=== PATIENT | male | born 1960 | race African-American/Black ===

== ENCOUNTER 2016-11-12 08:46 | Observation (INO) | payer OTHER ==
[2016-11-12] MEDS ORDERED: DUONEB 0.5 MG/3 MG ONE ×2 (08:54→13:42)
[2016-11-12] MEDS ORDERED: DUONEB 0.5 MG/3 MG NEB ONE (08:55)
[2016-11-12] MEDS ORDERED: SOLU-Medrol 125 MG VIAL IVP ONE (09:02)
--- NOTE | 2016-11-12 09:04 | DR.GENAD ---
HPI - PCP Primary Care Physician: rosalino garnett - HPI Comment HPI Comment: PATIENT IS COUGHING, PRODUCTIVE YELLOW SPUTUM AND HE IS HAVING CHEST TIGHTNESS. HAVE COPD ON NEB TREATMENT. HE TOOK MED AT HOME WHICH DID NOT HELD. HE DENIES FEVER. - Complaint/Symptoms Chief Complaint Doctors Comments: INCREASING SOB, DIZZINESS AND WHEEZING THIS AM WHEN PATIENT WOKE UP. Chief Complaint:: patient stated he woke up this morning and he felt bad, dizzy and wheezing. - Nurses notes reviewed Nurses Notes Review: Yes - Source History Provided: Patient - Mode of Arrival Mode of Arrival: Ambulatory - Timing Onset of Chief Complaint: 11/12/16 Came on: Suddenly - Duration Duration: Constant Duration: Days - Severity Severity: Moderate PMH - PMH Past Medical History: Yes Past Medical History: Anxiety, Asthma, CVA, Dyslipidemia, GERD, Hypertension Past Surgical History: Yes Surgical History: Abdominal Surgery, Appendectomy - Family History History of Family Medical Conditions: No Family Medical History: Diabetes Mellitus, Hypertension - Social History Does patient currently use any type of tobacco product: Yes Have you used tobacco products in the last 12 months: Yes Type of Tobacco Use: Cigarettes How many years tobacco product used: 5 Does any household member use tobacco: No Alcohol Use: None Do you use any recreational Drugs:: No Lives With: Alone Lives Where: Home - infectious screening In the last 2 months have you had wt loss of >10#?: NO Have you had fever, night sweats or hemotysis?: No Have you traveled outside the country in the last 6 months?: No Isolation: Standard ROS - Review of Systems Constitutional: Weakness, Fatigue. negative: Chills, Diaphoresis, Fever, Loss of Appetite Eyes: No Symptoms Reported. negative: Eye Pain, Discharge ENTM: No Symptoms Reported. negative: Ear Pain, Nose Discharge, Nose Congestion , Throat Pain Respiratoy: Productive Cough, Short of Breath, Wheezing. negative: Hemoptysis Cardiovascular: Chest Pain (TIGHTNESS) Gastrointestinal/Abdominal: No Symptoms Reported. negative: Abdominal Pain, Diarrhea, Nausea, Vomiting Genitourinary: negative: Dysuria, Frequency, Hematuria Neurological: Weakness. negative: Headache, Dizziness Musculoskeletal: Muscle Pain Integumentary: No Symptoms Reported Hematologic/Lymphatic: No Symptoms Reported Endocrine: No Symptoms Reported All Other Systems: Reviewed and Negative PE - Vital Signs Vitals: Temperature 98.7 F Pulse Rate 81 Respiratory Rate 18 Blood Pressure [Left Arm] 151/100 Blood Pressure [Right Arm] 147/105 Blood Pressure 171/87 O2 Sat by Pulse Oximetry 99 - General Limitations: No Limitations General Appearance: Alert - Head Head Exam: Normal Inspection - Eyes Eye exam: Normal Appearance - ENT ENT Exam: Normal External Ear Exam External Ear Exam: Normal External Inspection TM/Canal Exam: Bilateral Normal Nose Exam: Normal Nose Exam Mouth Exam: Normal Inspection Throat Exam: Tonsillar Erythema - Neck Neck Exam: Trachea Midline - Chest Chest Inspection: Symmetric Chest Wall Rise - Respiratory Respiratory Exam: Normal Lung Sounds Bilat Respiratory Exam: Bilateral Wheezing, Bilateral Rhonchi, Upper Wheezing, Upper Rhonchi, Lower Wheezing, Lower Rhonchi - Cardiovascular Cardiovascular Exam: Regular Rate, Normal Rhythm, Normal Heart Sounds - Abdominal Exam Abdominal Exam: Normal Bowel Sounds, Soft. negative: Tenderness - Extremities Extremities Exam: Normal Inspection - Back Back Exam: Normal Inspection - Neurologic Neurological Exam: Alert, Oriented X3, CN II-XII Intact, Normal Gait, Reflexes Normal. negative: Motor Sensory Deficit - Psychiatric Psychiatric Exam: Anxious MDM - Differential Diagnosis Differential Diagnosis: COPD EXACERBATION, BRONCHITIS, CHF, PNEUMONIA, PULMONARY EMBOLISM Course - Treatment Treatment: SEE ORDERS. NEB, CONTINOUS, IV ROCEPHIN AND IV SOLUMEDROL, PATIENT STILL IN RESPIRATORY DISTRESS. - Consultation Consultation Comments: DISCUSS PATIENT WITH DR. RAE. HE WILL ADMIT PATIENT. - Education/Counseling Education/Counseling: Patient, Education Educated On: Treatment, Diagnosis ROR - Labs Reviewed Laboratory Results Reviewed?: Yes Result Diagrams: 11/14/16 04:10 11/14/16 04:10 Laboratory: WBC 3.7 X10^3/uL (3.6-10.0) 11/12/16 09:15 RBC 5.55 X10^6/uL (4.7-6.0) 11/12/16 09:15 Hgb 15.4 g/dL (13.5-18.0) 11/12/16 09:15 Hct 46.7 % (42.0-54.0) 11/12/16 09:15 MCV 84.1 fL (80.0-100.0) 11/12/16 09:15 MCH 27.8 pg (27.0-34.0) 11/12/16 09:15 MCHC 33.1 g/dL (33.0-35.0) 11/12/16 09:15 RDW 14.0 % (11.6-16.5) 11/12/16 09:15 Plt Count 256 X10^3/uL (150.0-450.0) 11/12/16 09:15 MPV 9.0 fL (7.4-11.0) 11/12/16 09:15 Neut % 50.1 % (42.0-75.0) 11/12/16 09:15 Lymph % 32.6 % (21.0-51.0) 11/12/16 09:15 [place] % 8.0 % (0.0-13.0) 11/12/16 09:15 Eos % 6.9 % (0.9-2.9) H 11/12/16 09:15 Baso % 2.4 % (0.2-1.0) H 11/12/16 09:15 Neut # 1.8 x10^3/uL (2.2-4.8) L 11/12/16 09:15 Lymph # 1.2 X10^3/uL (1.3-2.9) L 11/12/16 09:15 [place] # 0.3 x10^3/uL (0.3-0.8) 11/12/16 09:15 Eos # 0.3 x10^3/uL (0.0-0.2) H 11/12/16 09:15 Baso # 0.1 X10^3/uL (0.0-0.1) 11/12/16 09:15 Absolute Nucleated RBC 0.1 /100WBC 11/12/16 09:15 D-Dimer 369 ng/mL (0-400) 11/12/16 09:15 Sample Site rrad 11/12/16 11:20 ABG pH 7.390 (7.35-7.45) 11/12/16 11:20 ABG pCO2 48.0 mmHg (35.0-45.0) H 11/12/16 11:20 ABG pO2 72.0 mmHg (80.0-100.0) L 11/12/16 11:20 ABG HCO3 29.1 mmol/L (22-26) H 11/12/16 11:20 ABG O2 Saturation 94.0 % (90-100) 11/12/16 11:20 ABG Base Excess 3.3 mmol/L (-2.0-2.0) H 11/12/16 11:20 Tanner Test pos- tamia well sd 11/12/16 11:20 A-a Gradient 18.0 mmHg 11/12/16 11:20 FiO2 21 11/12/16 11:20 Blood Gas Comments Tamia well 11/12/16 11:20 Sodium 142 mmol/L (136-145) 11/12/16 09:15 Corrected Sodium TNP 11/12/16 09:15 Potassium 4.2 mmol/L (3.5-5.1) 11/12/16 09:15 Chloride 106 mmol/L (98-107) 11/12/16 09:15 Carbon Dioxide 28.6 mmol/L (21-32) 11/12/16 09:15 BUN 11 mg/dL (7-18) 11/12/16 09:15 Creatinine 1.13 mg/dL (0.70-1.30) 11/12/16 09:15 Est GFR (MDRD) Af Amer > 60 (>60) 11/12/16 09:15 Est GFR (MDRD) Non-Af > 60 (>60) 11/12/16 09:15 Glucose 91 mg/dL (65-99) 11/12/16 09:15 Calcium 9.4 mg/dL (8.5-10.1) 11/12/16 09:15 Corrected Calcium TNP 11/12/16 09:15 Total Bilirubin 0.30 mg/dL (0.2-1.0) 11/12/16 09:15 AST 16 Units/L (15-37) 11/12/16 09:15 ALT 19 Units/L (12-78) 11/12/16 09:15 Alkaline Phosphatase 92 Units/L (46-116) 11/12/16 09:15 Creatine Kinase 418 Units/L (39-308) H 11/12/16 12:23 CK-MB (CK-2) 2.5 ng/mL (0-4.0) 11/12/16 12:23 CK/CKMB % Calc 0.6 % (<4) 11/12/16 12:23 Troponin I < 0.02 ng/mL (0-1.5) 11/12/16 12:23 B-Natriuretic Peptide 71.1 pg/mL (0-79) 11/12/16 09:15 Total Protein 7.8 g/dL (6.4-8.2) 11/12/16 09:15 Albumin 3.7 g/dL (3.4-5.0) 11/12/16 09:15 Globulin 4.1 g/dL (2.5-4.5) 11/12/16 09:15 Albumin/Globulin Ratio 0.9 Ratio (1.1-2.1) L 11/12/16 09:15 - XRAY XRAY Interpreted by: Radiologist XRAY Findings: REPORT DISCUSS WITH PATIENT. - EKG Rhythm: NSR (EKG NOTED) - Diagnosis Discharge Problem: COPD exacerbation, Respiratory distress Acute bronchitis Qualifiers: Bronchitis organism: other organism Qualified Code(s): J20.8 - Acute bronchitis due to other specified organisms - Discharge Plan Disposition: ADMITTED INPATIENT Condition: Stable - Follow ups/Referrals - Instructions Additional Notes - Additional Notes Additional Notes: PATIENT RETURN TO ED AND EVALUATING HIM 22:55 PM. HE WAS SEEN IN ED THIS MORNING AT 08:47 AM AND ADMITTED TO HOSPITAL FOR COPB EXACERBATION. HE LEFT AMA AND NEVER WENT TO THE FLOOR. HIS SON SAID HIS SPEECH IS SLURRED AND HAS LEFT FACIAL DROOLING. HE HAS RESIDUAL LEFT SIDED WEAKNESS FROM PREVIOUS CVA. CHANGESE NOTED TONIGHT IS NEW. PATIENT DENIES FEVER. STILL SOB. DENIES HEADACHE. SON SAID HE IS UNSTEADY WHEN TRY TO WALK. PHYSICAL EXAMINATION , LEFT FACIAL WEAKNESS AND INCRESE LEFT SIDED WEAKNESS. SPEECH IS SLURRED. REST PPYSICAL EXAM UNCHANGE FROM THIS AM. CT HEAD DID NOT INDICATE ACUTE FINDINDS. HIS CASE DISCUSS WITH DR. RAE FOR THE SECOND TIME TODAY. HE WILL ADMIT PATIENT. HE THEN ADMITED TO HOSPITAL WITH TIA ADDITIONAL DIAGNOSIS.
[2016-11-12] MEDS ORDERED: ASPIRIN 81 MG CHEWTAB ONE (09:16)
[2016-11-12] MEDS ORDERED: SOLU-Medrol 125 MG VIAL ONE (09:16)
--- NOTE | 2016-11-12 09:34 | RAD ---
HISTORY: Chest pain Study: Chest one view Comparison: March 14, 2016 Findings: The trachea is midline. The cardiac silhouette is unremarkable. The lungs are clear without focal infiltrate or effusion. The bony thorax is unremarkable. IMPRESSION: 1. No acute cardiopulmonary disease. Reported By:
[2016-11-12 09:36] LABS: BASOPHILS # (AUTO) 0.1 X10^3/uL (0.0-0.1); BASOPHILS % (AUTO) 2.4 % (0.2-1.0); EOSINOPHILS # (AUTO) 0.3 x10^3/uL (0.0-0.2); EOSINOPHILS % (AUTO) 6.9 % (0.9-2.9); HEMATOCRIT 46.7 % (42.0-54.0); HEMOGLOBIN 15.4 g/dL (13.5-18.0); LYMPHOCYTES # (AUTO) 1.2 X10^3/uL (1.3-2.9); LYMPHOCYTES % (AUTO) 32.6 % (21.0-51.0); MEAN CORPUSCULAR HEMOGLOBIN 27.8 pg (27.0-34.0); MEAN CORPUSCULAR HGB CONC 33.1 g/dL (33.0-35.0); MEAN CORPUSCULAR VOLUME 84.1 fL (80.0-100.0); MONOCYTES # (AUTO) 0.3 x10^3/uL (0.3-0.8); NEUTROPHILS # (AUTO) 1.8 x10^3/uL (2.2-4.8); NEUTROPHILS % (AUTO) 50.1 % (42.0-75.0); PLATELET COUNT 256 X10^3/uL (150.0-450.0); RED BLOOD COUNT 5.55 X10^6/uL (4.7-6.0); WHITE BLOOD COUNT 3.7 X10^3/uL (3.6-10.0)
[2016-11-12 09:51] LABS: BLOOD UREA NITROGEN 11 mg/dL (7-18); CALCIUM 9.4 mg/dL (8.5-10.1); CARBON DIOXIDE 28.6 mmol/L (21-32); CHLORIDE 106 mmol/L (98-107); CREATININE 1.13 mg/dL (0.70-1.30); GLUCOSE 91 mg/dL (65-99); SODIUM 142 mmol/L (136-145); TROPONIN I < 0.02 ng/mL (0-1.5); eGFR BLACK RACES > 60 (>60); eGFR NON BLACK RACES > 60 (>60)
[2016-11-12 09:55] LABS: ALANINE AMINOTRANSFERASE 19 Units/L (12-78); ALBUMIN 3.7 g/dL (3.4-5.0); ALKALINE PHOSPHATASE 92 Units/L (46-116); ASPARTATE AMINO TRANSFERASE 16 Units/L (15-37); CKMB % 0.7 % (<4); CREATINE KINASE 421 Units/L (39-308); CREATINE KINASE MB 2.8 ng/mL (0-4.0); TOTAL PROTEIN 7.8 g/dL (6.4-8.2)
[2016-11-12 10:00] LABS: D DIMER 369 ng/mL (0-400)
[2016-11-12] MEDS ORDERED: ASPIRIN 81 MG CHEWTAB PO SCH (10:00)
[2016-11-12 10:03] LABS: B-TYPE NATRIURETIC PEPTIDE 71.1 pg/mL (0-79)
[2016-11-12] MEDS ORDERED: ROCEPHIN VIAL 1 GM 1 GM in NS 50 ML IV + SPIKE MINIBAG* 50 ML IV ONE (10:52)
[2016-11-12 11:41] LABS: ABG ALLEN TEST pos- tol well sd; ABG BASE EXCESS 3.3 mmol/L (-2.0-2.0); ABG HCO3 29.1 mmol/L (22-26); FRACTIONATED INSPIRED OXYGEN 21
[2016-11-12] MEDS ORDERED: ROCEPHIN VIAL 1 GM ONE (11:54)
[2016-11-12] MEDS ORDERED: NS 50 ML IV 50 ML IV ONE (11:54)
[2016-11-12 12:52] LABS: CKMB % 0.6 % (<4); CREATINE KINASE 418 Units/L (39-308); CREATINE KINASE MB 2.5 ng/mL (0-4.0); TROPONIN I < 0.02 ng/mL (0-1.5)
[2016-11-12] MEDS ORDERED: NS 1000 ML 1,000 ML IV SCH (14:00)
[2016-11-12] MEDS ORDERED: DUONEB 0.5 MG/3 MG NEB SCH ×2 (17:00)
[2016-11-13] MEDS ORDERED: ECOTRIN TAB 325 MG PO ONE (00:23)
[2016-11-13] MEDS ORDERED: ASPIRIN ONE (00:29)
[2016-11-13] MEDS: PLAVIX PO SCH ×2 (00:32→09:46)
[2016-11-13] MEDS ORDERED: ATIVAN TAB 0.5 MG PO PRN (00:52)
[2016-11-13] MEDS ORDERED: DUONEB 0.5 MG/3 MG ONE (01:00)
[2016-11-13] MEDS: DUONEB 0.5 MG/3 MG NEB SCH ×8 (01:05→21:17)
[2016-11-13 03:22] VITALS: BMI 20.5
[2016-11-13 03:39] LABS: BILIRUBIN,URINE NEGATIVE (NEGATIVE); BLOOD/HEMOGLOBIN,URINE 2+ (NEGATIVE); GLUCOSE, URINE NEGATIVE (NEGATIVE); KETONES,URINE NEGATIVE (NEGATIVE); LEUKOCYTE ESTERASE ,URINE 3+ (NEGATIVE); NITRITES,URINE NEGATIVE (NEGATIVE); PROTEIN,URINE 2+ (NEGATIVE); UROBILINOGEN,URINE NORMAL (NORMAL)
[2016-11-13 03:53] LABS: APPEARANCE,URINE CLOUDY (CLEAR); BACTERIA,URINE 3+ /HPF (NEGATIVE); COLOR,URINE YELLOW (YELLOW); SQUAMOUS EPITHELIAL CELL,UR FEW /HPF (NEGATIVE); TRIPLE PHOSPHATE CRYSTAL,UR FEW /HPF (NEGATIVE)
[2016-11-13] MEDS ORDERED: SOLU-Medrol 40 MG VIAL IVP SCH ×2 (09:00)
[2016-11-13] MEDS ORDERED: ROCEPHIN VIAL 1 GM 1 GM in NS 50 ML IV + SPIKE MINIBAG* 50 ML IV SCH ×4 (09:00)
[2016-11-13] MEDS: ROCEPHIN VIAL 1 GM 1 GM in NS 50 ML IV + SPIKE MINIBAG* 50 ML IV SCH (09:44)
[2016-11-13] MEDS: ECOTRIN TAB 325 MG PO SCH (09:44)
[2016-11-13] MEDS ORDERED: NS 250 ML IV 250 ML IV ONE (09:47)
[2016-11-13] MEDS: SOLU-Medrol 40 MG VIAL IVP SCH ×2 (09:49→17:30)
[2016-11-13] MEDS ORDERED: KLONOPIN TAB 0.5 MG PO PRN ×2 (11:29)
[2016-11-13] MEDS ORDERED: PATIENT'S HOME MEDICATION (Rivaroxaban [Xarelto] 20 MG) PO SCH (11:30)
[2016-11-13] MEDS: ZESTRIL TAB 40 MG PO SCH (14:04)
[2016-11-13] MEDS: KEPPRA TAB 500 MG PO SCH ×2 (14:05→20:18)
[2016-11-13] MEDS: LOPRESSOR TAB 50 MG PO SCH ×2 (14:05→20:20)
[2016-11-13] MEDS: XARELTO PO SCH (14:05)
[2016-11-13] MEDS: NS 250 ML IV 250 ML IV SCH (14:06)
[2016-11-13] MEDS: NICODERM PATCH 21 MG/24 HR TD SCH (19:39)
[2016-11-13] MEDS: ZANTAC PO SCH (20:19)
[2016-11-13] MEDS: LIPITOR TAB 20 MG PO SCH (20:20)
[2016-11-14] MEDS: SOLU-Medrol 40 MG VIAL IVP SCH ×3 (00:27→17:32)
[2016-11-14] MEDS: NS 250 ML IV 250 ML IV SCH ×2 (00:43→21:26)
[2016-11-14] MEDS: DUONEB 0.5 MG/3 MG NEB SCH ×6 (00:49→20:21)
[2016-11-14 04:57] LABS: BASOPHILS % (AUTO) 0.1 % (0.2-1.0); HEMATOCRIT 42.4 % (42.0-54.0); HEMOGLOBIN 14.1 g/dL (13.5-18.0); LYMPHOCYTES # (AUTO) 0.7 X10^3/uL (1.3-2.9); LYMPHOCYTES % (AUTO) 7.7 % (21.0-51.0); MEAN CORPUSCULAR HEMOGLOBIN 27.7 pg (27.0-34.0); MEAN CORPUSCULAR HGB CONC 33.2 g/dL (33.0-35.0); MEAN CORPUSCULAR VOLUME 83.6 fL (80.0-100.0); MEAN PLATELET VOLUME 9.4 fL (7.4-11.0); MONOCYTES # (AUTO) 0.1 x10^3/uL (0.3-0.8); NEUTROPHILS # (AUTO) 7.9 x10^3/uL (2.2-4.8); NEUTROPHILS % (AUTO) 91.2 % (42.0-75.0); PLATELET COUNT 253 X10^3/uL (150.0-450.0); RED BLOOD COUNT 5.07 X10^6/uL (4.7-6.0); RED CELL DISTRIBUTION WIDTH 13.6 % (11.6-16.5); WHITE BLOOD COUNT 8.6 X10^3/uL (3.6-10.0)
[2016-11-14 05:04] LABS: ALANINE AMINOTRANSFERASE 19 Units/L (12-78); ALBUMIN 3.3 g/dL (3.4-5.0); ALKALINE PHOSPHATASE 75 Units/L (46-116); ASPARTATE AMINO TRANSFERASE 16 Units/L (15-37); BLOOD UREA NITROGEN 21 mg/dL (7-18); CALCIUM 9.2 mg/dL (8.5-10.1); CARBON DIOXIDE 28.3 mmol/L (21-32); CHLORIDE 107 mmol/L (98-107); COR CA(FOR HYPOALB) 9.8 mg/dL (8.5-10.1); COR NA(FOR HYPERGLY) 145 mmol/L (136-145); CREATININE 1.16 mg/dL (0.70-1.30); GLUCOSE 143 mg/dL (65-99); SODIUM 144 mmol/L (136-145); TOTAL PROTEIN 6.7 g/dL (6.4-8.2); eGFR BLACK RACES > 60 (>60); eGFR NON BLACK RACES > 60 (>60)
[2016-11-14 05:24] LABS: BAND NEUTROPHILS % 1 % (0-10); PLATELET MORPHOLOGY COMMENT NORMAL (NORMAL)
[2016-11-14] MEDS: ROCEPHIN VIAL 1 GM 1 GM in NS 50 ML IV + SPIKE MINIBAG* 50 ML IV SCH (09:04)
[2016-11-14] MEDS: KEPPRA TAB 500 MG PO SCH ×2 (09:05→21:23)
[2016-11-14] MEDS: LOPRESSOR TAB 50 MG PO SCH ×2 (09:06→21:23)
[2016-11-14] MEDS: XARELTO PO SCH (09:06)
[2016-11-14] MEDS: ZESTRIL TAB 40 MG PO SCH (09:06)
[2016-11-14] MEDS: ECOTRIN TAB 325 MG PO SCH (09:06)
[2016-11-14] MEDS: PLAVIX PO SCH (09:12)
[2016-11-14] MEDS: NICODERM PATCH 21 MG/24 HR TD SCH (13:10)
[2016-11-14] MEDS: ZANTAC PO SCH (21:23)
[2016-11-14] MEDS: LIPITOR TAB 20 MG PO SCH (21:23)
[2016-11-15] MEDS: SOLU-Medrol 40 MG VIAL IVP SCH ×3 (01:39→17:47)
[2016-11-15] MEDS: DUONEB 0.5 MG/3 MG NEB SCH ×6 (01:40→20:14)
[2016-11-15] MEDS: NS 250 ML IV 250 ML IV SCH ×2 (04:36→09:22)
[2016-11-15 06:32] LABS: BASOPHILS % (AUTO) 0.1 % (0.2-1.0); HEMOGLOBIN 13.8 g/dL (13.5-18.0); LYMPHOCYTES # (AUTO) 0.5 X10^3/uL (1.3-2.9); MEAN CORPUSCULAR HEMOGLOBIN 27.3 pg (27.0-34.0); MEAN CORPUSCULAR HGB CONC 32.8 g/dL (33.0-35.0); MEAN CORPUSCULAR VOLUME 83.2 fL (80.0-100.0); MEAN PLATELET VOLUME 9.4 fL (7.4-11.0); MONOCYTES # (AUTO) 0.2 x10^3/uL (0.3-0.8); NEUTROPHILS % (AUTO) 92.9 % (42.0-75.0); PLATELET COUNT 264 X10^3/uL (150.0-450.0); RED BLOOD COUNT 5.04 X10^6/uL (4.7-6.0); RED CELL DISTRIBUTION WIDTH 13.7 % (11.6-16.5); WHITE BLOOD COUNT 10.8 X10^3/uL (3.6-10.0)
[2016-11-15 07:04] LABS: ALANINE AMINOTRANSFERASE 18 Units/L (12-78); ALKALINE PHOSPHATASE 62 Units/L (46-116); ASPARTATE AMINO TRANSFERASE 10 Units/L (15-37); BLOOD UREA NITROGEN 26 mg/dL (7-18); CARBON DIOXIDE 28.8 mmol/L (21-32); CHLORIDE 108 mmol/L (98-107); COR CA(FOR HYPOALB) 9.8 mg/dL (8.5-10.1); COR NA(FOR HYPERGLY) 146 mmol/L (136-145); CREATININE 1.11 mg/dL (0.70-1.30); GLUCOSE 129 mg/dL (65-99); SODIUM 145 mmol/L (136-145); TOTAL PROTEIN 6.3 g/dL (6.4-8.2); eGFR BLACK RACES > 60 (>60); eGFR NON BLACK RACES > 60 (>60)
[2016-11-15 07:33] LABS: PLATELET MORPHOLOGY COMMENT NORMAL (NORMAL)
[2016-11-15] MEDS: PLAVIX PO SCH (09:12)
[2016-11-15] MEDS: ZESTRIL TAB 40 MG PO SCH (09:12)
[2016-11-15] MEDS: LOPRESSOR TAB 50 MG PO SCH ×2 (09:12→21:20)
[2016-11-15] MEDS: ROCEPHIN VIAL 1 GM 1 GM in NS 50 ML IV + SPIKE MINIBAG* 50 ML IV SCH (09:12)
[2016-11-15] MEDS: ECOTRIN TAB 325 MG PO SCH (09:12)
[2016-11-15] MEDS: KEPPRA TAB 500 MG PO SCH ×2 (09:12→21:20)
[2016-11-15] MEDS: XARELTO PO SCH (09:12)
[2016-11-15] MEDS: NICODERM PATCH 21 MG/24 HR TD SCH (10:20)
[2016-11-15] MEDS: ZANTAC PO SCH (21:20)
[2016-11-15] MEDS: LIPITOR TAB 20 MG PO SCH (21:20)
[2016-11-15] MEDS ORDERED: ULTRAM PO PRN (22:33)
[2016-11-16] MEDS: SOLU-Medrol 40 MG VIAL IVP SCH ×2 (00:07→08:58)
[2016-11-16] MEDS: DUONEB 0.5 MG/3 MG NEB SCH ×4 (01:12→12:01)
[2016-11-16] MEDS: NS 250 ML IV 250 ML IV SCH ×2 (05:29→07:06)
[2016-11-16 06:22] LABS: BASOPHILS % (AUTO) 0.1 % (0.2-1.0); HEMATOCRIT 40.2 % (42.0-54.0); HEMOGLOBIN 13.3 g/dL (13.5-18.0); LYMPHOCYTES # (AUTO) 0.6 X10^3/uL (1.3-2.9); LYMPHOCYTES % (AUTO) 4.9 % (21.0-51.0); MEAN CORPUSCULAR HEMOGLOBIN 27.6 pg (27.0-34.0); MEAN CORPUSCULAR HGB CONC 33.1 g/dL (33.0-35.0); MEAN CORPUSCULAR VOLUME 83.5 fL (80.0-100.0); MEAN PLATELET VOLUME 9.4 fL (7.4-11.0); MONOCYTES # (AUTO) 0.3 x10^3/uL (0.3-0.8); MONOCYTES % (AUTO) 2.4 % (0.0-13.0); NEUTROPHILS # (AUTO) 10.7 x10^3/uL (2.2-4.8); NEUTROPHILS % (AUTO) 92.6 % (42.0-75.0); PLATELET COUNT 233 X10^3/uL (150.0-450.0); RED BLOOD COUNT 4.82 X10^6/uL (4.7-6.0); RED CELL DISTRIBUTION WIDTH 13.9 % (11.6-16.5); WHITE BLOOD COUNT 11.5 X10^3/uL (3.6-10.0)
[2016-11-16 06:31] LABS: ALANINE AMINOTRANSFERASE 22 Units/L (12-78); ALBUMIN 2.9 g/dL (3.4-5.0); ALKALINE PHOSPHATASE 61 Units/L (46-116); ASPARTATE AMINO TRANSFERASE 17 Units/L (15-37); BLOOD UREA NITROGEN 26 mg/dL (7-18); CARBON DIOXIDE 28.9 mmol/L (21-32); CHLORIDE 109 mmol/L (98-107); COR CA(FOR HYPOALB) 9.9 mg/dL (8.5-10.1); COR NA(FOR HYPERGLY) 146 mmol/L (136-145); CREATININE 1.03 mg/dL (0.70-1.30); GLUCOSE 147 mg/dL (65-99); SODIUM 145 mmol/L (136-145); TOTAL PROTEIN 6.1 g/dL (6.4-8.2); eGFR BLACK RACES > 60 (>60); eGFR NON BLACK RACES > 60 (>60)
[2016-11-16 06:43] LABS: PLATELET MORPHOLOGY COMMENT NORMAL (NORMAL)
[2016-11-16] MEDS ORDERED: NORCO 5/325 MG TAB PO PRN (07:49)
[2016-11-16] MEDS: LOPRESSOR TAB 50 MG PO SCH (08:57)
[2016-11-16] MEDS: ECOTRIN TAB 325 MG PO SCH (08:57)
[2016-11-16] MEDS: KEPPRA TAB 500 MG PO SCH (08:57)
[2016-11-16] MEDS: PLAVIX PO SCH (08:57)
[2016-11-16] MEDS: ROCEPHIN VIAL 1 GM 1 GM in NS 50 ML IV + SPIKE MINIBAG* 50 ML IV SCH (08:57)
[2016-11-16] MEDS: NICODERM PATCH 21 MG/24 HR TD SCH (08:57)
[2016-11-16] MEDS: XARELTO PO SCH (08:58)
[2016-11-16] MEDS: ZESTRIL TAB 40 MG PO SCH (08:58)
[2016-11-16 11:41] VITALS: BP 122/67
--- NOTE | 2016-11-16 13:40 | PCM.PROG ---
Progress Note - Progress Note for Day of Date: 11/16/16 - Subjective Subjective: patient is a 56-year-old black male status post acute CVA. Patient has residual left-sided facial weakness and impaired speech and left upper and lower extremity weakness. Patient can ambulate to the restroom with the use of a walker. Patient and his family request correction rehabilitation therapy. Patient's placement at [facility], pending we'll continue current medication, blood pressure and lipid control - Past Medical Family Social History Allergies: Allergies No Known Drug Allergy Allergy (Verified 11/13/16 00:47) - Review of Systems ROS: No change since H&P - Vital Signs and I&O's Vital Signs: Temperature 97.8 F Pulse Rate [Right Brachial] 68 Pulse Rate [Left Brachial] 89 Pulse Rate 78 Respiratory Rate 20 Blood Pressure [Left Arm] 122/67 Blood Pressure [Right Arm] 115/56 O2 Sat by Pulse Oximetry 98 Intake and Output: Intake & Output 11/14/16 11/15/16 11/16/16 11/17/16 11:59 11:59 11:59 11:59 Intake Total 1110 1050 1160 Output Total 150 925 Balance [phone] - Physical Exam Oriented: Normal Eyes: Normal Ear: Normal Nose: Normal Throat: Normal Respiratory: Wheezes Cardiovascular: Normal. negative: Edema : Normal Auscultation: Bowel Sounds: Normal Palpation: Normal Tenderness: Normal Skin: Normal Musculoskeletal: Motor Deficit (left upper and lower extremity weakness), Sensory Deficit Psychiatric: Normal Mood Description: Calm Speech Pattern: Clear, Appropriate - Laboratory and Diagnostics Result Diagrams: 11/16/16 04:03 11/16/16 04:03 Labs: 11/13/16 02:35 Urine,Clean Catch Urine Culture - Final Escherichia Coli Escherichia Coli#2 Laboratory WBC 11.5 X10^3/uL (3.6-10.0) H 11/16/16 04:03 RBC 4.82 X10^6/uL (4.7-6.0) 11/16/16 04:03 Hgb 13.3 g/dL (13.5-18.0) L 11/16/16 04:03 Hct 40.2 % (42.0-54.0) L 11/16/16 04:03 MCV 83.5 fL (80.0-100.0) 11/16/16 04:03 MCH 27.6 pg (27.0-34.0) 11/16/16 04:03 MCHC 33.1 g/dL (33.0-35.0) 11/16/16 04:03 RDW 13.9 % (11.6-16.5) 11/16/16 04:03 Plt Count 233 X10^3/uL (150.0-450.0) 11/16/16 04:03 Plt Count Comment Adequate (ADEQUATE) 11/16/16 04:03 MPV 9.4 fL (7.4-11.0) 11/16/16 04:03 Neut % 92.6 % (42.0-75.0) H 11/16/16 04:03 Lymph % 4.9 % (21.0-51.0) L 11/16/16 04:03 [place] % 2.4 % (0.0-13.0) 11/16/16 04:03 Eos % 0.0 % (0.9-2.9) L 11/16/16 04:03 Baso % 0.1 % (0.2-1.0) L 11/16/16 04:03 Neut # 10.7 x10^3/uL (2.2-4.8) H 11/16/16 04:03 Lymph # 0.6 X10^3/uL (1.3-2.9) L 11/16/16 04:03 [place] # 0.3 x10^3/uL (0.3-0.8) 11/16/16 04:03 Eos # 0.0 x10^3/uL (0.0-0.2) 11/16/16 04:03 Baso # 0.0 X10^3/uL (0.0-0.1) 11/16/16 04:03 Absolute Nucleated RBC 0.0 /100WBC 11/16/16 04:03 Total Counted 100 11/16/16 04:03 Neutrophils % (Manual) 91 % (39-76) H 11/16/16 04:03 Band Neutrophils % 1 % (0-10) 11/14/16 04:10 Lymphocytes % (Manual) 8 % (13-43) L 11/16/16 04:03 Monocytes % (Manual) 1 % (4-9) L 11/16/16 04:03 Plt Morphology Comment Normal (NORMAL) 11/16/16 04:03 RBC Morphology Normal (NORMAL) 11/16/16 04:03 D-Dimer 369 ng/mL (0-400) 11/12/16 09:15 Sample Site rrad 11/12/16 11:20 ABG pH 7.390 (7.35-7.45) 11/12/16 11:20 ABG pCO2 48.0 mmHg (35.0-45.0) H 11/12/16 11:20 ABG pO2 72.0 mmHg (80.0-100.0) L 11/12/16 11:20 ABG HCO3 29.1 mmol/L (22-26) H 11/12/16 11:20 ABG O2 Saturation 94.0 % (90-100) 11/12/16 11:20 ABG Base Excess 3.3 mmol/L (-2.0-2.0) H 11/12/16 11:20 Tanner Test pos- tamia well sd 11/12/16 11:20 A-a Gradient 18.0 mmHg 11/12/16 11:20 FiO2 21 11/12/16 11:20 Blood Gas Comments Tamia well 11/12/16 11:20 Sodium 145 mmol/L (136-145) 11/16/16 04:03 Corrected Sodium 146 mmol/L (136-145) H 11/16/16 04:03 Potassium 4.2 mmol/L (3.5-5.1) 11/16/16 04:03 Chloride 109 mmol/L (98-107) H 11/16/16 04:03 Carbon Dioxide 28.9 mmol/L (21-32) 11/16/16 04:03 BUN 26 mg/dL (7-18) H 11/16/16 04:03 Creatinine 1.03 mg/dL (0.70-1.30) 11/16/16 04:03 Est GFR (MDRD) Af Amer > 60 (>60) 11/16/16 04:03 Est GFR (MDRD) Non-Af > 60 (>60) 11/16/16 04:03 Glucose 147 mg/dL (65-99) H 11/16/16 04:03 Calcium 9.0 mg/dL (8.5-10.1) 11/16/16 04:03 Corrected Calcium 9.9 mg/dL (8.5-10.1) 11/16/16 04:03 Total Bilirubin 0.10 mg/dL (0.2-1.0) L 11/16/16 04:03 AST 17 Units/L (15-37) 11/16/16 04:03 ALT 22 Units/L (12-78) 11/16/16 04:03 Alkaline Phosphatase 61 Units/L (46-116) 11/16/16 04:03 Creatine Kinase 418 Units/L (39-308) H 11/12/16 12:23 CK-MB (CK-2) 2.5 ng/mL (0-4.0) 11/12/16 12:23 CK/CKMB % Calc 0.6 % (<4) 11/12/16 12:23 Troponin I < 0.02 ng/mL (0-1.5) 11/12/16 12:23 B-Natriuretic Peptide 71.1 pg/mL (0-79) 11/12/16 09:15 Total Protein 6.1 g/dL (6.4-8.2) L 11/16/16 04:03 Albumin 2.9 g/dL (3.4-5.0) L 11/16/16 04:03 Globulin 3.2 g/dL (2.5-4.5) 11/16/16 04:03 Albumin/Globulin Ratio 0.9 Ratio (1.1-2.1) L 11/16/16 04:03 Specimen Type Clean catch urine 11/13/16 02:35 Urine Color Yellow (YELLOW) 11/13/16 02:35 Urine Appearance Cloudy (CLEAR) 11/13/16 02:35 Urine pH 8.0 (5.0 - 8.0) 11/13/16 02:35 Ur Specific [place] 1.015 (1.000-1.030) 11/13/16 02:35 Urine Protein 2+ (NEGATIVE) 11/13/16 02:35 Urine Glucose (UA) Negative (NEGATIVE) 11/13/16 02:35 Urine Ketones Negative (NEGATIVE) 11/13/16 02:35 Urine Occult Blood 2+ (NEGATIVE) 11/13/16 02:35 Urine Nitrite Negative (NEGATIVE) 11/13/16 02:35 Urine Bilirubin Negative (NEGATIVE) 11/13/16 02:35 Urine Urobilinogen Normal (NORMAL) 11/13/16 02:35 Ur Leukocyte Esterase 3+ (NEGATIVE) 11/13/16 02:35 Urine RBC 10-15 /HPF (NEGATIVE) 11/13/16 02:35 Urine WBC 80-100 /HPF (NEGATIVE) 11/13/16 02:35 Ur Squamous Epith Cells Few /HPF (NEGATIVE) 11/13/16 02:35 Triple Phos Crystals Few /HPF (NEGATIVE) 11/13/16 02:35 Urine Bacteria 3+ /HPF (NEGATIVE) 11/13/16 02:35 Ur Culture Indicated? Yes/culture set up 11/13/16 02:35 - Plan (1) Encephalomalacia with cerebral infarction Status: Acute Plan: CONTINUE PT, BP AND LIPID CONTROL. PLANNING FOR REHAB PLACEMENT AT [facility] (2) COPD (chronic obstructive pulmonary disease) Status: Chronic Qualifiers: COPD type: C Chronic bronchitis type: C Emphysema type: E (3) Diabetes mellitus Status: Chronic Qualifiers: Diabetes mellitus type: D Diabetes mellitus complication status: D Diabetes mellitus complication detail: D Diabetic retinopathy severity: D Proliferative retinopathy type: P Diabetes mellitus macular edema: D Diabetes mellitus assisted insulin use: D Laterality: L Chronic kidney disease stage: C (4) Hypertension Status: Chronic Qualifiers: Hypertension type: essential hypertension Qualified Code(s): I10 - Essential (primary) hypertension (5) CVA (cerebral vascular accident) Status: Suspected Qualifiers: CVA mechanism: C Precerebral and cerebral artery: P Laterality of affected vessel: L
== END 2016-11-16 16:15 ==
LOC: ER 08:46 → MED/SURG 13:14 → UNDOADMOB 13:14 → ER 14:17 → MED/SURG 11-13 00:47
PROVIDERS: ADMIT Internal Medicine; ATTEND Internal Medicine
DX: J44.1 Chronic obstructive pulmonary disease with (acute) exacerbation (principal); G45.8 Other transient cerebral ischemic attacks and related syndromes; J20.8 Acute bronchitis due to other specified organisms; R06.02 Shortness of breath; R42 Dizziness and giddiness; R06.09 Other forms of dyspnea; G93.89 Other specified disorders of brain; E11.65 Type 2 diabetes mellitus with hyperglycemia; I10 Essential (primary) hypertension; B96.29 Other Escherichia coli [E. coli] as the cause of diseases classified elsewhere; R26.89 Other abnormalities of gait and mobility
CPT/HCPCS: 36415; 36600; 70450; 71010; 80053; 81001; 82550; 82553; 82803; 83880; 84484; 85025; 85378; 87086; 87088; 87186; 92523; 93005; 93010; 94640; 94760; 96365; 96374; 96375; 99283; 99284; A4216; A4222; G8996; G8997; G0378; J0696; J2920; J2930; J7620

== ENCOUNTER 2016-11-22 12:11 | Inpatient (IN) | payer OTHER ==
[2016-11-22 12:20] VITALS: BMI 19.8
[2016-11-22] MEDS ORDERED: SOLU-Medrol 125 MG VIAL IVP ONE (12:24)
[2016-11-22] MEDS ORDERED: DUONEB 0.5 MG/3 MG NEB ONE ×2 (12:24→15:48)
[2016-11-22] MEDS ORDERED: SOLU-Medrol 125 MG VIAL ONE (12:24)
[2016-11-22 12:27] LABS: ABG ALLEN TEST POS; ABG BASE EXCESS 4.1 mmol/L (-2.0-2.0); ABG HCO3 33.1 mmol/L (22-26)
--- NOTE | 2016-11-22 12:27 | DR.GENAD ---
HPI - PCP Primary Care Physician: DR. AMARO - Complaint/Symptoms Chief Complaint Doctors Comments: Family member states that he left hospital Tuesday of last week s/p having a stroke. He was hospitalized for one day and returned to the group home. He had had a previous stroke one to two weeks prior. Chief Complaint:: GROUP HOME STAFF STATED THAT HE STARTED GETTING SHORT OF BREATH AROUND 11 AM. THEY CALLED AND SPOKE WITH ALONSO AND SHE ORDERED A OUT PATIENT XRAY AND STATED THAT HE BECAME MORE SHORT OF BREATH AND THAT THEY SENT HIM ON OVER FOR EVALUATION. PATIENT THAT HE JUST FEELS SHORT OF BREATH. - Source History Provided: Patient, Custodial - Mode of Arrival Mode of Arrival: Stretcher - Timing Onset of Chief Complaint: 11/22/16 PMH - PMH Past Medical History: Yes Past Medical History: Anxiety, Asthma, CVA, Dyslipidemia, GERD, Hypertension Past Surgical History: Yes Surgical History: Abdominal Surgery, Appendectomy - Family History History of Family Medical Conditions: Yes Family Medical History: Diabetes Mellitus, Hypertension - Social History Does any household member use tobacco: No Alcohol Use: None Do you use any recreational Drugs:: No Lives With: Family Lives Where: Home - infectious screening In the last 2 months have you had wt loss of >10#?: NO Have you had fever, night sweats or hemotysis?: No Have you traveled outside the country in the last 6 months?: No Isolation: Standard ROS - Review of Systems Eyes: No Symptoms Reported ENTM: No Symptoms Reported Respiratoy: Short of Breath Cardiovascular: No Symptoms Reported Gastrointestinal/Abdominal: No Symptoms Reported Genitourinary: No Symptoms Reported Neurological: No Symptoms Reported Musculoskeletal: No Symptoms Reported Integumentary: No Symptoms Reported Hematologic/Lymphatic: No Symptoms Reported Endocrine: No Symptoms Reported Psychiatric: No Symptoms Reported All Other Systems: Reviewed and Negative PE - Vital Signs Vitals: Temperature 99.5 F Pulse Rate [Right Brachial] 106 Pulse Rate 99 Respiratory Rate 20 Blood Pressure [Left Arm] 122/67 Blood Pressure [Right Arm] 125/88 Blood Pressure 141/99 O2 Sat by Pulse Oximetry 115 - General Limitations: Physical Limitation General Appearance: Alert, In No Apparent Distress, Appears Intoxicated - Head Head Exam: Normal Inspection, Atraumatic - Eyes Eye exam: Normal Appearance, PERRL, EOMI - ENT ENT Exam: Normal Exam External Ear Exam: Normal External Inspection TM/Canal Exam: Bilateral Normal Nose Exam: Normal Nose Exam Mouth Exam: Normal Inspection Throat Exam: Normal Inspection - Neck Neck Exam: Normal Inspection - Chest Chest Inspection: Normal Inspection - Respiratory Respiratory Exam: Prolonged Expiratory Phase Respiratory Exam: Bilateral Wheezing, Bilateral Decreased Breath Sounds - Cardiovascular Cardiovascular Exam: Regular Rate - Extremities Extremities Exam: Normal Inspection - Back Back Exam: Normal Inspection - Neurologic Neurological Exam: Alert, Oriented X3, CN II-XII Intact - Psychiatric Psychiatric Exam: Normal Affect - Skin Skin Exam: Warm, Dry, Intact Course - Treatment Treatment: Neb treatments x 2, Bipap - Reevaluation 1st: Improved - Consultation Called: 16:20 (Patient discussed with Dr Amaro agreed to admit for further treatment of pneumonia, COPD) ROR - Labs Reviewed Result Diagrams: 11/22/16 12:30 11/22/16 12:30 Laboratory: WBC 8.5 X10^3/uL (3.6-10.0) 11/22/16 12:30 RBC 5.26 X10^6/uL (4.7-6.0) 11/22/16 12:30 Hgb 14.6 g/dL (13.5-18.0) 11/22/16 12:30 Hct 43.8 % (42.0-54.0) 11/22/16 12:30 MCV 83.2 fL (80.0-100.0) 11/22/16 12:30 MCH 27.7 pg (27.0-34.0) 11/22/16 12:30 MCHC 33.3 g/dL (33.0-35.0) 11/22/16 12:30 RDW 13.8 % (11.6-16.5) 11/22/16 12:30 Plt Count 253 X10^3/uL (150.0-450.0) 11/22/16 12:30 MPV 8.5 fL (7.4-11.0) 11/22/16 12:30 Neut % 60.4 % (42.0-75.0) 11/22/16 12:30 Lymph % 16.2 % (21.0-51.0) L 11/22/16 12:30 [place] % 14.8 % (0.0-13.0) H 11/22/16 12:30 Eos % 7.8 % (0.9-2.9) H 11/22/16 12:30 Baso % 0.8 % (0.2-1.0) 11/22/16 12:30 Neut # 5.1 x10^3/uL (2.2-4.8) H 11/22/16 12:30 Lymph # 1.4 X10^3/uL (1.3-2.9) 11/22/16 12:30 [place] # 1.3 x10^3/uL (0.3-0.8) H 11/22/16 12:30 Eos # 0.7 x10^3/uL (0.0-0.2) H 11/22/16 12:30 Baso # 0.1 X10^3/uL (0.0-0.1) 11/22/16 12:30 Absolute Nucleated RBC 0.0 /100WBC 11/22/16 12:30 D-Dimer 111 ng/mL (0-400) 11/22/16 12:30 Sample Site Rra 11/22/16 15:25 ABG pH 7.350 (7.35-7.45) 11/22/16 15:25 ABG pCO2 56.0 mmHg (35.0-45.0) H* 11/22/16 15:25 ABG pO2 111.0 mmHg (80.0-100.0) H 11/22/16 15:25 ABG HCO3 30.9 mmol/L (22-26) H* 11/22/16 15:25 ABG O2 Saturation 98.0 % (90-100) 11/22/16 15:25 ABG Base Excess 4.0 mmol/L (-2.0-2.0) H 11/22/16 15:25 Tanner Test Pos 11/22/16 15:25 A-a Gradient 19.0 mmHg 11/22/16 15:25 FiO2 28.000 11/22/16 15:25 Blood Gas Comments [facility] well cs 11/22/16 15:25 Sodium 143 mmol/L (136-145) 11/22/16 12:30 Corrected Sodium TNP 11/22/16 12:30 Potassium 4.6 mmol/L (3.5-5.1) 11/22/16 12:30 Chloride 107 mmol/L (98-107) 11/22/16 12:30 Carbon Dioxide 31.0 mmol/L (21-32) 11/22/16 12:30 BUN 16 mg/dL (7-18) 11/22/16 12:30 Creatinine 1.12 mg/dL (0.70-1.30) 11/22/16 12:30 Est GFR (MDRD) Af Amer > 60 (>60) 11/22/16 12:30 Est GFR (MDRD) Non-Af > 60 (>60) 11/22/16 12:30 Glucose 108 mg/dL (65-99) H 11/22/16 12:30 Calcium 9.1 mg/dL (8.5-10.1) 11/22/16 12:30 Corrected Calcium 9.8 mg/dL (8.5-10.1) 11/22/16 12:30 Phosphorus 3.8 mg/dL (2.6-4.7) 11/22/16 12:30 Magnesium 2.0 mg/dL (1.7-2.9) 11/22/16 12:30 Total Bilirubin 0.30 mg/dL (0.2-1.0) 11/22/16 12:30 AST 12 Units/L (15-37) L 11/22/16 12:30 ALT 28 Units/L (12-78) 11/22/16 12:30 Alkaline Phosphatase 72 Units/L (46-116) 11/22/16 12:30 Creatine Kinase 112 Units/L (39-308) 11/22/16 12:30 CK-MB (CK-2) 1.6 ng/mL (0-4.0) 11/22/16 12:30 CK/CKMB % Calc 1.4 % (<4) 11/22/16 12:30 Troponin I < 0.02 ng/mL (0-1.5) 11/22/16 12:30 Total Protein 6.9 g/dL (6.4-8.2) 11/22/16 12:30 Albumin 3.1 g/dL (3.4-5.0) L 11/22/16 12:30 Globulin 3.8 g/dL (2.5-4.5) 11/22/16 12:30 Albumin/Globulin Ratio 0.8 Ratio (1.1-2.1) L 11/22/16 12:30 - XRAY XRAY Interpreted by: Radiologist (There is confluent opacity present at the medial aspect of the right lung base, probably due tyo pneumonia .) - Diagnosis Discharge Problem: Pneumonia Qualifiers: Pneumonia type: due to unspecified organism Laterality: right Lung location: lower lobe of lung Qualified Code(s): J18.1 - Lobar pneumonia, unspecified organism COPD (chronic obstructive pulmonary disease) Qualifiers: COPD type: COPD with acute exacerbation Qualified Code(s): J44.1 - Chronic obstructive pulmonary disease with (acute) exacerbation - Discharge Plan Condition: Stable - Follow ups/Referrals Follow ups/Referrals: BERNA AMARO [Primary Care Provider] - 3 days - Instructions
[2016-11-22] MEDS ORDERED: DUONEB 0.5 MG/3 MG ONE ×2 (12:30→15:43)
[2016-11-22 12:36] LABS: BASOPHILS # (AUTO) 0.1 X10^3/uL (0.0-0.1); BASOPHILS % (AUTO) 0.8 % (0.2-1.0); EOSINOPHILS # (AUTO) 0.7 x10^3/uL (0.0-0.2); EOSINOPHILS % (AUTO) 7.8 % (0.9-2.9); HEMATOCRIT 43.8 % (42.0-54.0); HEMOGLOBIN 14.6 g/dL (13.5-18.0); LYMPHOCYTES # (AUTO) 1.4 X10^3/uL (1.3-2.9); LYMPHOCYTES % (AUTO) 16.2 % (21.0-51.0); MEAN CORPUSCULAR HEMOGLOBIN 27.7 pg (27.0-34.0); MEAN CORPUSCULAR HGB CONC 33.3 g/dL (33.0-35.0); MEAN CORPUSCULAR VOLUME 83.2 fL (80.0-100.0); MEAN PLATELET VOLUME 8.5 fL (7.4-11.0); MONOCYTES # (AUTO) 1.3 x10^3/uL (0.3-0.8); MONOCYTES % (AUTO) 14.8 % (0.0-13.0); NEUTROPHILS # (AUTO) 5.1 x10^3/uL (2.2-4.8); NEUTROPHILS % (AUTO) 60.4 % (42.0-75.0); PLATELET COUNT 253 X10^3/uL (150.0-450.0); RED BLOOD COUNT 5.26 X10^6/uL (4.7-6.0); RED CELL DISTRIBUTION WIDTH 13.8 % (11.6-16.5); WHITE BLOOD COUNT 8.5 X10^3/uL (3.6-10.0)
[2016-11-22 12:46] LABS: PHOSPHORUS 3.8 mg/dL (2.6-4.7)
[2016-11-22 12:54] LABS: BLOOD UREA NITROGEN 16 mg/dL (7-18); CALCIUM 9.1 mg/dL (8.5-10.1); CHLORIDE 107 mmol/L (98-107); CREATININE 1.12 mg/dL (0.70-1.30); GLUCOSE 108 mg/dL (65-99); SODIUM 143 mmol/L (136-145); TROPONIN I < 0.02 ng/mL (0-1.5); eGFR BLACK RACES > 60 (>60); eGFR NON BLACK RACES > 60 (>60)
[2016-11-22 12:57] LABS: D DIMER 111 ng/mL (0-400)
[2016-11-22 12:58] LABS: ALANINE AMINOTRANSFERASE 28 Units/L (12-78); ALBUMIN 3.1 g/dL (3.4-5.0); ALKALINE PHOSPHATASE 72 Units/L (46-116); ASPARTATE AMINO TRANSFERASE 12 Units/L (15-37); CKMB % 1.4 % (<4); COR CA(FOR HYPOALB) 9.8 mg/dL (8.5-10.1); CREATINE KINASE 112 Units/L (39-308); CREATINE KINASE MB 1.6 ng/mL (0-4.0); TOTAL PROTEIN 6.9 g/dL (6.4-8.2)
--- NOTE | 2016-11-22 13:47 | RAD ---
Examination: Chest x-ray. Clinical history: Shortness of breath. Technique: A single portable AP view of the chest was obtained. Comparison: 11/12/2016. Findings: The right costophrenic angle was omitted from the image. The chest is rotated. The cardiac and mediastinal contours are within normal limits. No pneumothorax or pleural effusion is noted. There is a confluent opacity present at the medial aspect of the right lung base, probably due to pn eumonia. Clinical correlation with continued followup until resolution is recommended. No acute osseous abnormality is noted. Monitor leads are seen overlying the chest. Impression: 1. There is a confluent opacity present at the medial aspect of the right lung base, probably due to pneumonia. Clinical correlation with continued followup until resolution is recommended. Reported By:
[2016-11-22 15:34] LABS: ABG HCO3 30.9 mmol/L (22-26)
[2016-11-22 15:35] LABS: ABG ALLEN TEST POS
[2016-11-22] MEDS ORDERED: SALINE 3% 15 ML NEB TX ONE (16:22)
[2016-11-22] MEDS ORDERED: TUSSIONEX PENNKINETIC SUSP PO PRN (16:39)
[2016-11-22] MEDS ORDERED: NS 1/2 1000 ML IV 1,000 ML IV ONE (16:45)
[2016-11-22] MEDS ORDERED: ROCEPHIN 1 GM IV PREMIX * OUT OF STOCK 50 ML IV ONE (16:45)
[2016-11-22] MEDS: NS 1/2 1000 ML IV 1,000 ML IV SCH (16:51)
[2016-11-22] MEDS ORDERED: ROCEPHIN VIAL 1 GM 1 GM in NS 50 ML IV + SPIKE MINIBAG* 50 ML IV SCH (17:00)
[2016-11-22 17:09] LABS: BASOPHILS % (AUTO) 0.2 % (0.2-1.0); EOSINOPHILS % (AUTO) 0.2 % (0.9-2.9); HEMATOCRIT 47.3 % (42.0-54.0); HEMOGLOBIN 15.5 g/dL (13.5-18.0); LYMPHOCYTES # (AUTO) 0.4 X10^3/uL (1.3-2.9); LYMPHOCYTES % (AUTO) 2.6 % (21.0-51.0); MEAN CORPUSCULAR HEMOGLOBIN 27.4 pg (27.0-34.0); MEAN CORPUSCULAR HGB CONC 32.8 g/dL (33.0-35.0); MEAN CORPUSCULAR VOLUME 83.6 fL (80.0-100.0); MEAN PLATELET VOLUME 8.7 fL (7.4-11.0); MONOCYTES # (AUTO) 0.1 x10^3/uL (0.3-0.8); MONOCYTES % (AUTO) 0.8 % (0.0-13.0); NEUTROPHILS # (AUTO) 13.1 x10^3/uL (2.2-4.8); NEUTROPHILS % (AUTO) 96.2 % (42.0-75.0); PLATELET COUNT 263 X10^3/uL (150.0-450.0); RED BLOOD COUNT 5.66 X10^6/uL (4.7-6.0); RED CELL DISTRIBUTION WIDTH 13.9 % (11.6-16.5); WHITE BLOOD COUNT 13.6 X10^3/uL (3.6-10.0)
[2016-11-22 17:23] LABS: ALANINE AMINOTRANSFERASE 30 Units/L (12-78); ALBUMIN 3.3 g/dL (3.4-5.0); ALKALINE PHOSPHATASE 80 Units/L (46-116); ASPARTATE AMINO TRANSFERASE 14 Units/L (15-37); BLOOD UREA NITROGEN 19 mg/dL (7-18); CALCIUM 9.5 mg/dL (8.5-10.1); CARBON DIOXIDE 31.9 mmol/L (21-32); COR CA(FOR HYPOALB) 10.1 mg/dL (8.5-10.1); CREATININE 1.28 mg/dL (0.70-1.30); GLUCOSE 129 mg/dL (65-99); TOTAL PROTEIN 7.7 g/dL (6.4-8.2); eGFR BLACK RACES > 60 (>60); eGFR NON BLACK RACES > 60 (>60)
[2016-11-22 17:30] LABS: BAND NEUTROPHILS % 5 % (0-10); PLATELET MORPHOLOGY COMMENT NORMAL (NORMAL)
[2016-11-22] MEDS: DUONEB 0.5 MG/3 MG NEB SCH ×3 (17:49→21:58)
[2016-11-22 17:50] LABS: CHLORIDE 104 mmol/L (98-107); COR NA(FOR HYPERGLY) 144 mmol/L (136-145); SODIUM 143 mmol/L (136-145)
[2016-11-22] MEDS: ROBITUSSIN DM PO SCH ×2 (18:28→20:22)
[2016-11-22] MEDS ORDERED: LEVAQUIN PREMIX IV 500 MG 500 MG/100 ML BAG IV SCH (20:00)
[2016-11-23] MEDS: DUONEB 0.5 MG/3 MG NEB SCH ×9 (01:04→21:02)
[2016-11-23 05:16] LABS: ALANINE AMINOTRANSFERASE 22 Units/L (12-78); ALBUMIN 2.6 g/dL (3.4-5.0); ALKALINE PHOSPHATASE 61 Units/L (46-116); ASPARTATE AMINO TRANSFERASE 10 Units/L (15-37); BLOOD UREA NITROGEN 25 mg/dL (7-18); CALCIUM 8.9 mg/dL (8.5-10.1); CARBON DIOXIDE 28.3 mmol/L (21-32); CHLORIDE 106 mmol/L (98-107); COR NA(FOR HYPERGLY) 143 mmol/L (136-145); CREATININE 1.13 mg/dL (0.70-1.30); GLUCOSE 140 mg/dL (65-99); SODIUM 142 mmol/L (136-145); TOTAL PROTEIN 6.1 g/dL (6.4-8.2); eGFR BLACK RACES > 60 (>60); eGFR NON BLACK RACES > 60 (>60)
[2016-11-23] MEDS ORDERED: NS 1/2 1000 ML IV 1,000 ML IV ONE ×2 (05:25→20:51)
[2016-11-23] MEDS: NS 1/2 1000 ML IV 1,000 ML IV SCH ×2 (06:07→20:57)
--- NOTE | 2016-11-23 06:18 | RAD ---
HISTORY: Pneumonia, shortness of breath Study: Single-view chest, done portably Comparison: November 22, 2016 Findings: Trachea is midline. The heart size is normal. There is hyperinflation of the lungs. Lung continues t o be clear. Improvement is seen with decreased infiltrate in the right lung base medially. No pleura l fluid or pneumothorax is seen. Osseous structures are intact. IMPRESSION: Improving right lung base infiltrate medially. Reported By:
[2016-11-23 06:21] LABS: BASOPHILS % (AUTO) 0.4 % (0.2-1.0); EOSINOPHILS % (AUTO) 0.1 % (0.9-2.9); HEMATOCRIT 39.8 % (42.0-54.0); HEMOGLOBIN 13.2 g/dL (13.5-18.0); LYMPHOCYTES # (AUTO) 0.5 X10^3/uL (1.3-2.9); LYMPHOCYTES % (AUTO) 5.7 % (21.0-51.0); MEAN CORPUSCULAR HEMOGLOBIN 27.6 pg (27.0-34.0); MEAN CORPUSCULAR HGB CONC 33.1 g/dL (33.0-35.0); MEAN CORPUSCULAR VOLUME 83.4 fL (80.0-100.0); MEAN PLATELET VOLUME 9.2 fL (7.4-11.0); MONOCYTES % (AUTO) 10.5 % (0.0-13.0); NEUTROPHILS # (AUTO) 7.9 x10^3/uL (2.2-4.8); NEUTROPHILS % (AUTO) 83.3 % (42.0-75.0); PLATELET COUNT 225 X10^3/uL (150.0-450.0); RED BLOOD COUNT 4.77 X10^6/uL (4.7-6.0); RED CELL DISTRIBUTION WIDTH 13.6 % (11.6-16.5); WHITE BLOOD COUNT 9.5 X10^3/uL (3.6-10.0)
[2016-11-23 06:46] LABS: BILIRUBIN,URINE NEGATIVE (NEGATIVE); BLOOD/HEMOGLOBIN,URINE 5+ (NEGATIVE); GLUCOSE, URINE 1+ (NEGATIVE); KETONES,URINE 1+ (NEGATIVE); LEUKOCYTE ESTERASE ,URINE NEGATIVE (NEGATIVE); NITRITES,URINE NEGATIVE (NEGATIVE); PROTEIN,URINE 4+ (NEGATIVE); UROBILINOGEN,URINE NORMAL (NORMAL)
[2016-11-23 06:58] LABS: APPEARANCE,URINE HAZY (CLEAR); COLOR,URINE BLOODY (YELLOW)
[2016-11-23 07:00] LABS: BACTERIA,URINE 2+ /HPF (NEGATIVE); MUCUS,URINE FEW /HPF (NEGATIVE); RBC,URINE TNTC /HPF (NEGATIVE); SQUAMOUS EPITHELIAL CELL,UR RARE /HPF (NEGATIVE)
[2016-11-23] MEDS: ROBITUSSIN DM PO SCH ×4 (09:51→20:56)
[2016-11-23 10:22] LABS: ABG ALLEN TEST POS; ABG BASE EXCESS 2.8 mmol/L (-2.0-2.0); ABG HCO3 28.5 mmol/L (22-26)
[2016-11-23] MEDS ORDERED: PATIENT'S HOME MEDICATION (Rivaroxaban [Xarelto] 20 MG) PO SCH (11:30)
[2016-11-23] MEDS ORDERED: PLAVIX PO SCH (12:00)
[2016-11-23] MEDS ORDERED: LOPRESSOR TAB 50 MG PO SCH (12:00)
[2016-11-23] MEDS ORDERED: NICODERM PATCH 21 MG/24 HR TD SCH (12:00)
[2016-11-23] MEDS ORDERED: ZESTRIL TAB 40 MG PO SCH (12:00)
[2016-11-23] MEDS ORDERED: KEPPRA TAB 500 MG PO SCH (12:00)
[2016-11-23] MEDS: SOLU-Medrol 125 MG VIAL IVP SCH ×3 (13:03→21:50)
[2016-11-23] MEDS ORDERED: KLONOPIN TAB 0.5 MG PO PRN (14:00)
[2016-11-23] MEDS ORDERED: ATIVAN INJ 2 MG VIAL ONE (15:00)
[2016-11-23] MEDS ORDERED: ATIVAN INJ 2 MG VIAL IVP ONE (15:01)
[2016-11-23 15:13] LABS: ABG BASE EXCESS 2.1 mmol/L (-2.0-2.0); ABG HCO3 29.4 mmol/L (22-26)
[2016-11-23 15:15] LABS: ABG ALLEN TEST POS
[2016-11-23] MEDS ORDERED: PROVENTIL NEB TX 0.083% 2.5MG/ 3ML NEB PRN ×2 (15:22→16:02)
[2016-11-23 16:02] LABS: CKMB % 2.7 % (<4); CREATINE KINASE 127 Units/L (39-308); CREATINE KINASE MB 3.4 ng/mL (0-4.0); TROPONIN I < 0.02 ng/mL (0-1.5)
[2016-11-23] MEDS ORDERED: TUSSIONEX PENNKINETIC SUSP PO PRN (16:02)
[2016-11-23] MEDS: PROVENTIL NEB TX 0.083% 2.5MG/ 3ML NEB PRN ×2 (16:41→19:10)
[2016-11-23] MEDS ORDERED: ROCEPHIN VIAL 1 GM 1 GM in NS 50 ML IV + SPIKE MINIBAG* 50 ML IV SCH (17:00)
[2016-11-23] MEDS ORDERED: NS 1000 ML 0 ML ONE (17:31)
[2016-11-23] MEDS: ROCEPHIN VIAL 1 GM 1 GM in NS 50 ML IV + SPIKE MINIBAG* 50 ML IV SCH (17:38)
--- NOTE | 2016-11-23 17:51 | DR.H&P ---
H&P - History & Physical for Day of: H&P Date: 11/22/16 - Chief Complaint Chief Complaint: Cough, wheezing, chest congestion - Allergies Allergies/Adverse Reactions: Allergies Allergy/AdvReac Type Severity Reaction Status Date / Time No Known Drug Allergy Allergy Verified 11/13/16 00:47 - History of Present Illness History of Present Illness: patient is a 56-year-old black male who was admitted via the ER with shortness of breath, wheezing and chest congestion. Patient is a resident of [place] for temporary rehabilitation therapy. Patient does have a past medical history of COPD. Patient was started 1 day ago on doxycycline 100 twice a day with orders for chest x-ray. Patient had increased wheezing and requested breathing treatments more frequently. Patient' s chest x-ray revealed pneumonia. Admit for further evaluation of respiratory distress, IV antibiotics, IV hydration and repeat a.m. labs and chest x-ray - Past Medical History Past Medical History: Anxiety, Asthma, CVA, Dyslipidemia, GERD, Hypertension - Past Surgical History Surgical History: Appendectomy, Other - Family History Family Medical History: Diabetes Mellitus, Hypertension - Social History Does patient currently use any type of tobacco product: No Have you used tobacco products in the last 12 months: Yes Type of Tobacco Use: Cigarettes How many years tobacco product used: 30 Packs per day or dips/chews per day: 1 Does any household member use tobacco: No Alcohol Use: None Drug Use: Prescription Drugs - Medications Home Medications: Clonazepam [Klonopin] 0.25 mg PO BID PRN 11/22/16 [History Confirmed 11/23/16] Nicotine Patch 21 mg/24 Hr [NICODERM PATCH 21 MG *] 1 patch TD DAILY 11/22/16 [ History Confirmed 11/23/16] Clopidogrel Bisulfate [Plavix] 75 mg PO DAILY 11/23/16 [History Confirmed ] - Review of Systems Constitutional: Weakness Eyes: No Symptoms Reported ENT: No Symptoms Reported Respiratory: Cough, Shortness of Breath, SOB with Excertion, Wheezing Gastrointestinal: No Symptoms Reported Genitourinary: No Symptoms Reported Musculoskeletal: Back Pain Skin: No Symptoms Reported Neurological: No Symptoms Reported - Physical Exam Vital Signs: Temperature 98.9 F Pulse Rate [Left Brachial] 106 Pulse Rate [Right Brachial] 122 Pulse Rate 105 Respiratory Rate 23 Blood Pressure [Left Arm] 153/98 Blood Pressure [Right Arm] 185/91 O2 Sat by Pulse Oximetry 99 Oriented: Normal Eyes: Normal Ear: Normal Nose: Normal Throat: Normal Respiratory: Wheezes Throughout, RLL Diminished, LLL Diminished Cardiovascular: Tachycardia. negative: Edema : Normal Auscultation: Bowel Sounds: Normal Palpation: Normal Tenderness: Normal Skin: Normal Musculoskeletal: Back:Lumbar Speech Pattern: Clear, Appropriate - Assessment/Plan (1) Pneumonia Qualifiers: Pneumonia type: P Aspiration pneumonia type: A Laterality: L Lung location: L Status: Acute Plan: admit for respiratory therapy, supplemental O2, sputum and blood cultures. Admission labs, administer IV antibiotics and IV steroids. Repeat a.m. labs and chest x-ray. 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
--- NOTE | 2016-11-23 17:54 | PCM.PROG ---
Progress Note - Progress Note for Day of Date: 11/23/16 - Subjective Subjective: 56-year-old black male admitted one day ago with COPD exacerbation, right lower lobe pneumonia. Patient continues with diffuse expiratory wheezing and bilateral diminished lung bases. Plan to continue IV antibiotics, respiratory therapy. Add IV Solu-Medrol, respiratory consult. Discussed CTA of the lungs, restart home medication. - Past Medical Family Social History Past Med/Fam/Surg Hx: No changes since H&P Allergies: Allergies No Known Drug Allergy Allergy (Verified 11/13/16 00:47) - Review of Systems ROS: No change since H&P - Vital Signs and I&O's Vital Signs: Temperature 98.9 F Pulse Rate [Left Brachial] 108 Pulse Rate [Right Brachial] 122 Pulse Rate 105 Respiratory Rate 23 Blood Pressure [Left Arm] 162/87 Blood Pressure [Right Arm] 185/91 O2 Sat by Pulse Oximetry 96 Intake and Output: Intake & Output 11/21/16 11/22/16 11/23/16 11/24/16 11:59 11:59 11:59 11:59 Intake Total 832 300 Output Total 710 200 Balance 122 100 - Physical Exam Oriented: Normal Eyes: Normal Ear: Normal Nose: Normal Throat: Normal Cardiovascular: Tachycardia. negative: Edema : Normal Auscultation: Bowel Sounds: Normal Tenderness: Normal Skin: Normal Musculoskeletal: Back:Lumbar Speech Pattern: Clear, Appropriate - Laboratory and Diagnostics Result Diagrams: 11/23/16 03:50 11/23/16 03:50 Labs: 11/23/16 09:51 Sputum - Expectorated Sputum - Final Laboratory WBC 9.5 X10^3/uL (3.6-10.0) 11/23/16 03:50 RBC 4.77 X10^6/uL (4.7-6.0) 11/23/16 03:50 Hgb 13.2 g/dL (13.5-18.0) L 11/23/16 03:50 Hct 39.8 % (42.0-54.0) L 11/23/16 03:50 MCV 83.4 fL (80.0-100.0) 11/23/16 03:50 MCH 27.6 pg (27.0-34.0) 11/23/16 03:50 MCHC 33.1 g/dL (33.0-35.0) 11/23/16 03:50 RDW 13.6 % (11.6-16.5) 11/23/16 03:50 Plt Count 225 X10^3/uL (150.0-450.0) 11/23/16 03:50 Plt Count Comment Adequate (ADEQUATE) 11/22/16 16:50 MPV 9.2 fL (7.4-11.0) 11/23/16 03:50 Neut % 83.3 % (42.0-75.0) H 11/23/16 03:50 Lymph % 5.7 % (21.0-51.0) L 11/23/16 03:50 Tyrrell % 10.5 % (0.0-13.0) 11/23/16 03:50 Eos % 0.1 % (0.9-2.9) L 11/23/16 03:50 Baso % 0.4 % (0.2-1.0) 11/23/16 03:50 Neut # 7.9 x10^3/uL (2.2-4.8) H 11/23/16 03:50 Lymph # 0.5 X10^3/uL (1.3-2.9) L 11/23/16 03:50 Tyrrell # 1.0 x10^3/uL (0.3-0.8) H 11/23/16 03:50 Eos # 0.0 x10^3/uL (0.0-0.2) 11/23/16 03:50 Baso # 0.0 X10^3/uL (0.0-0.1) 11/23/16 03:50 Absolute Nucleated RBC 0.0 /100WBC 11/23/16 03:50 Total Counted 100 11/22/16 16:50 Neutrophils % (Manual) 90 % (39-76) H 11/22/16 16:50 Band Neutrophils % 5 % (0-10) 11/22/16 16:50 Lymphocytes % (Manual) 5 % (13-43) L 11/22/16 16:50 Plt Morphology Comment Normal (NORMAL) 11/22/16 16:50 RBC Morphology Normal (NORMAL) 11/22/16 16:50 D-Dimer 111 ng/mL (0-400) 11/22/16 12:30 Sample Site Rr 11/23/16 15:09 ABG pH 7.320 (7.35-7.45) L 11/23/16 15:09 ABG pCO2 57.0 mmHg (35.0-45.0) H* 11/23/16 15:09 ABG pO2 118.0 mmHg (80.0-100.0) H 11/23/16 15:09 ABG HCO3 29.4 mmol/L (22-26) H 11/23/16 15:09 ABG O2 Saturation 98.0 % (90-100) 11/23/16 15:09 ABG Base Excess 2.1 mmol/L (-2.0-2.0) H 11/23/16 15:09 Tanner Test Pos 11/23/16 15:09 A-a Gradient 10.0 mmHg 11/23/16 15:09 FiO2 28.000 11/23/16 15:09 Blood Gas Comments Pt tamia well. cdn 11/23/16 15:09 Sodium 142 mmol/L (136-145) 11/23/16 03:50 Corrected Sodium 143 mmol/L (136-145) 11/23/16 03:50 Potassium 4.3 mmol/L (3.5-5.1) 11/23/16 03:50 Chloride 106 mmol/L (98-107) 11/23/16 03:50 Carbon Dioxide 28.3 mmol/L (21-32) 11/23/16 03:50 BUN 25 mg/dL (7-18) H 11/23/16 03:50 Creatinine 1.13 mg/dL (0.70-1.30) 11/23/16 03:50 Est GFR (MDRD) Af Amer > 60 (>60) 11/23/16 03:50 Est GFR (MDRD) Non-Af > 60 (>60) 11/23/16 03:50 Glucose 140 mg/dL (65-99) H 11/23/16 03:50 Calcium 8.9 mg/dL (8.5-10.1) 11/23/16 03:50 Corrected Calcium 10.0 mg/dL (8.5-10.1) 11/23/16 03:50 Phosphorus 3.8 mg/dL (2.6-4.7) 11/22/16 12:30 Magnesium 2.0 mg/dL (1.7-2.9) 11/22/16 12:30 Total Bilirubin 0.20 mg/dL (0.2-1.0) 11/23/16 03:50 AST 10 Units/L (15-37) L 11/23/16 03:50 ALT 22 Units/L (12-78) 11/23/16 03:50 Alkaline Phosphatase 61 Units/L (46-116) 11/23/16 03:50 Creatine Kinase 127 Units/L (39-308) 11/23/16 15:32 CK-MB (CK-2) 3.4 ng/mL (0-4.0) 11/23/16 15:32 CK/CKMB % Calc 2.7 % (<4) 11/23/16 15:32 Troponin I < 0.02 ng/mL (0-1.5) 11/23/16 15:32 Total Protein 6.1 g/dL (6.4-8.2) L 11/23/16 03:50 Albumin 2.6 g/dL (3.4-5.0) L 11/23/16 03:50 Globulin 3.5 g/dL (2.5-4.5) 11/23/16 03:50 Albumin/Globulin Ratio 0.7 Ratio (1.1-2.1) L 11/23/16 03:50 Specimen Type Clean catch urine 11/23/16 06:20 Urine Color Bloody (YELLOW) 11/23/16 06:20 Urine Appearance Hazy (CLEAR) 11/23/16 06:20 Urine pH 5.0 (5.0 - 8.0) 11/23/16 06:20 Ur Specific [place] 1.025 (1.000-1.030) 11/23/16 06:20 Urine Protein 4+ (NEGATIVE) 11/23/16 06:20 Urine Glucose (UA) 1+ (NEGATIVE) 11/23/16 06:20 Urine Ketones 1+ (NEGATIVE) 11/23/16 06:20 Urine Occult Blood 5+ (NEGATIVE) 11/23/16 06:20 Urine Nitrite Negative (NEGATIVE) 11/23/16 06:20 Urine Bilirubin Negative (NEGATIVE) 11/23/16 06:20 Urine Urobilinogen Normal (NORMAL) 11/23/16 06:20 Ur Leukocyte Esterase Negative (NEGATIVE) 11/23/16 06:20 Urine RBC Tntc /HPF (NEGATIVE) 11/23/16 06:20 Urine WBC 12-15 /HPF (NEGATIVE) 11/23/16 06:20 Ur Squamous Epith Cells Rare /HPF (NEGATIVE) 11/23/16 06:20 Urine Bacteria 2+ /HPF (NEGATIVE) 11/23/16 06:20 Urine Mucus Few /HPF (NEGATIVE) 11/23/16 06:20 Ur Culture Indicated? Yes/culture set up 11/23/16 06:20 - Plan (1) Pneumonia Status: Acute Qualifiers: Pneumonia type: P Aspiration pneumonia type: A Laterality: L Lung location: L Plan: continue IV antibiotics, blood and sputum cultures pending, continue respiratory therapy, supplemental O2. ABG when necessary respiratory distress, blood pressure and cardiac monitoring (2) COPD (chronic obstructive pulmonary disease) Status: Acute Qualifiers: COPD type: COPD with acute exacerbation Chronic bronchitis type: C Emphysema type: E Qualified Code(s): J44.1 - Chronic obstructive pulmonary disease with (acute) exacerbation (3) Diabetes mellitus Status: Chronic Qualifiers: Diabetes mellitus type: D Diabetes mellitus complication status: D Diabetes mellitus complication detail: D Diabetic retinopathy severity: D Proliferative retinopathy type: P Diabetes mellitus macular edema: D Diabetes mellitus moth exterminator insulin 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
[2016-11-23] MEDS ORDERED: NS 100 ML IV 100 ML IV ONE (18:19)
[2016-11-23] MEDS ORDERED: NS 1/2 1000 ML IV 1,000 ML IV SCH ×2 (18:49→21:00)
--- NOTE | 2016-11-23 19:15 | CT ---
HISTORY: Shortness of breath, respiratory distress Study: CTA of the chest with contrast Comparison: None Technique: Multiple axial images of the chest were obtained from the thoracic inlet to the upper abd omen with the administration of IV contrast. Coronal and sagittal reformatted 3 dimensional MIP imag es were also submitted utilizing CTA protocol. Findings: The mediastinum does not demonstrate significant pathological lymphadenopathy. There is no pericard ial effusion observed. The thoracic aorta is normal in its contour without evidence for aneurysmal dilatation. No definite filling defects are appreciated within the 1st or 2nd order branches of the pulmonary arterial system. Emphysematous and interstitial changes are seen within both lungs. Atele ctasis and or infiltrate are demonstrated within the right lower lobe. A calcified granuloma is seen within the right lower lobe as well. There is a suspected small diaphragmatic hernia posteriorly on the left. IMPRESSION: 1. No CT evidence of pulmonary embolus is appreciated as noted above. 2. Emphysematous and interstitial changes. 3. Right basilar atelectasis and or infiltrate. Correlate clinically. Reported By:
[2016-11-23] MEDS: ZANTAC PO SCH (20:56)
[2016-11-23] MEDS: KEPPRA TAB 500 MG PO SCH (20:57)
[2016-11-23] MEDS: LOPRESSOR TAB 50 MG PO SCH (20:57)
[2016-11-23] MEDS: LIPITOR TAB 20 MG PO SCH (20:57)
[2016-11-23] MEDS: LEVAQUIN PREMIX IV 500 MG 500 MG/100 ML BAG IV SCH (20:58)
[2016-11-23] MEDS ORDERED: ZANTAC PO SCH (21:00)
[2016-11-23] MEDS ORDERED: LIPITOR TAB 20 MG PO SCH (21:00)
[2016-11-23] MEDS: PULMICORT NEB TX 0.5 MG NEB SCH (21:02)
[2016-11-23] MEDS: KLONOPIN TAB 0.5 MG PO PRN (22:55)
[2016-11-24] MEDS: DUONEB 0.5 MG/3 MG NEB SCH ×6 (01:13→21:27)
[2016-11-24 05:44] LABS: BASOPHILS % (AUTO) 0.1 % (0.2-1.0); HEMATOCRIT 38.8 % (42.0-54.0); HEMOGLOBIN 13.1 g/dL (13.5-18.0); LYMPHOCYTES # (AUTO) 0.6 X10^3/uL (1.3-2.9); LYMPHOCYTES % (AUTO) 6.2 % (21.0-51.0); MEAN CORPUSCULAR HEMOGLOBIN 28.2 pg (27.0-34.0); MEAN CORPUSCULAR HGB CONC 33.7 g/dL (33.0-35.0); MEAN CORPUSCULAR VOLUME 83.6 fL (80.0-100.0); MONOCYTES # (AUTO) 0.2 x10^3/uL (0.3-0.8); MONOCYTES % (AUTO) 1.8 % (0.0-13.0); NEUTROPHILS # (AUTO) 9.1 x10^3/uL (2.2-4.8); NEUTROPHILS % (AUTO) 91.9 % (42.0-75.0); PLATELET COUNT 229 X10^3/uL (150.0-450.0); RED BLOOD COUNT 4.64 X10^6/uL (4.7-6.0); RED CELL DISTRIBUTION WIDTH 13.7 % (11.6-16.5); WHITE BLOOD COUNT 9.9 X10^3/uL (3.6-10.0)
[2016-11-24 05:49] LABS: ALANINE AMINOTRANSFERASE 39 Units/L (12-78); ALBUMIN 2.8 g/dL (3.4-5.0); ALKALINE PHOSPHATASE 70 Units/L (46-116); ASPARTATE AMINO TRANSFERASE 24 Units/L (15-37); BLOOD UREA NITROGEN 22 mg/dL (7-18); CARBON DIOXIDE 28.2 mmol/L (21-32); CHLORIDE 106 mmol/L (98-107); COR NA(FOR HYPERGLY) 143 mmol/L (136-145); CREATININE 1.07 mg/dL (0.70-1.30); GLUCOSE 142 mg/dL (65-99); SODIUM 142 mmol/L (136-145); TOTAL PROTEIN 6.4 g/dL (6.4-8.2); eGFR BLACK RACES > 60 (>60); eGFR NON BLACK RACES > 60 (>60)
[2016-11-24] MEDS: SOLU-Medrol 125 MG VIAL IVP SCH ×3 (05:56→21:46)
[2016-11-24 06:15] LABS: BAND NEUTROPHILS % 4 % (0-10)
[2016-11-24 06:16] LABS: PLATELET MORPHOLOGY COMMENT NORMAL (NORMAL)
[2016-11-24] MEDS: NICODERM PATCH 21 MG/24 HR TD SCH (08:49)
[2016-11-24] MEDS: ROBITUSSIN DM PO SCH ×4 (08:50→20:45)
[2016-11-24] MEDS: ECOTRIN TAB 325 MG PO SCH (08:51)
[2016-11-24] MEDS: LOPRESSOR TAB 50 MG PO SCH ×2 (08:51→20:45)
[2016-11-24] MEDS: XARELTO PO SCH (08:52)
[2016-11-24] MEDS: KEPPRA TAB 500 MG PO SCH ×2 (08:53→20:46)
[2016-11-24] MEDS: PLAVIX PO SCH (08:54)
[2016-11-24] MEDS: ZESTRIL TAB 40 MG PO SCH (08:55)
[2016-11-24] MEDS ORDERED: XARELTO PO SCH (09:00)
[2016-11-24] MEDS ORDERED: ECOTRIN TAB 325 MG PO SCH (09:00)
[2016-11-24] MEDS: PULMICORT NEB TX 0.5 MG NEB SCH ×2 (09:02→21:27)
[2016-11-24] MEDS: BROVANA IN SCH ×2 (09:15→21:27)
[2016-11-24 09:26] LABS: ABG BASE EXCESS 4.3 mmol/L (-2.0-2.0)
[2016-11-24 09:27] LABS: ABG ALLEN TEST POS; ABG HCO3 30.3 mmol/L (22-26)
--- NOTE | 2016-11-24 14:02 | PCM.PROG ---
Progress Note - Progress Note for Day of Date: 11/24/16 - Subjective Subjective: 56-year-old black male admitted one day ago with COPD exacerbation, right lower lobe pneumonia. the patient was transferred to ICU last p.m. after sudden onset of increased shortness of breath and anxiety. Patient had a stat ABG and repeat stat chest x-ray. Patient had a set of cardiac enzymes which were within normal limits. Patient received Jevity at an Ativan during episode in markedly improved. patient had a CTA to rule out PE which was negative.Patient continues to have diffuse expiratory wheezing. Patient called this a.m. plan to repeat ABG in a.m. labs and chest x-ray. We'll continue IV antibiotics for pneumonia - Past Medical Family Social History Past Med/Fam/Surg Hx: No changes since H&P Allergies: Allergies No Known Drug Allergy Allergy (Verified 11/13/16 00:47) - Review of Systems ROS: No change since H&P - Vital Signs and I&O's Vital Signs: Temperature 97.3 F Pulse Rate [Left Brachial] 108 Pulse Rate [Right Brachial] 91 Pulse Rate 85 Respiratory Rate 23 Blood Pressure [Left Arm] 124/81 Blood Pressure [Right Arm] 185/91 O2 Sat by Pulse Oximetry 99 Intake and Output: Intake & Output 11/22/16 11/23/16 11/24/16 11/25/16 11:59 11:59 11:59 11:59 Intake Total 832 1140 Output Total 710 1100 Balance 122 40 - Physical Exam Oriented: Normal Eyes: Normal Ear: Normal Nose: Normal Throat: Normal Respiratory: Diminished, Wheezes Cardiovascular: Tachycardia. negative: Edema : Normal Auscultation: Bowel Sounds: Normal Tenderness: Normal Skin: Normal Musculoskeletal: Back:Lumbar Speech Pattern: Clear, Appropriate - Laboratory and Diagnostics Result Diagrams: 11/24/16 05:05 11/24/16 05:05 Labs: 11/23/16 09:51 Sputum - Expectorated Sputum Sputum Culture - Preliminary 11/23/16 09:51 Sputum - Expectorated Sputum - Final 11/23/16 06:20 Urine,Clean Catch Urine Culture - Preliminary 11/22/16 16:50 Blood Blood Culture - Preliminary 11/22/16 16:45 Blood Blood Culture - Preliminary Laboratory WBC 9.9 X10^3/uL (3.6-10.0) 11/24/16 05:05 RBC 4.64 X10^6/uL (4.7-6.0) L 11/24/16 05:05 Hgb 13.1 g/dL (13.5-18.0) L 11/24/16 05:05 Hct 38.8 % (42.0-54.0) L 11/24/16 05:05 MCV 83.6 fL (80.0-100.0) 11/24/16 05:05 MCH 28.2 pg (27.0-34.0) 11/24/16 05:05 MCHC 33.7 g/dL (33.0-35.0) 11/24/16 05:05 RDW 13.7 % (11.6-16.5) 11/24/16 05:05 Plt Count 229 X10^3/uL (150.0-450.0) 11/24/16 05:05 Plt Count Comment Adequate (ADEQUATE) 11/24/16 05:05 MPV 9.0 fL (7.4-11.0) 11/24/16 05:05 Neut % 91.9 % (42.0-75.0) H 11/24/16 05:05 Lymph % 6.2 % (21.0-51.0) L 11/24/16 05:05 [facility] % 1.8 % (0.0-13.0) 11/24/16 05:05 Eos % 0.0 % (0.9-2.9) L 11/24/16 05:05 Baso % 0.1 % (0.2-1.0) L 11/24/16 05:05 Neut # 9.1 x10^3/uL (2.2-4.8) H 11/24/16 05:05 Lymph # 0.6 X10^3/uL (1.3-2.9) L 11/24/16 05:05 [facility] # 0.2 x10^3/uL (0.3-0.8) L 11/24/16 05:05 Eos # 0.0 x10^3/uL (0.0-0.2) 11/24/16 05:05 Baso # 0.0 X10^3/uL (0.0-0.1) 11/24/16 05:05 Absolute Nucleated RBC 0.0 /100WBC 11/24/16 05:05 Total Counted 100 11/24/16 05:05 Neutrophils % (Manual) 86 % (39-76) H 11/24/16 05:05 Band Neutrophils % 4 % (0-10) 11/24/16 05:05 Lymphocytes % (Manual) 7 % (13-43) L 11/24/16 05:05 Monocytes % (Manual) 3 % (4-9) L 11/24/16 05:05 Plt Morphology Comment Normal (NORMAL) 11/24/16 05:05 RBC Morphology Normal (NORMAL) 11/24/16 05:05 D-Dimer 111 ng/mL (0-400) 11/22/16 12:30 Sample Site Rra 11/24/16 09:20 ABG pH 7.390 (7.35-7.45) 11/24/16 09:20 ABG pCO2 50.0 mmHg (35.0-45.0) H 11/24/16 09:20 ABG pO2 117.0 mmHg (80.0-100.0) H 11/24/16 09:20 ABG HCO3 30.3 mmol/L (22-26) H* 11/24/16 09:20 ABG O2 Saturation 99.0 % (90-100) 11/24/16 09:20 ABG Base Excess 4.3 mmol/L (-2.0-2.0) H 11/24/16 09:20 Tanner Test Pos 11/24/16 09:20 A-a Gradient 49.0 mmHg 11/24/16 09:20 FiO2 32.000 11/24/16 09:20 Blood Gas Comments Christian well cs 11/24/16 09:20 Sodium 142 mmol/L (136-145) 11/24/16 05:05 Corrected Sodium 143 mmol/L (136-145) 11/24/16 05:05 Potassium 4.7 mmol/L (3.5-5.1) 11/24/16 05:05 Chloride 106 mmol/L (98-107) 11/24/16 05:05 Carbon Dioxide 28.2 mmol/L (21-32) 11/24/16 05:05 BUN 22 mg/dL (7-18) H 11/24/16 05:05 Creatinine 1.07 mg/dL (0.70-1.30) 11/24/16 05:05 Est GFR (MDRD) Af Amer > 60 (>60) 11/24/16 05:05 Est GFR (MDRD) Non-Af > 60 (>60) 11/24/16 05:05 Glucose 142 mg/dL (65-99) H 11/24/16 05:05 Calcium 9.0 mg/dL (8.5-10.1) 11/24/16 05:05 Corrected Calcium 10.0 mg/dL (8.5-10.1) 11/24/16 05:05 Phosphorus 3.8 mg/dL (2.6-4.7) 11/22/16 12:30 Magnesium 2.0 mg/dL (1.7-2.9) 11/22/16 12:30 Total Bilirubin 0.20 mg/dL (0.2-1.0) 11/24/16 05:05 AST 24 Units/L (15-37) 11/24/16 05:05 ALT 39 Units/L (12-78) 11/24/16 05:05 Alkaline Phosphatase 70 Units/L (46-116) 11/24/16 05:05 Creatine Kinase 127 Units/L (39-308) 11/23/16 15:32 CK-MB (CK-2) 3.4 ng/mL (0-4.0) 11/23/16 15:32 CK/CKMB % Calc 2.7 % (<4) 11/23/16 15:32 Troponin I < 0.02 ng/mL (0-1.5) 11/23/16 15:32 Total Protein 6.4 g/dL (6.4-8.2) 11/24/16 05:05 Albumin 2.8 g/dL (3.4-5.0) L 11/24/16 05:05 Globulin 3.6 g/dL (2.5-4.5) 11/24/16 05:05 Albumin/Globulin Ratio 0.8 Ratio (1.1-2.1) L 11/24/16 05:05 Specimen Type Clean catch urine 11/23/16 06:20 Urine Color Bloody (YELLOW) 11/23/16 06:20 Urine Appearance Hazy (CLEAR) 11/23/16 06:20 Urine pH 5.0 (5.0 - 8.0) 11/23/16 06:20 Ur Specific [place] 1.025 (1.000-1.030) 11/23/16 06:20 Urine Protein 4+ (NEGATIVE) 11/23/16 06:20 Urine Glucose (UA) 1+ (NEGATIVE) 11/23/16 06:20 Urine Ketones 1+ (NEGATIVE) 11/23/16 06:20 Urine Occult Blood 5+ (NEGATIVE) 11/23/16 06:20 Urine Nitrite Negative (NEGATIVE) 11/23/16 06:20 Urine Bilirubin Negative (NEGATIVE) 11/23/16 06:20 Urine Urobilinogen Normal (NORMAL) 11/23/16 06:20 Ur Leukocyte Esterase Negative (NEGATIVE) 11/23/16 06:20 Urine RBC Tntc /HPF (NEGATIVE) 11/23/16 06:20 Urine WBC 12-15 /HPF (NEGATIVE) 11/23/16 06:20 Ur Squamous Epith Cells Rare /HPF (NEGATIVE) 11/23/16 06:20 Urine Bacteria 2+ /HPF (NEGATIVE) 11/23/16 06:20 Urine Mucus Few /HPF (NEGATIVE) 11/23/16 06:20 Ur Culture Indicated? Yes/culture set up 11/23/16 06:20 - Plan (1) Pneumonia Status: Acute Qualifiers: Pneumonia type: P Aspiration pneumonia type: A Laterality: L Lung location: L Plan: continue IV antibiotics, blood and sputum cultures pending, continue respiratory therapy, supplemental O2, bipap. ABG when necessary respiratory distress, blood pressure and cardiac monitoring (2) COPD (chronic obstructive pulmonary disease) Status: Acute Qualifiers: COPD type: COPD with acute exacerbation Chronic bronchitis type: C Emphysema type: E Qualified Code(s): J44.1 - Chronic obstructive pulmonary disease with (acute) exacerbation (3) Diabetes mellitus Status: Chronic Qualifiers: Diabetes mellitus type: D Diabetes mellitus complication status: D Diabetes mellitus complication detail: D Diabetic retinopathy severity: D Proliferative retinopathy type: P Diabetes mellitus macular edema: D Diabetes mellitus 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
[2016-11-24] MEDS: ROCEPHIN VIAL 1 GM 1 GM in NS 50 ML IV + SPIKE MINIBAG* 50 ML IV SCH (17:44)
[2016-11-24] MEDS: LIPITOR TAB 20 MG PO SCH (20:45)
[2016-11-24] MEDS: LEVAQUIN PREMIX IV 500 MG 500 MG/100 ML BAG IV SCH (20:46)
[2016-11-24] MEDS: ZANTAC PO SCH (20:46)
[2016-11-24] MEDS: NS 1/2 1000 ML IV 1,000 ML IV SCH (21:00)
[2016-11-25] MEDS: DUONEB 0.5 MG/3 MG NEB SCH ×6 (01:02→20:43)
[2016-11-25 05:10] LABS: BASOPHILS % (AUTO) 0.1 % (0.2-1.0); HEMATOCRIT 37.8 % (42.0-54.0); HEMOGLOBIN 12.6 g/dL (13.5-18.0); LYMPHOCYTES # (AUTO) 0.7 X10^3/uL (1.3-2.9); LYMPHOCYTES % (AUTO) 8.8 % (21.0-51.0); MEAN CORPUSCULAR HEMOGLOBIN 27.8 pg (27.0-34.0); MEAN CORPUSCULAR HGB CONC 33.5 g/dL (33.0-35.0); MEAN CORPUSCULAR VOLUME 82.9 fL (80.0-100.0); MEAN PLATELET VOLUME 8.9 fL (7.4-11.0); MONOCYTES # (AUTO) 0.4 x10^3/uL (0.3-0.8); MONOCYTES % (AUTO) 5.3 % (0.0-13.0); NEUTROPHILS # (AUTO) 7.1 x10^3/uL (2.2-4.8); NEUTROPHILS % (AUTO) 85.8 % (42.0-75.0); PLATELET COUNT 231 X10^3/uL (150.0-450.0); RED BLOOD COUNT 4.56 X10^6/uL (4.7-6.0); RED CELL DISTRIBUTION WIDTH 13.4 % (11.6-16.5); WHITE BLOOD COUNT 8.3 X10^3/uL (3.6-10.0)
[2016-11-25 05:20] LABS: ALANINE AMINOTRANSFERASE 33 Units/L (12-78); ALBUMIN 2.5 g/dL (3.4-5.0); ALKALINE PHOSPHATASE 59 Units/L (46-116); ASPARTATE AMINO TRANSFERASE 13 Units/L (15-37); BLOOD UREA NITROGEN 24 mg/dL (7-18); CALCIUM 8.9 mg/dL (8.5-10.1); CARBON DIOXIDE 30.2 mmol/L (21-32); CHLORIDE 107 mmol/L (98-107); COR CA(FOR HYPOALB) 10.1 mg/dL (8.5-10.1); COR NA(FOR HYPERGLY) 144 mmol/L (136-145); CREATININE 1.12 mg/dL (0.70-1.30); GLUCOSE 165 mg/dL (65-99); SODIUM 142 mmol/L (136-145); TOTAL PROTEIN 5.8 g/dL (6.4-8.2); eGFR BLACK RACES > 60 (>60); eGFR NON BLACK RACES > 60 (>60)
[2016-11-25] MEDS: SOLU-Medrol 125 MG VIAL IVP SCH ×3 (05:50→21:16)
[2016-11-25] MEDS: PULMICORT NEB TX 0.5 MG NEB SCH ×2 (09:16→20:43)
[2016-11-25] MEDS: BROVANA IN SCH ×2 (09:16→20:43)
[2016-11-25] MEDS: NICODERM PATCH 21 MG/24 HR TD SCH (09:38)
[2016-11-25] MEDS: ROBITUSSIN DM PO SCH ×4 (09:38→20:33)
[2016-11-25] MEDS: ZESTRIL TAB 40 MG PO SCH (09:40)
[2016-11-25] MEDS: ECOTRIN TAB 325 MG PO SCH (09:40)
[2016-11-25] MEDS: PLAVIX PO SCH (09:40)
[2016-11-25] MEDS: XARELTO PO SCH (09:40)
[2016-11-25] MEDS: KEPPRA TAB 500 MG PO SCH ×2 (09:41→20:33)
[2016-11-25] MEDS: LOPRESSOR TAB 50 MG PO SCH ×2 (09:41→20:34)
[2016-11-25] MEDS: INVANZ INJ 1 GM VIAL 1 GM in NS 50 ML IV + SPIKE MINIBAG* 50 ML IV SCH (14:09)
--- NOTE | 2016-11-25 18:18 | PCM.PROG ---
Progress Note - Progress Note for Day of Date: 11/25/16 - Subjective Subjective: 56-year-old black male admitted one day ago with COPD exacerbation, right lower lobe pneumonia. The patient was transferred to ICU late Tuesday after sudden onset of increased shortness of breath and anxiety. Pt much improved today, sitting up in chair at bedside. continued diffuse exp wheezes, improved appetite. Pt's cultures on chart, d/c levaquin, started on invanz iv, will repeat am labs,c ontinue iv hydration resp care - Past Medical Family Social History Past Med/Fam/Surg Hx: No changes since H&P Allergies: Allergies No Known Drug Allergy Allergy (Verified 11/13/16 00:47) - Review of Systems ROS: No change since H&P - Vital Signs and I&O's Vital Signs: Temperature 99.3 F Pulse Rate [Left Brachial] 108 Pulse Rate [Right Brachial] 84 Pulse Rate 88 Respiratory Rate 22 Blood Pressure [Left Arm] 127/95 Blood Pressure [Right Arm] 185/91 O2 Sat by Pulse Oximetry 94 Intake and Output: Intake & Output 11/23/16 11/24/16 11/25/16 11/26/16 11:59 11:59 11:59 11:59 Intake Total 832 1140 1586 536 Output Total 710 1100 750 600 Balance 122 40 836 -64 - Physical Exam Oriented: Normal Eyes: Normal Ear: Normal Nose: Normal Throat: Normal Respiratory: Wheezes, Rhonchi Cardiovascular: Tachycardia. negative: Edema : Normal Auscultation: Bowel Sounds: Normal Tenderness: Normal Skin: Normal Musculoskeletal: Back:Lumbar Speech Pattern: Clear, Appropriate - Laboratory and Diagnostics Result Diagrams: 11/25/16 04:35 11/25/16 04:35 Labs: 11/23/16 09:51 Sputum - Expectorated Sputum Sputum Culture - Final Escherichia Coli 11/23/16 09:51 Sputum - Expectorated Sputum - Final 11/23/16 06:20 Urine,Clean Catch Urine Culture - Final Escherichia Coli 11/22/16 16:50 Blood Blood Culture - Preliminary 11/22/16 16:45 Blood Blood Culture - Preliminary Laboratory WBC 8.3 X10^3/uL (3.6-10.0) 11/25/16 04:35 RBC 4.56 X10^6/uL (4.7-6.0) L 11/25/16 04:35 Hgb 12.6 g/dL (13.5-18.0) L 11/25/16 04:35 Hct 37.8 % (42.0-54.0) L 11/25/16 04:35 MCV 82.9 fL (80.0-100.0) 11/25/16 04:35 MCH 27.8 pg (27.0-34.0) 11/25/16 04:35 MCHC 33.5 g/dL (33.0-35.0) 11/25/16 04:35 RDW 13.4 % (11.6-16.5) 11/25/16 04:35 Plt Count 231 X10^3/uL (150.0-450.0) 11/25/16 04:35 Plt Count Comment Adequate (ADEQUATE) 11/24/16 05:05 MPV 8.9 fL (7.4-11.0) 11/25/16 04:35 Neut % 85.8 % (42.0-75.0) H 11/25/16 04:35 Lymph % 8.8 % (21.0-51.0) L 11/25/16 04:35 [place] % 5.3 % (0.0-13.0) 11/25/16 04:35 Eos % 0.0 % (0.9-2.9) L 11/25/16 04:35 Baso % 0.1 % (0.2-1.0) L 11/25/16 04:35 Neut # 7.1 x10^3/uL (2.2-4.8) H 11/25/16 04:35 Lymph # 0.7 X10^3/uL (1.3-2.9) L 11/25/16 04:35 [place] # 0.4 x10^3/uL (0.3-0.8) 11/25/16 04:35 Eos # 0.0 x10^3/uL (0.0-0.2) 11/25/16 04:35 Baso # 0.0 X10^3/uL (0.0-0.1) 11/25/16 04:35 Absolute Nucleated RBC 0.0 /100WBC 11/25/16 04:35 Total Counted 100 11/24/16 05:05 Neutrophils % (Manual) 86 % (39-76) H 11/24/16 05:05 Band Neutrophils % 4 % (0-10) 11/24/16 05:05 Lymphocytes % (Manual) 7 % (13-43) L 11/24/16 05:05 Monocytes % (Manual) 3 % (4-9) L 11/24/16 05:05 Plt Morphology Comment Normal (NORMAL) 11/24/16 05:05 RBC Morphology Normal (NORMAL) 11/24/16 05:05 D-Dimer 111 ng/mL (0-400) 11/22/16 12:30 Sample Site Rra 11/24/16 09:20 ABG pH 7.390 (7.35-7.45) 11/24/16 09:20 ABG pCO2 50.0 mmHg (35.0-45.0) H 11/24/16 09:20 ABG pO2 117.0 mmHg (80.0-100.0) H 11/24/16 09:20 ABG HCO3 30.3 mmol/L (22-26) H* 11/24/16 09:20 ABG O2 Saturation 99.0 % (90-100) 11/24/16 09:20 ABG Base Excess 4.3 mmol/L (-2.0-2.0) H 11/24/16 09:20 Tanner Test Pos 11/24/16 09:20 A-a Gradient 49.0 mmHg 11/24/16 09:20 FiO2 32.000 11/24/16 09:20 Blood Gas Comments Christian well cs 11/24/16 09:20 Sodium 142 mmol/L (136-145) 11/25/16 04:35 Corrected Sodium 144 mmol/L (136-145) 11/25/16 04:35 Potassium 4.5 mmol/L (3.5-5.1) 11/25/16 04:35 Chloride 107 mmol/L (98-107) 11/25/16 04:35 Carbon Dioxide 30.2 mmol/L (21-32) 11/25/16 04:35 BUN 24 mg/dL (7-18) H 11/25/16 04:35 Creatinine 1.12 mg/dL (0.70-1.30) 11/25/16 04:35 Est GFR (MDRD) Af Amer > 60 (>60) 11/25/16 04:35 Est GFR (MDRD) Non-Af > 60 (>60) 11/25/16 04:35 Glucose 165 mg/dL (65-99) H 11/25/16 04:35 Calcium 8.9 mg/dL (8.5-10.1) 11/25/16 04:35 Corrected Calcium 10.1 mg/dL (8.5-10.1) 11/25/16 04:35 Phosphorus 3.8 mg/dL (2.6-4.7) 11/22/16 12:30 Magnesium 2.0 mg/dL (1.7-2.9) 11/22/16 12:30 Total Bilirubin 0.20 mg/dL (0.2-1.0) 11/25/16 04:35 AST 13 Units/L (15-37) L 11/25/16 04:35 ALT 33 Units/L (12-78) 11/25/16 04:35 Alkaline Phosphatase 59 Units/L (46-116) 11/25/16 04:35 Creatine Kinase 127 Units/L (39-308) 11/23/16 15:32 CK-MB (CK-2) 3.4 ng/mL (0-4.0) 11/23/16 15:32 CK/CKMB % Calc 2.7 % (<4) 11/23/16 15:32 Troponin I < 0.02 ng/mL (0-1.5) 11/23/16 15:32 Total Protein 5.8 g/dL (6.4-8.2) L 11/25/16 04:35 Albumin 2.5 g/dL (3.4-5.0) L 11/25/16 04:35 Globulin 3.3 g/dL (2.5-4.5) 11/25/16 04:35 Albumin/Globulin Ratio 0.8 Ratio (1.1-2.1) L 11/25/16 04:35 Specimen Type Clean catch urine 11/23/16 06:20 Urine Color Bloody (YELLOW) 11/23/16 06:20 Urine Appearance Hazy (CLEAR) 11/23/16 06:20 Urine pH 5.0 (5.0 - 8.0) 11/23/16 06:20 Ur Specific [place] 1.025 (1.000-1.030) 11/23/16 06:20 Urine Protein 4+ (NEGATIVE) 11/23/16 06:20 Urine Glucose (UA) 1+ (NEGATIVE) 11/23/16 06:20 Urine Ketones 1+ (NEGATIVE) 11/23/16 06:20 Urine Occult Blood 5+ (NEGATIVE) 11/23/16 06:20 Urine Nitrite Negative (NEGATIVE) 11/23/16 06:20 Urine Bilirubin Negative (NEGATIVE) 11/23/16 06:20 Urine Urobilinogen Normal (NORMAL) 11/23/16 06:20 Ur Leukocyte Esterase Negative (NEGATIVE) 11/23/16 06:20 Urine RBC Tntc /HPF (NEGATIVE) 11/23/16 06:20 Urine WBC 12-15 /HPF (NEGATIVE) 11/23/16 06:20 Ur Squamous Epith Cells Rare /HPF (NEGATIVE) 11/23/16 06:20 Urine Bacteria 2+ /HPF (NEGATIVE) 11/23/16 06:20 Urine Mucus Few /HPF (NEGATIVE) 11/23/16 06:20 Ur Culture Indicated? Yes/culture set up 11/23/16 06:20 - Plan (1) Pneumonia Status: Acute Qualifiers: Pneumonia type: P Aspiration pneumonia type: A Laterality: L Lung location: L Plan: continue IV antibiotics, continue respiratory therapy, supplemental O2, bipap. 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
[2016-11-25] MEDS ORDERED: NS 1/2 1000 ML IV 1,000 ML IV ONE (19:28)
[2016-11-25] MEDS: NS 1/2 1000 ML IV 1,000 ML IV SCH (19:40)
[2016-11-25] MEDS: LIPITOR TAB 20 MG PO SCH (20:33)
[2016-11-25] MEDS: ZANTAC PO SCH (20:33)
[2016-11-26] MEDS: DUONEB 0.5 MG/3 MG NEB SCH ×6 (01:12→20:24)
[2016-11-26] MEDS: SOLU-Medrol 125 MG VIAL IVP SCH ×3 (06:02→21:32)
[2016-11-26 06:17] LABS: BASOPHILS % (AUTO) 0 % (0.2-1.0); HEMATOCRIT 36.1 % (42.0-54.0); HEMOGLOBIN 12.3 g/dL (13.5-18.0); LYMPHOCYTES # (AUTO) 0.7 X10^3/uL (1.3-2.9); LYMPHOCYTES % (AUTO) 6.8 % (21.0-51.0); MEAN CORPUSCULAR HEMOGLOBIN 28.1 pg (27.0-34.0); MEAN CORPUSCULAR VOLUME 82.6 fL (80.0-100.0); MEAN PLATELET VOLUME 8.8 fL (7.4-11.0); MONOCYTES # (AUTO) 0.3 x10^3/uL (0.3-0.8); MONOCYTES % (AUTO) 3.5 % (0.0-13.0); NEUTROPHILS # (AUTO) 8.9 x10^3/uL (2.2-4.8); NEUTROPHILS % (AUTO) 89.7 % (42.0-75.0); PLATELET COUNT 234 X10^3/uL (150.0-450.0); RED BLOOD COUNT 4.37 X10^6/uL (4.7-6.0); RED CELL DISTRIBUTION WIDTH 13.9 % (11.6-16.5); WHITE BLOOD COUNT 9.9 X10^3/uL (3.6-10.0)
--- NOTE | 2016-11-26 06:22 | RAD ---
HISTORY: Follow up pneumonia Study: Chest one view Comparison: November 23, [address] and plain film Findings: The heart is within normal limits in size. The cass are normal. The lungs are well inflated. Infiltr ate remains in the medial right lung base unchanged from the prior examination. The remainder of the lung samuels are clear. The lungs are hyperinflated. The bony thorax is unremarkable. IMPRESSION: No change small right medial basal infiltrate Hyperinflation Reported By:
[2016-11-26 06:39] LABS: ALANINE AMINOTRANSFERASE 30 Units/L (12-78); ALBUMIN 2.4 g/dL (3.4-5.0); ALKALINE PHOSPHATASE 53 Units/L (46-116); ASPARTATE AMINO TRANSFERASE 9 Units/L (15-37); BLOOD UREA NITROGEN 22 mg/dL (7-18); CALCIUM 8.6 mg/dL (8.5-10.1); CARBON DIOXIDE 29.6 mmol/L (21-32); CHLORIDE 108 mmol/L (98-107); COR CA(FOR HYPOALB) 9.9 mg/dL (8.5-10.1); COR NA(FOR HYPERGLY) 144 mmol/L (136-145); CREATININE 0.99 mg/dL (0.70-1.30); GLUCOSE 157 mg/dL (65-99); SODIUM 143 mmol/L (136-145); TOTAL PROTEIN 5.5 g/dL (6.4-8.2); eGFR BLACK RACES > 60 (>60); eGFR NON BLACK RACES > 60 (>60)
[2016-11-26] MEDS: ECOTRIN TAB 325 MG PO SCH (08:37)
[2016-11-26] MEDS: PLAVIX PO SCH (08:37)
[2016-11-26] MEDS: ZESTRIL TAB 40 MG PO SCH (08:37)
[2016-11-26] MEDS: XARELTO PO SCH (08:38)
[2016-11-26] MEDS: KEPPRA TAB 500 MG PO SCH ×2 (08:38→21:30)
[2016-11-26] MEDS: INVANZ INJ 1 GM VIAL 1 GM in NS 50 ML IV + SPIKE MINIBAG* 50 ML IV SCH (08:38)
[2016-11-26] MEDS: NICODERM PATCH 21 MG/24 HR TD SCH (08:38)
[2016-11-26] MEDS: LOPRESSOR TAB 50 MG PO SCH ×2 (08:38→21:30)
[2016-11-26] MEDS: BROVANA IN SCH ×2 (08:50→20:24)
[2016-11-26] MEDS: PULMICORT NEB TX 0.5 MG NEB SCH ×2 (08:50→20:24)
[2016-11-26] MEDS: ROBITUSSIN DM PO SCH ×4 (09:00→21:33)
[2016-11-26] MEDS: KLONOPIN TAB 0.5 MG PO PRN ×2 (11:24→21:31)
--- NOTE | 2016-11-26 13:28 | PCM.PROG ---
Progress Note - Progress Note for Day of Date: 11/26/16 - Subjective Subjective: 56-year-old black male admitted one day ago with COPD exacerbation, right lower lobe pneumonia. The patient was transferred to ICU late Tuesday after sudden onset of increased shortness of breath and anxiety. Pt much improved today, sitting up in chair at bedside. continued diffuse exp wheezes, improved appetite. Pt's on invanz iv, will repeat am labs,c ontinue iv hydration resp care. PT has increased strength in right left upper extremity. plan to d/c to correction when pneumonia resolved - Past Medical Family Social History Past Med/Fam/Surg Hx: No changes since H&P Allergies: Allergies No Known Drug Allergy Allergy (Verified 11/13/16 00:47) - Review of Systems ROS: No change since H&P - Vital Signs and I&O's Vital Signs: Temperature 98.7 F Pulse Rate [Left Brachial] 66 Pulse Rate [Right Brachial] 84 Pulse Rate 80 Respiratory Rate 18 Blood Pressure [Left Arm] 127/95 Blood Pressure [Right Arm] 129/87 O2 Sat by Pulse Oximetry 98 Intake and Output: Intake & Output 11/24/16 11/25/16 11/26/16 11/27/16 11:59 11:59 11:59 11:59 Intake Total 1140 1586 1647 Output Total 4525 119 7800 Balance 40 836 347 - Physical Exam Oriented: Normal Eyes: Normal Ear: Normal Nose: Normal Throat: Normal Respiratory: Wheezes, Rhonchi Cardiovascular: Tachycardia. negative: Edema : Normal Auscultation: Bowel Sounds: Normal Tenderness: Normal Skin: Normal Musculoskeletal: Back:Lumbar Speech Pattern: Clear, Appropriate - Laboratory and Diagnostics Result Diagrams: 11/26/16 04:40 11/26/16 04:40 Labs: 11/23/16 09:51 Sputum - Expectorated Sputum Sputum Culture - Final Escherichia Coli 11/23/16 09:51 Sputum - Expectorated Sputum - Final 11/23/16 06:20 Urine,Clean Catch Urine Culture - Final Escherichia Coli 11/22/16 16:50 Blood Blood Culture - Preliminary 11/22/16 16:45 Blood Blood Culture - Preliminary Laboratory WBC 9.9 X10^3/uL (3.6-10.0) 11/26/16 04:40 RBC 4.37 X10^6/uL (4.7-6.0) L 11/26/16 04:40 Hgb 12.3 g/dL (13.5-18.0) L 11/26/16 04:40 Hct 36.1 % (42.0-54.0) L 11/26/16 04:40 MCV 82.6 fL (80.0-100.0) 11/26/16 04:40 MCH 28.1 pg (27.0-34.0) 11/26/16 04:40 MCHC 34.0 g/dL (33.0-35.0) 11/26/16 04:40 RDW 13.9 % (11.6-16.5) 11/26/16 04:40 Plt Count 234 X10^3/uL (150.0-450.0) 11/26/16 04:40 Plt Count Comment Adequate (ADEQUATE) 11/24/16 05:05 MPV 8.8 fL (7.4-11.0) 11/26/16 04:40 Neut % 89.7 % (42.0-75.0) H 11/26/16 04:40 Lymph % 6.8 % (21.0-51.0) L 11/26/16 04:40 [place] % 3.5 % (0.0-13.0) 11/26/16 04:40 Eos % 0.0 % (0.9-2.9) L 11/26/16 04:40 Baso % 0 % (0.2-1.0) L 11/26/16 04:40 Neut # 8.9 x10^3/uL (2.2-4.8) H 11/26/16 04:40 Lymph # 0.7 X10^3/uL (1.3-2.9) L 11/26/16 04:40 [place] # 0.3 x10^3/uL (0.3-0.8) 11/26/16 04:40 Eos # 0.0 x10^3/uL (0.0-0.2) 11/26/16 04:40 Baso # 0.0 X10^3/uL (0.0-0.1) 11/26/16 04:40 Absolute Nucleated RBC 0.0 /100WBC 11/26/16 04:40 Total Counted 100 11/24/16 05:05 Neutrophils % (Manual) 86 % (39-76) H 11/24/16 05:05 Band Neutrophils % 4 % (0-10) 11/24/16 05:05 Lymphocytes % (Manual) 7 % (13-43) L 11/24/16 05:05 Monocytes % (Manual) 3 % (4-9) L 11/24/16 05:05 Plt Morphology Comment Normal (NORMAL) 11/24/16 05:05 RBC Morphology Normal (NORMAL) 11/24/16 05:05 D-Dimer 111 ng/mL (0-400) 11/22/16 12:30 Sample Site Rra 11/24/16 09:20 ABG pH 7.390 (7.35-7.45) 11/24/16 09:20 ABG pCO2 50.0 mmHg (35.0-45.0) H 11/24/16 09:20 ABG pO2 117.0 mmHg (80.0-100.0) H 11/24/16 09:20 ABG HCO3 30.3 mmol/L (22-26) H* 11/24/16 09:20 ABG O2 Saturation 99.0 % (90-100) 11/24/16 09:20 ABG Base Excess 4.3 mmol/L (-2.0-2.0) H 11/24/16 09:20 Tanner Test Pos 11/24/16 09:20 A-a Gradient 49.0 mmHg 11/24/16 09:20 FiO2 32.000 11/24/16 09:20 Blood Gas Comments Christian well cs 11/24/16 09:20 Sodium 143 mmol/L (136-145) 11/26/16 04:40 Corrected Sodium 144 mmol/L (136-145) 11/26/16 04:40 Potassium 4.2 mmol/L (3.5-5.1) 11/26/16 04:40 Chloride 108 mmol/L (98-107) H 11/26/16 04:40 Carbon Dioxide 29.6 mmol/L (21-32) 11/26/16 04:40 BUN 22 mg/dL (7-18) H 11/26/16 04:40 Creatinine 0.99 mg/dL (0.70-1.30) 11/26/16 04:40 Est GFR (MDRD) Af Amer > 60 (>60) 11/26/16 04:40 Est GFR (MDRD) Non-Af > 60 (>60) 11/26/16 04:40 Glucose 157 mg/dL (65-99) H 11/26/16 04:40 Calcium 8.6 mg/dL (8.5-10.1) 11/26/16 04:40 Corrected Calcium 9.9 mg/dL (8.5-10.1) 11/26/16 04:40 Phosphorus 3.8 mg/dL (2.6-4.7) 11/22/16 12:30 Magnesium 2.0 mg/dL (1.7-2.9) 11/22/16 12:30 Total Bilirubin 0.20 mg/dL (0.2-1.0) 11/26/16 04:40 AST 9 Units/L (15-37) L 11/26/16 04:40 ALT 30 Units/L (12-78) 11/26/16 04:40 Alkaline Phosphatase 53 Units/L (46-116) 11/26/16 04:40 Creatine Kinase 127 Units/L (39-308) 11/23/16 15:32 CK-MB (CK-2) 3.4 ng/mL (0-4.0) 11/23/16 15:32 CK/CKMB % Calc 2.7 % (<4) 11/23/16 15:32 Troponin I < 0.02 ng/mL (0-1.5) 11/23/16 15:32 Total Protein 5.5 g/dL (6.4-8.2) L 11/26/16 04:40 Albumin 2.4 g/dL (3.4-5.0) L 11/26/16 04:40 Globulin 3.1 g/dL (2.5-4.5) 11/26/16 04:40 Albumin/Globulin Ratio 0.8 Ratio (1.1-2.1) L 11/26/16 04:40 Specimen Type Clean catch urine 11/23/16 06:20 Urine Color Bloody (YELLOW) 11/23/16 06:20 Urine Appearance Hazy (CLEAR) 11/23/16 06:20 Urine pH 5.0 (5.0 - 8.0) 11/23/16 06:20 Ur Specific [place] 1.025 (1.000-1.030) 11/23/16 06:20 Urine Protein 4+ (NEGATIVE) 11/23/16 06:20 Urine Glucose (UA) 1+ (NEGATIVE) 11/23/16 06:20 Urine Ketones 1+ (NEGATIVE) 11/23/16 06:20 Urine Occult Blood 5+ (NEGATIVE) 11/23/16 06:20 Urine Nitrite Negative (NEGATIVE) 11/23/16 06:20 Urine Bilirubin Negative (NEGATIVE) 11/23/16 06:20 Urine Urobilinogen Normal (NORMAL) 11/23/16 06:20 Ur Leukocyte Esterase Negative (NEGATIVE) 11/23/16 06:20 Urine RBC Tntc /HPF (NEGATIVE) 11/23/16 06:20 Urine WBC 12-15 /HPF (NEGATIVE) 11/23/16 06:20 Ur Squamous Epith Cells Rare /HPF (NEGATIVE) 11/23/16 06:20 Urine Bacteria 2+ /HPF (NEGATIVE) 11/23/16 06:20 Urine Mucus Few /HPF (NEGATIVE) 11/23/16 06:20 Ur Culture Indicated? Yes/culture set up 11/23/16 06:20 - Plan (1) Pneumonia Status: Acute Qualifiers: Pneumonia type: P Aspiration pneumonia type: A Laterality: L Lung location: L Plan: continue IV antibiotics, continue respiratory therapy, supplemental O2, bipap. ABG when necessary respiratory distress, blood pressure and cardiac monitoring (2) COPD (chronic obstructive pulmonary disease) Status: Acute Qualifiers: COPD type: COPD with acute exacerbation Chronic bronchitis type: C Emphysema type: E Qualified Code(s): J44.1 - Chronic obstructive pulmonary disease with (acute) exacerbation (3) Diabetes mellitus Status: Chronic Qualifiers: Diabetes mellitus type: D Diabetes mellitus complication status: D Diabetes mellitus complication detail: D Diabetic retinopathy severity: D Proliferative retinopathy type: P Diabetes mellitus macular edema: D Diabetes mellitus fdc insulin use: D Laterality: L Chronic kidney disease stage: C Plan: ssi (4) History of CVA (cerebrovascular accident) Status: Chronic Plan: PT, pt currently on xarelto, continue bp and lipid control (5) Hypertension Status: Chronic Qualifiers: Hypertension type: H Plan: resume home meds (6) UTI (urinary tract infection) Status: Acute Qualifiers: Urinary tract infection type: U Hematuria presence: H Indwelling urinary catheter type: I Encounter type: E Plan: ecoli, continue iv atbx, encourage oral hydration
[2016-11-26] MEDS: LIPITOR TAB 20 MG PO SCH (21:31)
[2016-11-26] MEDS: COLACE CAP 100 MG PO SCH (21:31)
[2016-11-26] MEDS: ZANTAC PO SCH (21:31)
[2016-11-26] MEDS: MILK OF MAGNESIA PO SCH (21:32)
[2016-11-26] MEDS: NS 1/2 1000 ML IV 1,000 ML IV SCH (21:32)
[2016-11-27] MEDS: DUONEB 0.5 MG/3 MG NEB SCH ×7 (01:02→20:39)
[2016-11-27 07:14] LABS: ALANINE AMINOTRANSFERASE 35 Units/L (12-78); ALBUMIN 2.5 g/dL (3.4-5.0); ALKALINE PHOSPHATASE 57 Units/L (46-116); ASPARTATE AMINO TRANSFERASE 16 Units/L (15-37); BLOOD UREA NITROGEN 30 mg/dL (7-18); CALCIUM 8.8 mg/dL (8.5-10.1); CARBON DIOXIDE 32.4 mmol/L (21-32); CHLORIDE 108 mmol/L (98-107); COR NA(FOR HYPERGLY) 146 mmol/L (136-145); CREATININE 0.96 mg/dL (0.70-1.30); GLUCOSE 152 mg/dL (65-99); SODIUM 145 mmol/L (136-145); TOTAL PROTEIN 5.8 g/dL (6.4-8.2); eGFR BLACK RACES > 60 (>60); eGFR NON BLACK RACES > 60 (>60)
--- NOTE | 2016-11-27 08:23 | RAD ---
HISTORY: Pneumonia. Shortness of breath. Study: Chest one view Comparison: November 27, 2016. Findings: The trachea is midline. The cardiac silhouette is unremarkable. Subtle infiltrate in the medial as pect of the right lung base is less conspicuous on the current study. The bony thorax is unremarkab le. IMPRESSION: 1. Decreased conspicuity of medial left basilar infiltrate. Reported By:
[2016-11-27 08:33] LABS: BASOPHILS % (AUTO) 0.1 % (0.2-1.0); HEMATOCRIT 37.6 % (42.0-54.0); HEMOGLOBIN 12.4 g/dL (13.5-18.0); LYMPHOCYTES # (AUTO) 0.7 X10^3/uL (1.3-2.9); LYMPHOCYTES % (AUTO) 5.4 % (21.0-51.0); MEAN CORPUSCULAR HEMOGLOBIN 27.5 pg (27.0-34.0); MEAN CORPUSCULAR HGB CONC 33.1 g/dL (33.0-35.0); MEAN CORPUSCULAR VOLUME 83.2 fL (80.0-100.0); MEAN PLATELET VOLUME 8.8 fL (7.4-11.0); MONOCYTES # (AUTO) 0.3 x10^3/uL (0.3-0.8); MONOCYTES % (AUTO) 2.4 % (0.0-13.0); NEUTROPHILS # (AUTO) 12.3 x10^3/uL (2.2-4.8); NEUTROPHILS % (AUTO) 92.1 % (42.0-75.0); PLATELET COUNT 243 X10^3/uL (150.0-450.0); RED BLOOD COUNT 4.52 X10^6/uL (4.7-6.0); RED CELL DISTRIBUTION WIDTH 13.7 % (11.6-16.5); WHITE BLOOD COUNT 13.4 X10^3/uL (3.6-10.0)
[2016-11-27 09:01] LABS: BAND NEUTROPHILS % 2 % (0-10); PLATELET MORPHOLOGY COMMENT NORMAL (NORMAL)
[2016-11-27] MEDS: BROVANA IN SCH ×2 (09:06→20:39)
[2016-11-27] MEDS: PULMICORT NEB TX 0.5 MG NEB SCH ×2 (09:07→20:39)
[2016-11-27] MEDS: INVANZ INJ 1 GM VIAL 1 GM in NS 50 ML IV + SPIKE MINIBAG* 50 ML IV SCH (09:26)
[2016-11-27] MEDS: NICODERM PATCH 21 MG/24 HR TD SCH (09:26)
[2016-11-27] MEDS: ROBITUSSIN DM PO SCH ×4 (09:26→20:33)
[2016-11-27] MEDS: PLAVIX PO SCH (09:27)
[2016-11-27] MEDS: ECOTRIN TAB 325 MG PO SCH (09:27)
[2016-11-27] MEDS: LOPRESSOR TAB 50 MG PO SCH ×2 (09:27→20:33)
[2016-11-27] MEDS: XARELTO PO SCH (09:27)
[2016-11-27] MEDS: KEPPRA TAB 500 MG PO SCH ×2 (09:27→20:33)
[2016-11-27] MEDS: ZESTRIL TAB 40 MG PO SCH (09:27)
[2016-11-27] MEDS: KLONOPIN TAB 0.5 MG PO PRN (17:52)
[2016-11-27] MEDS ORDERED: NS 1/2 1000 ML IV 1,000 ML IV ONE (20:28)
[2016-11-27] MEDS: LIPITOR TAB 20 MG PO SCH (20:33)
[2016-11-27] MEDS: NS 1/2 1000 ML IV 1,000 ML IV SCH (20:33)
[2016-11-27] MEDS: ZANTAC PO SCH (20:33)
[2016-11-27] MEDS: MILK OF MAGNESIA PO SCH (20:34)
[2016-11-27] MEDS: COLACE CAP 100 MG PO SCH (20:34)
[2016-11-28] MEDS: DUONEB 0.5 MG/3 MG NEB SCH ×6 (00:41→21:07)
[2016-11-28 05:52] LABS: ALANINE AMINOTRANSFERASE 49 Units/L (12-78); ALBUMIN 2.5 g/dL (3.4-5.0); ALKALINE PHOSPHATASE 54 Units/L (46-116); ASPARTATE AMINO TRANSFERASE 21 Units/L (15-37); BASOPHILS % (AUTO) 0.2 % (0.2-1.0); BLOOD UREA NITROGEN 29 mg/dL (7-18); CALCIUM 8.9 mg/dL (8.5-10.1); CARBON DIOXIDE 31.5 mmol/L (21-32); CHLORIDE 109 mmol/L (98-107); COR CA(FOR HYPOALB) 10.1 mg/dL (8.5-10.1); CREATININE 0.98 mg/dL (0.70-1.30); EOSINOPHILS % (AUTO) 0.3 % (0.9-2.9); GLUCOSE 82 mg/dL (65-99); HEMATOCRIT 39.1 % (42.0-54.0); HEMOGLOBIN 13.1 g/dL (13.5-18.0); LYMPHOCYTES # (AUTO) 1.8 X10^3/uL (1.3-2.9); LYMPHOCYTES % (AUTO) 21.2 % (21.0-51.0); MEAN CORPUSCULAR HEMOGLOBIN 27.9 pg (27.0-34.0); MEAN CORPUSCULAR HGB CONC 33.5 g/dL (33.0-35.0); MEAN CORPUSCULAR VOLUME 83.1 fL (80.0-100.0); MEAN PLATELET VOLUME 8.7 fL (7.4-11.0); MONOCYTES # (AUTO) 0.7 x10^3/uL (0.3-0.8); MONOCYTES % (AUTO) 8.6 % (0.0-13.0); NEUTROPHILS % (AUTO) 69.7 % (42.0-75.0); PLATELET COUNT 232 X10^3/uL (150.0-450.0); RED CELL DISTRIBUTION WIDTH 13.9 % (11.6-16.5); SODIUM 146 mmol/L (136-145); TOTAL PROTEIN 5.6 g/dL (6.4-8.2); WHITE BLOOD COUNT 8.6 X10^3/uL (3.6-10.0); eGFR BLACK RACES > 60 (>60); eGFR NON BLACK RACES > 60 (>60)
[2016-11-28] MEDS: PULMICORT NEB TX 0.5 MG NEB SCH ×2 (08:30→21:07)
[2016-11-28] MEDS: BROVANA IN SCH ×2 (08:30→21:07)
[2016-11-28] MEDS: XARELTO PO SCH (09:17)
[2016-11-28] MEDS: ZESTRIL TAB 40 MG PO SCH (09:17)
[2016-11-28] MEDS: NICODERM PATCH 21 MG/24 HR TD SCH (09:17)
[2016-11-28] MEDS: LOPRESSOR TAB 50 MG PO SCH ×2 (09:18→20:23)
[2016-11-28] MEDS: KEPPRA TAB 500 MG PO SCH ×2 (09:18→20:23)
[2016-11-28] MEDS: PLAVIX PO SCH (09:18)
[2016-11-28] MEDS: ECOTRIN TAB 325 MG PO SCH (09:18)
[2016-11-28] MEDS: ROBITUSSIN DM PO SCH ×4 (09:18→20:24)
[2016-11-28] MEDS: INVANZ INJ 1 GM VIAL 1 GM in NS 50 ML IV + SPIKE MINIBAG* 50 ML IV SCH (09:18)
[2016-11-28] MEDS: KLONOPIN TAB 0.5 MG PO PRN (18:52)
[2016-11-28] MEDS: NS 1/2 1000 ML IV 1,000 ML IV SCH (19:10)
[2016-11-28] MEDS: ZANTAC PO SCH (20:23)
[2016-11-28] MEDS: LIPITOR TAB 20 MG PO SCH (20:23)
[2016-11-28] MEDS: MILK OF MAGNESIA PO SCH (20:24)
[2016-11-28] MEDS: COLACE CAP 100 MG PO SCH (20:24)
[2016-11-29] MEDS: DUONEB 0.5 MG/3 MG NEB SCH ×6 (01:37→20:31)
[2016-11-29] MEDS: KLONOPIN TAB 0.5 MG PO PRN ×2 (06:11→18:06)
[2016-11-29 06:14] LABS: ALBUMIN 2.3 g/dL (3.4-5.0); ALKALINE PHOSPHATASE 53 Units/L (46-116); ASPARTATE AMINO TRANSFERASE 21 Units/L (15-37); BLOOD UREA NITROGEN 22 mg/dL (7-18); CALCIUM 8.7 mg/dL (8.5-10.1); CARBON DIOXIDE 32.8 mmol/L (21-32); CHLORIDE 111 mmol/L (98-107); COR CA(FOR HYPOALB) 10.1 mg/dL (8.5-10.1); CREATININE 0.98 mg/dL (0.70-1.30); GLUCOSE 90 mg/dL (65-99); SODIUM 147 mmol/L (136-145); TOTAL PROTEIN 5.4 g/dL (6.4-8.2); eGFR BLACK RACES > 60 (>60); eGFR NON BLACK RACES > 60 (>60)
[2016-11-29 06:26] LABS: ALANINE AMINOTRANSFERASE 50 Units/L (12-78)
[2016-11-29 06:59] LABS: BASOPHILS # (AUTO) 0.1 X10^3/uL (0.0-0.1); BASOPHILS % (AUTO) 0.7 % (0.2-1.0); EOSINOPHILS # (AUTO) 0.2 x10^3/uL (0.0-0.2); EOSINOPHILS % (AUTO) 2.8 % (0.9-2.9); HEMATOCRIT 39.2 % (42.0-54.0); HEMOGLOBIN 12.9 g/dL (13.5-18.0); LYMPHOCYTES # (AUTO) 1.8 X10^3/uL (1.3-2.9); LYMPHOCYTES % (AUTO) 21.2 % (21.0-51.0); MEAN CORPUSCULAR HEMOGLOBIN 27.7 pg (27.0-34.0); MEAN CORPUSCULAR HGB CONC 32.9 g/dL (33.0-35.0); MEAN PLATELET VOLUME 8.7 fL (7.4-11.0); MONOCYTES # (AUTO) 0.8 x10^3/uL (0.3-0.8); MONOCYTES % (AUTO) 8.9 % (0.0-13.0); NEUTROPHILS # (AUTO) 5.6 x10^3/uL (2.2-4.8); NEUTROPHILS % (AUTO) 66.4 % (42.0-75.0); PLATELET COUNT 236 X10^3/uL (150.0-450.0); RED BLOOD COUNT 4.67 X10^6/uL (4.7-6.0); RED CELL DISTRIBUTION WIDTH 13.8 % (11.6-16.5); WHITE BLOOD COUNT 8.5 X10^3/uL (3.6-10.0)
--- NOTE | 2016-11-29 07:14 | RAD ---
HISTORY: Follow up lung infiltrate Study: Chest one view Comparison: November 27, 2016, November 26, 2016 Findings: The trachea is midline. The cardiac silhouette is unremarkable. The lungs are now clear. The right lung base is clear. No pleural effusions are identified.. The bony thorax is unremarkable. IMPRESSION: 1. No acute cardiopulmonary disease. Reported By:
[2016-11-29] MEDS: PULMICORT NEB TX 0.5 MG NEB SCH ×2 (08:43→20:31)
[2016-11-29] MEDS: BROVANA IN SCH ×2 (08:43→20:31)
[2016-11-29] MEDS: NICODERM PATCH 21 MG/24 HR TD SCH (08:56)
[2016-11-29] MEDS: PLAVIX PO SCH (08:57)
[2016-11-29] MEDS: XARELTO PO SCH (08:57)
[2016-11-29] MEDS: KEPPRA TAB 500 MG PO SCH ×2 (08:57→20:04)
[2016-11-29] MEDS: LOPRESSOR TAB 50 MG PO SCH ×2 (08:57→20:04)
[2016-11-29] MEDS: ECOTRIN TAB 325 MG PO SCH (08:57)
[2016-11-29] MEDS: ZESTRIL TAB 40 MG PO SCH (08:57)
[2016-11-29] MEDS: INVANZ INJ 1 GM VIAL 1 GM in NS 50 ML IV + SPIKE MINIBAG* 50 ML IV SCH (08:57)
[2016-11-29] MEDS: ROBITUSSIN DM PO SCH ×4 (08:58→20:05)
--- NOTE | 2016-11-29 17:59 | PCM.PROG ---
Progress Note - Progress Note for Day of Date: 11/29/16 - Subjective Subjective: 56-year-old black male admitted on 11/22 with COPD exacerbation, right lower lobe pneumonia. The patient was transferred to ICU late Tuesday after sudden onset of increased shortness of breath and anxiety. Pt much improved today, sitting up in chair at bedside. continued diffuse exp wheezes, improved appetite. Pt's on invanz iv, will repeat am labs,c ontinue iv hydration resp care. PT has increased strength in right left upper extremity. plan to d/c to skilled nursing when pneumonia resolved - Past Medical Family Social History Past Med/Fam/Surg Hx: No changes since H&P Allergies: Allergies No Known Drug Allergy Allergy (Verified 11/13/16 00:47) - Review of Systems ROS: No change since H&P - Vital Signs and I&O's Vital Signs: Temperature 98.3 F Pulse Rate [Left Brachial] 88 Pulse Rate [Right Brachial] 84 Pulse Rate 72 Respiratory Rate 18 Blood Pressure [Left Arm] 127/95 Blood Pressure [Right Arm] 136/102 O2 Sat by Pulse Oximetry 97 Intake and Output: Intake & Output 11/27/16 11/28/16 11/29/16 11/30/16 11:59 11:59 11:59 11:59 Intake Total 1710 1760 1525 535 Output Total 700 1100 800 350 Balance 1010 660 725 185 - Physical Exam Oriented: Normal Eyes: Normal Ear: Normal Nose: Normal Throat: Normal Respiratory: Wheezes, Rhonchi Cardiovascular: Tachycardia. negative: Edema : Normal Auscultation: Bowel Sounds: Normal Tenderness: Normal Skin: Normal Musculoskeletal: Back:Lumbar Speech Pattern: Clear, Appropriate - Laboratory and Diagnostics Result Diagrams: 11/29/16 04:35 11/29/16 04:35 Labs: 11/22/16 16:50 Blood Blood Culture - Final 11/22/16 16:45 Blood Blood Culture - Final 11/23/16 09:51 Sputum - Expectorated Sputum Sputum Culture - Final Escherichia Coli 11/23/16 09:51 Sputum - Expectorated Sputum - Final 11/23/16 06:20 Urine,Clean Catch Urine Culture - Final Escherichia Coli Laboratory WBC 8.5 X10^3/uL (3.6-10.0) 11/29/16 04:35 RBC 4.67 X10^6/uL (4.7-6.0) L 11/29/16 04:35 Hgb 12.9 g/dL (13.5-18.0) L 11/29/16 04:35 Hct 39.2 % (42.0-54.0) L 11/29/16 04:35 MCV 84.0 fL (80.0-100.0) 11/29/16 04:35 MCH 27.7 pg (27.0-34.0) 11/29/16 04:35 MCHC 32.9 g/dL (33.0-35.0) L 11/29/16 04:35 RDW 13.8 % (11.6-16.5) 11/29/16 04:35 Plt Count 236 X10^3/uL (150.0-450.0) 11/29/16 04:35 Plt Count Comment Adequate (ADEQUATE) 11/27/16 05:30 MPV 8.7 fL (7.4-11.0) 11/29/16 04:35 Neut % 66.4 % (42.0-75.0) 11/29/16 04:35 Lymph % 21.2 % (21.0-51.0) 11/29/16 04:35 [place] % 8.9 % (0.0-13.0) 11/29/16 04:35 Eos % 2.8 % (0.9-2.9) 11/29/16 04:35 Baso % 0.7 % (0.2-1.0) 11/29/16 04:35 Neut # 5.6 x10^3/uL (2.2-4.8) H 11/29/16 04:35 Lymph # 1.8 X10^3/uL (1.3-2.9) 11/29/16 04:35 [place] # 0.8 x10^3/uL (0.3-0.8) 11/29/16 04:35 Eos # 0.2 x10^3/uL (0.0-0.2) 11/29/16 04:35 Baso # 0.1 X10^3/uL (0.0-0.1) 11/29/16 04:35 Absolute Nucleated RBC 0.1 /100WBC 11/29/16 04:35 Total Counted 100 11/27/16 05:30 Neutrophils % (Manual) 88 % (39-76) H 11/27/16 05:30 Band Neutrophils % 2 % (0-10) 11/27/16 05:30 Lymphocytes % (Manual) 7 % (13-43) L 11/27/16 05:30 Monocytes % (Manual) 3 % (4-9) L 11/27/16 05:30 Plt Morphology Comment Normal (NORMAL) 11/27/16 05:30 RBC Morphology Normal (NORMAL) 11/27/16 05:30 D-Dimer 111 ng/mL (0-400) 11/22/16 12:30 Sample Site Rra 11/24/16 09:20 ABG pH 7.390 (7.35-7.45) 11/24/16 09:20 ABG pCO2 50.0 mmHg (35.0-45.0) H 11/24/16 09:20 ABG pO2 117.0 mmHg (80.0-100.0) H 11/24/16 09:20 ABG HCO3 30.3 mmol/L (22-26) H* 11/24/16 09:20 ABG O2 Saturation 99.0 % (90-100) 11/24/16 09:20 ABG Base Excess 4.3 mmol/L (-2.0-2.0) H 11/24/16 09:20 Tanner Test Pos 11/24/16 09:20 A-a Gradient 49.0 mmHg 11/24/16 09:20 FiO2 32.000 11/24/16 09:20 Blood Gas Comments Christian well cs 11/24/16 09:20 Sodium 147 mmol/L (136-145) H 11/29/16 04:35 Corrected Sodium TNP 11/29/16 04:35 Potassium 3.9 mmol/L (3.5-5.1) 11/29/16 04:35 Chloride 111 mmol/L (98-107) H 11/29/16 04:35 Carbon Dioxide 32.8 mmol/L (21-32) H 11/29/16 04:35 BUN 22 mg/dL (7-18) H 11/29/16 04:35 Creatinine 0.98 mg/dL (0.70-1.30) 11/29/16 04:35 Est GFR (MDRD) Af Amer > 60 (>60) 11/29/16 04:35 Est GFR (MDRD) Non-Af > 60 (>60) 11/29/16 04:35 Glucose 90 mg/dL (65-99) 11/29/16 04:35 Calcium 8.7 mg/dL (8.5-10.1) 11/29/16 04:35 Corrected Calcium 10.1 mg/dL (8.5-10.1) 11/29/16 04:35 Phosphorus 3.8 mg/dL (2.6-4.7) 11/22/16 12:30 Magnesium 2.0 mg/dL (1.7-2.9) 11/22/16 12:30 Total Bilirubin 0.20 mg/dL (0.2-1.0) 11/29/16 04:35 AST 21 Units/L (15-37) 11/29/16 04:35 ALT 50 Units/L (12-78) 11/29/16 04:35 Alkaline Phosphatase 53 Units/L (46-116) 11/29/16 04:35 Creatine Kinase 127 Units/L (39-308) 11/23/16 15:32 CK-MB (CK-2) 3.4 ng/mL (0-4.0) 11/23/16 15:32 CK/CKMB % Calc 2.7 % (<4) 11/23/16 15:32 Troponin I < 0.02 ng/mL (0-1.5) 11/23/16 15:32 Total Protein 5.4 g/dL (6.4-8.2) L 11/29/16 04:35 Albumin 2.3 g/dL (3.4-5.0) L 11/29/16 04:35 Globulin 3.1 g/dL (2.5-4.5) 11/29/16 04:35 Albumin/Globulin Ratio 0.7 Ratio (1.1-2.1) L 11/29/16 04:35 Specimen Type Clean catch urine 11/23/16 06:20 Urine Color Bloody (YELLOW) 11/23/16 06:20 Urine Appearance Hazy (CLEAR) 11/23/16 06:20 Urine pH 5.0 (5.0 - 8.0) 11/23/16 06:20 Ur Specific [place] 1.025 (1.000-1.030) 11/23/16 06:20 Urine Protein 4+ (NEGATIVE) 11/23/16 06:20 Urine Glucose (UA) 1+ (NEGATIVE) 11/23/16 06:20 Urine Ketones 1+ (NEGATIVE) 11/23/16 06:20 Urine Occult Blood 5+ (NEGATIVE) 11/23/16 06:20 Urine Nitrite Negative (NEGATIVE) 11/23/16 06:20 Urine Bilirubin Negative (NEGATIVE) 11/23/16 06:20 Urine Urobilinogen Normal (NORMAL) 11/23/16 06:20 Ur Leukocyte Esterase Negative (NEGATIVE) 11/23/16 06:20 Urine RBC Tntc /HPF (NEGATIVE) 11/23/16 06:20 Urine WBC 12-15 /HPF (NEGATIVE) 11/23/16 06:20 Ur Squamous Epith Cells Rare /HPF (NEGATIVE) 11/23/16 06:20 Urine Bacteria 2+ /HPF (NEGATIVE) 11/23/16 06:20 Urine Mucus Few /HPF (NEGATIVE) 11/23/16 06:20 Ur Culture Indicated? Yes/culture set up 11/23/16 06:20 - Plan (1) Pneumonia Status: Acute Qualifiers: Pneumonia type: P Aspiration pneumonia type: A Laterality: L Lung location: L Plan: much improved, discussed d/c to skilled nursing q am, will continue IV antibiotics, continue respiratory therapy, supplemental O2, bipap. ABG when necessary respiratory distress, blood pressure and cardiac monitoring (2) COPD (chronic obstructive pulmonary disease) Status: Acute Qualifiers: COPD type: COPD with acute exacerbation Chronic bronchitis type: C Emphysema type: E Qualified Code(s): J44.1 - Chronic obstructive pulmonary disease with (acute) exacerbation (3) Diabetes mellitus Status: Chronic Qualifiers: Diabetes mellitus type: D Diabetes mellitus complication status: D Diabetes mellitus complication detail: D Diabetic retinopathy severity: D Proliferative retinopathy type: P Diabetes mellitus macular edema: D Diabetes mellitus fdc insulin use: D Laterality: L Chronic kidney disease stage: C Plan: ssi (4) History of CVA (cerebrovascular accident) Status: Chronic Plan: PT, pt currently on xarelto, continue bp and lipid control (5) Hypertension Status: Chronic Qualifiers: Hypertension type: H Plan: resume home meds (6) UTI (urinary tract infection) Status: Acute Qualifiers: Urinary tract infection type: U Hematuria presence: H Indwelling urinary catheter type: I Encounter type: E Plan: ecoli, continue iv atbx, encourage oral hydration
[2016-11-29] MEDS ORDERED: NS 1/2 1000 ML IV 1,000 ML IV ONE (19:53)
[2016-11-29] MEDS: ZANTAC PO SCH (20:04)
[2016-11-29] MEDS: NS 1/2 1000 ML IV 1,000 ML IV SCH (20:04)
[2016-11-29] MEDS: LIPITOR TAB 20 MG PO SCH (20:04)
[2016-11-29] MEDS: MILK OF MAGNESIA PO SCH (20:05)
[2016-11-29] MEDS: COLACE CAP 100 MG PO SCH (20:05)
[2016-11-30] MEDS: DUONEB 0.5 MG/3 MG NEB SCH ×4 (01:00→12:03)
[2016-11-30 05:58] LABS: BASOPHILS % (AUTO) 0.2 % (0.2-1.0); EOSINOPHILS # (AUTO) 0.5 x10^3/uL (0.0-0.2); EOSINOPHILS % (AUTO) 6.5 % (0.9-2.9); HEMOGLOBIN 11.8 g/dL (13.5-18.0); LYMPHOCYTES # (AUTO) 1.4 X10^3/uL (1.3-2.9); LYMPHOCYTES % (AUTO) 18.8 % (21.0-51.0); MEAN CORPUSCULAR HEMOGLOBIN 28.1 pg (27.0-34.0); MEAN CORPUSCULAR HGB CONC 33.8 g/dL (33.0-35.0); MEAN PLATELET VOLUME 8.6 fL (7.4-11.0); MONOCYTES # (AUTO) 0.6 x10^3/uL (0.3-0.8); MONOCYTES % (AUTO) 7.9 % (0.0-13.0); NEUTROPHILS % (AUTO) 66.6 % (42.0-75.0); PLATELET COUNT 218 X10^3/uL (150.0-450.0); RED BLOOD COUNT 4.22 X10^6/uL (4.7-6.0); RED CELL DISTRIBUTION WIDTH 13.5 % (11.6-16.5); WHITE BLOOD COUNT 7.5 X10^3/uL (3.6-10.0)
--- NOTE | 2016-11-30 06:02 | RAD ---
HISTORY: Shortness of breath Study: Chest one view Comparison: November 29, 2016 Findings: The trachea is midline. The cardiac silhouette is unremarkable. The lungs are clear without focal infiltrate or effusion. The bony thorax is unremarkable. IMPRESSION: 1. No acute cardiopulmonary disease. Reported By:
[2016-11-30 06:35] LABS: ALANINE AMINOTRANSFERASE 46 Units/L (12-78); ALBUMIN 2.2 g/dL (3.4-5.0); ALKALINE PHOSPHATASE 50 Units/L (46-116); ASPARTATE AMINO TRANSFERASE 18 Units/L (15-37); BLOOD UREA NITROGEN 17 mg/dL (7-18); CALCIUM 8.4 mg/dL (8.5-10.1); CARBON DIOXIDE 31.2 mmol/L (21-32); CHLORIDE 111 mmol/L (98-107); COR CA(FOR HYPOALB) 9.8 mg/dL (8.5-10.1); CREATININE 0.92 mg/dL (0.70-1.30); GLUCOSE 95 mg/dL (65-99); SODIUM 143 mmol/L (136-145); eGFR BLACK RACES > 60 (>60); eGFR NON BLACK RACES > 60 (>60)
[2016-11-30] MEDS: INVANZ INJ 1 GM VIAL 1 GM in NS 50 ML IV + SPIKE MINIBAG* 50 ML IV SCH (08:27)
[2016-11-30] MEDS: ROBITUSSIN DM PO SCH ×2 (08:27→14:52)
[2016-11-30] MEDS: ZESTRIL TAB 40 MG PO SCH (08:28)
[2016-11-30] MEDS: XARELTO PO SCH (08:28)
[2016-11-30] MEDS: NICODERM PATCH 21 MG/24 HR TD SCH (08:28)
[2016-11-30] MEDS: KEPPRA TAB 500 MG PO SCH (08:28)
[2016-11-30] MEDS: ECOTRIN TAB 325 MG PO SCH (08:30)
[2016-11-30] MEDS: PLAVIX PO SCH (08:30)
[2016-11-30] MEDS: LOPRESSOR TAB 50 MG PO SCH (08:30)
[2016-11-30] MEDS: BROVANA IN SCH (08:35)
[2016-11-30] MEDS: PULMICORT NEB TX 0.5 MG NEB SCH (08:35)
[2016-11-30] MEDS: KLONOPIN TAB 0.5 MG PO PRN (11:36)
[2016-11-30 14:50] VITALS: BP 127/83
== END 2016-11-30 14:00 | DRG 194 ==
LOC: ER 12:38 → MED/SURG 16:37 → ICU 11-23 15:10
PROVIDERS: ADMIT Internal Medicine; ATTEND Internal Medicine
DX: J18.1 Lobar pneumonia, unspecified organism (principal); J44.1 Chronic obstructive pulmonary disease with (acute) exacerbation; R06.02 Shortness of breath; E78.2 Mixed hyperlipidemia; K21.9 Gastro-esophageal reflux disease without esophagitis; I10 Essential (primary) hypertension; F41.8 Other specified anxiety disorders; B96.29 Other Escherichia coli [E. coli] as the cause of diseases classified elsewhere; N39.0 Urinary tract infection, site not specified; R26.89 Other abnormalities of gait and mobility; Z86.73 Personal history of transient ischemic attack (TIA), and cerebral infarction without residual deficits
CPT/HCPCS: 36415; 36600; 71010; 71275; 80053; 81001; 82550; 82553; 82803; 83735; 84100; 84484; 85025; 85378; 87040; 87070; 87077; 87086; 87088; 87186; 87205; 93005; 93010; 94640; 94660; 94760; 96365; 96374; 97535; 99284; A4222; A4618; A7030; J0696; J1335; J1956; J2060; J2930; J7613; J7620; J7626

== ENCOUNTER → 2016-12-24 | Outpatient (CLI) | payer OTHER ==
[2016-11-30 14:50] VITALS: BP 127/83
[2016-12-24 08:30] LABS: BASOPHILS % (AUTO) 0.7 % (0.2-1.0); EOSINOPHILS # (AUTO) 0.2 x10^3/uL (0.0-0.2); EOSINOPHILS % (AUTO) 4.1 % (0.9-2.9); HEMATOCRIT 36.5 % (42.0-54.0); HEMOGLOBIN 12.1 g/dL (13.5-18.0); LYMPHOCYTES # (AUTO) 1.8 X10^3/uL (1.3-2.9); MEAN CORPUSCULAR HEMOGLOBIN 27.9 pg (27.0-34.0); MEAN CORPUSCULAR HGB CONC 33.1 g/dL (33.0-35.0); MEAN CORPUSCULAR VOLUME 84.3 fL (80.0-100.0); MEAN PLATELET VOLUME 8.2 fL (7.4-11.0); MONOCYTES # (AUTO) 0.6 x10^3/uL (0.3-0.8); MONOCYTES % (AUTO) 11.5 % (0.0-13.0); NEUTROPHILS # (AUTO) 2.4 x10^3/uL (2.2-4.8); NEUTROPHILS % (AUTO) 47.7 % (42.0-75.0); PLATELET COUNT 298 X10^3/uL (150.0-450.0); RED BLOOD COUNT 4.33 X10^6/uL (4.7-6.0); RED CELL DISTRIBUTION WIDTH 15.5 % (11.6-16.5); WHITE BLOOD COUNT 5.1 X10^3/uL (3.6-10.0)
[2016-12-24 08:41] LABS: CREATININE,URINE 169.52 mg/dL (40-278); MICROALBUMIN,URINE 6.2 mg/L
[2016-12-24 08:47] LABS: ALANINE AMINOTRANSFERASE 28 Units/L (12-78); ALBUMIN 3.4 g/dL (3.4-5.0); ALKALINE PHOSPHATASE 93 Units/L (46-116); ASPARTATE AMINO TRANSFERASE 16 Units/L (15-37); BLOOD UREA NITROGEN 11 mg/dL (7-18); CALCIUM 8.6 mg/dL (8.5-10.1); CARBON DIOXIDE 29.1 mmol/L (21-32); CHLORIDE 108 mmol/L (98-107); CHOLESTEROL 180 mg/dL (0-200); GLUCOSE 89 mg/dL (65-99); HDL CHOLESTEROL 91 mg/dL (40-60); SODIUM 143 mmol/L (136-145); T4 (THYROXINE) 8.3 ug/dL (4.7-13.3); TOTAL PROTEIN 6.8 g/dL (6.4-8.2); TRIGLYCERIDES 46 mg/dL (0-150); eGFR BLACK RACES > 60 (>60); eGFR NON BLACK RACES > 60 (>60)
== END ==
LOC: LAB 07:50
PROVIDERS: ATTEND Nurse Practitioner Family
DX: Z86.69 Personal history of other diseases of the nervous system and sense organs (principal); I10 Essential (primary) hypertension; I69.354 Hemiplegia and hemiparesis following cerebral infarction affecting left non-dominant side
CPT/HCPCS: 36415; 80053; 80061; 80177; 82043; 84436; 84443; 85025

== ENCOUNTER → 2017-01-20 | Outpatient (CLI) | payer OTHER ==
--- NOTE | 2017-01-20 11:25 | MRI ---
MRI BRAIN WITHOUT CONTRAST CLINICAL HISTORY: 56-year-old male with left arm weakness and history of prior stroke. COMPARISON: CT head November 13, 2016, MR brain March 15, 2016. TECHNIQUE: Multiplanar, multisequence MR images of the brain were obtained without contrast. FINDINGS: There is no evidence of diffusion restriction. The craniocervical junction is normal. Pitu itary and optic nerve complex are normal. Chronic right MCA distribution infarction involving the po sterior right frontal lobe with sparing of the paracentral lobule with associated gliosis and enceph alomalacia and subtle ex vacuo dilatation of the right atria. Normal signal characteristics and morp hology are demonstrated within the corpus callosum, deep cagle nuclei, brainstem and cerebellum. The major vascular flow voids, to include the dural venous sinuses, are intact. The ventricular system i s normal in size and morphology. The basilar cisterns are normal. The orbits and globes are within normal limits. Paranasal sinuses and tympanic cavities are clear. S cattered fluid in the mastoid air cells, right greater the left. IMPRESSION: 1. No acute ischemic or hemorrhagic insult. 2. Chronic right posterior frontal lobe ischemic insult with associated gliosis and encephalomalacia . 3. Scattered fluid in the mastoid air cells bilaterally, right greater the left. Reported By:
== END ==
LOC: RAD 10:22
PROVIDERS: ATTEND Nurse Practitioner Family
DX: I63.8 Other cerebral infarction (principal)
CPT/HCPCS: 70551; 95819

== ENCOUNTER 2017-03-01 10:36 | Inpatient (IN) | payer OTHER ==
[2017-03-01] MEDS ORDERED: DUONEB 0.5 MG/3 MG ONE (10:38)
[2017-03-01] MEDS ORDERED: SOLU-Medrol 125 MG VIAL ONE (10:44)
--- NOTE | 2017-03-01 10:45 | DR.SOBA ---
HPI - Time Seen Time seen: 11:00 - HPI Comment HPI Comment: SEVERE SOB, OXYGEN DESATURATION AND SLEEPINESS TIMES SEVERAL HOURS. RAN OUT OF HIS BREATHING MEDICATIONS. - Complaints Chief Complaint Doctors Comments: INCREASING SOB. - Reviewed Nurses Notes Reviewed: Yes - Source History Provided: Patient - Mode of Arrival Mode of Arrival: Ambulatory - Duration Onset: a.m. Duration: Hours - Context Onset:: At Rest PE Risk Factors:: None History of:: COPD, CHF - Modifying Factors Worsens:: Nothing Improves:: Nothing - Associated Signs and Symptoms Associated Signs and Symptoms: Wheeze, Cough, Nasal Congestion, Chest Pain, Leg Swelling, Calf Pain, Anxiety, Numbness - If Chest Pain Quality: Pressure like, Other (TIGHTNESS) Location: Substernal, Chest Wall - If Cough Cough: Productive, Yellow PMH - PMH Past Medical History: Anxiety, Asthma, CVA, Dyslipidemia, GERD, Hypertension Past Surgical History: Yes Surgical History: Appendectomy, Other - Family History Family Medical History: Diabetes Mellitus, Hypertension - Social History Do you use any recreational Drugs:: No ROS - Review of Systems Constitutional: Malaise, Weakness. negative: Chills, Fever Eyes: No Symptoms Reported ENTM: No Symptoms Reported Respiratoy: Productive Cough, Short of Breath, Wheezing. negative: Hemoptysis Cardiovascular: Chest Pain, Edema Gastrointestinal/Abdominal: Abdominal Pain Genitourinary: negative: Dysuria, Frequency, Hematuria Neurological: Headache, Weakness, Dizziness Musculoskeletal: Joint Pain, Joint Swelling, Muscle Pain Integumentary: Dryness. negative: Juandice Hematologic/Lymphatic: Anemia Endocrine: No Symptoms Reported Psychiatric: Anxiety All Other Systems: Reviewed and Negative PE - Vital Signs Vitals: Pulse Rate [Apical] 96 Pulse Rate 102 Respiratory Rate 16 Blood Pressure [Left Arm] 124/77 Blood Pressure [Right Arm] 104/64 Blood Pressure 215/135 O2 Sat by Pulse Oximetry 99 - General Limitations: No Limitations General Appearance: Alert - Head Head Exam: Normal Inspection - Eyes Eye exam: Normal Appearance - ENT ENT Exam: Normal External Ear Exam - Neck Neck Exam: Trachea Midline - Chest Chest Inspection: Symmetric Chest Wall Rise - Respiratory Respiratory Exam: Respiratory Distress Respiratory Exam: Upper Wheezing, Upper Rhonchi, Lower Wheezing, Lower Rales, Lower Rhonchi - Abdominal Exam Abdominal Exam: Normal Bowel Sounds, Soft, Tenderness - Extremities Extremities Exam: Normal Inspection, Edema - Back Back Exam: Normal Inspection - Neurologic Neurological Exam: Alert, Oriented X3 - Psychiatric Psychiatric Exam: Anxious - Skin Skin Exam: Erythema MDM - Additional Information Obtained Additional Information Obtained From: Family - Differential Diagnosis Differential Diagnosis: Bronchitis, CHF, COPD, Mycardial Infarction, Pneumonia, Pneumothorax, Pulmonary embolism, Respiratory Failure, Respiratory Insufficiency Course - Treatment Treatment: SEE ORDERS. BIPAP IN ED. RESP DISTRESS IMPROVING. HYPERCAPNIA PRESENT. - Reevaluation 1st: Improved - Consultation Consultation Comments: DISCUSS PATIENT WITH DR. FALCON. HE WILL ADMIT PATIENT. - Education/Counseling Education/Counseling: Patient, Family, Education Educated On: Treatment, Diagnosis ROR - Labs Reviewed Laboratory Results Reviewed?: Yes Result Diagrams: 03/02/17 05:18 03/02/17 05:18 Laboratory: WBC 7.7 X10^3/uL (3.6-10.0) 03/02/17 05:18 RBC 4.93 X10^6/uL (4.7-6.0) 03/02/17 05:18 Hgb 13.8 g/dL (13.5-18.0) 03/02/17 05:18 Hct 41.5 % (42.0-54.0) L 03/02/17 05:18 MCV 84.0 fL (80.0-100.0) 03/02/17 05:18 MCH 28.1 pg (27.0-34.0) 03/02/17 05:18 MCHC 33.4 g/dL (33.0-35.0) 03/02/17 05:18 RDW 14.3 % (11.6-16.5) 03/02/17 05:18 Plt Count 195 X10^3/uL (150.0-450.0) 03/02/17 05:18 MPV 9.7 fL (7.4-11.0) 03/02/17 05:18 Neut % 80.0 % (42.0-75.0) H 03/02/17 05:18 Lymph % 12.1 % (21.0-51.0) L 03/02/17 05:18 Tyrrell % 7.6 % (0.0-13.0) 03/02/17 05:18 Eos % 0.0 % (0.9-2.9) L 03/02/17 05:18 Baso % 0.3 % (0.2-1.0) 03/02/17 05:18 Neut # 6.2 x10^3/uL (2.2-4.8) H 03/02/17 05:18 Lymph # 0.9 X10^3/uL (1.3-2.9) L 03/02/17 05:18 Tyrrell # 0.6 x10^3/uL (0.3-0.8) 03/02/17 05:18 Eos # 0.0 x10^3/uL (0.0-0.2) 03/02/17 05:18 Baso # 0.0 X10^3/uL (0.0-0.1) 03/02/17 05:18 Absolute Nucleated RBC 0.0 /100WBC 03/02/17 05:18 INR Target Range - 03/02/17 05:18 INR 1.67 (0.8-1.3) H 03/02/17 05:18 PTT 38.3 SECONDS (22.9-36.5) H 03/02/17 05:18 PTT Comment - 03/02/17 05:18 Sample Site Rrad 03/02/17 05:32 ABG pH 7.330 (7.35-7.45) L 03/02/17 05:32 ABG pCO2 59.0 mmHg (35.0-45.0) H* 03/02/17 05:32 ABG pO2 86.0 mmHg (80.0-100.0) 03/02/17 05:32 ABG HCO3 31.1 mmol/L (22-26) H* 03/02/17 05:32 ABG O2 Saturation 96.0 % (90-100) 03/02/17 05:32 ABG Base Excess 3.7 mmol/L (-2.0-2.0) H 03/02/17 05:32 Tanner Test Pos 03/02/17 05:32 A-a Gradient 40.0 mmHg 03/02/17 05:32 FiO2 28.000 03/02/17 05:32 Blood Gas Comments Christian abg well-mtf 03/02/17 05:32 Sodium 141 mmol/L (136-145) 03/02/17 05:18 Corrected Sodium 142 mmol/L (136-145) 03/02/17 05:18 Potassium 4.6 mmol/L (3.5-5.1) 03/02/17 05:18 Chloride 105 mmol/L (98-107) 03/02/17 05:18 Carbon Dioxide 29.8 mmol/L (21-32) 03/02/17 05:18 BUN 16 mg/dL (7-18) 03/02/17 05:18 Creatinine 1.27 mg/dL (0.70-1.30) 03/02/17 05:18 Est GFR (MDRD) Af Amer > 60 (>60) 03/02/17 05:18 Est GFR (MDRD) Non-Af > 60 (>60) 03/02/17 05:18 Glucose 129 mg/dL (65-99) H 03/02/17 05:18 Calcium 9.0 mg/dL (8.5-10.1) 03/02/17 05:18 Corrected Calcium TNP 03/02/17 05:18 Magnesium 1.8 mg/dL (1.7-2.9) 03/02/17 05:18 Total Bilirubin 0.30 mg/dL (0.2-1.0) 03/02/17 05:18 AST 16 Units/L (15-37) 03/02/17 05:18 ALT 20 Units/L (12-78) 03/02/17 05:18 Alkaline Phosphatase 78 Units/L (46-116) 03/02/17 05:18 Creatine Kinase 371 Units/L (39-308) H 03/01/17 23:20 CK-MB (CK-2) 3.5 ng/mL (0-4.0) 03/01/17 23:20 CK/CKMB % Calc 0.9 % (<4) 03/01/17 23:20 Troponin I < 0.02 ng/mL (0-1.5) 03/01/17 23:20 B-Natriuretic Peptide 55.9 pg/mL (0-79) 03/01/17 10:53 Total Protein 6.8 g/dL (6.4-8.2) 03/02/17 05:18 Albumin 3.4 g/dL (3.4-5.0) 03/02/17 05:18 Globulin 3.4 g/dL (2.5-4.5) 03/02/17 05:18 Albumin/Globulin Ratio 1.0 Ratio (1.1-2.1) L 03/02/17 05:18 Triglycerides 36 mg/dL (0-150) 03/02/17 05:18 Cholesterol 139 mg/dL (0-200) 03/02/17 05:18 LDL Cholesterol, Calc 66 mg/dL (0-100) 03/02/17 05:18 HDL Cholesterol 66 mg/dL (40-60) H 03/02/17 05:18 Cholesterol/HDL Ratio 2.1 (0.0-5.0) 03/02/17 05:18 - XRAY XRAY Interpreted by: Radiologist XRAY Findings: REPORT DISCUSS WITH PATIENT - EKG Rhythm: NSR (EKG NOTED) - Diagnosis Discharge Problem: COPD exacerbation, Hypercapnia CHF (congestive heart failure) Qualifiers: Congestive heart failure type: combined Congestive heart failure chronicity: acute on chronic Qualified Code(s): I50.43 - Acute on chronic combined systolic (congestive) and diastolic (congestive) heart failure Pneumonia Qualifiers: Pneumonia type: due to unspecified organism Laterality: bilateral Lung location : lower lobe of lung Qualified Code(s): J18.9 - Pneumonia, unspecified organism - Discharge Plan Disposition: ADMITTED INPATIENT Condition: Stable - Follow ups/Referrals - Instructions
[2017-03-01 10:46] VITALS: BMI 18.8
[2017-03-01] MEDS ORDERED: SOLU-Medrol 125 MG VIAL IVP ONE (10:46)
[2017-03-01] MEDS ORDERED: DUONEB 0.5 MG/3 MG NEB ONE (10:47)
[2017-03-01 10:53] LABS: ABG ALLEN TEST POS
[2017-03-01] MEDS ORDERED: LASIX IVP ONE (11:05)
--- NOTE | 2017-03-01 11:10 | RAD ---
Chest, one view Indication: Chest pain Comparison: November 30, 2016 Findings: The cardiac silhouette is normal in size. There are new patchy right middle lobe opacities, suspicious for developing pneumonia. Remainder of the lungs are clear. No significant pleural effusi on or pneumothorax. Osseous thorax is unremarkable. Impression: New right middle lobe infiltrate, suspicious for pneumonia. Clinical correlation as well as follow up to resolution recommended. Reported By:
[2017-03-01] MEDS: DUONEB 0.5 MG/3 MG NEB ONE ×2 (11:15→11:16)
[2017-03-01 11:20] LABS: BLOOD UREA NITROGEN 8 mg/dL (7-18); CALCIUM 9.1 mg/dL (8.5-10.1); CARBON DIOXIDE 32.7 mmol/L (21-32); CHLORIDE 107 mmol/L (98-107); COR NA(FOR HYPERGLY) 143 mmol/L (136-145); CREATININE 1.19 mg/dL (0.70-1.30); SODIUM 142 mmol/L (136-145); TROPONIN I < 0.02 ng/mL (0-1.5); eGFR BLACK RACES > 60 (>60); eGFR NON BLACK RACES > 60 (>60)
[2017-03-01 11:22] LABS: BASOPHILS # (AUTO) 0.1 X10^3/uL (0.0-0.1); BASOPHILS % (AUTO) 1.2 % (0.2-1.0); EOSINOPHILS # (AUTO) 0.8 x10^3/uL (0.0-0.2); EOSINOPHILS % (AUTO) 11.1 % (0.9-2.9); HEMATOCRIT 44.5 % (42.0-54.0); HEMOGLOBIN 14.7 g/dL (13.5-18.0); LYMPHOCYTES # (AUTO) 3.4 X10^3/uL (1.3-2.9); LYMPHOCYTES % (AUTO) 48.5 % (21.0-51.0); MEAN CORPUSCULAR HEMOGLOBIN 28.2 pg (27.0-34.0); MEAN CORPUSCULAR VOLUME 85.4 fL (80.0-100.0); MEAN PLATELET VOLUME 9.5 fL (7.4-11.0); MONOCYTES # (AUTO) 0.4 x10^3/uL (0.3-0.8); NEUTROPHILS # (AUTO) 2.3 x10^3/uL (2.2-4.8); NEUTROPHILS % (AUTO) 33.2 % (42.0-75.0); PLATELET COUNT 212 X10^3/uL (150.0-450.0); RED BLOOD COUNT 5.21 X10^6/uL (4.7-6.0); RED CELL DISTRIBUTION WIDTH 14.3 % (11.6-16.5)
[2017-03-01 11:25] LABS: ALANINE AMINOTRANSFERASE 25 Units/L (12-78); ALBUMIN 4.1 g/dL (3.4-5.0); ALKALINE PHOSPHATASE 94 Units/L (46-116); ASPARTATE AMINO TRANSFERASE 15 Units/L (15-37); CKMB % 0.6 % (<4); CREATINE KINASE 471 Units/L (39-308); TOTAL PROTEIN 7.6 g/dL (6.4-8.2)
[2017-03-01] MEDS ORDERED: FORTAZ or TAZICEF INJ 1 GM in NS 50 ML IV + SPIKE MINIBAG* 50 ML IV ONE (11:37)
[2017-03-01 11:50] LABS: B-TYPE NATRIURETIC PEPTIDE 55.9 pg/mL (0-79)
[2017-03-01] MEDS ORDERED: NS 1/2 1000 ML IV 1,000 ML IV ONE (11:53)
[2017-03-01] MEDS ORDERED: NS 50 ML IV 50 ML IV ONE (11:53)
[2017-03-01] MEDS ORDERED: FORTAZ or TAZICEF INJ ONE (11:53)
[2017-03-01] MEDS: NS 1/2 1000 ML IV 1,000 ML IV SCH (12:00)
[2017-03-01] MEDS ORDERED: CATAPRES TAB 0.2 MG ONE (13:40)
[2017-03-01] MEDS: LEVAQUIN PREMIX IV 750 MG 750 MG/150 ML BAG IV SCH (16:00)
[2017-03-01] MEDS: ROBITUSSIN DM PO SCH ×2 (16:00→20:45)
[2017-03-01] MEDS: DUONEB 0.5 MG/3 MG NEB SCH ×3 (16:29→19:59)
[2017-03-01 17:37] LABS: CKMB % 0.8 % (<4); CREATINE KINASE 418 Units/L (39-308); CREATINE KINASE MB 3.2 ng/mL (0-4.0); TROPONIN I < 0.02 ng/mL (0-1.5)
[2017-03-01 18:23] LABS: ABG BASE EXCESS 3.7 mmol/L (-2.0-2.0)
[2017-03-01 18:24] LABS: ABG ALLEN TEST POS; ABG HCO3 30.8 mmol/L (22-26)
[2017-03-01] MEDS: TUSSIONEX PENNKINETIC SUSP PO PRN (20:45)
[2017-03-01] MEDS: FORTAZ or TAZICEF INJ 1 GM in NS 50 ML IV + SPIKE MINIBAG* 50 ML IV SCH (21:00)
[2017-03-02 00:02] LABS: CKMB % 0.9 % (<4); CREATINE KINASE 371 Units/L (39-308); CREATINE KINASE MB 3.5 ng/mL (0-4.0); TROPONIN I < 0.02 ng/mL (0-1.5)
[2017-03-02] MEDS: DUONEB 0.5 MG/3 MG NEB SCH ×8 (00:17→20:41)
[2017-03-02] MEDS ORDERED: NS 1/2 1000 ML IV 1,000 ML IV ONE ×2 (03:29→19:16)
[2017-03-02] MEDS: NS 1/2 1000 ML IV 1,000 ML IV SCH ×3 (03:35→21:00)
[2017-03-02] MEDS: FORTAZ or TAZICEF INJ 1 GM in NS 50 ML IV + SPIKE MINIBAG* 50 ML IV SCH ×3 (05:09→21:01)
[2017-03-02 05:39] LABS: ABG BASE EXCESS 3.7 mmol/L (-2.0-2.0)
[2017-03-02 05:41] LABS: ABG ALLEN TEST POS; ABG HCO3 31.1 mmol/L (22-26)
[2017-03-02 06:15] LABS: BASOPHILS % (AUTO) 0.3 % (0.2-1.0); HEMATOCRIT 41.5 % (42.0-54.0); HEMOGLOBIN 13.8 g/dL (13.5-18.0); LYMPHOCYTES # (AUTO) 0.9 X10^3/uL (1.3-2.9); LYMPHOCYTES % (AUTO) 12.1 % (21.0-51.0); MEAN CORPUSCULAR HEMOGLOBIN 28.1 pg (27.0-34.0); MEAN CORPUSCULAR HGB CONC 33.4 g/dL (33.0-35.0); MEAN PLATELET VOLUME 9.7 fL (7.4-11.0); MONOCYTES # (AUTO) 0.6 x10^3/uL (0.3-0.8); MONOCYTES % (AUTO) 7.6 % (0.0-13.0); NEUTROPHILS # (AUTO) 6.2 x10^3/uL (2.2-4.8); PLATELET COUNT 195 X10^3/uL (150.0-450.0); RED BLOOD COUNT 4.93 X10^6/uL (4.7-6.0); RED CELL DISTRIBUTION WIDTH 14.3 % (11.6-16.5); WHITE BLOOD COUNT 7.7 X10^3/uL (3.6-10.0)
[2017-03-02 06:24] LABS: ALANINE AMINOTRANSFERASE 20 Units/L (12-78); ALBUMIN 3.4 g/dL (3.4-5.0); ALKALINE PHOSPHATASE 78 Units/L (46-116); ASPARTATE AMINO TRANSFERASE 16 Units/L (15-37); BLOOD UREA NITROGEN 16 mg/dL (7-18); CARBON DIOXIDE 29.8 mmol/L (21-32); CHLORIDE 105 mmol/L (98-107); CHOL/HDL RATIO 2.1 (0.0-5.0); CHOLESTEROL 139 mg/dL (0-200); COR NA(FOR HYPERGLY) 142 mmol/L (136-145); CREATININE 1.27 mg/dL (0.70-1.30); HDL CHOLESTEROL 66 mg/dL (40-60); MAGNESIUM 1.8 mg/dL (1.7-2.9); SODIUM 141 mmol/L (136-145); TOTAL PROTEIN 6.8 g/dL (6.4-8.2); TRIGLYCERIDES 36 mg/dL (0-150); eGFR BLACK RACES > 60 (>60); eGFR NON BLACK RACES > 60 (>60)
--- NOTE | 2017-03-02 07:47 | RAD ---
HISTORY: Shortness of breath Study: Single-view chest, done portably Comparison: Multiple priors dating back to April 04, 2012 Findings: Cardiac monitoring electrodes are noted on the chest. The trachea is midline. Heart size is upper wit h aortic uncoiling. There is hyperinflation of the lungs. The small focus of atelectasis or infiltrat e in the right middle lobe has cleared back to baseline. No pleural fluid or pneumothorax IMPRESSION: Interval clearing of right middle lobe infiltrate or atelectasis. Hyperinflation of the lungs. Reported By:
[2017-03-02] MEDS: ROBITUSSIN DM PO SCH ×4 (08:01→21:01)
[2017-03-02] MEDS: LEVAQUIN PREMIX IV 750 MG 750 MG/150 ML BAG IV SCH (08:01)
[2017-03-02] MEDS ORDERED: KLONOPIN TAB 1 MG PO PRN (10:29)
[2017-03-02] MEDS: SOLU-Medrol 40 MG VIAL IVP SCH ×3 (10:32→21:01)
[2017-03-02] MEDS: ECOTRIN TAB 325 MG PO SCH (11:13)
[2017-03-02] MEDS: LOPRESSOR TAB 50 MG PO SCH (11:13)
[2017-03-02] MEDS: ZESTRIL TAB 40 MG PO SCH (11:13)
[2017-03-02] MEDS: KEPPRA TAB 500 MG PO SCH ×2 (11:14→21:02)
--- NOTE | 2017-03-02 11:34 | DR.H&P ---
H&P - History & Physical for Day of: H&P Date: 03/01/17 - Chief Complaint Chief Complaint: SHORTNESS OF BREATH - Allergies Allergies/Adverse Reactions: Allergies Allergy/AdvReac Type Severity Reaction Status Date / Time No Known Drug Allergies Allergy Verified 03/01/17 10:37 - History of Present Illness History of Present Illness: IS A 56 YEAR OLD PATIENT OF [facility] WHO PRESENTED TO THE EMERGENCY ROOM WITH COMPLAINTS OF SHORTNESS OF BREATH. PATIENT REPORTED THAT HE BEGAN FEELING SHORT OF BREATH THIS MORNING AND THAT HIS OXGYEN SATURATIONS DROPPED TO THE LOW 90s. PATIENT REPORTED THAT HE IS OUT OF HIS BREATHING TREATMENTS/MEDICATIONS. HE REPORTED A HISTORY OF COPD AND CHF. ASSOSIATED S/SX INCLUDE WHEEZING, PRODUCTIVE COUGH, CONGESTION, CHEST PAIN, ANXIETY, BILATERAL LEG SWELLING, CALF PAIN, AND FATIGUE. HE DESCRIBED CHEST PAIN PRESSURE LIKE. LUNGS WERE NOTED WITH RALES AND WHEEZING BILATERALLY ON AUSCULTATION. PATIENT WAS NOTED WITH LABORED RESPIRATIONS AND NASAL FLARING DURING RESPIRATIONS. HE WAS PLACED ON BIPAP WITH SETTING AT CPAP 7, RATE 15, FIO2 70. HE WAS GIVEN A DUONEB VIA BIPAP. ON ARRIVAL TO THE ER, VITALS WERE 110 , 30, 55% NON REBREATHER, 215/135. ABNORMAL LABS INCLUDE: Neut% 33.2, Eos% 11.1 , Baso% 1.2, Lymph# 3.4, Eos# 0.8, Carbon Dioxide 32.7, Glucose 132, Creatine Kinase 471. ABG: (1046) PH 7.050, PCO2 115.0, HCO3 Not reportable, O2 saturation Not reportable, Base Excess Not reportable(FIO2 100.0). REPEAT ABG: ( 1817): PH 7.340, PCO2 57.0, PO2 128.0, HCO3 30.8, Base Excess 3.7 (FIO2 28.0). CHEST XRAY REPORTED NEW RIGHT MIDDLE LOB INFILTRATE, SUSPICIOUS FOR PNEUMONIA. EKG REPORTED SINUS TACHYCARDIA WITH HEART RATE OF 102. HE WAS GIVEN SOLU-MEDROL 125MG IV X 1, DUONEB X 2, FORTAZ 1GM IV X 1, LASIX 40MG IV X 1, AND STARTED ON NS AT 80ML/HR. WE ADMITTED PATIENT FOR FURTHER TREAMENT AND EVALUATION. HE WAS STARTED ON THE PNEUMONIA PROTOCOL AND AGGRESSIVE PULMONARY TOILETING. WE PLAN TO RECHECK AM LABS AND ABG. - Past Medical History Past Medical History: Anxiety, Asthma, CVA, Dyslipidemia, GERD, Hypertension - Past Surgical History Surgical History: Appendectomy, Other - Family History Family Medical History: Diabetes Mellitus, Hypertension - Social History Does patient currently use any type of tobacco product: Yes Have you used tobacco products in the last 12 months: Yes Type of Tobacco Use: Cigarettes Does any household member use tobacco: No Alcohol Use: None Drug Use: None - Medications Home Medications: Atorvastatin Calcium [LIPITOR Tab 20 mg *] 40 mg PO HS 03/01/17 [History Confirmed 03/01/17] Clonazepam [Klonopin Tab 0.5 mg] 1 tab PO HS 03/01/17 [History Confirmed ] Rivaroxaban [XARELTO 10 MG *] 1 tab PO DAILY 03/01/17 [History Confirmed ] - Review of Systems Constitutional: See HPI, Fever, Weakness Eyes: No Symptoms Reported ENT: No Symptoms Reported Respiratory: See HPI, Cough, Shortness of Breath, Sputum, Wheezing Cardiovascular: Chest Pain Gastrointestinal: No Symptoms Reported Genitourinary: No Symptoms Reported Musculoskeletal: No Symptoms Reported Skin: No Symptoms Reported Neurological: Weakness - Physical Exam Vital Signs: Temperature 97.6 F Pulse Rate [Apical] 87 Pulse Rate 85 Respiratory Rate 17 Blood Pressure [Left Arm] 132/78 Blood Pressure [Right Arm] 104/64 Blood Pressure 215/135 O2 Sat by Pulse Oximetry 100 Oriented: Normal Eyes: Normal Ear: Normal Nose: Normal Throat: Normal Respiratory: Rhonchi Throughout, Wheezes Throughout Cardiovascular: Normal : Normal Auscultation: Bowel Sounds: Normal Palpation: Normal Tenderness: Normal Skin: Normal Musculoskeletal: Normal Psychiatric: Normal Mood Description: Calm Affect: Normal Speech Pattern: Clear - Assessment/Plan (1) Pneumonia Qualifiers: Pneumonia type: due to unspecified organism Laterality: bilateral Lung location: lower lobe of lung Qualified Code(s): J18.9 - Pneumonia, unspecified organism Status: Acute Plan: PNEUMONIA PROTOCOL, SUPPLEMENTAL OXYGEN, FORTAZ 1GM IV Q8H, LEVAQUIN 750MG DAILY, CONTINUE TO MONITOR (2) COPD (chronic obstructive pulmonary disease) Qualifiers: COPD type: COPD with acute exacerbation Qualified Code(s): J44.1 - Chronic obstructive pulmonary disease with (acute) exacerbation Status: Chronic Plan: SUPPLEMENTAL OXYGEN, SOLU-MEDROL 80MG IV Q8H, DUONEBS Q4H, CONTINUE TO MONITOR
[2017-03-02] MEDS: XARELTO PO SCH (17:00)
--- NOTE | 2017-03-02 20:47 | PCM.PROG ---
Progress Note - Progress Note for Day of Date: 03/02/17 - Subjective Subjective: IS ALERT AND ORIENTED, SITTING UP IN BED ON MORNING ROUNDS. HE IS NOTED WITH COMPLAINTS OF SHORTNESS OF BREATH AND PRODUCTIVE COUGH. YELLOW SPUTUM IS NOTED IN CONTAINER AT BEDSIDE. LUNGS ARE NOTED WITH RALES AND WHEEZING BILATERALLY ON AUSCULATATION. HE IS NOTED ON OXYGEN VIA NASAL CANNULA AT 3LPM. VITALS THIS AM ARE 97.9-72-16-98%-121/80. CBC WNL EXCEPT HCT 41.5. CMP WNL EXCEPT GLUCOSE 129. INR 1.67, PTT 38.3. CREATINE KINASE 371. ABG REPORTS PH 7.330, PC02 59, HC03 31.1. WE WILL START SOLU-MEDROL 80MG IV Q8H , OTHERWISE, CONTINUE CURRENT PLAN OF CARE, RECHECK AM LABS, AND CONTINUE TO FOLLOW UP WITH PATIENT. - Past Medical Family Social History Past Med/Fam/Surg Hx: No changes since H&P Allergies: Allergies No Known Drug Allergies Allergy (Verified 03/01/17 10:37) - Review of Systems ROS: No change since H&P - Vital Signs and I&O's Vital Signs: Temperature 98.6 F Pulse Rate [Apical] 94 Pulse Rate 92 Respiratory Rate 25 Blood Pressure [Left Arm] 162/82 Blood Pressure [Right Arm] 104/64 Blood Pressure 215/135 O2 Sat by Pulse Oximetry 100 Intake and Output: Intake & Output 02/28/17 03/01/17 03/02/17 03/03/17 11:59 11:59 11:59 11:59 Intake Total 1082 2005 Output Total 350 300 Balance 732 1705 - Physical Exam Oriented: Normal Eyes: Normal Ear: Normal Nose: Normal Throat: Normal Respiratory: Right, Left, Generalized, Wheezes, Rales Cardiovascular: Normal : Normal Auscultation: Bowel Sounds: Normal Palpation: Normal Tenderness: Normal Skin: Normal Musculoskeletal: Normal Psychiatric: Normal Mood Description: Calm Affect: Normal Speech Pattern: Clear - Laboratory and Diagnostics Result Diagrams: 03/02/17 05:18 03/02/17 05:18 Labs: 03/01/17 13:56 Sputum - Expectorated Sputum Sputum Culture - Preliminary 03/01/17 13:56 Sputum - Expectorated Sputum - Final Laboratory WBC 7.7 X10^3/uL (3.6-10.0) 03/02/17 05:18 RBC 4.93 X10^6/uL (4.7-6.0) 03/02/17 05:18 Hgb 13.8 g/dL (13.5-18.0) 03/02/17 05:18 Hct 41.5 % (42.0-54.0) L 03/02/17 05:18 MCV 84.0 fL (80.0-100.0) 03/02/17 05:18 MCH 28.1 pg (27.0-34.0) 03/02/17 05:18 MCHC 33.4 g/dL (33.0-35.0) 03/02/17 05:18 RDW 14.3 % (11.6-16.5) 03/02/17 05:18 Plt Count 195 X10^3/uL (150.0-450.0) 03/02/17 05:18 MPV 9.7 fL (7.4-11.0) 03/02/17 05:18 Neut % 80.0 % (42.0-75.0) H 03/02/17 05:18 Lymph % 12.1 % (21.0-51.0) L 03/02/17 05:18 Haines % 7.6 % (0.0-13.0) 03/02/17 05:18 Eos % 0.0 % (0.9-2.9) L 03/02/17 05:18 Baso % 0.3 % (0.2-1.0) 03/02/17 05:18 Neut # 6.2 x10^3/uL (2.2-4.8) H 03/02/17 05:18 Lymph # 0.9 X10^3/uL (1.3-2.9) L 03/02/17 05:18 Haines # 0.6 x10^3/uL (0.3-0.8) 03/02/17 05:18 Eos # 0.0 x10^3/uL (0.0-0.2) 03/02/17 05:18 Baso # 0.0 X10^3/uL (0.0-0.1) 03/02/17 05:18 Absolute Nucleated RBC 0.0 /100WBC 03/02/17 05:18 INR Target Range - 03/02/17 05:18 INR 1.67 (0.8-1.3) H 03/02/17 05:18 PTT 38.3 SECONDS (22.9-36.5) H 03/02/17 05:18 PTT Comment - 03/02/17 05:18 Sample Site Rrad 03/02/17 05:32 ABG pH 7.330 (7.35-7.45) L 03/02/17 05:32 ABG pCO2 59.0 mmHg (35.0-45.0) H* 03/02/17 05:32 ABG pO2 86.0 mmHg (80.0-100.0) 03/02/17 05:32 ABG HCO3 31.1 mmol/L (22-26) H* 03/02/17 05:32 ABG O2 Saturation 96.0 % (90-100) 03/02/17 05:32 ABG Base Excess 3.7 mmol/L (-2.0-2.0) H 03/02/17 05:32 Tanner Test Pos 03/02/17 05:32 A-a Gradient 40.0 mmHg 03/02/17 05:32 FiO2 28.000 03/02/17 05:32 Blood Gas Comments Christian abg well-mtf 03/02/17 05:32 Sodium 141 mmol/L (136-145) 03/02/17 05:18 Corrected Sodium 142 mmol/L (136-145) 03/02/17 05:18 Potassium 4.6 mmol/L (3.5-5.1) 03/02/17 05:18 Chloride 105 mmol/L (98-107) 03/02/17 05:18 Carbon Dioxide 29.8 mmol/L (21-32) 03/02/17 05:18 BUN 16 mg/dL (7-18) 03/02/17 05:18 Creatinine 1.27 mg/dL (0.70-1.30) 03/02/17 05:18 Est GFR (MDRD) Af Amer > 60 (>60) 03/02/17 05:18 Est GFR (MDRD) Non-Af > 60 (>60) 03/02/17 05:18 Glucose 129 mg/dL (65-99) H 03/02/17 05:18 Calcium 9.0 mg/dL (8.5-10.1) 03/02/17 05:18 Corrected Calcium TNP 03/02/17 05:18 Magnesium 1.8 mg/dL (1.7-2.9) 03/02/17 05:18 Total Bilirubin 0.30 mg/dL (0.2-1.0) 03/02/17 05:18 AST 16 Units/L (15-37) 03/02/17 05:18 ALT 20 Units/L (12-78) 03/02/17 05:18 Alkaline Phosphatase 78 Units/L (46-116) 03/02/17 05:18 Creatine Kinase 371 Units/L (39-308) H 03/01/17 23:20 CK-MB (CK-2) 3.5 ng/mL (0-4.0) 03/01/17 23:20 CK/CKMB % Calc 0.9 % (<4) 03/01/17 23:20 Troponin I < 0.02 ng/mL (0-1.5) 03/01/17 23:20 B-Natriuretic Peptide 55.9 pg/mL (0-79) 03/01/17 10:53 Total Protein 6.8 g/dL (6.4-8.2) 03/02/17 05:18 Albumin 3.4 g/dL (3.4-5.0) 03/02/17 05:18 Globulin 3.4 g/dL (2.5-4.5) 03/02/17 05:18 Albumin/Globulin Ratio 1.0 Ratio (1.1-2.1) L 03/02/17 05:18 Triglycerides 36 mg/dL (0-150) 03/02/17 05:18 Cholesterol 139 mg/dL (0-200) 03/02/17 05:18 LDL Cholesterol, Calc 66 mg/dL (0-100) 03/02/17 05:18 HDL Cholesterol 66 mg/dL (40-60) H 03/02/17 05:18 Cholesterol/HDL Ratio 2.1 (0.0-5.0) 03/02/17 05:18 - Plan (1) Pneumonia Status: Acute Qualifiers: Pneumonia type: due to unspecified organism Laterality: bilateral Lung location: lower lobe of lung Qualified Code(s): J18.9 - Pneumonia, unspecified organism Plan: PNEUMONIA PROTOCOL, SUPPLEMENTAL OXYGEN, FORTAZ 1GM IV Q8H, LEVAQUIN 750MG DAILY, CONTINUE TO MONITOR (2) COPD (chronic obstructive pulmonary disease) Status: Chronic Qualifiers: COPD type: COPD with acute exacerbation Qualified Code(s): J44.1 - Chronic obstructive pulmonary disease with (acute) exacerbation Plan: SUPPLEMENTAL OXYGEN, SOLU-MEDROL 80MG IV Q8H, DUONEBS Q4H, CONTINUE TO MONITOR
[2017-03-02] MEDS: LIPITOR TAB 20 MG PO SCH (21:01)
[2017-03-02] MEDS: TUSSIONEX PENNKINETIC SUSP PO PRN (21:01)
[2017-03-02] MEDS: ZANTAC PO SCH (21:01)
[2017-03-02] MEDS: KLONOPIN TAB 0.5 MG PO SCH (21:02)
[2017-03-03] MEDS: DUONEB 0.5 MG/3 MG NEB SCH ×6 (01:13→20:05)
[2017-03-03] MEDS: SOLU-Medrol 40 MG VIAL IVP SCH ×3 (05:04→21:03)
[2017-03-03] MEDS: FORTAZ or TAZICEF INJ 1 GM in NS 50 ML IV + SPIKE MINIBAG* 50 ML IV SCH ×3 (05:05→21:05)
[2017-03-03] MEDS: NS 1/2 1000 ML IV 1,000 ML IV SCH ×2 (05:05→09:30)
[2017-03-03 05:19] LABS: ABG BASE EXCESS 4.8 mmol/L (-2.0-2.0)
[2017-03-03 05:21] LABS: ABG ALLEN TEST BRA; ABG HCO3 31.6 mmol/L (22-26)
[2017-03-03 06:14] LABS: BASOPHILS % (AUTO) 0.1 % (0.2-1.0); HEMATOCRIT 39.5 % (42.0-54.0); HEMOGLOBIN 13.4 g/dL (13.5-18.0); LYMPHOCYTES % (AUTO) 9.8 % (21.0-51.0); MEAN CORPUSCULAR HEMOGLOBIN 28.4 pg (27.0-34.0); MEAN CORPUSCULAR VOLUME 83.7 fL (80.0-100.0); MEAN PLATELET VOLUME 9.4 fL (7.4-11.0); MONOCYTES # (AUTO) 0.2 x10^3/uL (0.3-0.8); MONOCYTES % (AUTO) 1.8 % (0.0-13.0); NEUTROPHILS # (AUTO) 9.1 x10^3/uL (2.2-4.8); NEUTROPHILS % (AUTO) 88.3 % (42.0-75.0); PLATELET COUNT 188 X10^3/uL (150.0-450.0); RED BLOOD COUNT 4.72 X10^6/uL (4.7-6.0); RED CELL DISTRIBUTION WIDTH 14.3 % (11.6-16.5); WHITE BLOOD COUNT 10.3 X10^3/uL (3.6-10.0)
[2017-03-03 06:36] LABS: ALANINE AMINOTRANSFERASE 19 Units/L (12-78); ALBUMIN 3.3 g/dL (3.4-5.0); ALKALINE PHOSPHATASE 72 Units/L (46-116); ASPARTATE AMINO TRANSFERASE 10 Units/L (15-37); BLOOD UREA NITROGEN 12 mg/dL (7-18); CALCIUM 9.3 mg/dL (8.5-10.1); CARBON DIOXIDE 27.2 mmol/L (21-32); CHLORIDE 106 mmol/L (98-107); COR CA(FOR HYPOALB) 9.9 mg/dL (8.5-10.1); COR NA(FOR HYPERGLY) 143 mmol/L (136-145); CREATININE 1.17 mg/dL (0.70-1.30); SODIUM 142 mmol/L (136-145); TOTAL PROTEIN 6.6 g/dL (6.4-8.2); eGFR BLACK RACES > 60 (>60); eGFR NON BLACK RACES > 60 (>60)
--- NOTE | 2017-03-03 07:30 | RAD ---
HISTORY: Shortness of breath Study: Chest AP portable Comparison: March 02, 2017 Findings: The trachea is midline. The cardiac silhouette is unremarkable. The lungs are mildly hyperinflated but free of acute alveolar infiltrates. No pleural effusions are identified.. The bony thorax is unr emarkable. IMPRESSION: 1. Lungs hyperinflated but clear Reported By:
[2017-03-03] MEDS: KEPPRA TAB 500 MG PO SCH ×2 (08:32→20:58)
[2017-03-03] MEDS: LOPRESSOR TAB 50 MG PO SCH (08:32)
[2017-03-03] MEDS: XARELTO PO SCH (08:32)
[2017-03-03] MEDS: ROBITUSSIN DM PO SCH ×4 (08:32→21:00)
[2017-03-03] MEDS: ZESTRIL TAB 40 MG PO SCH (08:32)
[2017-03-03] MEDS: ECOTRIN TAB 325 MG PO SCH (08:32)
[2017-03-03] MEDS: LEVAQUIN PREMIX IV 750 MG 750 MG/150 ML BAG IV SCH (08:33)
[2017-03-03] MEDS ORDERED: NS 1/2 1000 ML IV 1,000 ML IV ONE ×2 (09:43→23:57)
--- NOTE | 2017-03-03 10:34 | PCM.PROG ---
Progress Note - Progress Note for Day of Date: 03/03/17 - Subjective Subjective: IS ALERT AND ORIENTED, SITTING UP IN BED ON MORNING ROUNDS. HE IS CONTINUES WITH COMPLAINTS OF SHORTNESS OF BREATH AND PRODUCTIVE COUGH. LUNGS ARE NOTED WITH WHEEZING BILATERALLY ON AUSCULATATION. HE IS NOTED ON OXYGEN VIA NASAL CANNULA AT 3LPM. VITALS THIS AM ARE 97.9-90-16-100%-145/93. CBC WNL EXCEPT WBC 10.3, HGB 13.4, HCT 39.5. CMP WNL EXCEPT GLUCOSE 139. TODAY' S ABG REPORTS PH 7.360, PC02 56, HC03 31.6. CHEST XRAY CLEAR. WE WILL CONTINUE CURRENT PLAN OF CARE, RECHECK AM LABS, AND CONTINUE TO FOLLOW UP WITH PATIENT. - Past Medical Family Social History Past Med/Fam/Surg Hx: No changes since H&P Allergies: Allergies No Known Drug Allergies Allergy (Verified 03/01/17 10:37) - Review of Systems ROS: No change since H&P - Vital Signs and I&O's Vital Signs: Temperature 98.0 F Pulse Rate [Apical] 85 Pulse Rate 88 Respiratory Rate 18 Blood Pressure [Left Arm] 112/100 Blood Pressure [Right Arm] 104/64 Blood Pressure 215/135 O2 Sat by Pulse Oximetry 100 Intake and Output: Intake & Output 02/28/17 03/01/17 03/02/17 03/03/17 11:59 11:59 11:59 11:59 Intake Total 1082 3465 Output Total 350 600 Balance 732 2865 - Physical Exam Oriented: Normal Eyes: Normal Ear: Normal Nose: Normal Throat: Normal Respiratory: Right, Left, Generalized, Wheezes Cardiovascular: Normal : Normal Auscultation: Bowel Sounds: Normal Palpation: Normal Tenderness: Normal Skin: Normal Musculoskeletal: Normal Psychiatric: Normal Mood Description: Calm Affect: Normal Speech Pattern: Clear, Appropriate - Laboratory and Diagnostics Result Diagrams: 03/03/17 05:37 03/03/17 05:37 Labs: 03/01/17 13:56 Sputum - Expectorated Sputum Sputum Culture - Final Escherichia Coli 03/01/17 13:56 Sputum - Expectorated Sputum - Final Laboratory WBC 10.3 X10^3/uL (3.6-10.0) H 03/03/17 05:37 RBC 4.72 X10^6/uL (4.7-6.0) 03/03/17 05:37 Hgb 13.4 g/dL (13.5-18.0) L 03/03/17 05:37 Hct 39.5 % (42.0-54.0) L 03/03/17 05:37 MCV 83.7 fL (80.0-100.0) 03/03/17 05:37 MCH 28.4 pg (27.0-34.0) 03/03/17 05:37 MCHC 34.0 g/dL (33.0-35.0) 03/03/17 05:37 RDW 14.3 % (11.6-16.5) 03/03/17 05:37 Plt Count 188 X10^3/uL (150.0-450.0) 03/03/17 05:37 MPV 9.4 fL (7.4-11.0) 03/03/17 05:37 Neut % 88.3 % (42.0-75.0) H 03/03/17 05:37 Lymph % 9.8 % (21.0-51.0) L 03/03/17 05:37 [place] % 1.8 % (0.0-13.0) 03/03/17 05:37 Eos % 0.0 % (0.9-2.9) L 03/03/17 05:37 Baso % 0.1 % (0.2-1.0) L 03/03/17 05:37 Neut # 9.1 x10^3/uL (2.2-4.8) H 03/03/17 05:37 Lymph # 1.0 X10^3/uL (1.3-2.9) L 03/03/17 05:37 [place] # 0.2 x10^3/uL (0.3-0.8) L 03/03/17 05:37 Eos # 0.0 x10^3/uL (0.0-0.2) 03/03/17 05:37 Baso # 0.0 X10^3/uL (0.0-0.1) 03/03/17 05:37 Absolute Nucleated RBC 0.0 /100WBC 03/03/17 05:37 INR Target Range - 03/02/17 05:18 INR 1.67 (0.8-1.3) H 03/02/17 05:18 PTT 38.3 SECONDS (22.9-36.5) H 03/02/17 05:18 PTT Comment - 03/02/17 05:18 Sample Site Rrad 03/03/17 05:11 ABG pH 7.360 (7.35-7.45) 03/03/17 05:11 ABG pCO2 56.0 mmHg (35.0-45.0) H* 03/03/17 05:11 ABG pO2 96.0 mmHg (80.0-100.0) 03/03/17 05:11 ABG HCO3 31.6 mmol/L (22-26) H* 03/03/17 05:11 ABG O2 Saturation 97.0 % (90-100) 03/03/17 05:11 ABG Base Excess 4.8 mmol/L (-2.0-2.0) H 03/03/17 05:11 Tanner Test Bra 03/03/17 05:11 A-a Gradient 34.0 mmHg 03/03/17 05:11 FiO2 28.000 03/03/17 05:11 Blood Gas Comments Christian well-mtf 03/03/17 05:11 Sodium 142 mmol/L (136-145) 03/03/17 05:37 Corrected Sodium 143 mmol/L (136-145) 03/03/17 05:37 Potassium 4.4 mmol/L (3.5-5.1) 03/03/17 05:37 Chloride 106 mmol/L (98-107) 03/03/17 05:37 Carbon Dioxide 27.2 mmol/L (21-32) 03/03/17 05:37 BUN 12 mg/dL (7-18) 03/03/17 05:37 Creatinine 1.17 mg/dL (0.70-1.30) 03/03/17 05:37 Est GFR (MDRD) Af Amer > 60 (>60) 03/03/17 05:37 Est GFR (MDRD) Non-Af > 60 (>60) 03/03/17 05:37 Glucose 139 mg/dL (65-99) H 03/03/17 05:37 Calcium 9.3 mg/dL (8.5-10.1) 03/03/17 05:37 Corrected Calcium 9.9 mg/dL (8.5-10.1) 03/03/17 05:37 Magnesium 1.8 mg/dL (1.7-2.9) 03/02/17 05:18 Total Bilirubin 0.20 mg/dL (0.2-1.0) 03/03/17 05:37 AST 10 Units/L (15-37) L 03/03/17 05:37 ALT 19 Units/L (12-78) 03/03/17 05:37 Alkaline Phosphatase 72 Units/L (46-116) 03/03/17 05:37 Creatine Kinase 371 Units/L (39-308) H 03/01/17 23:20 CK-MB (CK-2) 3.5 ng/mL (0-4.0) 03/01/17 23:20 CK/CKMB % Calc 0.9 % (<4) 03/01/17 23:20 Troponin I < 0.02 ng/mL (0-1.5) 03/01/17 23:20 B-Natriuretic Peptide 55.9 pg/mL (0-79) 03/01/17 10:53 Total Protein 6.6 g/dL (6.4-8.2) 03/03/17 05:37 Albumin 3.3 g/dL (3.4-5.0) L 03/03/17 05:37 Globulin 3.3 g/dL (2.5-4.5) 03/03/17 05:37 Albumin/Globulin Ratio 1.0 Ratio (1.1-2.1) L 03/03/17 05:37 Triglycerides 36 mg/dL (0-150) 03/02/17 05:18 Cholesterol 139 mg/dL (0-200) 03/02/17 05:18 LDL Cholesterol, Calc 66 mg/dL (0-100) 03/02/17 05:18 HDL Cholesterol 66 mg/dL (40-60) H 03/02/17 05:18 Cholesterol/HDL Ratio 2.1 (0.0-5.0) 03/02/17 05:18 - Plan (1) Pneumonia Status: Acute Qualifiers: Pneumonia type: due to unspecified organism Laterality: bilateral Lung location: lower lobe of lung Qualified Code(s): J18.9 - Pneumonia, unspecified organism Plan: PNEUMONIA PROTOCOL, SUPPLEMENTAL OXYGEN, FORTAZ 1GM IV Q8H, LEVAQUIN 750MG DAILY, CONTINUE TO MONITOR (2) COPD (chronic obstructive pulmonary disease) Status: Chronic Qualifiers: COPD type: COPD with acute exacerbation Qualified Code(s): J44.1 - Chronic obstructive pulmonary disease with (acute) exacerbation Plan: SUPPLEMENTAL OXYGEN, SOLU-MEDROL 80MG IV Q8H, DUONEBS Q4H, CONTINUE TO MONITOR
[2017-03-03] MEDS: KLONOPIN TAB 0.5 MG PO SCH (20:58)
[2017-03-03] MEDS: ZANTAC PO SCH (20:58)
[2017-03-03] MEDS: LIPITOR TAB 20 MG PO SCH (20:58)
[2017-03-04] MEDS: NS 1/2 1000 ML IV 1,000 ML IV SCH ×4 (00:02→18:14)
[2017-03-04] MEDS: DUONEB 0.5 MG/3 MG NEB SCH ×6 (01:25→20:41)
[2017-03-04 05:41] LABS: ALANINE AMINOTRANSFERASE 21 Units/L (12-78); ALBUMIN 3.1 g/dL (3.4-5.0); ALKALINE PHOSPHATASE 68 Units/L (46-116); ASPARTATE AMINO TRANSFERASE 12 Units/L (15-37); BLOOD UREA NITROGEN 15 mg/dL (7-18); CALCIUM 8.9 mg/dL (8.5-10.1); CARBON DIOXIDE 27.2 mmol/L (21-32); CHLORIDE 108 mmol/L (98-107); COR CA(FOR HYPOALB) 9.6 mg/dL (8.5-10.1); COR NA(FOR HYPERGLY) 144 mmol/L (136-145); SODIUM 143 mmol/L (136-145); TOTAL PROTEIN 6.1 g/dL (6.4-8.2); eGFR BLACK RACES > 60 (>60); eGFR NON BLACK RACES > 60 (>60)
[2017-03-04 05:44] LABS: BASOPHILS % (AUTO) 0.1 % (0.2-1.0); HEMATOCRIT 38.7 % (42.0-54.0); HEMOGLOBIN 12.9 g/dL (13.5-18.0); LYMPHOCYTES # (AUTO) 0.5 X10^3/uL (1.3-2.9); LYMPHOCYTES % (AUTO) 4.5 % (21.0-51.0); MEAN CORPUSCULAR HEMOGLOBIN 28.1 pg (27.0-34.0); MEAN CORPUSCULAR HGB CONC 33.3 g/dL (33.0-35.0); MEAN CORPUSCULAR VOLUME 84.4 fL (80.0-100.0); MEAN PLATELET VOLUME 9.5 fL (7.4-11.0); MONOCYTES # (AUTO) 0.3 x10^3/uL (0.3-0.8); MONOCYTES % (AUTO) 2.3 % (0.0-13.0); NEUTROPHILS # (AUTO) 10.7 x10^3/uL (2.2-4.8); NEUTROPHILS % (AUTO) 93.1 % (42.0-75.0); PLATELET COUNT 194 X10^3/uL (150.0-450.0); RED BLOOD COUNT 4.58 X10^6/uL (4.7-6.0); RED CELL DISTRIBUTION WIDTH 14.2 % (11.6-16.5); WHITE BLOOD COUNT 11.5 X10^3/uL (3.6-10.0)
[2017-03-04] MEDS: SOLU-Medrol 40 MG VIAL IVP SCH ×3 (05:54→21:41)
[2017-03-04] MEDS: FORTAZ or TAZICEF INJ 1 GM in NS 50 ML IV + SPIKE MINIBAG* 50 ML IV SCH ×3 (05:54→21:39)
[2017-03-04 06:13] LABS: BAND NEUTROPHILS % 1 % (0-10); PLATELET MORPHOLOGY COMMENT NORMAL (NORMAL)
[2017-03-04] MEDS: XARELTO PO SCH (10:51)
[2017-03-04] MEDS: KEPPRA TAB 500 MG PO SCH ×2 (10:51→21:44)
[2017-03-04] MEDS: LOPRESSOR TAB 50 MG PO SCH (10:52)
[2017-03-04] MEDS: ZESTRIL TAB 40 MG PO SCH (10:52)
[2017-03-04] MEDS: ECOTRIN TAB 325 MG PO SCH (10:52)
[2017-03-04] MEDS: ROBITUSSIN DM PO SCH ×4 (10:52→21:45)
[2017-03-04] MEDS ORDERED: NS 1/2 1000 ML IV 1,000 ML IV ONE (12:54)
[2017-03-04] MEDS: KLONOPIN TAB 0.5 MG PO SCH (21:44)
[2017-03-04] MEDS: LIPITOR TAB 20 MG PO SCH (21:44)
[2017-03-04] MEDS: ZANTAC PO SCH (21:44)
[2017-03-04] MEDS: TUSSIONEX PENNKINETIC SUSP PO PRN (21:45)
--- NOTE | 2017-03-04 21:59 | PCM.PROG ---
Progress Note - Progress Note for Day of Date: 03/04/17 - Subjective Subjective: WAS ADMITTED FOR PNEUMONIA, COPD, AND RESPIRATORY DISTRESS. HE IS ALERT AND ORIENTED, LYING IN BED ON MORNING ROUNDS. HE CONTINUES WITH COMPLAINTS OF SHORTNESS OF BREATH AND PRODUCTIVE COUGH, BUT REPORTS FEELING BETTER THAN HE HAS SINCE ADMISSION. LUNGS ARE NOTED WITH WHEEZING BILATERALLY ON AUSCULATATION. HE IS NOTED ON OXYGEN VIA NASAL CANNULA AT 3LPM. VITALS THIS AM ARE 97.9-94-20-98%-158/90. LABS WERE OBTAINED. ABNORMAL LAB VALUES INCLUDE THE FOLLOWING: WBC 11.5, RBC 4.58, HGB 12.9, HCT 38.7, GLUCOSE 149, AST 12, TOTAL PROTEIN 6.1, ALBUMIN 3.1, CHLORIDE 108. RESPIRATORY THERAPY REPORTS THAT PATIENT OXYGEN SATURATION DROP INTO THE HIGH 80S OCCATIONALLY WHEN AMBULATION WITHOUT OXYGEN. WE WILL HAVE RESPIRATORY DO A WALKING PULSE OX TO DETERMINE QUALIFICATION FOR HOME O2. IF PATIENT QUALIFIES, CASE MANAGEMENT WILL ARRANGE FOR 02 AT HOME. WE WILL CONTINUE CURRENT PLAN OF CARE, RECHECK AM LABS, AND CONTINUE TO FOLLOW UP WITH PATIENT. - Past Medical Family Social History Past Med/Fam/Surg Hx: No changes since H&P Allergies: Allergies No Known Drug Allergies Allergy (Verified 03/01/17 10:37) - Review of Systems ROS: No change since H&P - Vital Signs and I&O's Vital Signs: Temperature 98.6 F Pulse Rate [Apical] 91 Pulse Rate 92 Respiratory Rate 19 Blood Pressure [Left Arm] 187/89 Blood Pressure [Right Arm] 104/64 Blood Pressure 215/135 O2 Sat by Pulse Oximetry 98 Intake and Output: Intake & Output 03/02/17 03/03/17 03/04/17 03/05/17 11:59 11:59 11:59 11:59 Intake Total 1082 3945 1606 480 Output Total 350 1050 600 575 Balance 732 2895 1006 -95 - Physical Exam Oriented: Normal Eyes: Normal Ear: Normal Nose: Normal Throat: Normal Respiratory: Right, Left, Generalized, Wheezes Cardiovascular: Normal : Normal Auscultation: Bowel Sounds: Normal Palpation: Normal Tenderness: Normal Skin: Normal Musculoskeletal: Normal Psychiatric: Normal Mood Description: Calm Affect: Normal Speech Pattern: Clear, Appropriate - Laboratory and Diagnostics Result Diagrams: 03/04/17 03:40 03/04/17 03:40 Labs: 03/01/17 11:51 Blood Blood Culture - Preliminary 03/01/17 11:45 Blood Blood Culture - Preliminary 03/01/17 13:56 Sputum - Expectorated Sputum Sputum Culture - Final Escherichia Coli 03/01/17 13:56 Sputum - Expectorated Sputum - Final Laboratory WBC 11.5 X10^3/uL (3.6-10.0) H 03/04/17 03:40 RBC 4.58 X10^6/uL (4.7-6.0) L 03/04/17 03:40 Hgb 12.9 g/dL (13.5-18.0) L 03/04/17 03:40 Hct 38.7 % (42.0-54.0) L 03/04/17 03:40 MCV 84.4 fL (80.0-100.0) 03/04/17 03:40 MCH 28.1 pg (27.0-34.0) 03/04/17 03:40 MCHC 33.3 g/dL (33.0-35.0) 03/04/17 03:40 RDW 14.2 % (11.6-16.5) 03/04/17 03:40 Plt Count 194 X10^3/uL (150.0-450.0) 03/04/17 03:40 Plt Count Comment Adequate (ADEQUATE) 03/04/17 03:40 MPV 9.5 fL (7.4-11.0) 03/04/17 03:40 Neut % 93.1 % (42.0-75.0) H 03/04/17 03:40 Lymph % 4.5 % (21.0-51.0) L 03/04/17 03:40 [place] % 2.3 % (0.0-13.0) 03/04/17 03:40 Eos % 0.0 % (0.9-2.9) L 03/04/17 03:40 Baso % 0.1 % (0.2-1.0) L 03/04/17 03:40 Neut # 10.7 x10^3/uL (2.2-4.8) H 03/04/17 03:40 Lymph # 0.5 X10^3/uL (1.3-2.9) L 03/04/17 03:40 [place] # 0.3 x10^3/uL (0.3-0.8) 03/04/17 03:40 Eos # 0.0 x10^3/uL (0.0-0.2) 03/04/17 03:40 Baso # 0.0 X10^3/uL (0.0-0.1) 03/04/17 03:40 Absolute Nucleated RBC 0.0 /100WBC 03/04/17 03:40 Total Counted 100 03/04/17 03:40 Neutrophils % (Manual) 92 % (39-76) H 03/04/17 03:40 Band Neutrophils % 1 % (0-10) 03/04/17 03:40 Lymphocytes % (Manual) 4 % (13-43) L 03/04/17 03:40 Monocytes % (Manual) 3 % (4-9) L 03/04/17 03:40 Plt Morphology Comment Normal (NORMAL) 03/04/17 03:40 RBC Morphology Normal (NORMAL) 03/04/17 03:40 INR Target Range - 03/02/17 05:18 INR 1.67 (0.8-1.3) H 03/02/17 05:18 PTT 38.3 SECONDS (22.9-36.5) H 03/02/17 05:18 PTT Comment - 03/02/17 05:18 Sample Site Rrad 03/03/17 05:11 ABG pH 7.360 (7.35-7.45) 03/03/17 05:11 ABG pCO2 56.0 mmHg (35.0-45.0) H* 03/03/17 05:11 ABG pO2 96.0 mmHg (80.0-100.0) 03/03/17 05:11 ABG HCO3 31.6 mmol/L (22-26) H* 03/03/17 05:11 ABG O2 Saturation 97.0 % (90-100) 03/03/17 05:11 ABG Base Excess 4.8 mmol/L (-2.0-2.0) H 03/03/17 05:11 Tanner Test Bra 03/03/17 05:11 A-a Gradient 34.0 mmHg 03/03/17 05:11 FiO2 28.000 03/03/17 05:11 Blood Gas Comments Christian well-mtf 03/03/17 05:11 Sodium 143 mmol/L (136-145) 03/04/17 03:40 Corrected Sodium 144 mmol/L (136-145) 03/04/17 03:40 Potassium 4.2 mmol/L (3.5-5.1) 03/04/17 03:40 Chloride 108 mmol/L (98-107) H 03/04/17 03:40 Carbon Dioxide 27.2 mmol/L (21-32) 03/04/17 03:40 BUN 15 mg/dL (7-18) 03/04/17 03:40 Creatinine 1.10 mg/dL (0.70-1.30) 03/04/17 03:40 Est GFR (MDRD) Af Amer > 60 (>60) 03/04/17 03:40 Est GFR (MDRD) Non-Af > 60 (>60) 03/04/17 03:40 Glucose 149 mg/dL (65-99) H 03/04/17 03:40 Calcium 8.9 mg/dL (8.5-10.1) 03/04/17 03:40 Corrected Calcium 9.6 mg/dL (8.5-10.1) 03/04/17 03:40 Magnesium 1.8 mg/dL (1.7-2.9) 03/02/17 05:18 Total Bilirubin 0.10 mg/dL (0.2-1.0) L 03/04/17 03:40 AST 12 Units/L (15-37) L 03/04/17 03:40 ALT 21 Units/L (12-78) 03/04/17 03:40 Alkaline Phosphatase 68 Units/L (46-116) 03/04/17 03:40 Creatine Kinase 371 Units/L (39-308) H 03/01/17 23:20 CK-MB (CK-2) 3.5 ng/mL (0-4.0) 03/01/17 23:20 CK/CKMB % Calc 0.9 % (<4) 03/01/17 23:20 Troponin I < 0.02 ng/mL (0-1.5) 03/01/17 23:20 B-Natriuretic Peptide 55.9 pg/mL (0-79) 03/01/17 10:53 Total Protein 6.1 g/dL (6.4-8.2) L 03/04/17 03:40 Albumin 3.1 g/dL (3.4-5.0) L 03/04/17 03:40 Globulin 3.0 g/dL (2.5-4.5) 03/04/17 03:40 Albumin/Globulin Ratio 1.0 Ratio (1.1-2.1) L 03/04/17 03:40 Triglycerides 36 mg/dL (0-150) 03/02/17 05:18 Cholesterol 139 mg/dL (0-200) 03/02/17 05:18 LDL Cholesterol, Calc 66 mg/dL (0-100) 03/02/17 05:18 HDL Cholesterol 66 mg/dL (40-60) H 03/02/17 05:18 Cholesterol/HDL Ratio 2.1 (0.0-5.0) 03/02/17 05:18 - Plan (1) Pneumonia Status: Acute Qualifiers: Pneumonia type: due to unspecified organism Laterality: bilateral Lung location: lower lobe of lung Qualified Code(s): J18.9 - Pneumonia, unspecified organism Plan: PNEUMONIA PROTOCOL, SUPPLEMENTAL OXYGEN, FORTAZ 1GM IV Q8H, LEVAQUIN 750MG DAILY, CONTINUE TO MONITOR (2) COPD (chronic obstructive pulmonary disease) Status: Chronic Qualifiers: COPD type: COPD with acute exacerbation Qualified Code(s): J44.1 - Chronic obstructive pulmonary disease with (acute) exacerbation Plan: SUPPLEMENTAL OXYGEN, SOLU-MEDROL 80MG IV Q8H, DUONEBS Q4H, CONTINUE TO MONITOR
[2017-03-05] MEDS ORDERED: NS 1/2 1000 ML IV 1,000 ML IV ONE (00:54)
[2017-03-05] MEDS: NS 1/2 1000 ML IV 1,000 ML IV SCH ×2 (01:13→11:02)
[2017-03-05] MEDS: DUONEB 0.5 MG/3 MG NEB SCH ×4 (01:43→11:16)
[2017-03-05] MEDS: FORTAZ or TAZICEF INJ 1 GM in NS 50 ML IV + SPIKE MINIBAG* 50 ML IV SCH (05:12)
[2017-03-05] MEDS: SOLU-Medrol 40 MG VIAL IVP SCH (05:12)
[2017-03-05 05:44] LABS: ALANINE AMINOTRANSFERASE 33 Units/L (12-78); ALBUMIN 2.8 g/dL (3.4-5.0); ALKALINE PHOSPHATASE 59 Units/L (46-116); ASPARTATE AMINO TRANSFERASE 19 Units/L (15-37); BLOOD UREA NITROGEN 16 mg/dL (7-18); CALCIUM 8.9 mg/dL (8.5-10.1); CARBON DIOXIDE 32.5 mmol/L (21-32); CHLORIDE 107 mmol/L (98-107); COR CA(FOR HYPOALB) 9.9 mg/dL (8.5-10.1); COR NA(FOR HYPERGLY) 143 mmol/L (136-145); CREATININE 1.06 mg/dL (0.70-1.30); SODIUM 142 mmol/L (136-145); TOTAL PROTEIN 5.8 g/dL (6.4-8.2); eGFR BLACK RACES > 60 (>60); eGFR NON BLACK RACES > 60 (>60)
[2017-03-05 05:59] LABS: ABG BASE EXCESS 9.7 mmol/L (-2.0-2.0)
[2017-03-05 06:03] LABS: ABG ALLEN TEST POS; ABG HCO3 35.8 mmol/L (22-26)
[2017-03-05 06:11] LABS: BASOPHILS % (AUTO) 0.1 % (0.2-1.0); HEMATOCRIT 37.1 % (42.0-54.0); HEMOGLOBIN 12.3 g/dL (13.5-18.0); LYMPHOCYTES # (AUTO) 0.5 X10^3/uL (1.3-2.9); LYMPHOCYTES % (AUTO) 4.5 % (21.0-51.0); MEAN CORPUSCULAR HEMOGLOBIN 27.6 pg (27.0-34.0); MEAN CORPUSCULAR VOLUME 83.6 fL (80.0-100.0); MEAN PLATELET VOLUME 9.5 fL (7.4-11.0); MONOCYTES # (AUTO) 0.2 x10^3/uL (0.3-0.8); MONOCYTES % (AUTO) 2.2 % (0.0-13.0); NEUTROPHILS # (AUTO) 10.7 x10^3/uL (2.2-4.8); NEUTROPHILS % (AUTO) 93.2 % (42.0-75.0); PLATELET COUNT 196 X10^3/uL (150.0-450.0); RED BLOOD COUNT 4.44 X10^6/uL (4.7-6.0); RED CELL DISTRIBUTION WIDTH 14.3 % (11.6-16.5); WHITE BLOOD COUNT 11.5 X10^3/uL (3.6-10.0)
[2017-03-05 06:44] LABS: PLATELET MORPHOLOGY COMMENT NORMAL (NORMAL)
--- NOTE | 2017-03-05 07:29 | RAD ---
HISTORY: Shortness of breath Study: AP chest. Comparison: 03/03/2017 Findings: There has been interval increased opacity within the medial right lung base. Lungs are hyperexpanded. There are no pleural effusions. Cardiac silhouette is upper limits of normal in size. IMPRESSION: 1. Interval increased opacity within the medial right lung base concerning for pneumonia in appropri ate clinical setting. 2. Hyperexpansion suggesting generalized air trapping.. Reported By:
[2017-03-05] MEDS: XARELTO PO SCH (09:29)
[2017-03-05] MEDS: ROBITUSSIN DM PO SCH (09:29)
[2017-03-05] MEDS: LOPRESSOR TAB 50 MG PO SCH (09:29)
[2017-03-05] MEDS: KEPPRA TAB 500 MG PO SCH (09:29)
[2017-03-05] MEDS: ZESTRIL TAB 40 MG PO SCH (09:29)
[2017-03-05] MEDS: ECOTRIN TAB 325 MG PO SCH (09:30)
[2017-03-05 10:48] VITALS: BP 174/84
== END 2017-03-05 11:35 | disposition home or self-care (01) | DRG 177 ==
LOC: ER 10:37 → ICU 13:31 → MED/SURG 03-03 11:10
PROVIDERS: ADMIT Internal Medicine; ATTEND Internal Medicine
DX: J15.5 Pneumonia due to Escherichia coli (principal); I50.43 Acute on chronic combined systolic (congestive) and diastolic (congestive) heart failure; J44.1 Chronic obstructive pulmonary disease with (acute) exacerbation; R06.02 Shortness of breath; R06.89 Other abnormalities of breathing; R94.31 Abnormal electrocardiogram [ECG] [EKG]; R07.89 Other chest pain; R00.0 Tachycardia, unspecified; E78.2 Mixed hyperlipidemia; K21.9 Gastro-esophageal reflux disease without esophagitis; I10 Essential (primary) hypertension; B96.29 Other Escherichia coli [E. coli] as the cause of diseases classified elsewhere
CPT/HCPCS: 36415; 36600; 71010; 80053; 80061; 82550; 82553; 82803; 83735; 83880; 84484; 85025; 85610; 85730; 87040; 87070; 87077; 87186; 87205; 93005; 93010; 94640; 94660; 96365; 96367; 96374; 96375; 99284; 99285; A4222; A4618; A7030; J0713; J1940; J1956; J2920; J2930; J7620

== ENCOUNTER 2017-12-23 04:20 | Inpatient (IN) ==
[2017-12-23] MEDS ORDERED: DUONEB 0.5 MG/3 MG ONE (04:28)
[2017-12-23] MEDS ORDERED: DUONEB 0.5 MG/3 MG NEB ONE (04:30)
--- NOTE | 2017-12-23 04:32 | DR.GENAD ---
HPI - HPI Comment HPI Comment: PATIENT WOKE UP FROM SLEEP WITH SOB AND CHEST PAIN. LOW O2 SAT NOTED BY EMS. WAS ON BREATHING TREATMENT ON ARRIVAL. PLACE ON NRM. HE IS WEAK, NAUSEATED AND COUGHING. NO FEVER OR DYSURIA. - Complaint/Symptoms Chief Complaint Doctors Comments: HERE VIA EMS WITH CHEST PAIN AND SOB. - Nurses notes reviewed Nurses Notes Review: Yes - Source History Provided: Patient, EMS - Mode of Arrival Mode of Arrival: Stretcher - Timing Came on: Suddenly - Duration Duration: Constant Duration: Hours - Severity Severity: Moderate PMH - PMH Past Medical History: Anxiety, Asthma, CVA, Dyslipidemia, GERD, Hypertension Past Surgical History: Yes Surgical History: Appendectomy, Other - Family History Family Medical History: Diabetes Mellitus, Hypertension - Social History Do you use any recreational Drugs:: No ROS - Review of Systems Constitutional: Weakness, Fatigue. negative: Chills, Fever Eyes: negative: Eye Pain, Discharge ENTM: negative: Ear Pain, Nose Discharge, Nose Congestion, Throat Pain Respiratoy: Productive Cough, Short of Breath, Wheezing. negative: Non- Productive Cough, Hemoptysis Cardiovascular: Chest Pain, Palpitations Gastrointestinal/Abdominal: Abdominal Pain (epigastric) Neurological: Weakness, Dizziness Musculoskeletal: No Symptoms Reported Integumentary: No Symptoms Reported Hematologic/Lymphatic: No Symptoms Reported Endocrine: No Symptoms Reported All Other Systems: Reviewed and Negative PE - General Limitations: No Limitations General Appearance: Alert - Head Head Exam: Normal Inspection - Eyes Eye exam: Normal Appearance - ENT ENT Exam: Normal External Ear Exam External Ear Exam: Normal External Inspection TM/Canal Exam: Bilateral Normal Nose Exam: Normal Nose Exam Mouth Exam: Normal Inspection Throat Exam: Normal Inspection - Chest Chest Inspection: Symmetric Chest Wall Rise - Respiratory Respiratory Exam: Accessory Muscle Use, Respiratory Distress Respiratory Exam: Bilateral Wheezing, Bilateral Rales, Bilateral Rhonchi, Upper Wheezing, Upper Rhonchi, Lower Wheezing, Lower Rales, Lower Rhonchi - Cardiovascular Cardiovascular Exam: Tachycardia - Abdominal Exam Abdominal Exam: Normal Bowel Sounds, Soft. negative: Tenderness - Extremities Extremities Exam: Normal Inspection. negative: Edema - Back Back Exam: Normal Inspection - Neurologic Neurological Exam: Alert, Oriented X3, CN II-XII Intact. negative: Motor Sensory Deficit - Psychiatric Psychiatric Exam: Normal Affect, Normal Mood - Skin Skin Exam: Dry - Vital Signs Vitals: Temperature 99.4 F Pulse Rate [Left Brachial] 116 Pulse Rate 119 Respiratory Rate 24 Blood Pressure [Left Arm] 174/106 Blood Pressure [Right Arm] 104/64 Blood Pressure 177/128 O2 Sat by Pulse Oximetry 99 MDM - Differential Diagnosis Differential Diagnosis: copd exacerbation, pneumonia, bronchitis Course - Treatment Treatment: SEE ORDERS. - Consultation Consultation Comments: PATIENT ADMITTED BY DR. FALCON. - Education/Counseling Education/Counseling: Patient, Education Educated On: Treatment, Diagnosis ROR - Labs Reviewed Laboratory Results Reviewed?: Yes Result Diagrams: 01/05/18 05:35 01/05/18 05:35 - XRAY XRAY Interpreted by: Radiologist XRAY Findings: REPORT DISCUSS WITH PATIENT. - Labs Reviewed Laboratory: 12/23/17 04:45 Blood Blood Culture - Final 12/23/17 04:35 Blood Blood Culture - Final WBC 14.3 X10^3/uL (3.6-10.0) H D 01/05/18 05:35 RBC 4.55 X10^6/uL (4.7-6.0) L 01/05/18 05:35 Hgb 13.3 g/dL (13.5-18.0) L 01/05/18 05:35 Hct 40.2 % (42.0-54.0) L 01/05/18 05:35 MCV 88.3 fL (80.0-100.0) 01/05/18 05:35 MCH 29.1 pg (27.0-34.0) 01/05/18 05:35 MCHC 33.0 g/dL (33.0-35.0) 01/05/18 05:35 RDW 14.3 % (11.6-16.5) 01/05/18 05:35 Plt Count 195 X10^3/uL (150.0-450.0) 01/05/18 05:35 Plt Count Comment Adequate (ADEQUATE) 01/05/18 05:35 MPV 8.8 fL (7.4-11.0) 01/05/18 05:35 Neut % (Auto) 85.5 % (42.0-75.0) H 01/05/18 05:35 Lymph % (Auto) 4.5 % (21.0-51.0) L 01/05/18 05:35 [place] % (Auto) 9.5 % (0.0-13.0) 01/05/18 05:35 Eos % (Auto) 0.3 % (0.9-2.9) L 01/05/18 05:35 Baso % (Auto) 0.2 % (0.2-1.0) 01/05/18 05:35 Neut # (Auto) 12.2 x10^3/uL (2.2-4.8) H 01/05/18 05:35 Lymph # (Auto) 0.6 X10^3/uL (1.3-2.9) L 01/05/18 05:35 [place] # (Auto) 1.4 x10^3/uL (0.3-0.8) H 01/05/18 05:35 Eos # (Auto) 0.0 x10^3/uL (0.0-0.2) 01/05/18 05:35 Baso # (Auto) 0.0 X10^3/uL (0.0-0.1) 01/05/18 05:35 Absolute Nucleated RBC 0.1 /100WBC 01/05/18 05:35 Total Counted 100 01/05/18 05:35 Neutrophils % (Manual) 87 % (39-76) H 01/05/18 05:35 Band Neutrophils % 2 % (0-10) 01/04/18 05:30 Lymphocytes % (Manual) 8 % (13-43) L 01/05/18 05:35 Monocytes % (Manual) 4 % (4-9) 01/05/18 05:35 Eosinophils % (Manual) 1 % (0-6) 01/05/18 05:35 Plt Morphology Comment Normal (NORMAL) 01/05/18 05:35 RBC Morphology Normal (NORMAL) 01/05/18 05:35 INR Target Range - 01/05/18 08:37 INR 1.06 (0.8-1.3) 01/05/18 08:37 APTT 22.0 SECONDS (22.9-36.5) L 01/05/18 08:37 PTT Comment - 01/05/18 08:37 Fibrinogen 417 mg/dL (239-489) 01/05/18 08:37 D-Dimer < 100 ng/mL (0-400) 12/23/17 04:45 Sample Site Lrad 01/03/18 05:45 ABG pH 7.440 (7.35-7.45) 01/03/18 05:45 ABG pCO2 53.0 mmHg (35.0-45.0) H* 01/03/18 05:45 ABG pO2 81.0 mmHg (80.0-100.0) 01/03/18 05:45 ABG HCO3 36.0 mmol/L (22-26) H* 01/03/18 05:45 ABG O2 Saturation 96.0 % (90-100) 01/03/18 05:45 ABG Base Excess 10.1 mmol/L (-2.0-2.0) H 01/03/18 05:45 Tanner Test Pos 01/03/18 05:45 A-a Gradient 52.0 mmHg 01/03/18 05:45 FiO2 28.000 01/03/18 05:45 Blood Gas Comments Christian abg well-mtf 01/03/18 05:45 Sodium 142 mmol/L (136-145) 01/05/18 05:35 Corrected Sodium 143 mmol/L (136-145) 01/05/18 05:35 Potassium 4.4 mmol/L (3.5-5.1) 01/05/18 05:35 Chloride 106 mmol/L (98-107) 01/05/18 05:35 Carbon Dioxide 37.3 mmol/L (21-32) H 01/05/18 05:35 BUN 23 mg/dL (7-18) H 01/05/18 05:35 Creatinine 0.98 mg/dL (0.70-1.30) 01/05/18 05:35 Est GFR (MDRD) Af Amer > 60 (>60) 01/05/18 05:35 Est GFR (MDRD) Non-Af > 60 (>60) 01/05/18 05:35 Glucose 139 mg/dL (65-99) H 01/05/18 05:35 POC Glucose (mg/dL) 167 mg/dL (65-99) H 01/04/18 05:27 Lactic Acid 0.5 mmol/L (0.4-2.0) 12/23/17 04:35 Calcium 8.3 mg/dL (8.5-10.1) L 01/05/18 05:35 Corrected Calcium 9.8 mg/dL (8.5-10.1) 01/05/18 05:35 Magnesium 1.9 mg/dL (1.7-2.9) 12/24/17 04:20 Total Bilirubin 0.30 mg/dL (0.2-1.0) 01/05/18 05:35 AST 22 Units/L (15-37) 01/05/18 05:35 ALT 51 Units/L (12-78) 01/05/18 05:35 Alkaline Phosphatase 47 Units/L (46-116) 01/05/18 05:35 Creatine Kinase 628 Units/L (39-308) H 01/05/18 08:37 CK-MB (CK-2) 7.3 ng/mL (0-4.0) H* 01/05/18 08:37 CK/CKMB % Calc 1.2 % (<4) 01/05/18 08:37 Troponin I 0.06 ng/mL (0-1.5) 01/05/18 08:37 C-Reactive Protein 2.90 mg/L (0-3.0) 12/23/17 04:35 Total Protein 4.8 g/dL (6.4-8.2) L 01/05/18 05:35 Albumin 2.1 g/dL (3.4-5.0) L 01/05/18 05:35 Globulin 2.7 g/dL (2.5-4.5) 01/05/18 05:35 Albumin/Globulin Ratio 0.8 Ratio (1.1-2.1) L 01/05/18 05:35 Triglycerides 101 mg/dL (0-150) 01/05/18 08:37 Cholesterol 211 mg/dL (0-200) H 01/05/18 08:37 LDL Cholesterol, Calc 117 mg/dL (0-100) H 01/05/18 08:37 HDL Cholesterol 74 mg/dL (40-60) H 01/05/18 08:37 Cholesterol/HDL Ratio 2.9 (0.0-5.0) 01/05/18 08:37 Specimen Type Catherized urine 01/05/18 08:40 Urine Color Brown (YELLOW) 01/05/18 08:40 Urine Appearance Cloudy (CLEAR) 01/05/18 08:40 Urine pH 5.0 (5.0 - 8.0) 01/05/18 08:40 Ur Specific [place] 1.015 (1.000-1.030) 01/05/18 08:40 Urine Protein 3+ (NEGATIVE) 01/05/18 08:40 Urine Glucose (UA) Negative (NEGATIVE) 01/05/18 08:40 Urine Ketones Negative (NEGATIVE) 01/05/18 08:40 Urine Occult Blood 5+ (NEGATIVE) 01/05/18 08:40 Urine Nitrite Positive (NEGATIVE) 01/05/18 08:40 Urine Bilirubin Negative (NEGATIVE) 01/05/18 08:40 Urine Urobilinogen Normal (NORMAL) 01/05/18 08:40 Ur Leukocyte Esterase 3+ (NEGATIVE) 01/05/18 08:40 Urine RBC Tntc /HPF (NONE SEEN) 01/05/18 08:40 Urine WBC Tntc /HPF (NONE SEEN) 01/05/18 08:40 Ur Squamous Epith Cells Rare /HPF (NEGATIVE) 01/05/18 08:40 Urine Bacteria 2+ /HPF (NEGATIVE) 01/05/18 08:40 Granular Casts Rare /LPF (NEGATIVE) 01/05/18 08:40 Ur Culture Indicated? Yes/culture set up 01/05/18 08:40 Digoxin 0.51 ng/mL (0.9-2) L 01/05/18 05:35 Levetiracetam 10 ug/mL (12-46) L 01/05/18 07:14 Theophylline 9.2 ug/mL (10-20) L 01/05/18 05:35 Ur C. trach DNA (PCR) Not detected (NOT DETECT) 01/03/18 21:40 U N.gonorrhoeae DNA PCR Not detected (NOT DETECT) 01/03/18 21:40 - Diagnosis Discharge Problem: COPD with acute exacerbation, Bronchitis, Respiratory insufficiency Chest pain Qualifiers: Chest pain type: precordial pain Qualified Code(s): R07.2 - Precordial pain - Discharge Plan Disposition: 01 HOME, SELF-CARE
[2017-12-23] MEDS ORDERED: SOLU-Medrol 125 MG VIAL IVP ONE (04:39)
[2017-12-23] MEDS ORDERED: SOLU-Medrol 125 MG VIAL ONE (04:40)
--- NOTE | 2017-12-23 04:45 | RAD ---
Chest, one view Indication: Shortness of breath Comparison: 03/05/2017 Findings: The left lung base is excluded from the exam. The visualized lungs are clear. No significan t right pleural effusion or pneumothorax is identified. The heart size is stable, given differences i n technique. There is no acute osseous abnormality. Impression: Technically limited exam, as above without visualized acute cardiopulmonary abnormality. Reported By:
[2017-12-23 04:48] LABS: ABG BASE EXCESS 7.2 mmol/L (-2.0-2.0)
[2017-12-23 04:51] VITALS: BMI 25.8
[2017-12-23 04:51] LABS: ABG ALLEN TEST POS; ABG HCO3 34.5 mmol/L (22-26)
[2017-12-23 05:06] LABS: BASOPHILS # (AUTO) 0.1 X10^3/uL (0.0-0.1); BASOPHILS % (AUTO) 0.6 % (0.2-1.0); EOSINOPHILS # (AUTO) 0.3 x10^3/uL (0.0-0.2); EOSINOPHILS % (AUTO) 2.6 % (0.9-2.9); HEMATOCRIT 40.6 % (42.0-54.0); HEMOGLOBIN 13.5 g/dL (13.5-18.0); LYMPHOCYTES # (AUTO) 1.4 X10^3/uL (1.3-2.9); LYMPHOCYTES % (AUTO) 14.3 % (21.0-51.0); MEAN CORPUSCULAR HEMOGLOBIN 29.3 pg (27.0-34.0); MEAN CORPUSCULAR HGB CONC 33.1 g/dL (33.0-35.0); MEAN CORPUSCULAR VOLUME 88.4 fL (80.0-100.0); MEAN PLATELET VOLUME 8.3 fL (7.4-11.0); NEUTROPHILS # (AUTO) 7.3 x10^3/uL (2.2-4.8); NEUTROPHILS % (AUTO) 72.5 % (42.0-75.0); PLATELET COUNT 260 X10^3/uL (150.0-450.0); RED CELL DISTRIBUTION WIDTH 14.8 % (11.6-16.5); WHITE BLOOD COUNT 10.1 X10^3/uL (3.6-10.0)
[2017-12-23 05:20] LABS: BLOOD UREA NITROGEN 11 mg/dL (7-18); CARBON DIOXIDE 34.5 mmol/L (21-32); CHLORIDE 108 mmol/L (98-107); SODIUM 145 mmol/L (136-145); TROPONIN I < 0.02 ng/mL (0-1.5); eGFR NON BLACK RACES > 60 (>60)
[2017-12-23 05:23] LABS: LACTIC ACID 0.5 mmol/L (0.4-2.0)
[2017-12-23 05:40] LABS: ALANINE AMINOTRANSFERASE 26 Units/L (12-78); ALBUMIN 3.8 g/dL (3.4-5.0); ALKALINE PHOSPHATASE 61 Units/L (46-116); ASPARTATE AMINO TRANSFERASE 13 Units/L (15-37); CKMB % 1.8 % (<4); CREATINE KINASE 440 Units/L (39-308); MAGNESIUM 1.8 mg/dL (1.7-2.9); TOTAL PROTEIN 7.1 g/dL (6.4-8.2)
[2017-12-23] MEDS ORDERED: LEVAQUIN PREMIX IV 750 MG 750 MG/150 ML BAG IV ONE ×2 (05:46→05:48)
[2017-12-23] MEDS ORDERED: NS 1/2 1000 ML IV 1,000 ML IV ONE ×3 (05:50→22:24)
[2017-12-23] MEDS: NS 1/2 1000 ML IV 1,000 ML IV SCH ×3 (05:56→21:55)
[2017-12-23] MEDS ORDERED: FORTAZ or TAZICEF VIAL INJ 1 G in NS 50 ML IV + SPIKE MINIBAG* 50 ML IV SCH (06:00)
[2017-12-23] MEDS ORDERED: ULTRAM PO PRN ×2 (06:13→08:00)
[2017-12-23] MEDS ORDERED: PERCOCET TAB 5/325 MG PO PRN (06:13)
[2017-12-23] MEDS: DUONEB 0.5 MG/3 MG NEB SCH ×4 (09:05→21:36)
[2017-12-23] MEDS: TOPROL XL PO SCH (09:29)
[2017-12-23] MEDS: KEPPRA TAB 500 MG PO SCH ×2 (09:29→21:54)
[2017-12-23] MEDS: ECOTRIN TAB 325 MG PO SCH (09:29)
[2017-12-23] MEDS: XARELTO PO SCH (09:29)
[2017-12-23] MEDS: ZESTRIL TAB 40 MG PO SCH (09:29)
[2017-12-23] MEDS ORDERED: CARDIZEM INJ 50 MG VIAL ONE (09:31)
[2017-12-23] MEDS ORDERED: PULMICORT NEB TX 0.5 MG NEB ONE (11:27)
[2017-12-23] MEDS: PULMICORT NEB TX 0.5 MG NEB SCH ×2 (11:30→21:37)
[2017-12-23 11:58] LABS: CKMB % 1.7 % (<4); CREATINE KINASE 441 Units/L (39-308); TROPONIN I < 0.02 ng/mL (0-1.5)
[2017-12-23 12:09] LABS: CREATINE KINASE MB 7.3 ng/mL (0-4.0)
[2017-12-23] MEDS: FORTAZ or TAZICEF VIAL INJ 1 G in NS 100 ML IV + SPIKE MINIBAG* 100 ML IV SCH ×2 (14:51→21:55)
[2017-12-23 18:48] LABS: CKMB % 1.7 % (<4); CREATINE KINASE 459 Units/L (39-308); TROPONIN I < 0.02 ng/mL (0-1.5)
[2017-12-23 18:55] LABS: CREATINE KINASE MB 7.7 ng/mL (0-4.0)
[2017-12-23] MEDS: KLONOPIN TAB 0.5 MG PO SCH (21:54)
[2017-12-23] MEDS: ZANTAC PO SCH (21:55)
[2017-12-23] MEDS: SOLU-Medrol 40 MG VIAL IVP SCH (21:55)
[2017-12-23] MEDS: LIPITOR TAB 40 MG PO SCH (21:55)
[2017-12-23] MEDS ORDERED: NS 500 ML IV 0 ML IV ONE (22:20)
[2017-12-24] MEDS: DUONEB 0.5 MG/3 MG NEB SCH ×6 (00:25→19:20)
[2017-12-24 05:17] LABS: BASOPHILS % (AUTO) 0.1 % (0.2-1.0); HEMOGLOBIN 12.8 g/dL (13.5-18.0); LYMPHOCYTES # (AUTO) 0.5 X10^3/uL (1.3-2.9); LYMPHOCYTES % (AUTO) 4.4 % (21.0-51.0); MEAN CORPUSCULAR HGB CONC 32.7 g/dL (33.0-35.0); MEAN CORPUSCULAR VOLUME 88.6 fL (80.0-100.0); MEAN PLATELET VOLUME 8.5 fL (7.4-11.0); MONOCYTES # (AUTO) 0.5 x10^3/uL (0.3-0.8); NEUTROPHILS # (AUTO) 11.1 x10^3/uL (2.2-4.8); NEUTROPHILS % (AUTO) 91.5 % (42.0-75.0); PLATELET COUNT 254 X10^3/uL (150.0-450.0); RED CELL DISTRIBUTION WIDTH 15.2 % (11.6-16.5); WHITE BLOOD COUNT 12.1 X10^3/uL (3.6-10.0)
[2017-12-24] MEDS: FORTAZ or TAZICEF VIAL INJ 1 G in NS 100 ML IV + SPIKE MINIBAG* 100 ML IV SCH ×3 (05:29→21:02)
[2017-12-24] MEDS: SOLU-Medrol 40 MG VIAL IVP SCH ×4 (05:29→20:37)
[2017-12-24 05:32] LABS: ALANINE AMINOTRANSFERASE 11 Units/L (12-78); ALBUMIN 3.3 g/dL (3.4-5.0); ALKALINE PHOSPHATASE 55 Units/L (46-116); ASPARTATE AMINO TRANSFERASE 15 Units/L (15-37); BLOOD UREA NITROGEN 15 mg/dL (7-18); CARBON DIOXIDE 31.7 mmol/L (21-32); CHLORIDE 107 mmol/L (98-107); COR CA(FOR HYPOALB) 9.6 mg/dL (8.5-10.1); COR NA(FOR HYPERGLY) 143 mmol/L (136-145); CREATININE 0.97 mg/dL (0.70-1.30); MAGNESIUM 1.9 mg/dL (1.7-2.9); SODIUM 142 mmol/L (136-145); TOTAL PROTEIN 6.5 g/dL (6.4-8.2); eGFR NON BLACK RACES > 60 (>60)
[2017-12-24 06:15] LABS: PLATELET MORPHOLOGY COMMENT NORMAL (NORMAL)
--- NOTE | 2017-12-24 07:22 | DR.H&P ---
H&P - History & Physical for Day of: H&P Date: 12/23/17 - Chief Complaint Chief Complaint: chest pain, short of breath - History of Present Illness History of Present Illness: is a 57 year old patient of ours presented to the emergency room via EMS with reports of shortness of breath and chest pain. Patient reports that symptoms started suddenly a few hours prior to arrival at the hospital. EMS reports on arrival to patient's home, patient was receiving a breathing treatment with oxygen saturation at 89%. Patient placed on non-rebreather by EMS at 10L/min. Patient stated he woke up with chest pain and shortness of breath. Associated symptoms include: weakness, fatigue, abdominal pain, cough, dizziness and chest pain. Patient noted to be in respiratory distress on arrival with use of accessory muscles. He rates pain to chest as an 8/10. On arrival, vitals were 99.4, 125, 32, 100% Non-rebreather, 177/128. Labs were obtained. Abnormal lab values include the following: Abnormal Labs: WBC 10.1, RBC 4.60, Hct 40.6, Lymph% 14.3, Neut# 7.3, Stanly# 1.0, Eos# 0.3, Chloride 108, Carbon Dioxide 34.5, AST 13, Creatine Kinase 440, CKMB 8.0. Blood Cultures x2 Pending. ABG: pCO2 61.0, pO2 176.0, HCO3 34.5, Base Excess 7.2. Chest X-Ray revealed: Technically limited exam, as above without visualized acute cardiopulmonary abnormality. EKG: Sinus Tachycardia. Rate= 121. He was given Solu-Medrol 125mg IV x1, Levaquin 750mg IV x1, and started on 1/2 NS @50ml/hr in the ER. Patient admitted to the hospital with acute COPD and started on IV fluids, IV antibiotics and aggressive neb treatments. Will follow up with labs in the morning. - Past Medical History Past Medical History: Anxiety, Asthma, CVA, Dyslipidemia, GERD, Hypertension - Past Surgical History Surgical History: Appendectomy, Other - Family History Family Medical History: Diabetes Mellitus, Hypertension - Social History Does patient currently use any type of tobacco product: Yes Have you used tobacco products in the last 12 months: Yes Type of Tobacco Use: Cigarettes Does any household member use tobacco: No Alcohol Use: None Drug Use: None - Medications Home Medications: No Known Drug Allergies Allergy (Verified 12/23/17 04:51) CONTINUE taking the following medications albuterol sulfate 1.25 mg INHALATION PRN PRN 12/23/17 [History] albuterol sulfate [ProAir HFA] 1 inh INHALATION PRN PRN 12/23/17 [History] atorvastatin 1 tab PO HS 12/23/17 [History] metoprolol succinate 1 tab PO DAILY 12/23/17 [History] oxycodone-acetaminophen 1 tab PO PRN PRN 12/23/17 [History] prednisone 1 tab PO DAILY 12/23/17 [History] rivaroxaban [Xarelto] 1 tab PO DAILY 12/23/17 [History] tramadol 1 tab PO PRN PRN 12/23/17 [History] - Review of Systems Constitutional: No Symptoms Reported, Weakness, Malaise Eyes: No Symptoms Reported ENT: No Symptoms Reported Respiratory: Cough, Shortness of Breath, SOB with Excertion, Wheezing Cardiovascular: Chest Pain, Light Headedness Gastrointestinal: Abdominal Pain Genitourinary: No Symptoms Reported Musculoskeletal: No Symptoms Reported Skin: No Symptoms Reported Neurological: Weakness - Physical Exam Vital Signs: Temperature 98 F Pulse Rate [Left Brachial] 100 Pulse Rate 105 Respiratory Rate 21 Blood Pressure [Left Arm] 132/92 Blood Pressure [Right Arm] 104/64 Blood Pressure 177/128 O2 Sat by Pulse Oximetry 100 Oriented: Normal Eyes: Normal Ear: Normal Nose: Normal Throat: Normal Respiratory: Wheezes Throughout Cardiovascular: Tachycardia. negative: S3, S4, Murmur : Normal Auscultation: Bowel Sounds: Normal Palpation: Normal Tenderness: Diffuse Skin: Normal Musculoskeletal: Normal Psychiatric: Normal Mood Description: Calm Affect: Normal Speech Pattern: Clear - Assessment/Plan (1) COPD with acute exacerbation Status: Acute Plan: admit, supplemental oxygen, respiratory treatments, continue to monitor (2) Respiratory insufficiency Status: Acute (3) Bronchitis Status: Acute Plan: iv antibiotics, respiratory treatments, continue to monitor - Allergies Allergies/Adverse Reactions: Allergies Allergy/AdvReac Type Severity Reaction Status Date / Time No Known Drug Allergies Allergy Verified 12/23/17 04:51
[2017-12-24] MEDS: NS 1/2 1000 ML IV 1,000 ML IV SCH ×2 (08:36→20:28)
[2017-12-24] MEDS: LEVAQUIN PREMIX IV 750 MG 750 MG/150 ML BAG IV SCH (08:37)
[2017-12-24] MEDS: TOPROL XL PO SCH (08:38)
[2017-12-24] MEDS: XARELTO PO SCH (08:38)
[2017-12-24] MEDS: ECOTRIN TAB 325 MG PO SCH (08:38)
[2017-12-24] MEDS: ZESTRIL TAB 40 MG PO SCH (08:38)
[2017-12-24] MEDS: KEPPRA TAB 500 MG PO SCH ×2 (08:38→20:28)
[2017-12-24] MEDS ORDERED: SOLU-Medrol 40 MG VIAL IVP SCH (09:00)
[2017-12-24] MEDS: PULMICORT NEB TX 0.5 MG NEB SCH ×3 (09:27→19:21)
[2017-12-24] MEDS: CATAPRES TAB 0.1 MG PO SCH ×2 (14:08→20:28)
[2017-12-24] MEDS ORDERED: NS 1/2 1000 ML IV 1,000 ML IV ONE (19:49)
[2017-12-24] MEDS: LIPITOR TAB 40 MG PO SCH (20:28)
[2017-12-24] MEDS: KLONOPIN TAB 0.5 MG PO SCH (20:28)
[2017-12-24] MEDS: ZANTAC PO SCH (20:28)
[2017-12-25] MEDS: DUONEB 0.5 MG/3 MG NEB SCH ×9 (00:05→22:39)
[2017-12-25] MEDS: SOLU-Medrol 40 MG VIAL IVP SCH ×3 (05:37→20:43)
[2017-12-25] MEDS: FORTAZ or TAZICEF VIAL INJ 1 G in NS 100 ML IV + SPIKE MINIBAG* 100 ML IV SCH ×3 (05:37→21:52)
[2017-12-25 06:57] LABS: BASOPHILS % (AUTO) 0.1 % (0.2-1.0); HEMOGLOBIN 12.8 g/dL (13.5-18.0); LYMPHOCYTES # (AUTO) 0.4 X10^3/uL (1.3-2.9); LYMPHOCYTES % (AUTO) 3.2 % (21.0-51.0); MEAN CORPUSCULAR HEMOGLOBIN 28.9 pg (27.0-34.0); MEAN CORPUSCULAR HGB CONC 32.7 g/dL (33.0-35.0); MEAN CORPUSCULAR VOLUME 88.3 fL (80.0-100.0); MEAN PLATELET VOLUME 8.2 fL (7.4-11.0); MONOCYTES # (AUTO) 0.5 x10^3/uL (0.3-0.8); MONOCYTES % (AUTO) 3.5 % (0.0-13.0); NEUTROPHILS # (AUTO) 12.2 x10^3/uL (2.2-4.8); NEUTROPHILS % (AUTO) 93.2 % (42.0-75.0); PLATELET COUNT 258 X10^3/uL (150.0-450.0); RED BLOOD COUNT 4.42 X10^6/uL (4.7-6.0); RED CELL DISTRIBUTION WIDTH 15.1 % (11.6-16.5)
--- NOTE | 2017-12-25 06:58 | RAD ---
Examination: Portable AP chest History: SOB, COPD Comparison reference 12/23/2017 Findings: Continued normal heart size. No acute pulmonary infiltrate, pneumothorax, pulmonary edema or pleural fluid. The lungs remain mildly hyperaerated. Impression: No acute chest findings now noted. Reported By:
[2017-12-25 07:16] LABS: BAND NEUTROPHILS % 1 % (0-10); PLATELET MORPHOLOGY COMMENT NORMAL (NORMAL)
[2017-12-25 07:44] LABS: BLOOD UREA NITROGEN 13 mg/dL (7-18); CALCIUM 9.3 mg/dL (8.5-10.1); CARBON DIOXIDE 31.3 mmol/L (21-32); CHLORIDE 105 mmol/L (98-107); COR NA(FOR HYPERGLY) 144 mmol/L (136-145); CREATININE 1.18 mg/dL (0.70-1.30); SODIUM 143 mmol/L (136-145); eGFR NON BLACK RACES > 60 (>60)
[2017-12-25] MEDS: CATAPRES TAB 0.1 MG PO SCH ×2 (08:24→20:32)
[2017-12-25] MEDS: TOPROL XL PO SCH (08:24)
[2017-12-25] MEDS: XARELTO PO SCH (08:24)
[2017-12-25] MEDS: ZESTRIL TAB 40 MG PO SCH (08:24)
[2017-12-25] MEDS: LEVAQUIN PREMIX IV 750 MG 750 MG/150 ML BAG IV SCH (08:24)
[2017-12-25] MEDS: KEPPRA TAB 500 MG PO SCH ×2 (08:25→20:32)
[2017-12-25] MEDS: ECOTRIN TAB 325 MG PO SCH (08:25)
[2017-12-25] MEDS: PULMICORT NEB TX 0.5 MG NEB SCH ×2 (09:00→19:40)
[2017-12-25] MEDS: NS 1/2 1000 ML IV 1,000 ML IV SCH ×2 (11:11→20:33)
[2017-12-25 12:15] LABS: ALANINE AMINOTRANSFERASE 28 Units/L (12-78); ALBUMIN 3.2 g/dL (3.4-5.0); ALKALINE PHOSPHATASE 50 Units/L (46-116); ASPARTATE AMINO TRANSFERASE 16 Units/L (15-37); COR CA(FOR HYPOALB) 9.9 mg/dL (8.5-10.1); TOTAL PROTEIN 6.4 g/dL (6.4-8.2)
[2017-12-25] MEDS ORDERED: SALINE 0.9% 3 ML NEB TX ONE (16:55)
[2017-12-25] MEDS ORDERED: NS 1/2 1000 ML IV 1,000 ML IV ONE (20:00)
[2017-12-25] MEDS: MUCINEX EXPECTORANT PO SCH (20:32)
[2017-12-25] MEDS: KLONOPIN TAB 0.5 MG PO SCH (20:32)
[2017-12-25] MEDS: LIPITOR TAB 40 MG PO SCH (20:32)
[2017-12-25] MEDS: ZANTAC PO SCH (20:33)
--- NOTE | 2017-12-25 21:56 | PCM.PROG ---
Progress Note - Progress Note for Day of Date of Exam: 12/25/17 - Subjective Subjective: 57YO BM ADMITTED FOR COPD EXACERBATION. STATES HE REMAINS SOB AT TIMES. STATES NEBS ARE LASTING FOR 2.5 HOURS. HAS NONPRODUCTIVE COUGH. DOES ADMIT TO HAVING MILD IMPROVEMENT SINCE 12/24/17. DENIES ANY OTHER COMPLAINTS. - Past Medical Family Social History Past Med/Fam/Surg Hx: No changes since H&P Allergies: Allergies No Known Drug Allergies Allergy (Verified 12/23/17 04:51) - Review of Systems ROS: No change since H&P - Vital Signs and I&O's Vital Signs: Temperature 98.2 F Pulse Rate [Left Brachial] 101 Pulse Rate 110 Respiratory Rate 19 Blood Pressure [Left Arm] 133/88 Blood Pressure [Right Arm] 104/64 Blood Pressure 177/128 O2 Sat by Pulse Oximetry 99 Intake and Output: Intake & Output 12/23/17 12/24/17 12/25/17 12/26/17 11:59 11:59 11:59 11:59 Intake Total 2300 / 2300 1927 / 1927 858 / 858 Output Total 1050 / 1050 900 / 900 450 / 450 Balance 1250 / 1250 1027 / 1027 408 / 408 - Physical Exam Oriented: Normal Eyes: Normal Ear: Normal Nose: Normal Throat: Normal Respiratory: Right, Left, Diminished, Wheezes Cardiovascular: Tachycardia. negative: S3, S4, Murmur : Normal Auscultation: Bowel Sounds: Normal Palpation: Normal Tenderness: Normal, Diffuse Skin: Normal Musculoskeletal: Normal Psychiatric: Normal Mood Description: Calm Affect: Normal Speech Pattern: Clear, Appropriate - Laboratory and Diagnostics Result Diagrams: 12/25/17 06:39 12/25/17 06:39 Labs: 12/23/17 04:35 Blood Blood Culture - Preliminary 12/23/17 04:45 Blood Blood Culture - Preliminary Laboratory WBC 13.0 X10^3/uL (3.6-10.0) H 12/25/17 06:39 RBC 4.42 X10^6/uL (4.7-6.0) L 12/25/17 06:39 Hgb 12.8 g/dL (13.5-18.0) L 12/25/17 06:39 Hct 39.0 % (42.0-54.0) L 12/25/17 06:39 MCV 88.3 fL (80.0-100.0) 12/25/17 06:39 MCH 28.9 pg (27.0-34.0) 12/25/17 06:39 MCHC 32.7 g/dL (33.0-35.0) L 12/25/17 06:39 RDW 15.1 % (11.6-16.5) 12/25/17 06:39 Plt Count 258 X10^3/uL (150.0-450.0) 12/25/17 06:39 Plt Count Comment Adequate (ADEQUATE) 12/25/17 06:39 MPV 8.2 fL (7.4-11.0) 12/25/17 06:39 Neut % (Auto) 93.2 % (42.0-75.0) H 12/25/17 06:39 Lymph % (Auto) 3.2 % (21.0-51.0) L 12/25/17 06:39 Clare % (Auto) 3.5 % (0.0-13.0) 12/25/17 06:39 Eos % (Auto) 0.0 % (0.9-2.9) L 12/25/17 06:39 Baso % (Auto) 0.1 % (0.2-1.0) L 12/25/17 06:39 Neut # (Auto) 12.2 x10^3/uL (2.2-4.8) H 12/25/17 06:39 Lymph # (Auto) 0.4 X10^3/uL (1.3-2.9) L 12/25/17 06:39 Clare # (Auto) 0.5 x10^3/uL (0.3-0.8) 12/25/17 06:39 Eos # (Auto) 0.0 x10^3/uL (0.0-0.2) 12/25/17 06:39 Baso # (Auto) 0.0 X10^3/uL (0.0-0.1) 12/25/17 06:39 Absolute Nucleated RBC 0.0 /100WBC 12/25/17 06:39 Total Counted 100 12/25/17 06:39 Neutrophils % (Manual) 91 % (39-76) H 12/25/17 06:39 Band Neutrophils % 1 % (0-10) 12/25/17 06:39 Lymphocytes % (Manual) 8 % (13-43) L 12/25/17 06:39 Monocytes % (Manual) 1 % (4-9) L 12/24/17 04:20 Plt Morphology Comment Normal (NORMAL) 12/25/17 06:39 RBC Morphology Normal (NORMAL) 12/25/17 06:39 INR Target Range - 12/23/17 04:45 INR 1.11 (0.8-1.3) 12/23/17 04:45 APTT 35.6 SECONDS (22.9-36.5) 12/23/17 04:45 PTT Comment - 12/23/17 04:45 D-Dimer < 100 ng/mL (0-400) 12/23/17 04:45 Sample Site Lrad 12/23/17 04:38 ABG pH 7.360 (7.35-7.45) 12/23/17 04:38 ABG pCO2 61.0 mmHg (35.0-45.0) H* 12/23/17 04:38 ABG pO2 176.0 mmHg (80.0-100.0) H 12/23/17 04:38 ABG HCO3 34.5 mmol/L (22-26) H* 12/23/17 04:38 ABG O2 Saturation 100.0 % (90-100) 12/23/17 04:38 ABG Base Excess 7.2 mmol/L (-2.0-2.0) H 12/23/17 04:38 Tanner Test Pos 12/23/17 04:38 A-a Gradient -24.0 mmHg 12/23/17 04:38 FiO2 32.000 12/23/17 04:38 Blood Gas Comments Christian abg well-mtf 12/23/17 04:38 Sodium 143 mmol/L (136-145) 12/25/17 06:39 Corrected Sodium 144 mmol/L (136-145) 12/25/17 06:39 Potassium 3.9 mmol/L (3.5-5.1) 12/25/17 06:39 Chloride 105 mmol/L (98-107) 12/25/17 06:39 Carbon Dioxide 31.3 mmol/L (21-32) 12/25/17 06:39 BUN 13 mg/dL (7-18) 12/25/17 06:39 Creatinine 1.18 mg/dL (0.70-1.30) 12/25/17 06:39 Est GFR (MDRD) Af Amer > 60 (>60) 12/25/17 06:39 Est GFR (MDRD) Non-Af > 60 (>60) 12/25/17 06:39 Glucose 153 mg/dL (65-99) H 12/25/17 06:39 Lactic Acid 0.5 mmol/L (0.4-2.0) 12/23/17 04:35 Calcium 9.3 mg/dL (8.5-10.1) 12/25/17 06:39 Corrected Calcium 9.9 mg/dL (8.5-10.1) 12/25/17 06:39 Magnesium 1.9 mg/dL (1.7-2.9) 12/24/17 04:20 Total Bilirubin 0.20 mg/dL (0.2-1.0) 12/25/17 06:39 AST 16 Units/L (15-37) 12/25/17 06:39 ALT 28 Units/L (12-78) 12/25/17 06:39 Alkaline Phosphatase 50 Units/L (46-116) 12/25/17 06:39 Creatine Kinase 459 Units/L (39-308) H 12/23/17 17:28 CK-MB (CK-2) 7.7 ng/mL (0-4.0) H* 12/23/17 17:28 CK/CKMB % Calc 1.7 % (<4) 12/23/17 17:28 Troponin I < 0.02 ng/mL (0-1.5) 12/23/17 17:28 C-Reactive Protein 2.90 mg/L (0-3.0) 12/23/17 04:35 Total Protein 6.4 g/dL (6.4-8.2) 12/25/17 06:39 Albumin 3.2 g/dL (3.4-5.0) L 12/25/17 06:39 Globulin 3.2 g/dL (2.5-4.5) 12/25/17 06:39 Albumin/Globulin Ratio 1.0 Ratio (1.1-2.1) L 12/25/17 06:39 Radiology Reviewed: Yes EKG Reviewed: Yes Rhythm: NSR - Plan (1) COPD with acute exacerbation Status: Acute Plan: supplemental oxygen, respiratory treatments, continue to monitor (2) Bronchitis Status: Acute Plan: iv antibiotics, respiratory treatments, continue to monitor (3) Hypertension Status: Chronic Qualifiers: Hypertension type: essential hypertension Qualified Code(s): I10 - Essential (primary) hypertension Plan: MONITOR BP, ADMINISTER ANTIHYPERTENSIVES NEEDED
[2017-12-26] MEDS: DUONEB 0.5 MG/3 MG NEB SCH ×8 (00:55→20:24)
[2017-12-26] MEDS: NS 1/2 1000 ML IV 1,000 ML IV SCH ×3 (03:56→21:28)
[2017-12-26] MEDS: FORTAZ or TAZICEF VIAL INJ 1 G in NS 100 ML IV + SPIKE MINIBAG* 100 ML IV SCH ×3 (05:12→21:27)
[2017-12-26] MEDS: SOLU-Medrol 40 MG VIAL IVP SCH (05:12)
[2017-12-26 05:17] LABS: BASOPHILS % (AUTO) 0 % (0.2-1.0); HEMATOCRIT 39.2 % (42.0-54.0); HEMOGLOBIN 12.9 g/dL (13.5-18.0); LYMPHOCYTES # (AUTO) 0.4 X10^3/uL (1.3-2.9); MEAN CORPUSCULAR HEMOGLOBIN 29.2 pg (27.0-34.0); MEAN CORPUSCULAR HGB CONC 32.9 g/dL (33.0-35.0); MEAN CORPUSCULAR VOLUME 88.7 fL (80.0-100.0); MEAN PLATELET VOLUME 8.6 fL (7.4-11.0); MONOCYTES # (AUTO) 0.4 x10^3/uL (0.3-0.8); MONOCYTES % (AUTO) 3.3 % (0.0-13.0); NEUTROPHILS # (AUTO) 12.6 x10^3/uL (2.2-4.8); NEUTROPHILS % (AUTO) 93.7 % (42.0-75.0); PLATELET COUNT 269 X10^3/uL (150.0-450.0); RED BLOOD COUNT 4.42 X10^6/uL (4.7-6.0); RED CELL DISTRIBUTION WIDTH 15.1 % (11.6-16.5); WHITE BLOOD COUNT 13.5 X10^3/uL (3.6-10.0)
[2017-12-26 05:32] LABS: ALANINE AMINOTRANSFERASE 25 Units/L (12-78); ALBUMIN 3.1 g/dL (3.4-5.0); ALKALINE PHOSPHATASE 51 Units/L (46-116); ASPARTATE AMINO TRANSFERASE 11 Units/L (15-37); BLOOD UREA NITROGEN 19 mg/dL (7-18); CALCIUM 8.9 mg/dL (8.5-10.1); CARBON DIOXIDE 31.6 mmol/L (21-32); CHLORIDE 106 mmol/L (98-107); COR CA(FOR HYPOALB) 9.6 mg/dL (8.5-10.1); COR NA(FOR HYPERGLY) 146 mmol/L (136-145); CREATININE 1.05 mg/dL (0.70-1.30); SODIUM 144 mmol/L (136-145); TOTAL PROTEIN 6.2 g/dL (6.4-8.2); eGFR NON BLACK RACES > 60 (>60)
[2017-12-26] MEDS: HumuLIN R SUBCUT PRN ×2 (05:33→22:36)
[2017-12-26 06:02] LABS: BAND NEUTROPHILS % 1 % (0-10); PLATELET MORPHOLOGY COMMENT NORMAL (NORMAL)
--- NOTE | 2017-12-26 07:10 | RAD ---
Examination: AP chest History: SOB Comparison 12/25/2017 Findings: Continued normal heart size with essentially clear lungs and pleural spaces. No definite pn eumonia, pneumothorax or pleural fluid. Impression: No acute findings. Reported By:
[2017-12-26] MEDS: LEVAQUIN PREMIX IV 750 MG 750 MG/150 ML BAG IV SCH (08:34)
[2017-12-26] MEDS: XARELTO PO SCH (08:34)
[2017-12-26] MEDS: KEPPRA TAB 500 MG PO SCH ×2 (08:34→22:35)
[2017-12-26] MEDS: MUCINEX EXPECTORANT PO SCH ×2 (08:35→22:34)
[2017-12-26] MEDS: ZESTRIL TAB 40 MG PO SCH (08:35)
[2017-12-26] MEDS: CATAPRES TAB 0.1 MG PO SCH ×2 (08:35→22:35)
[2017-12-26] MEDS: ECOTRIN TAB 325 MG PO SCH (08:35)
[2017-12-26] MEDS: TOPROL XL PO SCH (08:35)
[2017-12-26] MEDS: PULMICORT NEB TX 0.5 MG NEB SCH ×2 (08:45→20:24)
[2017-12-26] MEDS: SOLU-Medrol 125 MG VIAL IVP SCH ×3 (10:32→21:28)
[2017-12-26] MEDS: THEO-DUR TAB 200 MG PO SCH ×2 (10:32→22:35)
[2017-12-26 10:41] LABS: CKMB % 2.8 % (<4); CREATINE KINASE 196 Units/L (39-308); TROPONIN I < 0.02 ng/mL (0-1.5)
[2017-12-26 10:43] LABS: CREATINE KINASE MB 5.4 ng/mL (0-4.0)
--- NOTE | 2017-12-26 12:05 | PCM.PROG ---
Progress Note - Progress Note for Day of Date of Exam: 12/26/17 - Subjective Subjective: WAS ADMITTED FOR COPD EXACERBATION AND RESPIRATORY INSUFFICIENCY. TODAY, HE IS ALERT AND ORIENTED, LYING IN BED ON MORNING ROUNDS. HE IS NOTED COMPLAINTS OF INCREASED SHORTNESS OF BREATH AND DIFFICULTY BREATHING TODAY. HE ALSO REPORTS INTERMITTENT CHEST PAIN. ON EXAMINATION, HE IS NOTED TO BE TACHYCARDIC. RECEIVABLE MANAGER REVEALS A HEART RATE IN THE 130S. BILATERAL LUNGS ARE NOTED WITH SCATTERED WHEEZING THROUGHOUT. ABDOMEN IS ROUND, SOFT, AND NON-TENDER WITH NORMAL BOWEL SOUNDS NOTED IN ALL QUADRANTS. HIS VITALS THIS MORNING ARE 98.0-135-29-96%-154/92. ABNORMAL LAB VALUES INCLUDE THE FOLLOWING: WBC 13.5, RC 4.42, HGB 12.9, HCT 39.2, BUN 19, GLUCOSE 166, AST 11, TOTAL PROTEIN 6.2, ALBUMIN 3.1. BLOOD CULTURES ARE PENDING. TODAYS CHEST XRAY IS STABLE. HE CONTINUES ON IV ANTIBIOTICS, RESPIRATORY TREATMENTS, AND SUPPLEMENTAL OXYGEN. TODAY, WE WILL START GILBERTO-DUR 200MG PO BID, INCREASE SOLU- MEDROL TO 125MG IV Q8H, AND OBTAIN SERIAL CARDIAC ENZYMES AND EKGS. OTHERWISE, WE WILL CONTINUE WITH CURRENT PLAN OF CARE. WE WILL FOLLOW UP WITH AM LABS AND CHEST XRAY AND CONTINUE TO MONITOR . - Past Medical Family Social History Past Med/Fam/Surg Hx: No changes since H&P Allergies: Allergies No Known Drug Allergies Allergy (Verified 12/23/17 04:51) - Review of Systems ROS: No change since H&P - Vital Signs and I&O's Vital Signs: Temperature 98.0 F Pulse Rate [Left Brachial] 120 Pulse Rate 118 Respiratory Rate 22 Blood Pressure [Left Arm] 129/79 Blood Pressure [Right Arm] 104/64 Blood Pressure 177/128 O2 Sat by Pulse Oximetry 94 Intake and Output: Intake & Output 12/24/17 12/25/17 12/26/17 12/27/17 11:59 11:59 11:59 11:59 Intake Total 2300 / 2300 1926 / 1927 1964 / 1964 Output Total 1050 / 1050 900 / 900 700 / 700 Balance 1250 / 1250 1027 / 1027 1265 / 1265 - Physical Exam Oriented: Normal Eyes: Normal Ear: Normal Nose: Normal Throat: Normal Respiratory: Right, Left, Diminished, Wheezes Cardiovascular: Tachycardia. negative: S3, S4, Murmur : Normal Auscultation: Bowel Sounds: Normal Palpation: Normal Tenderness: Normal Skin: Normal Musculoskeletal: Normal Psychiatric: Normal Mood Description: Calm Affect: Normal Speech Pattern: Clear, Appropriate - Laboratory and Diagnostics Result Diagrams: 12/26/17 04:08 12/26/17 04:08 Labs: 12/23/17 04:35 Blood Blood Culture - Preliminary 12/23/17 04:45 Blood Blood Culture - Preliminary Laboratory WBC 13.5 X10^3/uL (3.6-10.0) H 12/26/17 04:08 RBC 4.42 X10^6/uL (4.7-6.0) L 12/26/17 04:08 Hgb 12.9 g/dL (13.5-18.0) L 12/26/17 04:08 Hct 39.2 % (42.0-54.0) L 12/26/17 04:08 MCV 88.7 fL (80.0-100.0) 12/26/17 04:08 MCH 29.2 pg (27.0-34.0) 12/26/17 04:08 MCHC 32.9 g/dL (33.0-35.0) L 12/26/17 04:08 RDW 15.1 % (11.6-16.5) 12/26/17 04:08 Plt Count 269 X10^3/uL (150.0-450.0) 12/26/17 04:08 Plt Count Comment Adequate (ADEQUATE) 12/26/17 04:08 MPV 8.6 fL (7.4-11.0) 12/26/17 04:08 Neut % (Auto) 93.7 % (42.0-75.0) H 12/26/17 04:08 Lymph % (Auto) 3.0 % (21.0-51.0) L 12/26/17 04:08 Johnston % (Auto) 3.3 % (0.0-13.0) 12/26/17 04:08 Eos % (Auto) 0.0 % (0.9-2.9) L 12/26/17 04:08 Baso % (Auto) 0 % (0.2-1.0) L 12/26/17 04:08 Neut # (Auto) 12.6 x10^3/uL (2.2-4.8) H 12/26/17 04:08 Lymph # (Auto) 0.4 X10^3/uL (1.3-2.9) L 12/26/17 04:08 Johnston # (Auto) 0.4 x10^3/uL (0.3-0.8) 12/26/17 04:08 Eos # (Auto) 0.0 x10^3/uL (0.0-0.2) 12/26/17 04:08 Baso # (Auto) 0.0 X10^3/uL (0.0-0.1) 12/26/17 04:08 Absolute Nucleated RBC 0.0 /100WBC 12/26/17 04:08 Total Counted 100 12/26/17 04:08 Neutrophils % (Manual) 94 % (39-76) H 12/26/17 04:08 Band Neutrophils % 1 % (0-10) 12/26/17 04:08 Lymphocytes % (Manual) 2 % (13-43) L 12/26/17 04:08 Monocytes % (Manual) 3 % (4-9) L 12/26/17 04:08 Plt Morphology Comment Normal (NORMAL) 12/26/17 04:08 RBC Morphology Normal (NORMAL) 12/26/17 04:08 INR Target Range - 12/23/17 04:45 INR 1.11 (0.8-1.3) 12/23/17 04:45 APTT 35.6 SECONDS (22.9-36.5) 12/23/17 04:45 PTT Comment - 12/23/17 04:45 D-Dimer < 100 ng/mL (0-400) 12/23/17 04:45 Sample Site Lrad 12/23/17 04:38 ABG pH 7.360 (7.35-7.45) 12/23/17 04:38 ABG pCO2 61.0 mmHg (35.0-45.0) H* 12/23/17 04:38 ABG pO2 176.0 mmHg (80.0-100.0) H 12/23/17 04:38 ABG HCO3 34.5 mmol/L (22-26) H* 12/23/17 04:38 ABG O2 Saturation 100.0 % (90-100) 12/23/17 04:38 ABG Base Excess 7.2 mmol/L (-2.0-2.0) H 12/23/17 04:38 Tanner Test Pos 12/23/17 04:38 A-a Gradient -24.0 mmHg 12/23/17 04:38 FiO2 32.000 12/23/17 04:38 Blood Gas Comments Christian abg well-mtf 12/23/17 04:38 Sodium 144 mmol/L (136-145) 12/26/17 04:08 Corrected Sodium 146 mmol/L (136-145) H 12/26/17 04:08 Potassium 4.0 mmol/L (3.5-5.1) 12/26/17 04:08 Chloride 106 mmol/L (98-107) 12/26/17 04:08 Carbon Dioxide 31.6 mmol/L (21-32) 12/26/17 04:08 BUN 19 mg/dL (7-18) H 12/26/17 04:08 Creatinine 1.05 mg/dL (0.70-1.30) 12/26/17 04:08 Est GFR (MDRD) Af Amer > 60 (>60) 12/26/17 04:08 Est GFR (MDRD) Non-Af > 60 (>60) 12/26/17 04:08 Glucose 166 mg/dL (65-99) H 12/26/17 04:08 POC Glucose (mg/dL) 147 mg/dL (65-99) H 12/26/17 11:09 Lactic Acid 0.5 mmol/L (0.4-2.0) 12/23/17 04:35 Calcium 8.9 mg/dL (8.5-10.1) 12/26/17 04:08 Corrected Calcium 9.6 mg/dL (8.5-10.1) 12/26/17 04:08 Magnesium 1.9 mg/dL (1.7-2.9) 12/24/17 04:20 Total Bilirubin 0.20 mg/dL (0.2-1.0) 12/26/17 04:08 AST 11 Units/L (15-37) L 12/26/17 04:08 ALT 25 Units/L (12-78) 12/26/17 04:08 Alkaline Phosphatase 51 Units/L (46-116) 12/26/17 04:08 Creatine Kinase 196 Units/L (39-308) 12/26/17 09:40 CK-MB (CK-2) 5.4 ng/mL (0-4.0) H* 12/26/17 09:40 CK/CKMB % Calc 2.8 % (<4) 12/26/17 09:40 Troponin I < 0.02 ng/mL (0-1.5) 12/26/17 09:40 C-Reactive Protein 2.90 mg/L (0-3.0) 12/23/17 04:35 Total Protein 6.2 g/dL (6.4-8.2) L 12/26/17 04:08 Albumin 3.1 g/dL (3.4-5.0) L 12/26/17 04:08 Globulin 3.1 g/dL (2.5-4.5) 12/26/17 04:08 Albumin/Globulin Ratio 1.0 Ratio (1.1-2.1) L 12/26/17 04:08 - Plan (1) COPD with acute exacerbation Status: Acute Plan: supplemental oxygen, respiratory treatments increased, increase solu- medrol to 125mg iv q8h, gilberto-dur 200mg po bid, continue to monitor (2) Respiratory insufficiency Status: Acute (3) Bronchitis Status: Acute Plan: iv antibiotics, respiratory treatments, continue to monitor (4) Chest pain Status: Acute Qualifiers: Chest pain type: precordial pain Qualified Code(s): R07.2 - Precordial pain Plan: serial cardiac enzymes and ekg, continue to monitor
[2017-12-26 14:28] LABS: CKMB % 2.6 % (<4); CREATINE KINASE 197 Units/L (39-308); TROPONIN I < 0.02 ng/mL (0-1.5)
[2017-12-26 14:29] LABS: CREATINE KINASE MB 5.2 ng/mL (0-4.0)
[2017-12-26 14:33] LABS: ABG BASE EXCESS 10.9 mmol/L (-2.0-2.0)
[2017-12-26 14:34] LABS: ABG ALLEN TEST POS; ABG HCO3 37.2 mmol/L (22-26)
[2017-12-26] MEDS ORDERED: DUONEB 0.5 MG/3 MG NEB PRN (16:45)
[2017-12-26 17:57] LABS: CKMB % 2.4 % (<4); CREATINE KINASE 229 Units/L (39-308); TROPONIN I < 0.02 ng/mL (0-1.5)
[2017-12-26 18:03] LABS: CREATINE KINASE MB 5.5 ng/mL (0-4.0)
[2017-12-26] MEDS ORDERED: NS 1/2 1000 ML IV 1,000 ML IV ONE (20:22)
[2017-12-26] MEDS ORDERED: COLACE CAP 100 MG PO ONE (20:23)
[2017-12-26] MEDS ORDERED: MILK OF MAGNESIA ONE (20:24)
[2017-12-26] MEDS ORDERED: LANOXIN INJ IVP ONE (21:40)
[2017-12-26] MEDS ORDERED: CARDIZEM INJ 50 MG VIAL IVP ONE ×2 (21:41→22:11)
[2017-12-26] MEDS: LIPITOR TAB 40 MG PO SCH (22:34)
[2017-12-26] MEDS: COLACE CAP 100 MG PO SCH (22:34)
[2017-12-26] MEDS: ZANTAC PO SCH (22:35)
[2017-12-26] MEDS: KLONOPIN TAB 0.5 MG PO SCH (22:40)
[2017-12-26] MEDS ORDERED: LASIX IVP ONE (23:45)
[2017-12-26] MEDS ORDERED: NS 100 ML IV 100 ML IV ONE (23:50)
[2017-12-27] MEDS: MILK OF MAGNESIA PO SCH ×2 (00:05→20:11)
[2017-12-27] MEDS: CARDIZEM INJ 125 MG VIAL 125 MG in NS 100 ML IV 100 ML IV PRN ×3 (00:06→23:40)
[2017-12-27 00:52] LABS: BILIRUBIN,URINE NEGATIVE (NEGATIVE); BLOOD/HEMOGLOBIN,URINE 3+ (NEGATIVE); GLUCOSE, URINE NEGATIVE (NEGATIVE); KETONES,URINE 1+ (NEGATIVE); LEUKOCYTE ESTERASE ,URINE NEGATIVE (NEGATIVE); NITRITES,URINE NEGATIVE (NEGATIVE); PROTEIN,URINE 1+ (NEGATIVE); UROBILINOGEN,URINE NORMAL (NORMAL)
[2017-12-27 00:59] LABS: APPEARANCE,URINE CLEAR (CLEAR); COLOR,URINE YELLOW (YELLOW)
[2017-12-27 01:00] LABS: BACTERIA,URINE NEGATIVE /HPF (NEGATIVE); SQUAMOUS EPITHELIAL CELL,UR RARE /HPF (NEGATIVE)
[2017-12-27] MEDS: SOLU-Medrol 125 MG VIAL IVP SCH ×3 (05:08→21:30)
[2017-12-27] MEDS: FORTAZ or TAZICEF VIAL INJ 1 G in NS 100 ML IV + SPIKE MINIBAG* 100 ML IV SCH ×3 (05:09→21:31)
[2017-12-27] MEDS: XOPENEX 1.25 MG/3 ML NEBULE NEB SCH ×6 (05:10→20:24)
[2017-12-27] MEDS ORDERED: XOPENEX 1.25 MG/3 ML NEBULE NEB ONE (05:23)
[2017-12-27 06:17] LABS: BASOPHILS % (AUTO) 0.1 % (0.2-1.0); HEMATOCRIT 39.4 % (42.0-54.0); HEMOGLOBIN 12.8 g/dL (13.5-18.0); LYMPHOCYTES # (AUTO) 0.3 X10^3/uL (1.3-2.9); LYMPHOCYTES % (AUTO) 2.3 % (21.0-51.0); MEAN CORPUSCULAR HEMOGLOBIN 28.9 pg (27.0-34.0); MEAN CORPUSCULAR HGB CONC 32.5 g/dL (33.0-35.0); MEAN CORPUSCULAR VOLUME 88.8 fL (80.0-100.0); MEAN PLATELET VOLUME 8.4 fL (7.4-11.0); MONOCYTES # (AUTO) 0.5 x10^3/uL (0.3-0.8); MONOCYTES % (AUTO) 3.7 % (0.0-13.0); NEUTROPHILS # (AUTO) 13.9 x10^3/uL (2.2-4.8); NEUTROPHILS % (AUTO) 93.9 % (42.0-75.0); PLATELET COUNT 264 X10^3/uL (150.0-450.0); RED BLOOD COUNT 4.43 X10^6/uL (4.7-6.0); RED CELL DISTRIBUTION WIDTH 15.1 % (11.6-16.5); WHITE BLOOD COUNT 14.8 X10^3/uL (3.6-10.0)
[2017-12-27 06:27] LABS: ALANINE AMINOTRANSFERASE 33 Units/L (12-78); ALBUMIN 2.9 g/dL (3.4-5.0); ALKALINE PHOSPHATASE 48 Units/L (46-116); ASPARTATE AMINO TRANSFERASE 17 Units/L (15-37); BLOOD UREA NITROGEN 26 mg/dL (7-18); CALCIUM 8.9 mg/dL (8.5-10.1); CARBON DIOXIDE 36.2 mmol/L (21-32); CHLORIDE 108 mmol/L (98-107); COR CA(FOR HYPOALB) 9.8 mg/dL (8.5-10.1); COR NA(FOR HYPERGLY) 147 mmol/L (136-145); CREATININE 1.18 mg/dL (0.70-1.30); SODIUM 146 mmol/L (136-145); TOTAL PROTEIN 5.8 g/dL (6.4-8.2); eGFR NON BLACK RACES > 60 (>60)
--- NOTE | 2017-12-27 06:44 | RAD ---
HISTORY: Shortness of breath Study: Chest AP portable Comparison: 12/26/2017 Findings: The heart is within normal limits in size. The cass are normal. The lungs are well inflated and free of acute infiltrates. No pleural effusions are identified. The bony thorax is unremarkable. IMPRESSION: Lungs clear Reported By:
[2017-12-27 06:56] LABS: BAND NEUTROPHILS % 2 % (0-10)
[2017-12-27 06:57] LABS: PLATELET MORPHOLOGY COMMENT NORMAL (NORMAL)
[2017-12-27] MEDS: PULMICORT NEB TX 0.5 MG NEB SCH ×2 (08:24→20:24)
[2017-12-27] MEDS: ZESTRIL TAB 40 MG PO SCH (08:29)
[2017-12-27] MEDS: XARELTO PO SCH (08:29)
[2017-12-27] MEDS: THEO-DUR TAB 200 MG PO SCH ×2 (08:29→20:08)
[2017-12-27] MEDS: MUCINEX EXPECTORANT PO SCH ×2 (08:29→20:08)
[2017-12-27] MEDS: CATAPRES TAB 0.1 MG PO SCH ×2 (08:29→20:08)
[2017-12-27] MEDS: LEVAQUIN PREMIX IV 750 MG 750 MG/150 ML BAG IV SCH (08:29)
[2017-12-27] MEDS: ECOTRIN TAB 325 MG PO SCH (08:30)
[2017-12-27] MEDS: TOPROL XL PO SCH (08:30)
[2017-12-27] MEDS: KEPPRA TAB 500 MG PO SCH ×2 (08:30→20:08)
[2017-12-27] MEDS ORDERED: LANOXIN INJ IVP ONE (09:19)
[2017-12-27] MEDS: HumuLIN R SUBCUT PRN ×3 (11:12→20:10)
--- NOTE | 2017-12-27 11:51 | PCM.PROG ---
Progress Note - Progress Note for Day of Date of Exam: 12/27/17 - Subjective Subjective: WAS ADMITTED FOR COPD EXACERBATION AND RESPIRATORY INSUFFICIENCY. TODAY, HE IS ALERT AND ORIENTED, LYING IN BED ON MORNING ROUNDS. HE CONTINUES WITH COMPLAINTS OF SHORTNESS OF BREATH AND DIFFICULTY BREATHING TODAY. HE DENIES CHEST PAIN THIS MORNING. HE WAS GIVEN A DOSE OF DIGOXIN LAST NIGHT DUE TO ATRIAL FIBRILLATION WITH A HR IN THE 150S. ON EXAMINATION, HE IS NOTED TO BE TACHYCARDIC. MANAGEMENT ACCOUNTANT REVEALS A HEART RATE IN THE 130S. HE IS NOTED TO BE IN ATRIAL FIBRILLATION. BILATERAL LUNGS CONTINUE WITH SCATTERED WHEEZING THROUGHOUT. HE IS CURRENTLY UTILIZING HIGH FLOW HEATED OXYGEN. ABDOMEN IS ROUND, SOFT, AND NON-TENDER WITH NORMAL BOWEL SOUNDS NOTED IN ALL QUADRANTS. HIS VITALS THIS MORNING ARE 98.2-132-24-96%-133/72. ABNORMAL LAB VALUES INCLUDE THE FOLLOWING: WBC 14.8, RBC 4.43, HGB 12.8, HCT 39.4, SODIUM 146, CHLORIDE 108 , CARBON DIOXIDE 36.2, BUN 26, GLUCOSE 158, TOTAL PROTEIN 5.8, ALBUMIN 2.9. BLOOD CULTURES AND A SPUTUM CULTURE ARE PENDING. AN ABG WAS OBTAINED YESTERDAY AND REVEALED PH 7.430, PC02 56, P02 70, HC03 37.2, BASE EXCESS 10.9. TODAYS CHEST XRAY IS STABLE. TODAY, WE WILL ADMINISTER DIGOXIN 0.25MG IV X 1 DOSE. OTHERWISE, WE WILL CONTINUE WITH CURRENT PLAN OF CARE. WE WILL FOLLOW UP WITH AM LABS AND CHEST XRAY AND CONTINUE TO MONITOR . - Past Medical Family Social History Past Med/Fam/Surg Hx: No changes since H&P Allergies: Allergies No Known Drug Allergies Allergy (Verified 12/23/17 04:51) - Review of Systems ROS: No change since H&P - Vital Signs and I&O's Vital Signs: Temperature 98.2 F Pulse Rate [Left Brachial] 93 Pulse Rate 133 Respiratory Rate 21 Blood Pressure [Left Arm] 153/62 Blood Pressure [Right Arm] 104/64 Blood Pressure 177/128 O2 Sat by Pulse Oximetry 98 Intake and Output: Intake & Output 12/24/17 12/25/17 12/26/17 12/27/17 11:59 11:59 11:59 11:59 Intake Total 2300 / 2300 1927 / 1927 1965 / 1965 1596 / 1596 Output Total 1050 / 1050 900 / 900 700 / 700 2800 / 2800 Balance 1250 / 1250 1027 / 1027 1265 / 1265 -1204 / -1204 - Physical Exam Oriented: Normal Eyes: Normal Ear: Normal Nose: Normal Throat: Normal Respiratory: Right, Left, Diminished, Wheezes Cardiovascular: Tachycardia. negative: S3, S4, Murmur : Normal Auscultation: Bowel Sounds: Normal Palpation: Normal Tenderness: Normal Skin: Normal Musculoskeletal: Normal Psychiatric: Normal Mood Description: Calm Affect: Normal Speech Pattern: Clear, Appropriate - Laboratory and Diagnostics Result Diagrams: 12/27/17 05:12 12/27/17 05:12 Labs: 12/26/17 22:26 Sputum - Expectorated Sputum Sputum Culture - Preliminary 12/26/17 22:26 Sputum - Expectorated Sputum - Final 12/23/17 04:35 Blood Blood Culture - Preliminary 12/23/17 04:45 Blood Blood Culture - Preliminary Laboratory WBC 14.8 X10^3/uL (3.6-10.0) H 12/27/17 05:12 RBC 4.43 X10^6/uL (4.7-6.0) L 12/27/17 05:12 Hgb 12.8 g/dL (13.5-18.0) L 12/27/17 05:12 Hct 39.4 % (42.0-54.0) L 12/27/17 05:12 MCV 88.8 fL (80.0-100.0) 12/27/17 05:12 MCH 28.9 pg (27.0-34.0) 12/27/17 05:12 MCHC 32.5 g/dL (33.0-35.0) L 12/27/17 05:12 RDW 15.1 % (11.6-16.5) 12/27/17 05:12 Plt Count 264 X10^3/uL (150.0-450.0) 12/27/17 05:12 Plt Count Comment Adequate (ADEQUATE) 12/27/17 05:12 MPV 8.4 fL (7.4-11.0) 12/27/17 05:12 Neut % (Auto) 93.9 % (42.0-75.0) H 12/27/17 05:12 Lymph % (Auto) 2.3 % (21.0-51.0) L 12/27/17 05:12 [place] % (Auto) 3.7 % (0.0-13.0) 12/27/17 05:12 Eos % (Auto) 0.0 % (0.9-2.9) L 12/27/17 05:12 Baso % (Auto) 0.1 % (0.2-1.0) L 12/27/17 05:12 Neut # (Auto) 13.9 x10^3/uL (2.2-4.8) H 12/27/17 05:12 Lymph # (Auto) 0.3 X10^3/uL (1.3-2.9) L 12/27/17 05:12 [place] # (Auto) 0.5 x10^3/uL (0.3-0.8) 12/27/17 05:12 Eos # (Auto) 0.0 x10^3/uL (0.0-0.2) 12/27/17 05:12 Baso # (Auto) 0.0 X10^3/uL (0.0-0.1) 12/27/17 05:12 Absolute Nucleated RBC 0.1 /100WBC 12/27/17 05:12 Total Counted 100 12/27/17 05:12 Neutrophils % (Manual) 91 % (39-76) H 12/27/17 05:12 Band Neutrophils % 2 % (0-10) 12/27/17 05:12 Lymphocytes % (Manual) 5 % (13-43) L 12/27/17 05:12 Monocytes % (Manual) 2 % (4-9) L 12/27/17 05:12 Plt Morphology Comment Normal (NORMAL) 12/27/17 05:12 RBC Morphology Normal (NORMAL) 12/27/17 05:12 INR Target Range - 12/23/17 04:45 INR 1.11 (0.8-1.3) 12/23/17 04:45 APTT 35.6 SECONDS (22.9-36.5) 12/23/17 04:45 PTT Comment - 12/23/17 04:45 D-Dimer < 100 ng/mL (0-400) 12/23/17 04:45 Sample Site Lra 12/26/17 14:30 ABG pH 7.430 (7.35-7.45) 12/26/17 14:30 ABG pCO2 56.0 mmHg (35.0-45.0) H* 12/26/17 14:30 ABG pO2 70.0 mmHg (80.0-100.0) L 12/26/17 14:30 ABG HCO3 37.2 mmol/L (22-26) H* 12/26/17 14:30 ABG O2 Saturation 94.0 % (90-100) 12/26/17 14:30 ABG Base Excess 10.9 mmol/L (-2.0-2.0) H 12/26/17 14:30 Tanner Test Pos 12/26/17 14:30 A-a Gradient 74.0 mmHg 12/26/17 14:30 FiO2 30.000 12/26/17 14:30 Blood Gas Comments Christian well cs 12/26/17 14:30 Sodium 146 mmol/L (136-145) H 12/27/17 05:12 Corrected Sodium 147 mmol/L (136-145) H 12/27/17 05:12 Potassium 4.1 mmol/L (3.5-5.1) 12/27/17 05:12 Chloride 108 mmol/L (98-107) H 12/27/17 05:12 Carbon Dioxide 36.2 mmol/L (21-32) H 12/27/17 05:12 BUN 26 mg/dL (7-18) H 12/27/17 05:12 Creatinine 1.18 mg/dL (0.70-1.30) 12/27/17 05:12 Est GFR (MDRD) Af Amer > 60 (>60) 12/27/17 05:12 Est GFR (MDRD) Non-Af > 60 (>60) 12/27/17 05:12 Glucose 158 mg/dL (65-99) H 12/27/17 05:12 POC Glucose (mg/dL) 207 mg/dL (65-99) H 12/27/17 11:05 Lactic Acid 0.5 mmol/L (0.4-2.0) 12/23/17 04:35 Calcium 8.9 mg/dL (8.5-10.1) 12/27/17 05:12 Corrected Calcium 9.8 mg/dL (8.5-10.1) 12/27/17 05:12 Magnesium 1.9 mg/dL (1.7-2.9) 12/24/17 04:20 Total Bilirubin 0.20 mg/dL (0.2-1.0) 12/27/17 05:12 AST 17 Units/L (15-37) 12/27/17 05:12 ALT 33 Units/L (12-78) 12/27/17 05:12 Alkaline Phosphatase 48 Units/L (46-116) 12/27/17 05:12 Creatine Kinase 229 Units/L (39-308) 12/26/17 17:03 CK-MB (CK-2) 5.5 ng/mL (0-4.0) H* 12/26/17 17:03 CK/CKMB % Calc 2.4 % (<4) 12/26/17 17:03 Troponin I < 0.02 ng/mL (0-1.5) 12/26/17 17:03 C-Reactive Protein 2.90 mg/L (0-3.0) 12/23/17 04:35 Total Protein 5.8 g/dL (6.4-8.2) L 12/27/17 05:12 Albumin 2.9 g/dL (3.4-5.0) L 12/27/17 05:12 Globulin 2.9 g/dL (2.5-4.5) 12/27/17 05:12 Albumin/Globulin Ratio 1.0 Ratio (1.1-2.1) L 12/27/17 05:12 Specimen Type Catherized urine 12/27/17 00:25 Urine Color Yellow (YELLOW) 12/27/17 00:25 Urine Appearance Clear (CLEAR) 12/27/17 00:25 Urine pH 5.0 (5.0 - 8.0) 12/27/17 00:25 Ur Specific [place] 1.025 (1.000-1.030) 12/27/17 00:25 Urine Protein 1+ (NEGATIVE) 12/27/17 00:25 Urine Glucose (UA) Negative (NEGATIVE) 12/27/17 00:25 Urine Ketones 1+ (NEGATIVE) 12/27/17 00:25 Urine Occult Blood 3+ (NEGATIVE) 12/27/17 00:25 Urine Nitrite Negative (NEGATIVE) 12/27/17 00:25 Urine Bilirubin Negative (NEGATIVE) 12/27/17 00:25 Urine Urobilinogen Normal (NORMAL) 12/27/17 00:25 Ur Leukocyte Esterase Negative (NEGATIVE) 12/27/17 00:25 Urine RBC 10-20 /HPF (NONE SEEN) 12/27/17 00:25 Urine WBC 0-2 /HPF (NONE SEEN) 12/27/17 00:25 Ur Squamous Epith Cells Rare /HPF (NEGATIVE) 12/27/17 00:25 Urine Bacteria Negative /HPF (NEGATIVE) 12/27/17 00:25 Ur Culture Indicated? No/not indicated 12/27/17 00:25 - Plan (1) COPD with acute exacerbation Status: Acute Plan: supplemental oxygen, respiratory treatments increased, increase solu- medrol to 125mg iv q8h, gilberto-dur 200mg po bid, continue to monitor (2) Respiratory insufficiency Status: Acute (3) Bronchitis Status: Acute Plan: iv antibiotics, respiratory treatments, continue to monitor (4) Chest pain Status: Acute Qualifiers: Chest pain type: precordial pain Qualified Code(s): R07.2 - Precordial pain Plan: serial cardiac enzymes and ekg, continue to monitor (5) Atrial fibrillation Status: Acute Qualifiers: Atrial fibrillation type: unspecified Qualified Code(s): I48.91 - Unspecified atrial fibrillation Plan: digoxin 0.25mg iv x 1 dose, continue to monitor
[2017-12-27] MEDS: LIPITOR TAB 40 MG PO SCH (20:08)
[2017-12-27] MEDS: COLACE CAP 100 MG PO SCH (20:08)
[2017-12-27] MEDS: ZANTAC PO SCH (20:10)
[2017-12-27] MEDS: KLONOPIN TAB 0.5 MG PO SCH (21:30)
[2017-12-27] MEDS ORDERED: NS 100 ML IV 100 ML IV ONE (23:29)
[2017-12-28 04:27] LABS: ABG BASE EXCESS 13.5 mmol/L (-2.0-2.0)
[2017-12-28 04:29] LABS: ABG ALLEN TEST POS; ABG HCO3 39.3 mmol/L (22-26)
[2017-12-28] MEDS: SOLU-Medrol 125 MG VIAL IVP SCH ×3 (05:10→21:27)
[2017-12-28] MEDS: FORTAZ or TAZICEF VIAL INJ 1 G in NS 100 ML IV + SPIKE MINIBAG* 100 ML IV SCH ×3 (05:10→21:26)
[2017-12-28] MEDS: HumuLIN R SUBCUT PRN ×4 (05:32→21:27)
[2017-12-28] MEDS: XOPENEX 1.25 MG/3 ML NEBULE NEB SCH ×6 (06:02→20:00)
[2017-12-28 06:04] LABS: BASOPHILS % (AUTO) 0.1 % (0.2-1.0); HEMATOCRIT 41.1 % (42.0-54.0); HEMOGLOBIN 13.3 g/dL (13.5-18.0); LYMPHOCYTES # (AUTO) 0.6 X10^3/uL (1.3-2.9); LYMPHOCYTES % (AUTO) 3.8 % (21.0-51.0); MEAN CORPUSCULAR HEMOGLOBIN 28.9 pg (27.0-34.0); MEAN CORPUSCULAR HGB CONC 32.5 g/dL (33.0-35.0); MEAN CORPUSCULAR VOLUME 88.9 fL (80.0-100.0); MEAN PLATELET VOLUME 8.4 fL (7.4-11.0); MONOCYTES # (AUTO) 0.5 x10^3/uL (0.3-0.8); NEUTROPHILS # (AUTO) 14.1 x10^3/uL (2.2-4.8); NEUTROPHILS % (AUTO) 93.1 % (42.0-75.0); PLATELET COUNT 269 X10^3/uL (150.0-450.0); RED BLOOD COUNT 4.62 X10^6/uL (4.7-6.0); RED CELL DISTRIBUTION WIDTH 14.6 % (11.6-16.5); WHITE BLOOD COUNT 15.2 X10^3/uL (3.6-10.0)
--- NOTE | 2017-12-28 06:19 | RAD ---
HISTORY: Shortness of breath Study: Chest AP portable Comparison: 12/27/2017 Findings: The heart is within normal limits in size. The cass are normal. The lungs are well inflated and free of acute infiltrates. No pleural effusions are identified. The bony thorax is unremarkable. IMPRESSION: Lungs clear Reported By:
[2017-12-28 06:29] LABS: ALANINE AMINOTRANSFERASE 36 Units/L (12-78); ALBUMIN 2.6 g/dL (3.4-5.0); ALKALINE PHOSPHATASE 47 Units/L (46-116); ASPARTATE AMINO TRANSFERASE 23 Units/L (15-37); BLOOD UREA NITROGEN 26 mg/dL (7-18); CALCIUM 8.7 mg/dL (8.5-10.1); CARBON DIOXIDE 33.6 mmol/L (21-32); CHLORIDE 107 mmol/L (98-107); COR CA(FOR HYPOALB) 9.8 mg/dL (8.5-10.1); COR NA(FOR HYPERGLY) 145 mmol/L (136-145); CREATININE 1.05 mg/dL (0.70-1.30); DIGOXIN 0.58 ng/mL (0.9-2); SODIUM 143 mmol/L (136-145); TOTAL PROTEIN 5.5 g/dL (6.4-8.2); eGFR NON BLACK RACES > 60 (>60)
[2017-12-28 06:37] LABS: PLATELET MORPHOLOGY COMMENT NORMAL (NORMAL)
[2017-12-28] MEDS: PULMICORT NEB TX 0.5 MG NEB SCH ×2 (08:35→20:00)
[2017-12-28] MEDS: ECOTRIN TAB 325 MG PO SCH (08:37)
[2017-12-28] MEDS: MUCINEX EXPECTORANT PO SCH ×2 (08:37→21:25)
[2017-12-28] MEDS: XARELTO PO SCH (08:37)
[2017-12-28] MEDS: CATAPRES TAB 0.1 MG PO SCH ×2 (08:37→21:23)
[2017-12-28] MEDS: TOPROL XL PO SCH (08:37)
[2017-12-28] MEDS: THEO-DUR TAB 200 MG PO SCH ×2 (08:37→21:26)
[2017-12-28] MEDS: KEPPRA TAB 500 MG PO SCH ×2 (08:37→21:24)
[2017-12-28] MEDS: LEVAQUIN PREMIX IV 750 MG 750 MG/150 ML BAG IV SCH (08:38)
[2017-12-28] MEDS: ZESTRIL TAB 40 MG PO SCH (08:38)
[2017-12-28] MEDS: CARDIZEM INJ 125 MG VIAL 125 MG in NS 100 ML IV 100 ML IV PRN (16:18)
[2017-12-28] MEDS: LANOXIN PO SCH (17:22)
--- NOTE | 2017-12-28 18:13 | PCM.PROG ---
Progress Note - Progress Note for Day of Date of Exam: 12/28/17 - Subjective Subjective: WAS ADMITTED FOR COPD EXACERBATION AND RESPIRATORY INSUFFICIENCY. TODAY, HE IS ALERT AND ORIENTED, LYING IN BED ON MORNING ROUNDS. HE CONTINUES WITH COMPLAINTS OF SHORTNESS OF BREATH, BUT REPORTS SLIGHT IMPROVEMENT SINCE YESTERDAY. HE WAS STARTED ON A CARDIZEM DRIP THROUGHOUT THE NIGHT DUE TO SUSTAINED TACHYCARDIA WITH HR IN THE 150S AND ATRIAL FIBRILLATION. ON EXAMINATION, HE CONTINUES TO BE TACHYCARDIC. PRODUCT EXPERT REVEALS A HEART RATE IN THE 110-120. HE IS NOTED TO BE IN ATRIAL FIBRILLATION. HE CONTINUES ON A CARDIZEM DRIP. BILATERAL LUNGS CONTINUE WITH SCATTERED WHEEZING THROUGHOUT. HE IS CURRENTLY UTILIZING HIGH FLOW HEATED OXYGEN. ABDOMEN IS ROUND, SOFT, AND NON-TENDER WITH NORMAL BOWEL SOUNDS NOTED IN ALL QUADRANTS. HIS VITALS THIS MORNING ARE 97.9-117-22-95%-110/77. ABNORMAL LAB VALUES INCLUDE THE FOLLOWING: WBC 15.2, RBC 4.62, HGB 13.3, HCT 41.1, CARBON DIOXIDE 33.6, BUN 26, GLUCOSE 176 , TOTAL PROTEIN 5.5, ALBUMIN 2.6. BLOOD CULTURES AND A SPUTUM CULTURE ARE PENDING. AN ABG WAS OBTAINED TODAY AND REVEALED PH 7.470, PC02 54, P02 76, HC03 39.3, BASE EXCESS 13.5. TODAYS CHEST XRAY IS STABLE. TODAY, WE WILL CONTINUE WITH CURRENT PLAN OF CARE. OTHERWISE, WE WILL FOLLOW UP WITH AM LABS AND CHEST XRAY AND CONTINUE TO MONITOR . - Past Medical Family Social History Past Med/Fam/Surg Hx: No changes since H&P Allergies: Allergies No Known Drug Allergies Allergy (Verified 12/23/17 04:51) - Review of Systems ROS: No change since H&P - Vital Signs and I&O's Vital Signs: Temperature 97.7 F Pulse Rate [Left Brachial] 112 Pulse Rate 106 Respiratory Rate 23 Blood Pressure [Left Arm] 147/89 Blood Pressure [Right Arm] 104/64 Blood Pressure 177/128 O2 Sat by Pulse Oximetry 100 Intake and Output: Intake & Output 12/26/17 12/27/17 12/28/17 12/29/17 11:59 11:59 11:59 11:59 Intake Total 1965 / 1965 1596 / 1596 1952 / 1952 1055 / 1055 Output Total 700 / 700 2800 / 2800 1150 / 1150 300 / 300 Balance 1265 / 1265 -1204 / -1204 803 / 803 755 / 755 - Physical Exam Oriented: Normal Eyes: Normal Ear: Normal Nose: Normal Throat: Normal Respiratory: Right, Left, Diminished, Wheezes Cardiovascular: Tachycardia. negative: S3, S4, Murmur : Normal Auscultation: Bowel Sounds: Normal Tenderness: Normal Skin: Normal Musculoskeletal: Normal Psychiatric: Normal Mood Description: Calm Affect: Normal Speech Pattern: Clear, Appropriate - Laboratory and Diagnostics Result Diagrams: 12/28/17 05:32 12/28/17 05:32 Labs: 12/26/17 22:26 Sputum - Expectorated Sputum Sputum Culture - Final 12/26/17 22:26 Sputum - Expectorated Sputum - Final 12/23/17 04:45 Blood Blood Culture - Final 12/23/17 04:35 Blood Blood Culture - Final Laboratory WBC 15.2 X10^3/uL (3.6-10.0) H 12/28/17 05:32 RBC 4.62 X10^6/uL (4.7-6.0) L 12/28/17 05:32 Hgb 13.3 g/dL (13.5-18.0) L 12/28/17 05:32 Hct 41.1 % (42.0-54.0) L 12/28/17 05:32 MCV 88.9 fL (80.0-100.0) 12/28/17 05:32 MCH 28.9 pg (27.0-34.0) 12/28/17 05:32 MCHC 32.5 g/dL (33.0-35.0) L 12/28/17 05:32 RDW 14.6 % (11.6-16.5) 12/28/17 05:32 Plt Count 269 X10^3/uL (150.0-450.0) 12/28/17 05:32 Plt Count Comment Adequate (ADEQUATE) 12/28/17 05:32 MPV 8.4 fL (7.4-11.0) 12/28/17 05:32 Neut % (Auto) 93.1 % (42.0-75.0) H 12/28/17 05:32 Lymph % (Auto) 3.8 % (21.0-51.0) L 12/28/17 05:32 [place] % (Auto) 3.0 % (0.0-13.0) 12/28/17 05:32 Eos % (Auto) 0.0 % (0.9-2.9) L 12/28/17 05:32 Baso % (Auto) 0.1 % (0.2-1.0) L 12/28/17 05:32 Neut # (Auto) 14.1 x10^3/uL (2.2-4.8) H 12/28/17 05:32 Lymph # (Auto) 0.6 X10^3/uL (1.3-2.9) L 12/28/17 05:32 [place] # (Auto) 0.5 x10^3/uL (0.3-0.8) 12/28/17 05:32 Eos # (Auto) 0.0 x10^3/uL (0.0-0.2) 12/28/17 05:32 Baso # (Auto) 0.0 X10^3/uL (0.0-0.1) 12/28/17 05:32 Absolute Nucleated RBC 0.0 /100WBC 12/28/17 05:32 Total Counted 100 12/28/17 05:32 Neutrophils % (Manual) 90 % (39-76) H 12/28/17 05:32 Band Neutrophils % 2 % (0-10) 12/27/17 05:12 Lymphocytes % (Manual) 8 % (13-43) L 12/28/17 05:32 Monocytes % (Manual) 2 % (4-9) L 12/28/17 05:32 Plt Morphology Comment Normal (NORMAL) 12/28/17 05:32 RBC Morphology Normal (NORMAL) 12/28/17 05:32 INR Target Range - 12/23/17 04:45 INR 1.11 (0.8-1.3) 12/23/17 04:45 APTT 35.6 SECONDS (22.9-36.5) 12/23/17 04:45 PTT Comment - 12/23/17 04:45 D-Dimer < 100 ng/mL (0-400) 12/23/17 04:45 Sample Site Lr 12/28/17 04:15 ABG pH 7.470 (7.35-7.45) H 12/28/17 04:15 ABG pCO2 54.0 mmHg (35.0-45.0) H* 12/28/17 04:15 ABG pO2 76.0 mmHg (80.0-100.0) L 12/28/17 04:15 ABG HCO3 39.3 mmol/L (22-26) H* 12/28/17 04:15 ABG O2 Saturation 96.0 % (90-100) 12/28/17 04:15 ABG Base Excess 13.5 mmol/L (-2.0-2.0) H 12/28/17 04:15 Tanner Test Pos 12/28/17 04:15 A-a Gradient 142.0 mmHg 12/28/17 04:15 FiO2 40.000 12/28/17 04:15 Blood Gas Comments Christian well ae 12/28/17 04:15 Sodium 143 mmol/L (136-145) 12/28/17 05:32 Corrected Sodium 145 mmol/L (136-145) 12/28/17 05:32 Potassium 4.1 mmol/L (3.5-5.1) 12/28/17 05:32 Chloride 107 mmol/L (98-107) 12/28/17 05:32 Carbon Dioxide 33.6 mmol/L (21-32) H 12/28/17 05:32 BUN 26 mg/dL (7-18) H 12/28/17 05:32 Creatinine 1.05 mg/dL (0.70-1.30) 12/28/17 05:32 Est GFR (MDRD) Af Amer > 60 (>60) 12/28/17 05:32 Est GFR (MDRD) Non-Af > 60 (>60) 12/28/17 05:32 Glucose 176 mg/dL (65-99) H 12/28/17 05:32 POC Glucose (mg/dL) 204 mg/dL (65-99) H 12/28/17 10:51 Lactic Acid 0.5 mmol/L (0.4-2.0) 12/23/17 04:35 Calcium 8.7 mg/dL (8.5-10.1) 12/28/17 05:32 Corrected Calcium 9.8 mg/dL (8.5-10.1) 12/28/17 05:32 Magnesium 1.9 mg/dL (1.7-2.9) 12/24/17 04:20 Total Bilirubin 0.30 mg/dL (0.2-1.0) 12/28/17 05:32 AST 23 Units/L (15-37) 12/28/17 05:32 ALT 36 Units/L (12-78) 12/28/17 05:32 Alkaline Phosphatase 47 Units/L (46-116) 12/28/17 05:32 Creatine Kinase 229 Units/L (39-308) 12/26/17 17:03 CK-MB (CK-2) 5.5 ng/mL (0-4.0) H* 12/26/17 17:03 CK/CKMB % Calc 2.4 % (<4) 12/26/17 17:03 Troponin I < 0.02 ng/mL (0-1.5) 12/26/17 17:03 C-Reactive Protein 2.90 mg/L (0-3.0) 12/23/17 04:35 Total Protein 5.5 g/dL (6.4-8.2) L 12/28/17 05:32 Albumin 2.6 g/dL (3.4-5.0) L 12/28/17 05:32 Globulin 2.9 g/dL (2.5-4.5) 12/28/17 05:32 Albumin/Globulin Ratio 0.9 Ratio (1.1-2.1) L 12/28/17 05:32 Specimen Type Catherized urine 12/27/17 00:25 Urine Color Yellow (YELLOW) 12/27/17 00:25 Urine Appearance Clear (CLEAR) 12/27/17 00:25 Urine pH 5.0 (5.0 - 8.0) 12/27/17 00:25 Ur Specific [place] 1.025 (1.000-1.030) 12/27/17 00:25 Urine Protein 1+ (NEGATIVE) 12/27/17 00:25 Urine Glucose (UA) Negative (NEGATIVE) 12/27/17 00:25 Urine Ketones 1+ (NEGATIVE) 12/27/17 00:25 Urine Occult Blood 3+ (NEGATIVE) 12/27/17 00:25 Urine Nitrite Negative (NEGATIVE) 12/27/17 00:25 Urine Bilirubin Negative (NEGATIVE) 12/27/17 00:25 Urine Urobilinogen Normal (NORMAL) 12/27/17 00:25 Ur Leukocyte Esterase Negative (NEGATIVE) 12/27/17 00:25 Urine RBC 10-20 /HPF (NONE SEEN) 12/27/17 00:25 Urine WBC 0-2 /HPF (NONE SEEN) 12/27/17 00:25 Ur Squamous Epith Cells Rare /HPF (NEGATIVE) 12/27/17 00:25 Urine Bacteria Negative /HPF (NEGATIVE) 12/27/17 00:25 Ur Culture Indicated? No/not indicated 12/27/17 00:25 Digoxin 0.58 ng/mL (0.9-2) L 12/28/17 05:32 - Plan (1) COPD with acute exacerbation Status: Acute Plan: supplemental oxygen, respiratory treatments increased, increase solu- medrol to 125mg iv q8h, gilberto-dur 200mg po bid, continue to monitor (2) Respiratory insufficiency Status: Acute (3) Bronchitis Status: Acute Plan: iv antibiotics, respiratory treatments, continue to monitor (4) Chest pain Status: Acute Qualifiers: Chest pain type: precordial pain Qualified Code(s): R07.2 - Precordial pain Plan: serial cardiac enzymes and ekg, continue to monitor (5) Atrial fibrillation Status: Acute Qualifiers: Atrial fibrillation type: unspecified Qualified Code(s): I48.91 - Unspecified atrial fibrillation Plan: digoxin 0.25mg iv x 1 dose, continue to monitor
[2017-12-28] MEDS: CARDIZEM CD 180 MG PO SCH (21:22)
[2017-12-28] MEDS: COLACE CAP 100 MG PO SCH (21:23)
[2017-12-28] MEDS: KLONOPIN TAB 0.5 MG PO SCH (21:24)
[2017-12-28] MEDS: LIPITOR TAB 40 MG PO SCH (21:25)
[2017-12-28] MEDS: MILK OF MAGNESIA PO SCH (21:25)
[2017-12-28] MEDS: ZANTAC PO SCH (21:26)
[2017-12-28] MEDS ORDERED: SALINE 0.9% 3 ML NEB TX ONE (22:43)
[2017-12-29] MEDS: MORPHINE SULFATE INJ 2 MG INJ IVP PRN ×3 (00:08→14:00)
[2017-12-29] MEDS ORDERED: SALINE 0.9% 3 ML NEB TX ONE (03:17)
[2017-12-29] MEDS: XOPENEX 1.25 MG/3 ML NEBULE NEB SCH ×7 (03:40→20:06)
[2017-12-29] MEDS: SOLU-Medrol 125 MG VIAL IVP SCH (06:36)
[2017-12-29] MEDS: FORTAZ or TAZICEF VIAL INJ 1 G in NS 100 ML IV + SPIKE MINIBAG* 100 ML IV SCH ×3 (06:36→21:01)
--- NOTE | 2017-12-29 06:37 | RAD ---
HISTORY: Shortness of breath Study: Chest AP portable Comparison: 12/28/2017 Findings: The heart is within normal limits in size. The cass are normal. The lungs are well inflated and free of acute infiltrates. No pleural effusions are identified. The bony thorax is unremarkable. IMPRESSION: Lungs remain clear Reported By:
[2017-12-29 06:43] LABS: BASOPHILS # (AUTO) 0.1 X10^3/uL (0.0-0.1); BASOPHILS % (AUTO) 0.3 % (0.2-1.0); HEMATOCRIT 46.5 % (42.0-54.0); HEMOGLOBIN 15.1 g/dL (13.5-18.0); LYMPHOCYTES # (AUTO) 0.3 X10^3/uL (1.3-2.9); LYMPHOCYTES % (AUTO) 1.6 % (21.0-51.0); MEAN CORPUSCULAR HEMOGLOBIN 28.9 pg (27.0-34.0); MEAN CORPUSCULAR HGB CONC 32.5 g/dL (33.0-35.0); MEAN CORPUSCULAR VOLUME 88.9 fL (80.0-100.0); MEAN PLATELET VOLUME 8.4 fL (7.4-11.0); MONOCYTES # (AUTO) 0.4 x10^3/uL (0.3-0.8); MONOCYTES % (AUTO) 1.7 % (0.0-13.0); NEUTROPHILS # (AUTO) 20.4 x10^3/uL (2.2-4.8); NEUTROPHILS % (AUTO) 96.4 % (42.0-75.0); PLATELET COUNT 321 X10^3/uL (150.0-450.0); RED BLOOD COUNT 5.23 X10^6/uL (4.7-6.0); RED CELL DISTRIBUTION WIDTH 15.1 % (11.6-16.5); WHITE BLOOD COUNT 21.2 X10^3/uL (3.6-10.0)
[2017-12-29 06:53] LABS: ALANINE AMINOTRANSFERASE 40 Units/L (12-78); ALBUMIN 2.8 g/dL (3.4-5.0); ALKALINE PHOSPHATASE 52 Units/L (46-116); ASPARTATE AMINO TRANSFERASE 17 Units/L (15-37); BLOOD UREA NITROGEN 30 mg/dL (7-18); CHLORIDE 108 mmol/L (98-107); COR NA(FOR HYPERGLY) 144 mmol/L (136-145); CREATININE 1.03 mg/dL (0.70-1.30); DIGOXIN 0.58 ng/mL (0.9-2); SODIUM 143 mmol/L (136-145); TOTAL PROTEIN 6.1 g/dL (6.4-8.2); eGFR NON BLACK RACES > 60 (>60)
[2017-12-29 07:21] LABS: PLATELET MORPHOLOGY COMMENT NORMAL (NORMAL)
[2017-12-29] MEDS: PULMICORT NEB TX 0.5 MG NEB SCH ×3 (07:36→20:06)
[2017-12-29] MEDS: LEVAQUIN PREMIX IV 750 MG 750 MG/150 ML BAG IV SCH (08:08)
[2017-12-29] MEDS: LANOXIN PO SCH (08:09)
[2017-12-29] MEDS: ECOTRIN TAB 325 MG PO SCH (08:09)
[2017-12-29] MEDS: MUCINEX EXPECTORANT PO SCH ×2 (08:09→20:18)
[2017-12-29] MEDS: THEO-DUR TAB 200 MG PO SCH ×3 (08:09→20:17)
[2017-12-29] MEDS: KEPPRA TAB 500 MG PO SCH ×2 (08:09→20:18)
[2017-12-29] MEDS: CATAPRES TAB 0.1 MG PO SCH ×2 (08:09→20:18)
[2017-12-29] MEDS: TOPROL XL PO SCH (08:09)
[2017-12-29] MEDS: ZESTRIL TAB 40 MG PO SCH (08:10)
[2017-12-29] MEDS: XARELTO PO SCH (08:10)
[2017-12-29] MEDS ORDERED: CARDIZEM SR 120 MG PO ONE (09:07)
[2017-12-29] MEDS: HumuLIN R SUBCUT PRN ×3 (11:19→21:00)
[2017-12-29] MEDS: PERCOCET TAB 5/325 MG PO PRN (11:20)
[2017-12-29] MEDS: CARDIZEM INJ 125 MG VIAL 125 MG in NS 100 ML IV 100 ML IV PRN (12:58)
[2017-12-29] MEDS ORDERED: NS 100 ML IV 100 ML IV ONE ×2 (13:47→15:42)
--- NOTE | 2017-12-29 17:03 | CT ---
CT CHEST WITH IV CONTRAST CLINICAL HISTORY: 57-year-old male with COPD exacerbation. History of COPD and asthma. COMPARISON: Chest radiograph this date, CTA chest 11/23/2016. TECHNIQUE: Chest CT was performed utilizing contiguous axial images from the thoracic inlet to below the diaphragm following the administration of IV contrast. The images were reformatted in the kelly l and sagittal planes. FINDINGS: There is no thoracic lymphadenopathy. The heart is normal in size and there is no pericardial effusio n. Diffuse paraseptal and centrilobular emphysematous change with bullous emphysema of the lung apices, unchanged. Evaluation of the lung parenchyma demonstrates no pulmonary nodules, masses, or pleural fl uid collections. The trachea and mainstem bronchi are patent. Imaged upper abdomen is unremarkable. The arteriovascular structures are intact without dissection, aneurysm, or occlusion. There is no luke tral pulmonary embolus. Soft tissues are normal. The osseous structures are intact without fracture or malalignment. IMPRESSION: 1. No acute thoracic pathology. 2. Chronic diffuse emphysematous change. Reported By:
[2017-12-29] MEDS: LIPITOR TAB 40 MG PO SCH (20:18)
[2017-12-29] MEDS: ZANTAC PO SCH (20:18)
[2017-12-29] MEDS: COLACE CAP 100 MG PO SCH (20:18)
[2017-12-29] MEDS: CARDIZEM CD 180 MG PO SCH (20:19)
[2017-12-29] MEDS: MILK OF MAGNESIA PO SCH (20:19)
[2017-12-29] MEDS: KLONOPIN TAB 0.5 MG PO SCH (20:22)
[2017-12-30] MEDS: XOPENEX 1.25 MG/3 ML NEBULE NEB SCH ×5 (01:25→21:18)
[2017-12-30] MEDS: FORTAZ or TAZICEF VIAL INJ 1 G in NS 100 ML IV + SPIKE MINIBAG* 100 ML IV SCH ×3 (05:17→21:30)
[2017-12-30] MEDS: HumuLIN R SUBCUT PRN ×3 (05:44→20:29)
[2017-12-30 05:47] LABS: ABG BASE EXCESS 11.3 mmol/L (-2.0-2.0)
[2017-12-30 05:49] LABS: ABG ALLEN TEST POS
[2017-12-30 06:22] LABS: BASOPHILS % (AUTO) 0.1 % (0.2-1.0); HEMATOCRIT 44.5 % (42.0-54.0); HEMOGLOBIN 14.4 g/dL (13.5-18.0); LYMPHOCYTES # (AUTO) 0.3 X10^3/uL (1.3-2.9); LYMPHOCYTES % (AUTO) 1.4 % (21.0-51.0); MEAN CORPUSCULAR HEMOGLOBIN 28.6 pg (27.0-34.0); MEAN CORPUSCULAR HGB CONC 32.3 g/dL (33.0-35.0); MEAN CORPUSCULAR VOLUME 88.3 fL (80.0-100.0); MEAN PLATELET VOLUME 8.8 fL (7.4-11.0); MONOCYTES # (AUTO) 0.8 x10^3/uL (0.3-0.8); MONOCYTES % (AUTO) 3.9 % (0.0-13.0); NEUTROPHILS # (AUTO) 19.1 x10^3/uL (2.2-4.8); NEUTROPHILS % (AUTO) 94.6 % (42.0-75.0); PLATELET COUNT 281 X10^3/uL (150.0-450.0); RED BLOOD COUNT 5.04 X10^6/uL (4.7-6.0); RED CELL DISTRIBUTION WIDTH 14.8 % (11.6-16.5); WHITE BLOOD COUNT 20.1 X10^3/uL (3.6-10.0)
--- NOTE | 2017-12-30 06:32 | RAD ---
HISTORY: Shortness of breath Study: Chest AP portable Comparison: 12/29/2017 Findings: The heart is within normal limits in size. The cass are normal. The lungs are hyperinflated but free of acute alveolar infiltrates. No pleural effusions are identified. The bony thorax is unremarkable. IMPRESSION: Lungs hyperinflated but clear Reported By:
[2017-12-30 06:40] LABS: BAND NEUTROPHILS % 4 % (0-10); PLATELET MORPHOLOGY COMMENT NORMAL (NORMAL)
[2017-12-30 06:51] LABS: ALANINE AMINOTRANSFERASE 36 Units/L (12-78); ALBUMIN 2.5 g/dL (3.4-5.0); ALKALINE PHOSPHATASE 47 Units/L (46-116); ASPARTATE AMINO TRANSFERASE 18 Units/L (15-37); BLOOD UREA NITROGEN 40 mg/dL (7-18); CALCIUM 8.9 mg/dL (8.5-10.1); CARBON DIOXIDE 31.5 mmol/L (21-32); CHLORIDE 105 mmol/L (98-107); COR CA(FOR HYPOALB) 10.1 mg/dL (8.5-10.1); COR NA(FOR HYPERGLY) 145 mmol/L (136-145); DIGOXIN 0.59 ng/mL (0.9-2); SODIUM 143 mmol/L (136-145); THEOPHYLLINE 20.6 ug/mL (10-20); TOTAL PROTEIN 5.6 g/dL (6.4-8.2); eGFR NON BLACK RACES 56 (>60)
[2017-12-30] MEDS: MORPHINE SULFATE INJ 2 MG INJ IVP PRN ×2 (07:40→15:00)
[2017-12-30] MEDS: PULMICORT NEB TX 0.5 MG NEB SCH ×2 (08:10→21:18)
[2017-12-30] MEDS: CARDIZEM INJ 125 MG VIAL 125 MG in NS 100 ML IV 100 ML IV PRN (08:50)
[2017-12-30] MEDS: LEVAQUIN PREMIX IV 750 MG 750 MG/150 ML BAG IV SCH (09:17)
[2017-12-30] MEDS: ECOTRIN TAB 325 MG PO SCH (09:17)
[2017-12-30] MEDS: KEPPRA TAB 500 MG PO SCH ×2 (09:17→20:29)
[2017-12-30] MEDS: TOPROL XL PO SCH (09:17)
[2017-12-30] MEDS: XARELTO PO SCH (09:17)
[2017-12-30] MEDS: MUCINEX EXPECTORANT PO SCH ×2 (09:17→20:26)
[2017-12-30] MEDS: ZESTRIL TAB 40 MG PO SCH ×2 (09:18→16:10)
[2017-12-30] MEDS: NS 1000 ML 1,000 ML IV SCH ×2 (09:18→18:28)
[2017-12-30] MEDS: LANOXIN PO SCH (09:18)
[2017-12-30] MEDS: CATAPRES TAB 0.1 MG PO SCH ×3 (09:18→20:29)
[2017-12-30] MEDS: SOLU-Medrol 125 MG VIAL IVP SCH ×3 (10:07→21:30)
[2017-12-30] MEDS: THEO-DUR TAB 200 MG PO SCH ×3 (11:20→20:27)
--- NOTE | 2017-12-30 11:47 | PCM.PROG ---
Progress Note - Progress Note for Day of Date of Exam: 12/29/17 - Subjective Subjective: WAS ADMITTED FOR COPD EXACERBATION AND RESPIRATORY INSUFFICIENCY. TODAY, HE IS ALERT AND ORIENTED, SITTING UP IN CHAIR ON MORNING ROUNDS. HE CONTINUES WITH COMPLAINTS OF SEVERE SHORTNESS OF BREATH. HE REPORTS THAT SYMPTOMS HAD IMPROVED YESTERDAY, BUT ARE WORSE TODAY. HE CONTINUES WITH TACHYCARDIA WITH HR IN THE 120S TODAY. ON EXAMINATION, HE CONTINUES TO BE IN ATRIAL FIBRILLATION. HE WAS CONVERTED FROM THE CARDIZEM DRIP TO CARDIZEM 180MG PO DAILY LAST NIGHT. BILATERAL LUNGS CONTINUE WITH SCATTERED WHEEZING THROUGHOUT. HE IS CURRENTLY UTILIZING HIGH FLOW HEATED OXYGEN. ABDOMEN IS ROUND , SOFT, AND NON-TENDER WITH NORMAL BOWEL SOUNDS NOTED IN ALL QUADRANTS. HIS VITALS THIS MORNING ARE 97.8-124-25-95%, 136/95. ABNORMAL LAB VALUES INCLUDE THE FOLLOWING: WBC INCREASED FROM 15.2 TO 21.2, CHLORIDE 108, CARBON DIOXIDE 33.0, BUN 30, GLUCOSE 149, TOTAL PROTEIN 6.1, ALBUMIN 2.8, DIGOXIN 0.58. BLOOD CULTURES AND A SPUTUM CULTURE ARE PENDING. TODAYS CHEST XRAY IS STABLE. HE CONTINUES ON IV ANTIBIOTICS, RESPIRATORY TREATMENTS, SUPPLEMENTAL OXYGEN, AND IV STEROIDS. TODAY, WE WILL INCREASE GILBERTO-DUR TO 400MG PO BID AND GIVEN HIM A ONE TIME DOSE OF CARDIZEM 120MG PO. WE WILL OBTAIN A CHEST CT WITH CONTRAST. OTHERWISE, WE WILL FOLLOW UP WITH AM LABS AND CHEST XRAY AND CONTINUE TO MONITOR PATIENT. - Past Medical Family Social History Past Med/Fam/Surg Hx: No changes since H&P Allergies: Allergies No Known Drug Allergies Allergy (Verified 12/23/17 04:51) - Review of Systems ROS: No change since H&P - Vital Signs and I&O's Vital Signs: Temperature 97.4 F Pulse Rate [Left Brachial] 95 Pulse Rate 115 Respiratory Rate 19 Blood Pressure [Left Arm] 148/65 Blood Pressure [Right Arm] 104/64 Blood Pressure 177/128 O2 Sat by Pulse Oximetry 98 Intake and Output: Intake & Output 12/27/17 12/28/17 12/29/17 12/30/17 11:59 11:59 11:59 11:59 Intake Total 1596 / 1596 1953 / 1953 1390 / 1390 1783 / 1783 Output Total 2800 / 2800 1150 / 1150 650 / 650 950 / 950 Balance -1204 / -1204 803 / 803 740 / 740 833 / 833 - Physical Exam Oriented: Normal Eyes: Normal Ear: Normal Nose: Normal Throat: Normal Respiratory: Right, Left, Diminished, Wheezes Cardiovascular: Tachycardia. negative: S3, S4, Murmur : Normal Auscultation: Bowel Sounds: Normal Palpation: Normal Tenderness: Normal Skin: Normal Musculoskeletal: Normal Psychiatric: Normal Mood Description: Calm Affect: Normal Speech Pattern: Clear, Appropriate - Laboratory and Diagnostics Result Diagrams: 12/30/17 05:33 12/30/17 05:33 Labs: 12/26/17 22:26 Sputum - Expectorated Sputum Sputum Culture - Final 12/26/17 22:26 Sputum - Expectorated Sputum - Final 12/23/17 04:45 Blood Blood Culture - Final 12/23/17 04:35 Blood Blood Culture - Final Laboratory WBC 20.1 X10^3/uL (3.6-10.0) H 12/30/17 05:33 RBC 5.04 X10^6/uL (4.7-6.0) 12/30/17 05:33 Hgb 14.4 g/dL (13.5-18.0) 12/30/17 05:33 Hct 44.5 % (42.0-54.0) 12/30/17 05:33 MCV 88.3 fL (80.0-100.0) 12/30/17 05:33 MCH 28.6 pg (27.0-34.0) 12/30/17 05:33 MCHC 32.3 g/dL (33.0-35.0) L 12/30/17 05:33 RDW 14.8 % (11.6-16.5) 12/30/17 05:33 Plt Count 281 X10^3/uL (150.0-450.0) 12/30/17 05:33 Plt Count Comment Adequate (ADEQUATE) 12/30/17 05:33 MPV 8.8 fL (7.4-11.0) 12/30/17 05:33 Neut % (Auto) 94.6 % (42.0-75.0) H 12/30/17 05:33 Lymph % (Auto) 1.4 % (21.0-51.0) L 12/30/17 05:33 [place] % (Auto) 3.9 % (0.0-13.0) 12/30/17 05:33 Eos % (Auto) 0.0 % (0.9-2.9) L 12/30/17 05:33 Baso % (Auto) 0.1 % (0.2-1.0) L 12/30/17 05:33 Neut # (Auto) 19.1 x10^3/uL (2.2-4.8) H 12/30/17 05:33 Lymph # (Auto) 0.3 X10^3/uL (1.3-2.9) L 12/30/17 05:33 [place] # (Auto) 0.8 x10^3/uL (0.3-0.8) 12/30/17 05:33 Eos # (Auto) 0.0 x10^3/uL (0.0-0.2) 12/30/17 05:33 Baso # (Auto) 0.0 X10^3/uL (0.0-0.1) 12/30/17 05:33 Absolute Nucleated RBC 0.0 /100WBC 12/30/17 05:33 Total Counted 100 12/30/17 05:33 Neutrophils % (Manual) 87 % (39-76) H 12/30/17 05:33 Band Neutrophils % 4 % (0-10) 12/30/17 05:33 Lymphocytes % (Manual) 7 % (13-43) L 12/30/17 05:33 Monocytes % (Manual) 2 % (4-9) L 12/30/17 05:33 Plt Morphology Comment Normal (NORMAL) 12/30/17 05:33 RBC Morphology Normal (NORMAL) 12/30/17 05:33 INR Target Range - 12/23/17 04:45 INR 1.11 (0.8-1.3) 12/23/17 04:45 APTT 35.6 SECONDS (22.9-36.5) 12/23/17 04:45 PTT Comment - 12/23/17 04:45 D-Dimer < 100 ng/mL (0-400) 12/23/17 04:45 Sample Site Lrad 12/30/17 05:38 ABG pH 7.460 (7.35-7.45) H 12/30/17 05:38 ABG pCO2 52.0 mmHg (35.0-45.0) H* 12/30/17 05:38 ABG pO2 102.0 mmHg (80.0-100.0) H 12/30/17 05:38 ABG HCO3 37.0 mmol/L (22-26) H* 12/30/17 05:38 ABG O2 Saturation 98.0 % (90-100) 12/30/17 05:38 ABG Base Excess 11.3 mmol/L (-2.0-2.0) H 12/30/17 05:38 Tanner Test Pos 12/30/17 05:38 A-a Gradient 83.0 mmHg 12/30/17 05:38 FiO2 35.000 12/30/17 05:38 Blood Gas Comments Christian abg well-mtf 12/30/17 05:38 Sodium 143 mmol/L (136-145) 12/30/17 05:33 Corrected Sodium 145 mmol/L (136-145) 12/30/17 05:33 Potassium 4.3 mmol/L (3.5-5.1) 12/30/17 05:33 Chloride 105 mmol/L (98-107) 12/30/17 05:33 Carbon Dioxide 31.5 mmol/L (21-32) 12/30/17 05:33 BUN 40 mg/dL (7-18) H 12/30/17 05:33 Creatinine 1.40 mg/dL (0.70-1.30) H 12/30/17 05:33 Est GFR (MDRD) Af Amer > 60 (>60) 12/30/17 05:33 Est GFR (MDRD) Non-Af 56 (>60) L 12/30/17 05:33 Glucose 197 mg/dL (65-99) H 12/30/17 05:33 POC Glucose (mg/dL) 197 mg/dL (65-99) H 12/30/17 11:35 Lactic Acid 0.5 mmol/L (0.4-2.0) 12/23/17 04:35 Calcium 8.9 mg/dL (8.5-10.1) 12/30/17 05:33 Corrected Calcium 10.1 mg/dL (8.5-10.1) 12/30/17 05:33 Magnesium 1.9 mg/dL (1.7-2.9) 12/24/17 04:20 Total Bilirubin 0.20 mg/dL (0.2-1.0) 12/30/17 05:33 AST 18 Units/L (15-37) 12/30/17 05:33 ALT 36 Units/L (12-78) 12/30/17 05:33 Alkaline Phosphatase 47 Units/L (46-116) 12/30/17 05:33 Creatine Kinase 229 Units/L (39-308) 12/26/17 17:03 CK-MB (CK-2) 5.5 ng/mL (0-4.0) H* 12/26/17 17:03 CK/CKMB % Calc 2.4 % (<4) 12/26/17 17:03 Troponin I < 0.02 ng/mL (0-1.5) 12/26/17 17:03 C-Reactive Protein 2.90 mg/L (0-3.0) 12/23/17 04:35 Total Protein 5.6 g/dL (6.4-8.2) L 12/30/17 05:33 Albumin 2.5 g/dL (3.4-5.0) L 12/30/17 05:33 Globulin 3.1 g/dL (2.5-4.5) 12/30/17 05:33 Albumin/Globulin Ratio 0.8 Ratio (1.1-2.1) L 12/30/17 05:33 Specimen Type Catherized urine 12/27/17 00:25 Urine Color Yellow (YELLOW) 12/27/17 00:25 Urine Appearance Clear (CLEAR) 12/27/17 00:25 Urine pH 5.0 (5.0 - 8.0) 12/27/17 00:25 Ur Specific [place] 1.025 (1.000-1.030) 12/27/17 00:25 Urine Protein 1+ (NEGATIVE) 12/27/17 00:25 Urine Glucose (UA) Negative (NEGATIVE) 12/27/17 00:25 Urine Ketones 1+ (NEGATIVE) 12/27/17 00:25 Urine Occult Blood 3+ (NEGATIVE) 12/27/17 00:25 Urine Nitrite Negative (NEGATIVE) 12/27/17 00:25 Urine Bilirubin Negative (NEGATIVE) 12/27/17 00:25 Urine Urobilinogen Normal (NORMAL) 12/27/17 00:25 Ur Leukocyte Esterase Negative (NEGATIVE) 12/27/17 00:25 Urine RBC 10-20 /HPF (NONE SEEN) 12/27/17 00:25 Urine WBC 0-2 /HPF (NONE SEEN) 12/27/17 00:25 Ur Squamous Epith Cells Rare /HPF (NEGATIVE) 12/27/17 00:25 Urine Bacteria Negative /HPF (NEGATIVE) 12/27/17 00:25 Ur Culture Indicated? No/not indicated 12/27/17 00:25 Digoxin 0.59 ng/mL (0.9-2) L 12/30/17 05:33 Theophylline 20.6 ug/mL (10-20) H 12/30/17 05:33 - Plan (1) COPD with acute exacerbation Status: Acute Plan: supplemental oxygen, respiratory treatments increased, increase solu- medrol to 125mg iv q8h, gilberto-dur 400mg po bid, continue to monitor (2) Respiratory failure with hypercapnia Status: Acute Qualifiers: Chronicity: acute on chronic Qualified Code(s): J96.22 - Acute and chronic respiratory failure with hypercapnia Plan: supplemental oxygen, respiratory treatments increased, increase solu- medrol to 125mg iv q8h, gilberto-dur 400mg po bid, continue to monitor (3) Bronchitis Status: Acute Plan: iv antibiotics, respiratory treatments, continue to monitor (4) Chest pain Status: Acute Qualifiers: Chest pain type: precordial pain Qualified Code(s): R07.2 - Precordial pain Plan: serial cardiac enzymes and ekg, continue to monitor (5) Atrial fibrillation Status: Acute Qualifiers: Atrial fibrillation type: unspecified Qualified Code(s): I48.91 - Unspecified atrial fibrillation Plan: digoxin 0.25mg iv x 1 dose, continue to monitor
--- NOTE | 2017-12-30 12:06 | PCM.PROG ---
Progress Note - Progress Note for Day of Date of Exam: 12/30/17 - Subjective Subjective: WAS ADMITTED FOR COPD EXACERBATION AND RESPIRATORY INSUFFICIENCY. TODAY, HE IS ALERT AND ORIENTED, SITTING UP IN CHAIR ON MORNING ROUNDS. HE CONTINUES WITH COMPLAINTS OF SEVERE SHORTNESS OF BREATH. PATIENT REPORTS THAT HE DOESNT FEEL LIKE HE IS IMPROVING. ON EXAMINATION, HE CONTINUES TO BE IN ATRIAL FIBRILLATION. V BELT INSPECTOR REVEALS HEART RATE OF 111 BPM. BILATERAL LUNGS CONTINUE WITH SCATTERED WHEEZING THROUGHOUT. HE CONTINUES UTILIZING HIGH FLOW HEATED OXYGEN. ABDOMEN IS ROUND, SOFT, AND NON-TENDER WITH NORMAL BOWEL SOUNDS NOTED IN ALL QUADRANTS. HIS VITALS THIS MORNING ARE 97.4-102 -15-97%-128/81. ABNORMAL LAB VALUES INCLUDE THE FOLLOWING: WBC 20.1, BUN 40, CREATININE 1.40, GLUCOSE 197, TOTAL PROTEIN 5.6, ALBUMIN 2.5. BLOOD CULTURES AND A SPUTUM CULTURE REPORT NO GROWTH. AN ABG WAS OBTAINED TODAY AND REVEALED: PH 7.460, PC02 52.0, P02 102.0, HC03 37.0, BASE EXCESS 11.3. THEOPHYLLINE LEVEL SLIGHTLY ELEVATED AT 20.6 WITH NORMAL BEING 10-20. A CHEST CT WITH CONTRAST WAS OBTAINED YESTERDAY AND REVEALED: No acute thoracic pathology. Chronic diffuse emphysematous change. TODAYS CHEST XRAY IS STABLE. HE CONTINUES ON IV ANTIBIOTICS, RESPIRATORY TREATMENTS, SUPPLEMENTAL OXYGEN, AND IV STEROIDS. WE WILL DECREASE GILBERTO-DUR TO 400MG PO DAILY. OTHERWISE, WE WILL CONTINUE WITH CURRENT PLAN OF CARE. WE WILL FOLLOW UP WITH AM LABS AND CHEST XRAY AND CONTINUE TO MONITOR PATIENT. - Past Medical Family Social History Past Med/Fam/Surg Hx: No changes since H&P Allergies: Allergies No Known Drug Allergies Allergy (Verified 12/23/17 04:51) - Review of Systems ROS: No change since H&P - Vital Signs and I&O's Vital Signs: Temperature 97.4 F Pulse Rate [Left Brachial] 95 Pulse Rate 115 Respiratory Rate 19 Blood Pressure [Left Arm] 148/65 Blood Pressure [Right Arm] 104/64 Blood Pressure 177/128 O2 Sat by Pulse Oximetry 98 Intake and Output: Intake & Output 12/28/17 12/29/17 12/30/17 12/31/17 11:59 11:59 11:59 11:59 Intake Total 1952 / 1952 1390 / 1390 1783 / 1783 Output Total 1150 / 1150 650 / 650 950 / 950 Balance 803 / 803 740 / 740 833 / 833 - Physical Exam Oriented: Normal Eyes: Normal Ear: Normal Nose: Normal Throat: Normal Respiratory: Right, Left, Diminished, Wheezes Cardiovascular: Tachycardia. negative: S3, S4, Murmur : Normal Auscultation: Bowel Sounds: Normal Palpation: Normal Tenderness: Normal Skin: Normal Musculoskeletal: Normal Psychiatric: Normal Mood Description: Calm Affect: Normal Speech Pattern: Clear, Appropriate - Laboratory and Diagnostics Result Diagrams: 12/30/17 05:33 12/30/17 05:33 Labs: 12/26/17 22:26 Sputum - Expectorated Sputum Sputum Culture - Final 12/26/17 22:26 Sputum - Expectorated Sputum - Final 12/23/17 04:45 Blood Blood Culture - Final 12/23/17 04:35 Blood Blood Culture - Final Laboratory WBC 20.1 X10^3/uL (3.6-10.0) H 12/30/17 05:33 RBC 5.04 X10^6/uL (4.7-6.0) 12/30/17 05:33 Hgb 14.4 g/dL (13.5-18.0) 12/30/17 05:33 Hct 44.5 % (42.0-54.0) 12/30/17 05:33 MCV 88.3 fL (80.0-100.0) 12/30/17 05:33 MCH 28.6 pg (27.0-34.0) 12/30/17 05:33 MCHC 32.3 g/dL (33.0-35.0) L 12/30/17 05:33 RDW 14.8 % (11.6-16.5) 12/30/17 05:33 Plt Count 281 X10^3/uL (150.0-450.0) 12/30/17 05:33 Plt Count Comment Adequate (ADEQUATE) 12/30/17 05:33 MPV 8.8 fL (7.4-11.0) 12/30/17 05:33 Neut % (Auto) 94.6 % (42.0-75.0) H 12/30/17 05:33 Lymph % (Auto) 1.4 % (21.0-51.0) L 12/30/17 05:33 [place] % (Auto) 3.9 % (0.0-13.0) 12/30/17 05:33 Eos % (Auto) 0.0 % (0.9-2.9) L 12/30/17 05:33 Baso % (Auto) 0.1 % (0.2-1.0) L 12/30/17 05:33 Neut # (Auto) 19.1 x10^3/uL (2.2-4.8) H 12/30/17 05:33 Lymph # (Auto) 0.3 X10^3/uL (1.3-2.9) L 12/30/17 05:33 [place] # (Auto) 0.8 x10^3/uL (0.3-0.8) 12/30/17 05:33 Eos # (Auto) 0.0 x10^3/uL (0.0-0.2) 12/30/17 05:33 Baso # (Auto) 0.0 X10^3/uL (0.0-0.1) 12/30/17 05:33 Absolute Nucleated RBC 0.0 /100WBC 12/30/17 05:33 Total Counted 100 12/30/17 05:33 Neutrophils % (Manual) 87 % (39-76) H 12/30/17 05:33 Band Neutrophils % 4 % (0-10) 12/30/17 05:33 Lymphocytes % (Manual) 7 % (13-43) L 12/30/17 05:33 Monocytes % (Manual) 2 % (4-9) L 12/30/17 05:33 Plt Morphology Comment Normal (NORMAL) 12/30/17 05:33 RBC Morphology Normal (NORMAL) 12/30/17 05:33 INR Target Range - 12/23/17 04:45 INR 1.11 (0.8-1.3) 12/23/17 04:45 APTT 35.6 SECONDS (22.9-36.5) 12/23/17 04:45 PTT Comment - 12/23/17 04:45 D-Dimer < 100 ng/mL (0-400) 12/23/17 04:45 Sample Site Lrad 12/30/17 05:38 ABG pH 7.460 (7.35-7.45) H 12/30/17 05:38 ABG pCO2 52.0 mmHg (35.0-45.0) H* 12/30/17 05:38 ABG pO2 102.0 mmHg (80.0-100.0) H 12/30/17 05:38 ABG HCO3 37.0 mmol/L (22-26) H* 12/30/17 05:38 ABG O2 Saturation 98.0 % (90-100) 12/30/17 05:38 ABG Base Excess 11.3 mmol/L (-2.0-2.0) H 12/30/17 05:38 Tanner Test Pos 12/30/17 05:38 A-a Gradient 83.0 mmHg 12/30/17 05:38 FiO2 35.000 12/30/17 05:38 Blood Gas Comments Christian abg well-mtf 12/30/17 05:38 Sodium 143 mmol/L (136-145) 12/30/17 05:33 Corrected Sodium 145 mmol/L (136-145) 12/30/17 05:33 Potassium 4.3 mmol/L (3.5-5.1) 12/30/17 05:33 Chloride 105 mmol/L (98-107) 12/30/17 05:33 Carbon Dioxide 31.5 mmol/L (21-32) 12/30/17 05:33 BUN 40 mg/dL (7-18) H 12/30/17 05:33 Creatinine 1.40 mg/dL (0.70-1.30) H 12/30/17 05:33 Est GFR (MDRD) Af Amer > 60 (>60) 12/30/17 05:33 Est GFR (MDRD) Non-Af 56 (>60) L 12/30/17 05:33 Glucose 197 mg/dL (65-99) H 12/30/17 05:33 POC Glucose (mg/dL) 197 mg/dL (65-99) H 12/30/17 11:35 Lactic Acid 0.5 mmol/L (0.4-2.0) 12/23/17 04:35 Calcium 8.9 mg/dL (8.5-10.1) 12/30/17 05:33 Corrected Calcium 10.1 mg/dL (8.5-10.1) 12/30/17 05:33 Magnesium 1.9 mg/dL (1.7-2.9) 12/24/17 04:20 Total Bilirubin 0.20 mg/dL (0.2-1.0) 12/30/17 05:33 AST 18 Units/L (15-37) 12/30/17 05:33 ALT 36 Units/L (12-78) 12/30/17 05:33 Alkaline Phosphatase 47 Units/L (46-116) 12/30/17 05:33 Creatine Kinase 229 Units/L (39-308) 12/26/17 17:03 CK-MB (CK-2) 5.5 ng/mL (0-4.0) H* 12/26/17 17:03 CK/CKMB % Calc 2.4 % (<4) 12/26/17 17:03 Troponin I < 0.02 ng/mL (0-1.5) 12/26/17 17:03 C-Reactive Protein 2.90 mg/L (0-3.0) 12/23/17 04:35 Total Protein 5.6 g/dL (6.4-8.2) L 12/30/17 05:33 Albumin 2.5 g/dL (3.4-5.0) L 12/30/17 05:33 Globulin 3.1 g/dL (2.5-4.5) 12/30/17 05:33 Albumin/Globulin Ratio 0.8 Ratio (1.1-2.1) L 12/30/17 05:33 Specimen Type Catherized urine 12/27/17 00:25 Urine Color Yellow (YELLOW) 12/27/17 00:25 Urine Appearance Clear (CLEAR) 12/27/17 00:25 Urine pH 5.0 (5.0 - 8.0) 12/27/17 00:25 Ur Specific [place] 1.025 (1.000-1.030) 12/27/17 00:25 Urine Protein 1+ (NEGATIVE) 12/27/17 00:25 Urine Glucose (UA) Negative (NEGATIVE) 12/27/17 00:25 Urine Ketones 1+ (NEGATIVE) 12/27/17 00:25 Urine Occult Blood 3+ (NEGATIVE) 12/27/17 00:25 Urine Nitrite Negative (NEGATIVE) 12/27/17 00:25 Urine Bilirubin Negative (NEGATIVE) 12/27/17 00:25 Urine Urobilinogen Normal (NORMAL) 12/27/17 00:25 Ur Leukocyte Esterase Negative (NEGATIVE) 12/27/17 00:25 Urine RBC 10-20 /HPF (NONE SEEN) 12/27/17 00:25 Urine WBC 0-2 /HPF (NONE SEEN) 12/27/17 00:25 Ur Squamous Epith Cells Rare /HPF (NEGATIVE) 12/27/17 00:25 Urine Bacteria Negative /HPF (NEGATIVE) 12/27/17 00:25 Ur Culture Indicated? No/not indicated 12/27/17 00:25 Digoxin 0.59 ng/mL (0.9-2) L 12/30/17 05:33 Theophylline 20.6 ug/mL (10-20) H 12/30/17 05:33 - Plan (1) COPD with acute exacerbation Status: Acute Plan: supplemental oxygen, respiratory treatments increased, increase solu- medrol to 125mg iv q8h, gilberto-dur 400mg po DAILY, continue to monitor (2) Respiratory failure with hypercapnia Status: Acute Qualifiers: Chronicity: acute on chronic Qualified Code(s): J96.22 - Acute and chronic respiratory failure with hypercapnia Plan: supplemental oxygen, respiratory treatments increased, increase solu- medrol to 125mg iv q8h, gilberto-dur 400mg po DAILY, continue to monitor (3) Bronchitis Status: Acute Plan: iv antibiotics, respiratory treatments, continue to monitor (4) Chest pain Status: Acute Qualifiers: Chest pain type: precordial pain Qualified Code(s): R07.2 - Precordial pain Plan: serial cardiac enzymes and ekg, continue to monitor (5) Atrial fibrillation Status: Acute Qualifiers: Atrial fibrillation type: unspecified Qualified Code(s): I48.91 - Unspecified atrial fibrillation Plan: digoxin 0.25mg iv x 1 dose, continue to monitor
[2017-12-30] MEDS: KLONOPIN TAB 0.5 MG PO SCH (20:27)
[2017-12-30] MEDS: LIPITOR TAB 40 MG PO SCH (20:27)
[2017-12-30] MEDS: ZANTAC PO SCH (20:28)
[2017-12-30] MEDS: MILK OF MAGNESIA PO SCH (20:29)
[2017-12-30] MEDS: COLACE CAP 100 MG PO SCH (20:29)
[2017-12-30] MEDS: CARDIZEM CD 180 MG PO SCH (20:30)
[2017-12-31] MEDS: XOPENEX 1.25 MG/3 ML NEBULE NEB SCH ×6 (02:00→20:01)
[2017-12-31 04:56] LABS: ABG BASE EXCESS 11.5 mmol/L (-2.0-2.0)
[2017-12-31 04:57] LABS: ABG ALLEN TEST POS; ABG HCO3 37.5 mmol/L (22-26)
[2017-12-31 05:22] LABS: BASOPHILS % (AUTO) 0.1 % (0.2-1.0); HEMATOCRIT 41.1 % (42.0-54.0); HEMOGLOBIN 13.3 g/dL (13.5-18.0); LYMPHOCYTES # (AUTO) 0.1 X10^3/uL (1.3-2.9); LYMPHOCYTES % (AUTO) 0.8 % (21.0-51.0); MEAN CORPUSCULAR HEMOGLOBIN 28.6 pg (27.0-34.0); MEAN CORPUSCULAR HGB CONC 32.3 g/dL (33.0-35.0); MEAN CORPUSCULAR VOLUME 88.6 fL (80.0-100.0); MEAN PLATELET VOLUME 8.7 fL (7.4-11.0); MONOCYTES # (AUTO) 0.3 x10^3/uL (0.3-0.8); MONOCYTES % (AUTO) 1.9 % (0.0-13.0); NEUTROPHILS # (AUTO) 17.7 x10^3/uL (2.2-4.8); NEUTROPHILS % (AUTO) 97.2 % (42.0-75.0); PLATELET COUNT 267 X10^3/uL (150.0-450.0); RED BLOOD COUNT 4.64 X10^6/uL (4.7-6.0); WHITE BLOOD COUNT 18.2 X10^3/uL (3.6-10.0)
[2017-12-31] MEDS: NS 1000 ML 1,000 ML IV SCH ×3 (05:31→16:45)
[2017-12-31] MEDS: FORTAZ or TAZICEF VIAL INJ 1 G in NS 100 ML IV + SPIKE MINIBAG* 100 ML IV SCH ×3 (05:32→21:17)
[2017-12-31] MEDS: SOLU-Medrol 125 MG VIAL IVP SCH (05:32)
[2017-12-31 05:34] LABS: ALANINE AMINOTRANSFERASE 36 Units/L (12-78); ALBUMIN 2.2 g/dL (3.4-5.0); ALKALINE PHOSPHATASE 41 Units/L (46-116); ASPARTATE AMINO TRANSFERASE 19 Units/L (15-37); BLOOD UREA NITROGEN 31 mg/dL (7-18); CALCIUM 8.5 mg/dL (8.5-10.1); CARBON DIOXIDE 31.3 mmol/L (21-32); CHLORIDE 106 mmol/L (98-107); COR CA(FOR HYPOALB) 9.9 mg/dL (8.5-10.1); COR NA(FOR HYPERGLY) 146 mmol/L (136-145); CREATININE 1.09 mg/dL (0.70-1.30); DIGOXIN 0.57 ng/mL (0.9-2); SODIUM 143 mmol/L (136-145); THEOPHYLLINE 16.1 ug/mL (10-20); eGFR NON BLACK RACES > 60 (>60)
[2017-12-31 05:49] LABS: BAND NEUTROPHILS % 2 % (0-10); PLATELET MORPHOLOGY COMMENT NORMAL (NORMAL)
--- NOTE | 2017-12-31 06:17 | RAD ---
Findings: Examination: Portable AP chest History: SOB Comparison reference 12/30/2017 Findings: Continued normal heart size with clear lungs and pleural spaces. Impression: No interval change or acute chest findings. Reported By:
[2017-12-31] MEDS: PULMICORT NEB TX 0.5 MG NEB SCH ×3 (08:27→20:01)
[2017-12-31] MEDS: CATAPRES TAB 0.1 MG PO SCH ×2 (09:44→20:22)
[2017-12-31] MEDS: LEVAQUIN PREMIX IV 750 MG 750 MG/150 ML BAG IV SCH (09:44)
[2017-12-31] MEDS: KEPPRA TAB 500 MG PO SCH ×2 (09:45→20:22)
[2017-12-31] MEDS: ECOTRIN TAB 325 MG PO SCH (09:45)
[2017-12-31] MEDS: LANOXIN PO SCH (09:45)
[2017-12-31] MEDS: ZESTRIL TAB 40 MG PO SCH (09:46)
[2017-12-31] MEDS: MUCINEX EXPECTORANT PO SCH ×2 (09:46→20:23)
[2017-12-31] MEDS: TOPROL XL PO SCH (09:46)
[2017-12-31] MEDS: XARELTO PO SCH (09:46)
[2017-12-31] MEDS ORDERED: NS 100 ML IV 100 ML IV ONE ×2 (11:23→12:03)
[2017-12-31] MEDS: CARDIZEM CD 240 MG PO SCH (11:31)
[2017-12-31] MEDS: SOLU-Medrol 40 MG VIAL IVP SCH ×3 (11:31→21:05)
[2017-12-31] MEDS: HumuLIN R SUBCUT PRN ×3 (11:43→20:27)
[2017-12-31] MEDS ORDERED: PEPCID 20 MG IV PREMIX* 50 ML IV SCH (17:00)
--- NOTE | 2017-12-31 17:13 | VAS ---
HISTORY: Atrial fibrillation Study: Carotid ultrasound Comparison: None Technique: Multiple cagle scale and color flow Doppler images of the right and left carotid arterial s ystem were obtained. The vertebral arterial system was evaluated as well. Findings: The peak systolic velocity of the right ICA is 90 cm/sec. The peak systolic velocity of the left ICA is 70 cm/sec. The ICA/CCA ratio on the right is 1.7. The ICA/CCA ratio on the left is 0.7. Antegrade vertebral flow was noted on the right. The left vertebral artery was not visualized. IMPRESSION: No hemodynamically significant carotid stenosis is appreciated. Nonvisualization of the left vertebral artery. Reported By:
[2017-12-31] MEDS ORDERED: PEPCID 20 MG IV PREMIX* 20 MG/50 ML BAG IV SCH (18:00)
[2017-12-31] MEDS: COLACE CAP 100 MG PO SCH ×2 (20:22→20:50)
[2017-12-31] MEDS: LIPITOR TAB 40 MG PO SCH (20:23)
[2017-12-31] MEDS: MILK OF MAGNESIA PO SCH ×2 (20:23→20:51)
[2017-12-31] MEDS: THEO-DUR TAB 200 MG PO SCH (20:24)
[2017-12-31] MEDS: KLONOPIN TAB 0.5 MG PO SCH (20:27)
--- NOTE | 2018-01-01 00:36 | PCM.PROG ---
Progress Note - Progress Note for Day of Date of Exam: 12/31/17 - Subjective Subjective: WAS ADMITTED FOR COPD EXACERBATION AND RESPIRATORY INSUFFICIENCY. TODAY, HE IS ALERT AND ORIENTED, LYING IN BED ON MORNING ROUNDS. HE REPORTS SLIGHT IMPROVEMENT SINCE YESTERDAY. ON EXAMINATION, HE CONTINUES TO BE IN ATRIAL FIBRILLATION. SECOND HAND PAPER MACHINE REVEALS HEART RATE OF 129 BPM. BILATERAL LUNGS CONTINUE WITH SCATTERED WHEEZING THROUGHOUT. HE CONTINUES UTILIZING HIGH FLOW HEATED OXYGEN. ABDOMEN IS ROUND, SOFT, AND NON-TENDER WITH NORMAL BOWEL SOUNDS NOTED IN ALL QUADRANTS. HIS VITALS THIS MORNING ARE 97.3-129 -20-98%-149/87. ABNORMAL LAB VALUES INCLUDE THE FOLLOWING: WBC 18.2, RBC 4.64, HGB 13.3, HCT 41.1, BUN 31, GLUCOSE 211, ALK PHOS 41, TOTAL PROTEIN 5.0, ALBUMIN 2.2. THEOPHYLLINE LEVEL WITHIN NORMAL RANGE TODAY. TODAYS CHEST XRAY IS STABLE. HE CONTINUES ON IV ANTIBIOTICS, RESPIRATORY TREATMENTS, SUPPLEMENTAL OXYGEN, AND IV STEROIDS. TODAY, WE WILL INCREASE CARDIZEM TO 240MG AT BEDTIME AND DECREASE SOLU-MEDROL TO 80MG IV Q8H. WE WILL OBTAIN A CAROTID CTA. OTHERWISE , WE WILL CONTINUE WITH CURRENT PLAN OF CARE. WE WILL FOLLOW UP WITH AM LABS AND CHEST XRAY AND CONTINUE TO MONITOR PATIENT. - Past Medical Family Social History Past Med/Fam/Surg Hx: No changes since H&P Allergies: Allergies No Known Drug Allergies Allergy (Verified 12/23/17 04:51) - Review of Systems ROS: No change since H&P - Vital Signs and I&O's Vital Signs: Temperature 98.5 F Pulse Rate [Left Brachial] 105 Pulse Rate 98 Respiratory Rate 17 Blood Pressure [Left Arm] 131/72 Blood Pressure [Right Arm] 104/64 Blood Pressure 177/128 O2 Sat by Pulse Oximetry 100 Intake and Output: Intake & Output 12/29/17 12/30/17 12/31/17 01/01/18 11:59 11:59 11:59 11:59 Intake Total 1390 / 1390 1783 / 1783 3321 / 3321 2159 / 2159 Output Total 650 / 650 950 / 950 1450 / 1450 1350 / 1350 Balance 740 / 740 833 / 833 1871 / 1871 809 / 809 - Physical Exam Oriented: Normal Eyes: Normal Ear: Normal Nose: Normal Throat: Normal Respiratory: Right, Left, Diminished, Wheezes Cardiovascular: Tachycardia. negative: S3, S4, Murmur : Normal Auscultation: Bowel Sounds: Normal Palpation: Normal Tenderness: Normal Skin: Normal Musculoskeletal: Normal Psychiatric: Normal Mood Description: Calm Affect: Normal Speech Pattern: Clear, Appropriate - Laboratory and Diagnostics Result Diagrams: 12/31/17 04:50 12/31/17 04:50 Labs: 12/26/17 22:26 Sputum - Expectorated Sputum Sputum Culture - Final 12/26/17 22:26 Sputum - Expectorated Sputum - Final 12/23/17 04:45 Blood Blood Culture - Final 12/23/17 04:35 Blood Blood Culture - Final Laboratory WBC 18.2 X10^3/uL (3.6-10.0) H 12/31/17 04:50 RBC 4.64 X10^6/uL (4.7-6.0) L 12/31/17 04:50 Hgb 13.3 g/dL (13.5-18.0) L 12/31/17 04:50 Hct 41.1 % (42.0-54.0) L 12/31/17 04:50 MCV 88.6 fL (80.0-100.0) 12/31/17 04:50 MCH 28.6 pg (27.0-34.0) 12/31/17 04:50 MCHC 32.3 g/dL (33.0-35.0) L 12/31/17 04:50 RDW 15.0 % (11.6-16.5) 12/31/17 04:50 Plt Count 267 X10^3/uL (150.0-450.0) 12/31/17 04:50 Plt Count Comment Adequate (ADEQUATE) 12/31/17 04:50 MPV 8.7 fL (7.4-11.0) 12/31/17 04:50 Neut % (Auto) 97.2 % (42.0-75.0) H 12/31/17 04:50 Lymph % (Auto) 0.8 % (21.0-51.0) L 12/31/17 04:50 [place] % (Auto) 1.9 % (0.0-13.0) 12/31/17 04:50 Eos % (Auto) 0.0 % (0.9-2.9) L 12/31/17 04:50 Baso % (Auto) 0.1 % (0.2-1.0) L 12/31/17 04:50 Neut # (Auto) 17.7 x10^3/uL (2.2-4.8) H 12/31/17 04:50 Lymph # (Auto) 0.1 X10^3/uL (1.3-2.9) L 12/31/17 04:50 [place] # (Auto) 0.3 x10^3/uL (0.3-0.8) 12/31/17 04:50 Eos # (Auto) 0.0 x10^3/uL (0.0-0.2) 12/31/17 04:50 Baso # (Auto) 0.0 X10^3/uL (0.0-0.1) 12/31/17 04:50 Absolute Nucleated RBC 0.0 /100WBC 12/31/17 04:50 Total Counted 100 12/31/17 04:50 Neutrophils % (Manual) 89 % (39-76) H 12/31/17 04:50 Band Neutrophils % 2 % (0-10) 12/31/17 04:50 Lymphocytes % (Manual) 5 % (13-43) L 12/31/17 04:50 Monocytes % (Manual) 4 % (4-9) 12/31/17 04:50 Plt Morphology Comment Normal (NORMAL) 12/31/17 04:50 RBC Morphology Normal (NORMAL) 12/31/17 04:50 INR Target Range - 12/23/17 04:45 INR 1.11 (0.8-1.3) 12/23/17 04:45 APTT 35.6 SECONDS (22.9-36.5) 12/23/17 04:45 PTT Comment - 12/23/17 04:45 D-Dimer < 100 ng/mL (0-400) 12/23/17 04:45 Sample Site Lrad 12/31/17 04:47 ABG pH 7.450 (7.35-7.45) 12/31/17 04:47 ABG pCO2 54.0 mmHg (35.0-45.0) H* 12/31/17 04:47 ABG pO2 99.0 mmHg (80.0-100.0) 12/31/17 04:47 ABG HCO3 37.5 mmol/L (22-26) H* 12/31/17 04:47 ABG O2 Saturation 98.0 % (90-100) 12/31/17 04:47 ABG Base Excess 11.5 mmol/L (-2.0-2.0) H 12/31/17 04:47 Tanner Test Pos 12/31/17 04:47 A-a Gradient 90.0 mmHg 12/31/17 04:47 FiO2 36.000 12/31/17 04:47 Blood Gas Comments Christian abg well-mtf 12/31/17 04:47 Sodium 143 mmol/L (136-145) 12/31/17 04:50 Corrected Sodium 146 mmol/L (136-145) H 12/31/17 04:50 Potassium 4.4 mmol/L (3.5-5.1) 12/31/17 04:50 Chloride 106 mmol/L (98-107) 12/31/17 04:50 Carbon Dioxide 31.3 mmol/L (21-32) 12/31/17 04:50 BUN 31 mg/dL (7-18) H 12/31/17 04:50 Creatinine 1.09 mg/dL (0.70-1.30) 12/31/17 04:50 Est GFR (MDRD) Af Amer > 60 (>60) 12/31/17 04:50 Est GFR (MDRD) Non-Af > 60 (>60) 12/31/17 04:50 Glucose 211 mg/dL (65-99) H 12/31/17 04:50 POC Glucose (mg/dL) 190 mg/dL (65-99) H 12/31/17 20:03 Lactic Acid 0.5 mmol/L (0.4-2.0) 12/23/17 04:35 Calcium 8.5 mg/dL (8.5-10.1) 12/31/17 04:50 Corrected Calcium 9.9 mg/dL (8.5-10.1) 12/31/17 04:50 Magnesium 1.9 mg/dL (1.7-2.9) 12/24/17 04:20 Total Bilirubin 0.20 mg/dL (0.2-1.0) 12/31/17 04:50 AST 19 Units/L (15-37) 12/31/17 04:50 ALT 36 Units/L (12-78) 12/31/17 04:50 Alkaline Phosphatase 41 Units/L (46-116) L 12/31/17 04:50 Creatine Kinase 229 Units/L (39-308) 12/26/17 17:03 CK-MB (CK-2) 5.5 ng/mL (0-4.0) H* 12/26/17 17:03 CK/CKMB % Calc 2.4 % (<4) 12/26/17 17:03 Troponin I < 0.02 ng/mL (0-1.5) 12/26/17 17:03 C-Reactive Protein 2.90 mg/L (0-3.0) 12/23/17 04:35 Total Protein 5.0 g/dL (6.4-8.2) L 12/31/17 04:50 Albumin 2.2 g/dL (3.4-5.0) L 12/31/17 04:50 Globulin 2.8 g/dL (2.5-4.5) 12/31/17 04:50 Albumin/Globulin Ratio 0.8 Ratio (1.1-2.1) L 12/31/17 04:50 Specimen Type Catherized urine 12/27/17 00:25 Urine Color Yellow (YELLOW) 12/27/17 00:25 Urine Appearance Clear (CLEAR) 12/27/17 00:25 Urine pH 5.0 (5.0 - 8.0) 12/27/17 00:25 Ur Specific [place] 1.025 (1.000-1.030) 12/27/17 00:25 Urine Protein 1+ (NEGATIVE) 12/27/17 00:25 Urine Glucose (UA) Negative (NEGATIVE) 12/27/17 00:25 Urine Ketones 1+ (NEGATIVE) 12/27/17 00:25 Urine Occult Blood 3+ (NEGATIVE) 12/27/17 00:25 Urine Nitrite Negative (NEGATIVE) 12/27/17 00:25 Urine Bilirubin Negative (NEGATIVE) 12/27/17 00:25 Urine Urobilinogen Normal (NORMAL) 12/27/17 00:25 Ur Leukocyte Esterase Negative (NEGATIVE) 12/27/17 00:25 Urine RBC 10-20 /HPF (NONE SEEN) 12/27/17 00:25 Urine WBC 0-2 /HPF (NONE SEEN) 12/27/17 00:25 Ur Squamous Epith Cells Rare /HPF (NEGATIVE) 12/27/17 00:25 Urine Bacteria Negative /HPF (NEGATIVE) 12/27/17 00:25 Ur Culture Indicated? No/not indicated 12/27/17 00:25 Digoxin 0.57 ng/mL (0.9-2) L 12/31/17 04:50 Theophylline 16.1 ug/mL (10-20) 12/31/17 04:50 - Plan (1) COPD with acute exacerbation Status: Acute Plan: supplemental oxygen, respiratory treatments increased, increase solu- medrol to 80mg iv q8h, gilberto-dur 400mg po DAILY, continue to monitor (2) Respiratory failure with hypercapnia Status: Acute Qualifiers: Chronicity: acute on chronic Qualified Code(s): J96.22 - Acute and chronic respiratory failure with hypercapnia Plan: supplemental oxygen, respiratory treatments increased, increase solu- medrol to 80mg iv q8h, gilberto-dur 400mg po DAILY, continue to monitor (3) Bronchitis Status: Acute Plan: iv antibiotics, respiratory treatments, continue to monitor (4) Chest pain Status: Acute Qualifiers: Chest pain type: precordial pain Qualified Code(s): R07.2 - Precordial pain Plan: serial cardiac enzymes and ekg, continue to monitor (5) Atrial fibrillation Status: Acute Qualifiers: Atrial fibrillation type: unspecified Qualified Code(s): I48.91 - Unspecified atrial fibrillation Plan: CARDIZEM 240MG PO DAILY, continue to monitor
[2018-01-01] MEDS: NS 1000 ML 1,000 ML IV SCH ×4 (02:39→23:06)
[2018-01-01] MEDS: XOPENEX 1.25 MG/3 ML NEBULE NEB SCH ×5 (04:54→20:40)
[2018-01-01] MEDS: FORTAZ or TAZICEF VIAL INJ 1 G in NS 100 ML IV + SPIKE MINIBAG* 100 ML IV SCH ×3 (05:37→21:24)
[2018-01-01] MEDS: HumuLIN R SUBCUT PRN ×4 (05:37→20:29)
[2018-01-01] MEDS: SOLU-Medrol 40 MG VIAL IVP SCH ×3 (05:37→21:24)
[2018-01-01 06:18] LABS: BASOPHILS % (AUTO) 0.2 % (0.2-1.0); HEMATOCRIT 43.4 % (42.0-54.0); HEMOGLOBIN 14.1 g/dL (13.5-18.0); LYMPHOCYTES # (AUTO) 0.2 X10^3/uL (1.3-2.9); LYMPHOCYTES % (AUTO) 1.1 % (21.0-51.0); MEAN CORPUSCULAR HEMOGLOBIN 28.7 pg (27.0-34.0); MEAN CORPUSCULAR HGB CONC 32.4 g/dL (33.0-35.0); MEAN CORPUSCULAR VOLUME 88.7 fL (80.0-100.0); MEAN PLATELET VOLUME 8.7 fL (7.4-11.0); MONOCYTES # (AUTO) 0.3 x10^3/uL (0.3-0.8); MONOCYTES % (AUTO) 1.5 % (0.0-13.0); NEUTROPHILS # (AUTO) 19.7 x10^3/uL (2.2-4.8); NEUTROPHILS % (AUTO) 97.2 % (42.0-75.0); PLATELET COUNT 265 X10^3/uL (150.0-450.0); RED BLOOD COUNT 4.89 X10^6/uL (4.7-6.0); RED CELL DISTRIBUTION WIDTH 14.7 % (11.6-16.5); WHITE BLOOD COUNT 20.3 X10^3/uL (3.6-10.0)
--- NOTE | 2018-01-01 06:34 | RAD ---
The Examination: Portable AP chest History: SOB Comparison reference 12/31/2017 Findings: Continued normal heart size with essentially clear lungs and pleural spaces. Impression: No significant change or acute findings. Reported By:
[2018-01-01 07:06] LABS: ALANINE AMINOTRANSFERASE 41 Units/L (12-78); ALBUMIN 2.3 g/dL (3.4-5.0); ALKALINE PHOSPHATASE 47 Units/L (46-116); ASPARTATE AMINO TRANSFERASE 26 Units/L (15-37); BLOOD UREA NITROGEN 29 mg/dL (7-18); CALCIUM 8.6 mg/dL (8.5-10.1); CARBON DIOXIDE 29.5 mmol/L (21-32); CHLORIDE 106 mmol/L (98-107); COR NA(FOR HYPERGLY) 146 mmol/L (136-145); CREATININE 1.27 mg/dL (0.70-1.30); DIGOXIN 0.46 ng/mL (0.9-2); SODIUM 142 mmol/L (136-145); THEOPHYLLINE 13.1 ug/mL (10-20); TOTAL PROTEIN 5.3 g/dL (6.4-8.2); eGFR NON BLACK RACES > 60 (>60)
[2018-01-01 07:07] LABS: BAND NEUTROPHILS % 6 % (0-10); PLATELET MORPHOLOGY COMMENT NORMAL (NORMAL)
[2018-01-01] MEDS: ZESTRIL TAB 40 MG PO SCH (08:22)
[2018-01-01] MEDS: PEPCID 20 MG IV PREMIX* 20 MG/50 ML BAG IV SCH ×2 (08:22→20:29)
[2018-01-01] MEDS: LEVAQUIN PREMIX IV 750 MG 750 MG/150 ML BAG IV SCH (08:22)
[2018-01-01] MEDS: CATAPRES TAB 0.1 MG PO SCH ×2 (08:22→20:27)
[2018-01-01] MEDS: ECOTRIN TAB 325 MG PO SCH (08:22)
[2018-01-01] MEDS: MUCINEX EXPECTORANT PO SCH ×2 (08:23→20:28)
[2018-01-01] MEDS: LANOXIN PO SCH (08:23)
[2018-01-01] MEDS: CARDIZEM CD 240 MG PO SCH (08:24)
[2018-01-01] MEDS: TOPROL XL PO SCH (08:24)
[2018-01-01] MEDS: XARELTO PO SCH (08:24)
[2018-01-01] MEDS: KEPPRA TAB 500 MG PO SCH ×2 (08:24→20:28)
[2018-01-01] MEDS: PULMICORT NEB TX 0.5 MG NEB SCH ×2 (09:04→20:40)
[2018-01-01] MEDS ORDERED: NS 100 ML IV 100 ML IV ONE (10:08)
--- NOTE | 2018-01-01 12:56 | CT ---
HISTORY: Dizziness Study: CTA neck with and without contrast Comparison: Ultrasound from yesterday Technique: Multiple axial images of the neck were obtained from skull base to the aortic arch 4 and a fter the administration of IV contrast. A CTA protocol utilizing 3 dimensional, sagittal and coronal reformats were performed and reviewed. Findings: The visualized portions of the posterior fossa and orbits are unremarkable in appearance. The paroti d glands, submandibular glands, and thyroid gland are unremarkable in their contrast appearance. The carotid space on the right and left is unremarkable. No mass or significant lymphadenopathy can be identified. There is probable sebaceous cyst in the right lateral aspect of the neck measuring 1.9 x 1 1 cm on images 121 through 116 The prevertebral and paraspinous regions are unremarkable. The na sopharynx, oropharynx, hypopharynx are unremarkable. The larynx appears symmetric. The visualized portions of the mediastinum are unremarkable as well. The bony structures appear intact. The lung apices demonstrate emphysematous changes. The visualized portions of the aorta is unremarkable with some mild atherosclerosis. The origins of g reat vessels appear widely patent. The carotid arteries are tortuous however no significant plaque is seen. The vertebral arteries are diminutive but appears patent. There is poor opacification distal l eft vertebral artery which could be due to subclavian steal with retrograde flow. Visualized portions of the intracranial circulation demonstrates a small calcified aneurysm involving the right cavernou s ICA measuring 4 mm. 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 For opacification of the distal left vertebral artery as above Reported By:
--- NOTE | 2018-01-01 16:45 | PCM.PROG ---
Progress Note - Progress Note for Day of Date of Exam: 01/01/18 - Subjective Subjective: IS BEING TREATED FOR COPD EXACERBATION AND RESPIRATORY INSUFFICIENCY. TODAY, HE IS ALERT AND ORIENTED, LYING IN BED ON MORNING ROUNDS. HE REPORTS SLIGHT IMPROVEMENT SINCE YESTERDAY. ON EXAMINATION, HE CONTINUES TO BE IN ATRIAL FIBRILLATION. BOILER FIREMAN REVEALS HEART RATE 100-110 BPM. BILATERAL LUNGS CONTINUE WITH SCATTERED WHEEZING THROUGHOUT. HE CONTINUES UTILIZING HIGH FLOW HEATED OXYGEN. ABDOMEN IS ROUND, SOFT, AND NON-TENDER WITH NORMAL BOWEL SOUNDS NOTED IN ALL QUADRANTS. HIS VITALS THIS MORNING ARE 98.2-101 -24-96%-142/87. ABNORMAL LAB VALUES INCLUDE THE FOLLOWING: WBC 20.3, BUN 29, GLUCOSE 246, TOTAL PROTEIN 5.3, ALBUMIN 2.3. THEOPHYLLINE LEVEL WITHIN NORMAL RANGE TODAY. TODAYS CHEST XRAY IS STABLE. HE CONTINUES ON IV ANTIBIOTICS, RESPIRATORY TREATMENTS, SUPPLEMENTAL OXYGEN, AND IV STEROIDS. TODAY, WE WILL CHANGE CARDIZEM TO 180MG PO BID AND OBTAIN A NECK CTA. OTHERWISE, WE WILL CONTINUE WITH CURRENT PLAN OF CARE. WE WILL FOLLOW UP WITH AM LABS AND CHEST XRAY AND CONTINUE TO MONITOR PATIENT. - Past Medical Family Social History Past Med/Fam/Surg Hx: No changes since H&P Allergies: Allergies No Known Drug Allergies Allergy (Verified 12/23/17 04:51) - Review of Systems ROS: No change since H&P - Vital Signs and I&O's Vital Signs: Temperature 99.2 F Pulse Rate [Left Brachial] 98 Pulse Rate 101 Respiratory Rate 17 Blood Pressure [Left Arm] 137/104 Blood Pressure [Right Arm] 104/64 Blood Pressure 177/128 O2 Sat by Pulse Oximetry 100 Intake and Output: Intake & Output 12/30/17 12/31/17 01/01/18 01/02/18 11:59 11:59 11:59 11:59 Intake Total 1783 / 1783 3321 / 3321 3065 / 3065 0 / 0 Output Total 950 / 950 1450 / 1450 1700 / 1700 700 / 700 Balance 833 / 833 1871 / 1871 1365 / 1365 -700 / -700 - Physical Exam Oriented: Normal Eyes: Normal Ear: Normal Nose: Normal Throat: Normal Respiratory: Right, Left, Diminished, Wheezes Cardiovascular: Tachycardia. negative: S3, S4, Murmur : Normal Auscultation: Bowel Sounds: Normal Tenderness: Normal Skin: Normal Musculoskeletal: Normal Psychiatric: Normal Mood Description: Calm Affect: Normal Speech Pattern: Clear, Appropriate - Laboratory and Diagnostics Result Diagrams: 01/01/18 05:40 01/01/18 05:40 Labs: 12/26/17 22:26 Sputum - Expectorated Sputum Sputum Culture - Final 12/26/17 22:26 Sputum - Expectorated Sputum - Final 12/23/17 04:45 Blood Blood Culture - Final 12/23/17 04:35 Blood Blood Culture - Final Laboratory WBC 20.3 X10^3/uL (3.6-10.0) H 01/01/18 05:40 RBC 4.89 X10^6/uL (4.7-6.0) 01/01/18 05:40 Hgb 14.1 g/dL (13.5-18.0) 01/01/18 05:40 Hct 43.4 % (42.0-54.0) 01/01/18 05:40 MCV 88.7 fL (80.0-100.0) 01/01/18 05:40 MCH 28.7 pg (27.0-34.0) 01/01/18 05:40 MCHC 32.4 g/dL (33.0-35.0) L 01/01/18 05:40 RDW 14.7 % (11.6-16.5) 01/01/18 05:40 Plt Count 265 X10^3/uL (150.0-450.0) 01/01/18 05:40 Plt Count Comment Adequate (ADEQUATE) 01/01/18 05:40 MPV 8.7 fL (7.4-11.0) 01/01/18 05:40 Neut % (Auto) 97.2 % (42.0-75.0) H 01/01/18 05:40 Lymph % (Auto) 1.1 % (21.0-51.0) L 01/01/18 05:40 [place] % (Auto) 1.5 % (0.0-13.0) 01/01/18 05:40 Eos % (Auto) 0.0 % (0.9-2.9) L 01/01/18 05:40 Baso % (Auto) 0.2 % (0.2-1.0) 01/01/18 05:40 Neut # (Auto) 19.7 x10^3/uL (2.2-4.8) H 01/01/18 05:40 Lymph # (Auto) 0.2 X10^3/uL (1.3-2.9) L 01/01/18 05:40 [place] # (Auto) 0.3 x10^3/uL (0.3-0.8) 01/01/18 05:40 Eos # (Auto) 0.0 x10^3/uL (0.0-0.2) 01/01/18 05:40 Baso # (Auto) 0.0 X10^3/uL (0.0-0.1) 01/01/18 05:40 Absolute Nucleated RBC 0.0 /100WBC 01/01/18 05:40 Total Counted 100 01/01/18 05:40 Neutrophils % (Manual) 91 % (39-76) H 01/01/18 05:40 Band Neutrophils % 6 % (0-10) 01/01/18 05:40 Lymphocytes % (Manual) 2 % (13-43) L 01/01/18 05:40 Monocytes % (Manual) 1 % (4-9) L 01/01/18 05:40 Plt Morphology Comment Normal (NORMAL) 01/01/18 05:40 RBC Morphology Normal (NORMAL) 01/01/18 05:40 INR Target Range - 12/23/17 04:45 INR 1.11 (0.8-1.3) 12/23/17 04:45 APTT 35.6 SECONDS (22.9-36.5) 12/23/17 04:45 PTT Comment - 12/23/17 04:45 D-Dimer < 100 ng/mL (0-400) 12/23/17 04:45 Sample Site Lrad 12/31/17 04:47 ABG pH 7.450 (7.35-7.45) 12/31/17 04:47 ABG pCO2 54.0 mmHg (35.0-45.0) H* 12/31/17 04:47 ABG pO2 99.0 mmHg (80.0-100.0) 12/31/17 04:47 ABG HCO3 37.5 mmol/L (22-26) H* 12/31/17 04:47 ABG O2 Saturation 98.0 % (90-100) 12/31/17 04:47 ABG Base Excess 11.5 mmol/L (-2.0-2.0) H 12/31/17 04:47 Tanner Test Pos 12/31/17 04:47 A-a Gradient 90.0 mmHg 12/31/17 04:47 FiO2 36.000 12/31/17 04:47 Blood Gas Comments Christian abg well-mtf 12/31/17 04:47 Sodium 142 mmol/L (136-145) 01/01/18 05:40 Corrected Sodium 146 mmol/L (136-145) H 01/01/18 05:40 Potassium 4.3 mmol/L (3.5-5.1) 01/01/18 05:40 Chloride 106 mmol/L (98-107) 01/01/18 05:40 Carbon Dioxide 29.5 mmol/L (21-32) 01/01/18 05:40 BUN 29 mg/dL (7-18) H 01/01/18 05:40 Creatinine 1.27 mg/dL (0.70-1.30) 01/01/18 05:40 Est GFR (MDRD) Af Amer > 60 (>60) 01/01/18 05:40 Est GFR (MDRD) Non-Af > 60 (>60) 01/01/18 05:40 Glucose 246 mg/dL (65-99) H 01/01/18 05:40 POC Glucose (mg/dL) 217 mg/dL (65-99) H 01/01/18 16:11 Lactic Acid 0.5 mmol/L (0.4-2.0) 12/23/17 04:35 Calcium 8.6 mg/dL (8.5-10.1) 01/01/18 05:40 Corrected Calcium 10.0 mg/dL (8.5-10.1) 01/01/18 05:40 Magnesium 1.9 mg/dL (1.7-2.9) 12/24/17 04:20 Total Bilirubin 0.30 mg/dL (0.2-1.0) 01/01/18 05:40 AST 26 Units/L (15-37) 01/01/18 05:40 ALT 41 Units/L (12-78) 01/01/18 05:40 Alkaline Phosphatase 47 Units/L (46-116) 01/01/18 05:40 Creatine Kinase 229 Units/L (39-308) 12/26/17 17:03 CK-MB (CK-2) 5.5 ng/mL (0-4.0) H* 12/26/17 17:03 CK/CKMB % Calc 2.4 % (<4) 12/26/17 17:03 Troponin I < 0.02 ng/mL (0-1.5) 12/26/17 17:03 C-Reactive Protein 2.90 mg/L (0-3.0) 12/23/17 04:35 Total Protein 5.3 g/dL (6.4-8.2) L 01/01/18 05:40 Albumin 2.3 g/dL (3.4-5.0) L 01/01/18 05:40 Globulin 3.0 g/dL (2.5-4.5) 01/01/18 05:40 Albumin/Globulin Ratio 0.8 Ratio (1.1-2.1) L 01/01/18 05:40 Specimen Type Catherized urine 12/27/17 00:25 Urine Color Yellow (YELLOW) 12/27/17 00:25 Urine Appearance Clear (CLEAR) 12/27/17 00:25 Urine pH 5.0 (5.0 - 8.0) 12/27/17 00:25 Ur Specific [place] 1.025 (1.000-1.030) 12/27/17 00:25 Urine Protein 1+ (NEGATIVE) 12/27/17 00:25 Urine Glucose (UA) Negative (NEGATIVE) 12/27/17 00:25 Urine Ketones 1+ (NEGATIVE) 12/27/17 00:25 Urine Occult Blood 3+ (NEGATIVE) 12/27/17 00:25 Urine Nitrite Negative (NEGATIVE) 12/27/17 00:25 Urine Bilirubin Negative (NEGATIVE) 12/27/17 00:25 Urine Urobilinogen Normal (NORMAL) 12/27/17 00:25 Ur Leukocyte Esterase Negative (NEGATIVE) 12/27/17 00:25 Urine RBC 10-20 /HPF (NONE SEEN) 12/27/17 00:25 Urine WBC 0-2 /HPF (NONE SEEN) 12/27/17 00:25 Ur Squamous Epith Cells Rare /HPF (NEGATIVE) 12/27/17 00:25 Urine Bacteria Negative /HPF (NEGATIVE) 12/27/17 00:25 Ur Culture Indicated? No/not indicated 12/27/17 00:25 Digoxin 0.46 ng/mL (0.9-2) L 01/01/18 05:40 Theophylline 13.1 ug/mL (10-20) 01/01/18 05:40 - Plan (1) COPD with acute exacerbation Status: Acute Plan: supplemental oxygen, respiratory treatments increased, increase solu- medrol to 80mg iv q8h, gilberto-dur 400mg po DAILY, continue to monitor (2) Respiratory failure with hypercapnia Status: Acute Qualifiers: Chronicity: acute on chronic Qualified Code(s): J96.22 - Acute and chronic respiratory failure with hypercapnia Plan: supplemental oxygen, respiratory treatments increased, increase solu- medrol to 80mg iv q8h, gilberto-dur 400mg po DAILY, continue to monitor (3) Bronchitis Status: Acute Plan: iv antibiotics, respiratory treatments, continue to monitor (4) Chest pain Status: Acute Qualifiers: Chest pain type: precordial pain Qualified Code(s): R07.2 - Precordial pain Plan: serial cardiac enzymes and ekg, continue to monitor (5) Atrial fibrillation Status: Acute Qualifiers: Atrial fibrillation type: unspecified Qualified Code(s): I48.91 - Unspecified atrial fibrillation Plan: CARDIZEM 180MG PO BID, continue to monitor
[2018-01-01] MEDS: MILK OF MAGNESIA PO SCH (20:10)
[2018-01-01] MEDS: CARDIZEM CD 180 MG PO SCH (20:27)
[2018-01-01] MEDS: COLACE CAP 100 MG PO SCH (20:28)
[2018-01-01] MEDS: KLONOPIN TAB 0.5 MG PO SCH (20:28)
[2018-01-01] MEDS: LIPITOR TAB 40 MG PO SCH (20:28)
[2018-01-01] MEDS: THEO-DUR TAB 200 MG PO SCH (20:29)
[2018-01-02] MEDS: SOLU-Medrol 40 MG VIAL IVP SCH ×3 (05:40→21:30)
[2018-01-02] MEDS: HumuLIN R SUBCUT PRN ×4 (05:40→20:38)
[2018-01-02] MEDS: FORTAZ or TAZICEF VIAL INJ 1 G in NS 100 ML IV + SPIKE MINIBAG* 100 ML IV SCH ×3 (05:40→21:31)
[2018-01-02 06:05] LABS: BASOPHILS % (AUTO) 0.1 % (0.2-1.0); HEMATOCRIT 41.1 % (42.0-54.0); HEMOGLOBIN 13.2 g/dL (13.5-18.0); LYMPHOCYTES # (AUTO) 0.2 X10^3/uL (1.3-2.9); LYMPHOCYTES % (AUTO) 0.9 % (21.0-51.0); MEAN CORPUSCULAR HEMOGLOBIN 28.5 pg (27.0-34.0); MEAN CORPUSCULAR HGB CONC 32.1 g/dL (33.0-35.0); MEAN CORPUSCULAR VOLUME 88.6 fL (80.0-100.0); MEAN PLATELET VOLUME 8.8 fL (7.4-11.0); MONOCYTES # (AUTO) 0.4 x10^3/uL (0.3-0.8); MONOCYTES % (AUTO) 1.6 % (0.0-13.0); NEUTROPHILS # (AUTO) 21.9 x10^3/uL (2.2-4.8); NEUTROPHILS % (AUTO) 97.4 % (42.0-75.0); PLATELET COUNT 240 X10^3/uL (150.0-450.0); RED BLOOD COUNT 4.63 X10^6/uL (4.7-6.0); RED CELL DISTRIBUTION WIDTH 14.6 % (11.6-16.5); WHITE BLOOD COUNT 22.4 X10^3/uL (3.6-10.0)
[2018-01-02 06:14] LABS: ALANINE AMINOTRANSFERASE 48 Units/L (12-78); ALBUMIN 2.2 g/dL (3.4-5.0); ALKALINE PHOSPHATASE 45 Units/L (46-116); ASPARTATE AMINO TRANSFERASE 23 Units/L (15-37); BLOOD UREA NITROGEN 29 mg/dL (7-18); CALCIUM 8.4 mg/dL (8.5-10.1); CARBON DIOXIDE 30.5 mmol/L (21-32); CHLORIDE 107 mmol/L (98-107); COR CA(FOR HYPOALB) 9.8 mg/dL (8.5-10.1); COR NA(FOR HYPERGLY) 146 mmol/L (136-145); CREATININE 1.17 mg/dL (0.70-1.30); DIGOXIN 0.49 ng/mL (0.9-2); SODIUM 141 mmol/L (136-145); THEOPHYLLINE 13.4 ug/mL (10-20); eGFR NON BLACK RACES > 60 (>60)
[2018-01-02 06:41] LABS: BAND NEUTROPHILS % 3 % (0-10); PLATELET MORPHOLOGY COMMENT NORMAL (NORMAL)
--- NOTE | 2018-01-02 07:34 | RAD ---
HISTORY: Shortness of breath Study: Chest AP portable Comparison: 01/01/2018 Findings: The heart is within normal limits in size. The cass are normal. The lungs are well inflated and free of acute alveolar infiltrates. No pleural effusions are identified. The bony thorax is unremarkable. IMPRESSION: No significant abnormality identified Reported By:
[2018-01-02] MEDS: XARELTO PO SCH (08:27)
[2018-01-02] MEDS: CARDIZEM CD 180 MG PO SCH ×2 (08:27→20:37)
[2018-01-02] MEDS: PEPCID 20 MG IV PREMIX* 20 MG/50 ML BAG IV SCH ×2 (08:28→20:37)
[2018-01-02] MEDS: CATAPRES TAB 0.1 MG PO SCH ×2 (08:28→20:37)
[2018-01-02] MEDS: MUCINEX EXPECTORANT PO SCH ×2 (08:28→20:36)
[2018-01-02] MEDS: KEPPRA TAB 500 MG PO SCH ×2 (08:28→20:37)
[2018-01-02] MEDS: ECOTRIN TAB 325 MG PO SCH (08:28)
[2018-01-02] MEDS: LEVAQUIN PREMIX IV 750 MG 750 MG/150 ML BAG IV SCH (08:29)
[2018-01-02] MEDS: XOPENEX 1.25 MG/3 ML NEBULE NEB SCH ×4 (08:35→21:45)
[2018-01-02] MEDS: TOPROL XL PO SCH (08:40)
[2018-01-02] MEDS: LANOXIN PO SCH (08:40)
[2018-01-02] MEDS: ZESTRIL TAB 40 MG PO SCH (08:41)
[2018-01-02] MEDS: PULMICORT NEB TX 0.5 MG NEB SCH ×2 (09:00→21:45)
--- NOTE | 2018-01-02 10:15 | PCM.PROG ---
Progress Note - Progress Note for Day of Date of Exam: 01/02/18 - Subjective Subjective: IS BEING TREATED FOR COPD EXACERBATION AND RESPIRATORY INSUFFICIENCY. TODAY, HE IS ALERT AND ORIENTED, LYING IN BED ON MORNING ROUNDS. PATIENTS SISTER IS AT BEDSIDE. HE CONTINUES WITH MODERATE SHORTNESS OF BREATH, BUT REPORTS SLIGHT IMPROVEMENT SINCE YESTERDAY. ON EXAMINATION, HEART IS NORMAL IN RATE AND RHYTHM. BILATERAL LUNGS CONTINUE WITH SCATTERED WHEEZING THROUGHOUT. HE CONTINUES UTILIZING HIGH FLOW HEATED OXYGEN. ABDOMEN IS ROUND, SOFT, AND NON-TENDER WITH NORMAL BOWEL SOUNDS NOTED IN ALL QUADRANTS. HIS VITALS THIS MORNING ARE 98.3-88-20-96%-147/99. ABNORMAL LAB VALUES INCLUDE THE FOLLOWING: WBC 22.4, RBC 4.63, HGB 13.2, HCT 41.1, BUN 29, GLUCOSE 293, CALCIUM 8.4, ALK PHOS 45, TOTAL PROTEIN 5.0, ALBUMIN 2.2. THEOPHYLLINE LEVEL CONTINUES TO BE WITHIN NORMAL RANGE. TODAYS CHEST XRAY IS STABLE. 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 PATIENT REPORTS MODERATE PAIN TO LEFT LEG ON AMBULATION. PHYSICAL THERAPY REPORTS THAT HE IS NOTED WITH AN UNSTEADY GAIT. HE REQUIRES THE USE OF A WALKER AND ASSITANCE WHILE AMBULATING. HE IS ONLY ABLE TO AMBULATE SHORT DISTANCES BEFORE INCREASED SHORTNESS OF BREATH. HE CONTINUES ON IV ANTIBIOTICS, RESPIRATORY TREATMENTS, SUPPLEMENTAL OXYGEN, AND IV STEROIDS. OTHERWISE, WE WILL CONTINUE WITH CURRENT PLAN OF CARE TODAY. WE WILL FOLLOW UP WITH AM LABS AND CHEST XRAY AND CONTINUE TO MONITOR PATIENT. - Past Medical Family Social History Past Med/Fam/Surg Hx: No changes since H&P Allergies: Allergies No Known Drug Allergies Allergy (Verified 12/23/17 04:51) - Review of Systems ROS: No change since H&P - Vital Signs and I&O's Vital Signs: Temperature 98.3 F Pulse Rate [Left Brachial] 107 Pulse Rate 119 Respiratory Rate 17 Blood Pressure [Left Arm] 156/74 Blood Pressure [Right Arm] 104/64 Blood Pressure 177/128 O2 Sat by Pulse Oximetry 96 Intake and Output: Intake & Output 12/30/17 12/31/17 01/01/18 01/02/18 11:59 11:59 11:59 11:59 Intake Total 1783 / 1783 3321 / 3321 3065 / 3065 2805 / 2805 Output Total 950 / 950 1450 / 1450 1700 / 1700 1600 / 1600 Balance 833 / 833 1871 / 1871 1365 / 1365 1205 / 1205 - Physical Exam Oriented: Normal Eyes: Normal Ear: Normal Nose: Normal Throat: Normal Respiratory: Right, Left, Diminished, Wheezes Cardiovascular: Normal. negative: S3, S4, Murmur : Normal Auscultation: Bowel Sounds: Normal Tenderness: Normal Skin: Normal Musculoskeletal: Normal Psychiatric: Normal Mood Description: Calm Affect: Normal Speech Pattern: Clear, Appropriate - Laboratory and Diagnostics Result Diagrams: 01/02/18 05:25 01/02/18 05:25 Labs: 12/26/17 22:26 Sputum - Expectorated Sputum Sputum Culture - Final 12/26/17 22:26 Sputum - Expectorated Sputum - Final 12/23/17 04:45 Blood Blood Culture - Final 12/23/17 04:35 Blood Blood Culture - Final Laboratory WBC 22.4 X10^3/uL (3.6-10.0) H 01/02/18 05:25 RBC 4.63 X10^6/uL (4.7-6.0) L 01/02/18 05:25 Hgb 13.2 g/dL (13.5-18.0) L 01/02/18 05:25 Hct 41.1 % (42.0-54.0) L 01/02/18 05:25 MCV 88.6 fL (80.0-100.0) 01/02/18 05:25 MCH 28.5 pg (27.0-34.0) 01/02/18 05:25 MCHC 32.1 g/dL (33.0-35.0) L 01/02/18 05:25 RDW 14.6 % (11.6-16.5) 01/02/18 05:25 Plt Count 240 X10^3/uL (150.0-450.0) 01/02/18 05:25 Plt Count Comment Adequate (ADEQUATE) 01/02/18 05:25 MPV 8.8 fL (7.4-11.0) 01/02/18 05:25 Neut % (Auto) 97.4 % (42.0-75.0) H 01/02/18 05:25 Lymph % (Auto) 0.9 % (21.0-51.0) L 01/02/18 05:25 [place] % (Auto) 1.6 % (0.0-13.0) 01/02/18 05:25 Eos % (Auto) 0.0 % (0.9-2.9) L 01/02/18 05:25 Baso % (Auto) 0.1 % (0.2-1.0) L 01/02/18 05:25 Neut # (Auto) 21.9 x10^3/uL (2.2-4.8) H 01/02/18 05:25 Lymph # (Auto) 0.2 X10^3/uL (1.3-2.9) L 01/02/18 05:25 [place] # (Auto) 0.4 x10^3/uL (0.3-0.8) 01/02/18 05:25 Eos # (Auto) 0.0 x10^3/uL (0.0-0.2) 01/02/18 05:25 Baso # (Auto) 0.0 X10^3/uL (0.0-0.1) 01/02/18 05:25 Absolute Nucleated RBC 0.0 /100WBC 01/02/18 05:25 Total Counted 100 01/02/18 05:25 Neutrophils % (Manual) 90 % (39-76) H 01/02/18 05:25 Band Neutrophils % 3 % (0-10) 01/02/18 05:25 Lymphocytes % (Manual) 5 % (13-43) L 01/02/18 05:25 Monocytes % (Manual) 2 % (4-9) L 01/02/18 05:25 Plt Morphology Comment Normal (NORMAL) 01/02/18 05:25 RBC Morphology Normal (NORMAL) 01/02/18 05:25 INR Target Range - 12/23/17 04:45 INR 1.11 (0.8-1.3) 12/23/17 04:45 APTT 35.6 SECONDS (22.9-36.5) 12/23/17 04:45 PTT Comment - 12/23/17 04:45 D-Dimer < 100 ng/mL (0-400) 12/23/17 04:45 Sample Site Lrad 12/31/17 04:47 ABG pH 7.450 (7.35-7.45) 12/31/17 04:47 ABG pCO2 54.0 mmHg (35.0-45.0) H* 12/31/17 04:47 ABG pO2 99.0 mmHg (80.0-100.0) 12/31/17 04:47 ABG HCO3 37.5 mmol/L (22-26) H* 12/31/17 04:47 ABG O2 Saturation 98.0 % (90-100) 12/31/17 04:47 ABG Base Excess 11.5 mmol/L (-2.0-2.0) H 12/31/17 04:47 Tanner Test Pos 12/31/17 04:47 A-a Gradient 90.0 mmHg 12/31/17 04:47 FiO2 36.000 12/31/17 04:47 Blood Gas Comments Christian abg well-mtf 12/31/17 04:47 Sodium 141 mmol/L (136-145) 01/02/18 05:25 Corrected Sodium 146 mmol/L (136-145) H 01/02/18 05:25 Potassium 4.5 mmol/L (3.5-5.1) 01/02/18 05:25 Chloride 107 mmol/L (98-107) 01/02/18 05:25 Carbon Dioxide 30.5 mmol/L (21-32) 01/02/18 05:25 BUN 29 mg/dL (7-18) H 01/02/18 05:25 Creatinine 1.17 mg/dL (0.70-1.30) 01/02/18 05:25 Est GFR (MDRD) Af Amer > 60 (>60) 01/02/18 05:25 Est GFR (MDRD) Non-Af > 60 (>60) 01/02/18 05:25 Glucose 293 mg/dL (65-99) H 01/02/18 05:25 POC Glucose (mg/dL) 256 mg/dL (65-99) H 01/02/18 05:11 Lactic Acid 0.5 mmol/L (0.4-2.0) 12/23/17 04:35 Calcium 8.4 mg/dL (8.5-10.1) L 01/02/18 05:25 Corrected Calcium 9.8 mg/dL (8.5-10.1) 01/02/18 05:25 Magnesium 1.9 mg/dL (1.7-2.9) 12/24/17 04:20 Total Bilirubin 0.20 mg/dL (0.2-1.0) 01/02/18 05:25 AST 23 Units/L (15-37) 01/02/18 05:25 ALT 48 Units/L (12-78) 01/02/18 05:25 Alkaline Phosphatase 45 Units/L (46-116) L 01/02/18 05:25 Creatine Kinase 229 Units/L (39-308) 12/26/17 17:03 CK-MB (CK-2) 5.5 ng/mL (0-4.0) H* 12/26/17 17:03 CK/CKMB % Calc 2.4 % (<4) 12/26/17 17:03 Troponin I < 0.02 ng/mL (0-1.5) 12/26/17 17:03 C-Reactive Protein 2.90 mg/L (0-3.0) 12/23/17 04:35 Total Protein 5.0 g/dL (6.4-8.2) L 01/02/18 05:25 Albumin 2.2 g/dL (3.4-5.0) L 01/02/18 05:25 Globulin 2.8 g/dL (2.5-4.5) 01/02/18 05:25 Albumin/Globulin Ratio 0.8 Ratio (1.1-2.1) L 01/02/18 05:25 Specimen Type Catherized urine 12/27/17 00:25 Urine Color Yellow (YELLOW) 12/27/17 00:25 Urine Appearance Clear (CLEAR) 12/27/17 00:25 Urine pH 5.0 (5.0 - 8.0) 12/27/17 00:25 Ur Specific [place] 1.025 (1.000-1.030) 12/27/17 00:25 Urine Protein 1+ (NEGATIVE) 12/27/17 00:25 Urine Glucose (UA) Negative (NEGATIVE) 12/27/17 00:25 Urine Ketones 1+ (NEGATIVE) 12/27/17 00:25 Urine Occult Blood 3+ (NEGATIVE) 12/27/17 00:25 Urine Nitrite Negative (NEGATIVE) 12/27/17 00:25 Urine Bilirubin Negative (NEGATIVE) 12/27/17 00:25 Urine Urobilinogen Normal (NORMAL) 12/27/17 00:25 Ur Leukocyte Esterase Negative (NEGATIVE) 12/27/17 00:25 Urine RBC 10-20 /HPF (NONE SEEN) 12/27/17 00:25 Urine WBC 0-2 /HPF (NONE SEEN) 12/27/17 00:25 Ur Squamous Epith Cells Rare /HPF (NEGATIVE) 12/27/17 00:25 Urine Bacteria Negative /HPF (NEGATIVE) 12/27/17 00:25 Ur Culture Indicated? No/not indicated 12/27/17 00:25 Digoxin 0.49 ng/mL (0.9-2) L 01/02/18 05:25 Theophylline 13.4 ug/mL (10-20) 01/02/18 05:25 - Plan (1) COPD with acute exacerbation Status: Acute Plan: supplemental oxygen, respiratory treatments increased, increase solu- medrol to 80mg iv q8h, gilberto-dur 400mg po DAILY, continue to monitor (2) Respiratory failure with hypercapnia Status: Acute Qualifiers: Chronicity: acute on chronic Qualified Code(s): J96.22 - Acute and chronic respiratory failure with hypercapnia Plan: supplemental oxygen, respiratory treatments increased, increase solu- medrol to 80mg iv q8h, gilberto-dur 400mg po DAILY, continue to monitor (3) Bronchitis Status: Acute Plan: iv antibiotics, respiratory treatments, continue to monitor (4) Chest pain Status: Acute Qualifiers: Chest pain type: precordial pain Qualified Code(s): R07.2 - Precordial pain Plan: serial cardiac enzymes and ekg, continue to monitor (5) Atrial fibrillation Status: Acute Qualifiers: Atrial fibrillation type: unspecified Qualified Code(s): I48.91 - Unspecified atrial fibrillation Plan: CARDIZEM 180MG PO BID, continue to monitor
[2018-01-02] MEDS: NS 1000 ML 1,000 ML IV SCH (13:54)
[2018-01-02] MEDS ORDERED: MAALOX or MYLANTA ONE (18:25)
[2018-01-02] MEDS: THEO-DUR TAB 200 MG PO SCH (20:36)
[2018-01-02] MEDS: COLACE CAP 100 MG PO SCH (20:37)
[2018-01-02] MEDS: LIPITOR TAB 40 MG PO SCH (20:37)
[2018-01-02] MEDS: MILK OF MAGNESIA PO SCH (20:38)
[2018-01-02] MEDS: KLONOPIN TAB 0.5 MG PO SCH (20:42)
[2018-01-02] MEDS ORDERED: ZANTAC PO SCH (21:00)
[2018-01-03] MEDS: NS 1000 ML 1,000 ML IV SCH ×3 (01:07→11:39)
[2018-01-03] MEDS: FORTAZ or TAZICEF VIAL INJ 1 G in NS 100 ML IV + SPIKE MINIBAG* 100 ML IV SCH ×3 (05:33→21:12)
[2018-01-03] MEDS: SOLU-Medrol 40 MG VIAL IVP SCH (05:33)
[2018-01-03 05:54] LABS: ABG BASE EXCESS 10.1 mmol/L (-2.0-2.0)
[2018-01-03 06:07] LABS: BASOPHILS # (AUTO) 0.1 X10^3/uL (0.0-0.1); BASOPHILS % (AUTO) 0.3 % (0.2-1.0); EOSINOPHILS % (AUTO) 0.1 % (0.9-2.9); HEMATOCRIT 40.7 % (42.0-54.0); HEMOGLOBIN 13.3 g/dL (13.5-18.0); LYMPHOCYTES # (AUTO) 0.2 X10^3/uL (1.3-2.9); LYMPHOCYTES % (AUTO) 0.9 % (21.0-51.0); MEAN CORPUSCULAR HEMOGLOBIN 28.7 pg (27.0-34.0); MEAN CORPUSCULAR HGB CONC 32.7 g/dL (33.0-35.0); MEAN CORPUSCULAR VOLUME 87.7 fL (80.0-100.0); MEAN PLATELET VOLUME 8.7 fL (7.4-11.0); MONOCYTES # (AUTO) 0.3 x10^3/uL (0.3-0.8); MONOCYTES % (AUTO) 1.2 % (0.0-13.0); NEUTROPHILS # (AUTO) 23.4 x10^3/uL (2.2-4.8); NEUTROPHILS % (AUTO) 97.5 % (42.0-75.0); PLATELET COUNT 237 X10^3/uL (150.0-450.0); RED BLOOD COUNT 4.65 X10^6/uL (4.7-6.0); RED CELL DISTRIBUTION WIDTH 14.6 % (11.6-16.5)
[2018-01-03 06:14] LABS: ABG ALLEN TEST POS
[2018-01-03] MEDS: XOPENEX 1.25 MG/3 ML NEBULE NEB SCH ×5 (06:15→20:38)
[2018-01-03 06:23] LABS: BAND NEUTROPHILS % 3 % (0-10); PLATELET MORPHOLOGY COMMENT NORMAL (NORMAL)
[2018-01-03 06:37] LABS: ALANINE AMINOTRANSFERASE 47 Units/L (12-78); ALBUMIN 2.2 g/dL (3.4-5.0); ALKALINE PHOSPHATASE 52 Units/L (46-116); ASPARTATE AMINO TRANSFERASE 24 Units/L (15-37); BLOOD UREA NITROGEN 26 mg/dL (7-18); CALCIUM 8.4 mg/dL (8.5-10.1); CARBON DIOXIDE 32.7 mmol/L (21-32); CHLORIDE 107 mmol/L (98-107); COR CA(FOR HYPOALB) 9.8 mg/dL (8.5-10.1); COR NA(FOR HYPERGLY) 144 mmol/L (136-145); CREATININE 1.04 mg/dL (0.70-1.30); DIGOXIN 0.51 ng/mL (0.9-2); SODIUM 141 mmol/L (136-145); THEOPHYLLINE 11.3 ug/mL (10-20); eGFR NON BLACK RACES > 60 (>60)
[2018-01-03] MEDS: CARDIZEM CD 180 MG PO SCH ×2 (08:25→21:14)
[2018-01-03] MEDS: ECOTRIN TAB 325 MG PO SCH (08:28)
[2018-01-03] MEDS: CATAPRES TAB 0.1 MG PO SCH ×2 (08:28→21:15)
[2018-01-03] MEDS: LANOXIN PO SCH (08:28)
[2018-01-03] MEDS: KEPPRA TAB 500 MG PO SCH ×2 (08:28→21:14)
[2018-01-03] MEDS: LEVAQUIN PREMIX IV 750 MG 750 MG/150 ML BAG IV SCH (08:29)
[2018-01-03] MEDS: MUCINEX EXPECTORANT PO SCH ×2 (08:29→21:14)
[2018-01-03] MEDS: ZESTRIL TAB 40 MG PO SCH (08:30)
[2018-01-03] MEDS: XARELTO PO SCH (08:30)
[2018-01-03] MEDS: TOPROL XL PO SCH (08:30)
[2018-01-03] MEDS: HumuLIN R SUBCUT PRN ×3 (11:17→21:13)
[2018-01-03] MEDS: PULMICORT NEB TX 0.5 MG NEB SCH ×2 (13:15→20:38)
[2018-01-03] MEDS ORDERED: ZANTAC PO SCH (21:00)
[2018-01-03] MEDS: COLACE CAP 100 MG PO SCH (21:14)
[2018-01-03] MEDS: THEO-DUR TAB 200 MG PO SCH (21:14)
[2018-01-03] MEDS: KLONOPIN TAB 0.5 MG PO SCH (21:14)
[2018-01-03] MEDS: MILK OF MAGNESIA PO SCH (21:15)
[2018-01-03] MEDS: LIPITOR TAB 40 MG PO SCH (21:15)
[2018-01-03] MEDS: ZANTAC PO SCH (21:15)
[2018-01-03 23:18] LABS: CHLAMYDIA TRACH URINE NOT DETECTED (NOT DETECT)
[2018-01-04] MEDS: PERCOCET TAB 5/325 MG PO PRN (01:39)
[2018-01-04] MEDS: NS 1000 ML 1,000 ML IV SCH ×4 (03:22→23:32)
[2018-01-04] MEDS: FORTAZ or TAZICEF VIAL INJ 1 G in NS 100 ML IV + SPIKE MINIBAG* 100 ML IV SCH ×3 (05:33→22:10)
[2018-01-04 07:12] LABS: ALANINE AMINOTRANSFERASE 50 Units/L (12-78); ALBUMIN 2.1 g/dL (3.4-5.0); ALKALINE PHOSPHATASE 51 Units/L (46-116); ASPARTATE AMINO TRANSFERASE 25 Units/L (15-37); BASOPHILS % (AUTO) 0.2 % (0.2-1.0); BLOOD UREA NITROGEN 26 mg/dL (7-18); CALCIUM 8.3 mg/dL (8.5-10.1); CARBON DIOXIDE 31.9 mmol/L (21-32); CHLORIDE 107 mmol/L (98-107); COR CA(FOR HYPOALB) 9.8 mg/dL (8.5-10.1); COR NA(FOR HYPERGLY) 144 mmol/L (136-145); CREATININE 1.04 mg/dL (0.70-1.30); DIGOXIN 0.57 ng/mL (0.9-2); HEMATOCRIT 39.8 % (42.0-54.0); HEMOGLOBIN 13.1 g/dL (13.5-18.0); LYMPHOCYTES # (AUTO) 0.4 X10^3/uL (1.3-2.9); LYMPHOCYTES % (AUTO) 1.5 % (21.0-51.0); MEAN CORPUSCULAR HEMOGLOBIN 28.9 pg (27.0-34.0); MEAN CORPUSCULAR HGB CONC 32.8 g/dL (33.0-35.0); MEAN CORPUSCULAR VOLUME 88.2 fL (80.0-100.0); MEAN PLATELET VOLUME 9.3 fL (7.4-11.0); MONOCYTES # (AUTO) 0.9 x10^3/uL (0.3-0.8); MONOCYTES % (AUTO) 3.5 % (0.0-13.0); NEUTROPHILS # (AUTO) 23.5 x10^3/uL (2.2-4.8); NEUTROPHILS % (AUTO) 94.8 % (42.0-75.0); PLATELET COUNT 188 X10^3/uL (150.0-450.0); RED BLOOD COUNT 4.51 X10^6/uL (4.7-6.0); RED CELL DISTRIBUTION WIDTH 14.4 % (11.6-16.5); SODIUM 142 mmol/L (136-145); THEOPHYLLINE 10.3 ug/mL (10-20); TOTAL PROTEIN 4.9 g/dL (6.4-8.2); eGFR NON BLACK RACES > 60 (>60)
[2018-01-04 07:19] LABS: WHITE BLOOD COUNT 24.8 X10^3/uL (3.6-10.0)
[2018-01-04 07:22] LABS: BAND NEUTROPHILS % 2 % (0-10)
[2018-01-04 07:23] LABS: PLATELET MORPHOLOGY COMMENT NORMAL (NORMAL)
[2018-01-04] MEDS: LEVAQUIN PREMIX IV 750 MG 750 MG/150 ML BAG IV SCH (08:28)
[2018-01-04] MEDS: LANOXIN PO SCH (08:29)
[2018-01-04] MEDS: ZANTAC PO SCH ×2 (08:29→20:10)
[2018-01-04] MEDS: KEPPRA TAB 500 MG PO SCH ×2 (08:29→20:09)
[2018-01-04] MEDS: MUCINEX EXPECTORANT PO SCH ×2 (08:29→20:09)
[2018-01-04] MEDS: ECOTRIN TAB 325 MG PO SCH (08:30)
[2018-01-04] MEDS: CATAPRES TAB 0.1 MG PO SCH ×2 (08:30→20:09)
[2018-01-04] MEDS: XARELTO PO SCH (08:30)
[2018-01-04] MEDS: CARDIZEM CD 180 MG PO SCH ×2 (08:30→20:08)
[2018-01-04] MEDS: TOPROL XL PO SCH (08:30)
[2018-01-04] MEDS: XOPENEX 1.25 MG/3 ML NEBULE NEB SCH ×4 (09:17→20:15)
[2018-01-04] MEDS: PULMICORT NEB TX 0.5 MG NEB SCH ×2 (09:17→20:15)
--- NOTE | 2018-01-04 19:15 | PCM.PROG ---
Progress Note - Progress Note for Day of Date of Exam: 01/03/18 - Subjective Subjective: IS BEING TREATED FOR COPD EXACERBATION AND RESPIRATORY INSUFFICIENCY. TODAY, HE IS ALERT AND ORIENTED, LYING IN BED ON MORNING ROUNDS. ON EXAMINATION, HE CONTINUES TO BE IN ATRIAL FIBRILLATION. VINYL CUTTER REVEALS HEART RATE IN THE 140S. BILATERAL LUNGS CONTINUE WITH SCATTERED WHEEZING THROUGHOUT. HE IS UTILIZING THE NASAL CANNULA AT 3L/MIN. ABDOMEN IS ROUND, SOFT, AND NON-TENDER WITH NORMAL BOWEL SOUNDS NOTED IN ALL QUADRANTS. HIS VITALS THIS MORNING ARE 97.8-142-20-98%-123/85. ABNORMAL LAB VALUES INCLUDE THE FOLLOWING: WBC 24.0,rbc 4.65, hgb 13.3, hct 40.7, carbon dioxide 32.7, bun 26, glucose 227, mmuqpg8c 8.4, total protein 5.0, albumin 2.2. THEOPHYLLINE LEVEL WITHIN NORMAL RANGE TODAY, HOWEVER, DIGOXIN IS DECREASED AT 0.51. HE CONTINUES ON IV ANTIBIOTICS, RESPIRATORY TREATMENTS, SUPPLEMENTAL OXYGEN, AND IV STEROIDS. TODAY, WE WILL INCREASE DIGOXIN TO 0.25 MG PO DAILY AND DISCONTINUE TH LISINOPRIL. OTHERWISE, WE WILL CONTINUE WITH CURRENT PLAN OF CARE. WE WILL FOLLOW UP WITH AM LABS AND CHEST XRAY AND CONTINUE TO MONITOR PATIENT. - Past Medical Family Social History Past Med/Fam/Surg Hx: No changes since H&P Allergies: Allergies No Known Drug Allergies Allergy (Verified 12/23/17 04:51) - Review of Systems ROS: No change since H&P - Vital Signs and I&O's Vital Signs: Temperature 97.9 F Pulse Rate [Apical] 103 Pulse Rate [Left Brachial] 86 Pulse Rate 94 Respiratory Rate 20 Blood Pressure [Left Arm] 133/93 Blood Pressure [Right Arm] 104/64 Blood Pressure 177/128 O2 Sat by Pulse Oximetry 99 Intake and Output: Intake & Output 01/02/18 01/03/18 01/04/18 01/05/18 11:59 11:59 11:59 11:59 Intake Total 2805 / 2805 2479 / 2479 2519 / 2519 1115 / 1115 Output Total 1600 / 1600 1450 / 1450 1400 / 1400 775 / 775 Balance 1205 / 1205 1029 / 1029 1119 / 1119 340 / 340 - Physical Exam Oriented: Normal Eyes: Normal Ear: Normal Nose: Normal Throat: Normal Respiratory: Right, Left, Diminished, Wheezes Cardiovascular: Tachycardia. negative: S3, S4, Murmur : Normal Auscultation: Bowel Sounds: Normal Palpation: Normal Tenderness: Normal Skin: Normal Musculoskeletal: Normal Psychiatric: Normal Mood Description: Calm Affect: Normal Speech Pattern: Clear, Appropriate - Laboratory and Diagnostics Result Diagrams: 01/04/18 05:30 01/04/18 05:30 Labs: 01/03/18 21:40 Penis Genital Culture - Preliminary 12/26/17 22:26 Sputum - Expectorated Sputum Sputum Culture - Final 12/26/17 22:26 Sputum - Expectorated Sputum - Final 12/23/17 04:45 Blood Blood Culture - Final 12/23/17 04:35 Blood Blood Culture - Final Laboratory WBC 24.8 X10^3/uL (3.6-10.0) H 01/04/18 05:30 RBC 4.51 X10^6/uL (4.7-6.0) L 01/04/18 05:30 Hgb 13.1 g/dL (13.5-18.0) L 01/04/18 05:30 Hct 39.8 % (42.0-54.0) L 01/04/18 05:30 MCV 88.2 fL (80.0-100.0) 01/04/18 05:30 MCH 28.9 pg (27.0-34.0) 01/04/18 05:30 MCHC 32.8 g/dL (33.0-35.0) L 01/04/18 05:30 RDW 14.4 % (11.6-16.5) 01/04/18 05:30 Plt Count 188 X10^3/uL (150.0-450.0) 01/04/18 05:30 Plt Count Comment Adequate (ADEQUATE) 01/04/18 05:30 MPV 9.3 fL (7.4-11.0) 01/04/18 05:30 Neut % (Auto) 94.8 % (42.0-75.0) H 01/04/18 05:30 Lymph % (Auto) 1.5 % (21.0-51.0) L 01/04/18 05:30 [place] % (Auto) 3.5 % (0.0-13.0) 01/04/18 05:30 Eos % (Auto) 0.0 % (0.9-2.9) L 01/04/18 05:30 Baso % (Auto) 0.2 % (0.2-1.0) 01/04/18 05:30 Neut # (Auto) 23.5 x10^3/uL (2.2-4.8) H 01/04/18 05:30 Lymph # (Auto) 0.4 X10^3/uL (1.3-2.9) L 01/04/18 05:30 [place] # (Auto) 0.9 x10^3/uL (0.3-0.8) H 01/04/18 05:30 Eos # (Auto) 0.0 x10^3/uL (0.0-0.2) 01/04/18 05:30 Baso # (Auto) 0.0 X10^3/uL (0.0-0.1) 01/04/18 05:30 Absolute Nucleated RBC 0.1 /100WBC 01/04/18 05:30 Total Counted 100 01/04/18 05:30 Neutrophils % (Manual) 91 % (39-76) H 01/04/18 05:30 Band Neutrophils % 2 % (0-10) 01/04/18 05:30 Lymphocytes % (Manual) 3 % (13-43) L 01/04/18 05:30 Monocytes % (Manual) 4 % (4-9) 01/04/18 05:30 Plt Morphology Comment Normal (NORMAL) 01/04/18 05:30 RBC Morphology Normal (NORMAL) 01/04/18 05:30 INR Target Range - 12/23/17 04:45 INR 1.11 (0.8-1.3) 12/23/17 04:45 APTT 35.6 SECONDS (22.9-36.5) 12/23/17 04:45 PTT Comment - 12/23/17 04:45 D-Dimer < 100 ng/mL (0-400) 12/23/17 04:45 Sample Site Lrad 01/03/18 05:45 ABG pH 7.440 (7.35-7.45) 01/03/18 05:45 ABG pCO2 53.0 mmHg (35.0-45.0) H* 01/03/18 05:45 ABG pO2 81.0 mmHg (80.0-100.0) 01/03/18 05:45 ABG HCO3 36.0 mmol/L (22-26) H* 01/03/18 05:45 ABG O2 Saturation 96.0 % (90-100) 01/03/18 05:45 ABG Base Excess 10.1 mmol/L (-2.0-2.0) H 01/03/18 05:45 Tanner Test Pos 01/03/18 05:45 A-a Gradient 52.0 mmHg 01/03/18 05:45 FiO2 28.000 01/03/18 05:45 Blood Gas Comments Christian abg well-mtf 01/03/18 05:45 Sodium 142 mmol/L (136-145) 01/04/18 05:30 Corrected Sodium 144 mmol/L (136-145) 01/04/18 05:30 Potassium 5.0 mmol/L (3.5-5.1) 01/04/18 05:30 Chloride 107 mmol/L (98-107) 01/04/18 05:30 Carbon Dioxide 31.9 mmol/L (21-32) 01/04/18 05:30 BUN 26 mg/dL (7-18) H 01/04/18 05:30 Creatinine 1.04 mg/dL (0.70-1.30) 01/04/18 05:30 Est GFR (MDRD) Af Amer > 60 (>60) 01/04/18 05:30 Est GFR (MDRD) Non-Af > 60 (>60) 01/04/18 05:30 Glucose 180 mg/dL (65-99) H 01/04/18 05:30 POC Glucose (mg/dL) 167 mg/dL (65-99) H 01/04/18 05:27 Lactic Acid 0.5 mmol/L (0.4-2.0) 12/23/17 04:35 Calcium 8.3 mg/dL (8.5-10.1) L 01/04/18 05:30 Corrected Calcium 9.8 mg/dL (8.5-10.1) 01/04/18 05:30 Magnesium 1.9 mg/dL (1.7-2.9) 12/24/17 04:20 Total Bilirubin 0.20 mg/dL (0.2-1.0) 01/04/18 05:30 AST 25 Units/L (15-37) 01/04/18 05:30 ALT 50 Units/L (12-78) 01/04/18 05:30 Alkaline Phosphatase 51 Units/L (46-116) 01/04/18 05:30 Creatine Kinase 229 Units/L (39-308) 12/26/17 17:03 CK-MB (CK-2) 5.5 ng/mL (0-4.0) H* 12/26/17 17:03 CK/CKMB % Calc 2.4 % (<4) 12/26/17 17:03 Troponin I < 0.02 ng/mL (0-1.5) 12/26/17 17:03 C-Reactive Protein 2.90 mg/L (0-3.0) 12/23/17 04:35 Total Protein 4.9 g/dL (6.4-8.2) L 01/04/18 05:30 Albumin 2.1 g/dL (3.4-5.0) L 01/04/18 05:30 Globulin 2.8 g/dL (2.5-4.5) 01/04/18 05:30 Albumin/Globulin Ratio 0.8 Ratio (1.1-2.1) L 01/04/18 05:30 Specimen Type Catherized urine 12/27/17 00:25 Urine Color Yellow (YELLOW) 12/27/17 00:25 Urine Appearance Clear (CLEAR) 12/27/17 00:25 Urine pH 5.0 (5.0 - 8.0) 12/27/17 00:25 Ur Specific [place] 1.025 (1.000-1.030) 12/27/17 00:25 Urine Protein 1+ (NEGATIVE) 12/27/17 00:25 Urine Glucose (UA) Negative (NEGATIVE) 12/27/17 00:25 Urine Ketones 1+ (NEGATIVE) 12/27/17 00:25 Urine Occult Blood 3+ (NEGATIVE) 12/27/17 00:25 Urine Nitrite Negative (NEGATIVE) 12/27/17 00:25 Urine Bilirubin Negative (NEGATIVE) 12/27/17 00:25 Urine Urobilinogen Normal (NORMAL) 12/27/17 00:25 Ur Leukocyte Esterase Negative (NEGATIVE) 12/27/17 00:25 Urine RBC 10-20 /HPF (NONE SEEN) 12/27/17 00:25 Urine WBC 0-2 /HPF (NONE SEEN) 12/27/17 00:25 Ur Squamous Epith Cells Rare /HPF (NEGATIVE) 12/27/17 00:25 Urine Bacteria Negative /HPF (NEGATIVE) 12/27/17 00:25 Ur Culture Indicated? No/not indicated 12/27/17 00:25 Digoxin 0.57 ng/mL (0.9-2) L 01/04/18 05:30 Theophylline 10.3 ug/mL (10-20) 01/04/18 05:30 Ur C. trach DNA (PCR) Not detected (NOT DETECT) 01/03/18 21:40 U N.gonorrhoeae DNA PCR Not detected (NOT DETECT) 01/03/18 21:40 - Plan (1) COPD with acute exacerbation Status: Acute Plan: supplemental oxygen, respiratory treatments increased, increase solu- medrol to 80mg iv q8h, gilberto-dur 400mg po DAILY, continue to monitor (2) Respiratory failure with hypercapnia Status: Acute Qualifiers: Chronicity: acute on chronic Qualified Code(s): J96.22 - Acute and chronic respiratory failure with hypercapnia Plan: supplemental oxygen, respiratory treatments increased, increase solu- medrol to 80mg iv q8h, gilberto-dur 400mg po DAILY, continue to monitor (3) Bronchitis Status: Acute Plan: iv antibiotics, respiratory treatments, continue to monitor (4) Chest pain Status: Acute Qualifiers: Chest pain type: precordial pain Qualified Code(s): R07.2 - Precordial pain Plan: serial cardiac enzymes and ekg, continue to monitor (5) Atrial fibrillation Status: Acute Qualifiers: Atrial fibrillation type: unspecified Qualified Code(s): I48.91 - Unspecified atrial fibrillation Plan: CARDIZEM 180MG PO BID, DIGOXIN 0.25MG PO DAILY, continue to monitor
[2018-01-04] MEDS: KLONOPIN TAB 0.5 MG PO SCH (20:09)
[2018-01-04] MEDS: MILK OF MAGNESIA PO SCH (20:09)
[2018-01-04] MEDS: LIPITOR TAB 40 MG PO SCH (20:09)
[2018-01-04] MEDS: COLACE CAP 100 MG PO SCH (20:09)
[2018-01-04] MEDS: THEO-DUR TAB 200 MG PO SCH (20:10)
[2018-01-04] MEDS ORDERED: MAALOX or MYLANTA PO PRN (20:11)
[2018-01-05] MEDS: FORTAZ or TAZICEF VIAL INJ 1 G in NS 100 ML IV + SPIKE MINIBAG* 100 ML IV SCH (05:55)
[2018-01-05 06:11] LABS: ALANINE AMINOTRANSFERASE 51 Units/L (12-78); ALBUMIN 2.1 g/dL (3.4-5.0); ALKALINE PHOSPHATASE 47 Units/L (46-116); ASPARTATE AMINO TRANSFERASE 22 Units/L (15-37); BLOOD UREA NITROGEN 23 mg/dL (7-18); CALCIUM 8.3 mg/dL (8.5-10.1); CARBON DIOXIDE 37.3 mmol/L (21-32); CHLORIDE 106 mmol/L (98-107); COR CA(FOR HYPOALB) 9.8 mg/dL (8.5-10.1); COR NA(FOR HYPERGLY) 143 mmol/L (136-145); CREATININE 0.98 mg/dL (0.70-1.30); DIGOXIN 0.51 ng/mL (0.9-2); SODIUM 142 mmol/L (136-145); THEOPHYLLINE 9.2 ug/mL (10-20); TOTAL PROTEIN 4.8 g/dL (6.4-8.2); eGFR NON BLACK RACES > 60 (>60)
[2018-01-05 06:12] LABS: BASOPHILS % (AUTO) 0.2 % (0.2-1.0); EOSINOPHILS % (AUTO) 0.3 % (0.9-2.9); HEMATOCRIT 40.2 % (42.0-54.0); HEMOGLOBIN 13.3 g/dL (13.5-18.0); LYMPHOCYTES # (AUTO) 0.6 X10^3/uL (1.3-2.9); LYMPHOCYTES % (AUTO) 4.5 % (21.0-51.0); MEAN CORPUSCULAR HEMOGLOBIN 29.1 pg (27.0-34.0); MEAN CORPUSCULAR VOLUME 88.3 fL (80.0-100.0); MEAN PLATELET VOLUME 8.8 fL (7.4-11.0); MONOCYTES # (AUTO) 1.4 x10^3/uL (0.3-0.8); MONOCYTES % (AUTO) 9.5 % (0.0-13.0); NEUTROPHILS # (AUTO) 12.2 x10^3/uL (2.2-4.8); NEUTROPHILS % (AUTO) 85.5 % (42.0-75.0); PLATELET COUNT 195 X10^3/uL (150.0-450.0); RED BLOOD COUNT 4.55 X10^6/uL (4.7-6.0); RED CELL DISTRIBUTION WIDTH 14.3 % (11.6-16.5); WHITE BLOOD COUNT 14.3 X10^3/uL (3.6-10.0)
[2018-01-05] MEDS: XOPENEX 1.25 MG/3 ML NEBULE NEB SCH ×2 (06:36→12:36)
[2018-01-05 06:39] LABS: PLATELET MORPHOLOGY COMMENT NORMAL (NORMAL)
--- NOTE | 2018-01-05 06:54 | RAD ---
HISTORY: Shortness of breath Study: Chest AP portable Comparison: 01/02/2018 Findings: The heart is within normal limits in size. The cass are normal. The lungs are well inflated and free of acute infiltrates. No pleural effusions are identified. The bony thorax is unremarkable. IMPRESSION: No significant abnormality identified Reported By:
--- NOTE | 2018-01-05 08:06 | CT ---
HISTORY: Seizure Study: CT head without contrast Comparison: 08/03/2016 Technique: Axial noncontrast images with coronal and sagittal reformats. Dose reduction procedures we re used with mA/kv adjusted for body size. Findings: The ventricles are normal in size shape and position. There is an old right parietal cortical and sub cortical white matter CVA unchanged. There is no evidence for recent CVA, hemorrhage, mass lesion, or extra-axial fluid collection. The visualized sinuses are clear. The calvarium is intact. 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
[2018-01-05 09:09] LABS: BILIRUBIN,URINE NEGATIVE (NEGATIVE); BLOOD/HEMOGLOBIN,URINE 5+ (NEGATIVE); GLUCOSE, URINE NEGATIVE (NEGATIVE); KETONES,URINE NEGATIVE (NEGATIVE); LEUKOCYTE ESTERASE ,URINE 3+ (NEGATIVE); NITRITES,URINE POSITIVE (NEGATIVE); PROTEIN,URINE 3+ (NEGATIVE); UROBILINOGEN,URINE NORMAL (NORMAL)
[2018-01-05] MEDS: XARELTO PO SCH (09:11)
[2018-01-05] MEDS: NS 1000 ML 1,000 ML IV SCH ×2 (09:11→21:28)
[2018-01-05] MEDS: ZANTAC PO SCH (09:11)
[2018-01-05] MEDS: TOPROL XL PO SCH (09:12)
[2018-01-05] MEDS: MUCINEX EXPECTORANT PO SCH (09:12)
[2018-01-05] MEDS: LANOXIN PO SCH (09:12)
[2018-01-05] MEDS: KEPPRA TAB 500 MG PO SCH (09:13)
[2018-01-05] MEDS: CARDIZEM CD 180 MG PO SCH (09:14)
[2018-01-05] MEDS: CATAPRES TAB 0.1 MG PO SCH (09:14)
[2018-01-05] MEDS: ECOTRIN TAB 325 MG PO SCH (09:14)
[2018-01-05] MEDS ORDERED: ATIVAN INJ 2 MG VIAL IVP PRN ×2 (09:20→09:44)
[2018-01-05] MEDS ORDERED: ATIVAN INJ 2 MG VIAL ONE (09:24)
[2018-01-05 09:25] LABS: CHOL/HDL RATIO 2.9 (0.0-5.0); CKMB % 1.2 % (<4); TROPONIN I 0.06 ng/mL (0-1.5)
[2018-01-05 09:25] LABS: APPEARANCE,URINE CLOUDY (CLEAR); COLOR,URINE BROWN (YELLOW); RBC,URINE TNTC /HPF (NONE SEEN)
[2018-01-05 09:26] LABS: BACTERIA,URINE 2+ /HPF (NEGATIVE); GRANULAR CASTS,URINE RARE /LPF (NEGATIVE); SQUAMOUS EPITHELIAL CELL,UR RARE /HPF (NEGATIVE)
[2018-01-05 09:28] LABS: CREATINE KINASE MB 7.3 ng/mL (0-4.0)
[2018-01-05] MEDS ORDERED: VERSED 100 MG in NS 100 ML IV 80 ML IV PRN (09:41)
--- NOTE | 2018-01-05 11:25 | PCM.PROG ---
Progress Note - Progress Note for Day of Date of Exam: 01/04/18 - Subjective Subjective: IS BEING TREATED FOR COPD EXACERBATION AND RESPIRATORY INSUFFICIENCY. TODAY, HE IS ALERT AND ORIENTED, SITTING UP IN BED ON MORNING ROUNDS. HE REPORTS THAT SYMPTOMS ARE ABOUT THE SAME YESTERDAY. ON EXAMINATION , HE CONTINUES TO BE IN ATRIAL FIBRILLATION, HOWEVER, RATE IS CONTROLLED. YARD BRAKEMAN REVEALS HEART RATE IN THE 90s. BILATERAL LUNGS CONTINUE WITH SCATTERED WHEEZING THROUGHOUT. HE CONTINUES TO UTILIZE THE NASAL CANNULA AT 3L/ MIN. ABDOMEN IS ROUND, SOFT, AND NON-TENDER WITH NORMAL BOWEL SOUNDS NOTED IN ALL QUADRANTS. HE CONTINUES WITH A SALEEM CATHETER TO BEDSIDE DRAINAGE. HIS VITALS THIS MORNING ARE 97.3-93-21-100%-128/80. ABNORMAL LAB VALUES INCLUDE THE FOLLOWING: WBC 24.8, RBC 4.51, HGB 13.1, HCT 39.8, BUN 26, GLUCOSE 180, TOTAL PROTEIN 4.9, ALBUMIN 2.1, DIGOXIN 0.57. THEOPHYLLINE LEVEL WITHIN NORMAL RANGE TODAY. HE CONTINUES ON IV ANTIBIOTICS, RESPIRATORY TREATMENTS, SUPPLEMENTAL OXYGEN, AND IV STEROIDS. TODAY, WE WILL INCREASE DIGOXIN TO 0.25 MG PO DAILY AND DISCONTINUE TH LISINOPRIL. OTHERWISE, WE WILL CONTINUE WITH CURRENT PLAN OF CARE. WE WILL FOLLOW UP WITH AM LABS AND CHEST XRAY AND CONTINUE TO MONITOR PATIENT. - Past Medical Family Social History Past Med/Fam/Surg Hx: No changes since H&P Allergies: Allergies No Known Drug Allergies Allergy (Verified 12/23/17 04:51) - Review of Systems ROS: No change since H&P - Vital Signs and I&O's Vital Signs: Temperature 99.1 F Pulse Rate [Apical] 120 Pulse Rate [Left Brachial] 86 Pulse Rate 87 Respiratory Rate 14 Blood Pressure [Left Arm] 136/67 Blood Pressure [Right Arm] 104/64 Blood Pressure 177/128 O2 Sat by Pulse Oximetry 99 Intake and Output: Intake & Output 01/02/18 01/03/18 01/04/18 01/05/18 11:59 11:59 11:59 11:59 Intake Total 2805 / 2805 2479 / 2479 2519 / 2519 3124 / 3124 Output Total 1600 / 1600 1450 / 1450 1400 / 1400 2475 / 2475 Balance 1205 / 1205 1029 / 1029 1119 / 1119 649 / 649 - Physical Exam Oriented: Normal Eyes: Normal Ear: Normal Nose: Normal Throat: Normal Respiratory: Right, Left, Diminished, Wheezes Cardiovascular: Tachycardia. negative: S3, S4, Murmur : Normal Auscultation: Bowel Sounds: Normal Palpation: Normal Tenderness: Normal Skin: Normal Musculoskeletal: Normal Psychiatric: Normal Mood Description: Calm Affect: Normal Speech Pattern: Appropriate - Laboratory and Diagnostics Result Diagrams: 01/05/18 05:35 01/05/18 05:35 Labs: 01/03/18 21:40 Penis Genital Culture - Final 12/26/17 22:26 Sputum - Expectorated Sputum Sputum Culture - Final 12/26/17 22:26 Sputum - Expectorated Sputum - Final 12/23/17 04:45 Blood Blood Culture - Final 12/23/17 04:35 Blood Blood Culture - Final Laboratory WBC 14.3 X10^3/uL (3.6-10.0) H D 01/05/18 05:35 RBC 4.55 X10^6/uL (4.7-6.0) L 01/05/18 05:35 Hgb 13.3 g/dL (13.5-18.0) L 01/05/18 05:35 Hct 40.2 % (42.0-54.0) L 01/05/18 05:35 MCV 88.3 fL (80.0-100.0) 01/05/18 05:35 MCH 29.1 pg (27.0-34.0) 01/05/18 05:35 MCHC 33.0 g/dL (33.0-35.0) 01/05/18 05:35 RDW 14.3 % (11.6-16.5) 01/05/18 05:35 Plt Count 195 X10^3/uL (150.0-450.0) 01/05/18 05:35 Plt Count Comment Adequate (ADEQUATE) 01/05/18 05:35 MPV 8.8 fL (7.4-11.0) 01/05/18 05:35 Neut % (Auto) 85.5 % (42.0-75.0) H 01/05/18 05:35 Lymph % (Auto) 4.5 % (21.0-51.0) L 01/05/18 05:35 [place] % (Auto) 9.5 % (0.0-13.0) 01/05/18 05:35 Eos % (Auto) 0.3 % (0.9-2.9) L 01/05/18 05:35 Baso % (Auto) 0.2 % (0.2-1.0) 01/05/18 05:35 Neut # (Auto) 12.2 x10^3/uL (2.2-4.8) H 01/05/18 05:35 Lymph # (Auto) 0.6 X10^3/uL (1.3-2.9) L 01/05/18 05:35 [place] # (Auto) 1.4 x10^3/uL (0.3-0.8) H 01/05/18 05:35 Eos # (Auto) 0.0 x10^3/uL (0.0-0.2) 01/05/18 05:35 Baso # (Auto) 0.0 X10^3/uL (0.0-0.1) 01/05/18 05:35 Absolute Nucleated RBC 0.1 /100WBC 01/05/18 05:35 Total Counted 100 01/05/18 05:35 Neutrophils % (Manual) 87 % (39-76) H 01/05/18 05:35 Band Neutrophils % 2 % (0-10) 01/04/18 05:30 Lymphocytes % (Manual) 8 % (13-43) L 01/05/18 05:35 Monocytes % (Manual) 4 % (4-9) 01/05/18 05:35 Eosinophils % (Manual) 1 % (0-6) 01/05/18 05:35 Plt Morphology Comment Normal (NORMAL) 01/05/18 05:35 RBC Morphology Normal (NORMAL) 01/05/18 05:35 INR Target Range - 01/05/18 08:37 INR 1.06 (0.8-1.3) 01/05/18 08:37 APTT 22.0 SECONDS (22.9-36.5) L 01/05/18 08:37 PTT Comment - 01/05/18 08:37 Fibrinogen 417 mg/dL (239-489) 01/05/18 08:37 D-Dimer < 100 ng/mL (0-400) 12/23/17 04:45 Sample Site Lrad 01/03/18 05:45 ABG pH 7.440 (7.35-7.45) 01/03/18 05:45 ABG pCO2 53.0 mmHg (35.0-45.0) H* 01/03/18 05:45 ABG pO2 81.0 mmHg (80.0-100.0) 01/03/18 05:45 ABG HCO3 36.0 mmol/L (22-26) H* 01/03/18 05:45 ABG O2 Saturation 96.0 % (90-100) 01/03/18 05:45 ABG Base Excess 10.1 mmol/L (-2.0-2.0) H 01/03/18 05:45 Tanner Test Pos 01/03/18 05:45 A-a Gradient 52.0 mmHg 01/03/18 05:45 FiO2 28.000 01/03/18 05:45 Blood Gas Comments Christian abg well-mtf 01/03/18 05:45 Sodium 142 mmol/L (136-145) 01/05/18 05:35 Corrected Sodium 143 mmol/L (136-145) 01/05/18 05:35 Potassium 4.4 mmol/L (3.5-5.1) 01/05/18 05:35 Chloride 106 mmol/L (98-107) 01/05/18 05:35 Carbon Dioxide 37.3 mmol/L (21-32) H 01/05/18 05:35 BUN 23 mg/dL (7-18) H 01/05/18 05:35 Creatinine 0.98 mg/dL (0.70-1.30) 01/05/18 05:35 Est GFR (MDRD) Af Amer > 60 (>60) 01/05/18 05:35 Est GFR (MDRD) Non-Af > 60 (>60) 01/05/18 05:35 Glucose 139 mg/dL (65-99) H 01/05/18 05:35 POC Glucose (mg/dL) 167 mg/dL (65-99) H 01/04/18 05:27 Lactic Acid 0.5 mmol/L (0.4-2.0) 12/23/17 04:35 Calcium 8.3 mg/dL (8.5-10.1) L 01/05/18 05:35 Corrected Calcium 9.8 mg/dL (8.5-10.1) 01/05/18 05:35 Magnesium 1.9 mg/dL (1.7-2.9) 12/24/17 04:20 Total Bilirubin 0.30 mg/dL (0.2-1.0) 01/05/18 05:35 AST 22 Units/L (15-37) 01/05/18 05:35 ALT 51 Units/L (12-78) 01/05/18 05:35 Alkaline Phosphatase 47 Units/L (46-116) 01/05/18 05:35 Creatine Kinase 628 Units/L (39-308) H 01/05/18 08:37 CK-MB (CK-2) 7.3 ng/mL (0-4.0) H* 01/05/18 08:37 CK/CKMB % Calc 1.2 % (<4) 01/05/18 08:37 Troponin I 0.06 ng/mL (0-1.5) 01/05/18 08:37 C-Reactive Protein 2.90 mg/L (0-3.0) 12/23/17 04:35 Total Protein 4.8 g/dL (6.4-8.2) L 01/05/18 05:35 Albumin 2.1 g/dL (3.4-5.0) L 01/05/18 05:35 Globulin 2.7 g/dL (2.5-4.5) 01/05/18 05:35 Albumin/Globulin Ratio 0.8 Ratio (1.1-2.1) L 01/05/18 05:35 Triglycerides 101 mg/dL (0-150) 01/05/18 08:37 Cholesterol 211 mg/dL (0-200) H 01/05/18 08:37 LDL Cholesterol, Calc 117 mg/dL (0-100) H 01/05/18 08:37 HDL Cholesterol 74 mg/dL (40-60) H 01/05/18 08:37 Cholesterol/HDL Ratio 2.9 (0.0-5.0) 01/05/18 08:37 Specimen Type Catherized urine 01/05/18 08:40 Urine Color Brown (YELLOW) 01/05/18 08:40 Urine Appearance Cloudy (CLEAR) 01/05/18 08:40 Urine pH 5.0 (5.0 - 8.0) 01/05/18 08:40 Ur Specific [place] 1.015 (1.000-1.030) 01/05/18 08:40 Urine Protein 3+ (NEGATIVE) 01/05/18 08:40 Urine Glucose (UA) Negative (NEGATIVE) 01/05/18 08:40 Urine Ketones Negative (NEGATIVE) 01/05/18 08:40 Urine Occult Blood 5+ (NEGATIVE) 01/05/18 08:40 Urine Nitrite Positive (NEGATIVE) 01/05/18 08:40 Urine Bilirubin Negative (NEGATIVE) 01/05/18 08:40 Urine Urobilinogen Normal (NORMAL) 01/05/18 08:40 Ur Leukocyte Esterase 3+ (NEGATIVE) 01/05/18 08:40 Urine RBC Tntc /HPF (NONE SEEN) 01/05/18 08:40 Urine WBC Tntc /HPF (NONE SEEN) 01/05/18 08:40 Ur Squamous Epith Cells Rare /HPF (NEGATIVE) 01/05/18 08:40 Urine Bacteria 2+ /HPF (NEGATIVE) 01/05/18 08:40 Granular Casts Rare /LPF (NEGATIVE) 01/05/18 08:40 Ur Culture Indicated? Yes/culture set up 01/05/18 08:40 Digoxin 0.51 ng/mL (0.9-2) L 01/05/18 05:35 Theophylline 9.2 ug/mL (10-20) L 01/05/18 05:35 Ur C. trach DNA (PCR) Not detected (NOT DETECT) 01/03/18 21:40 U N.gonorrhoeae DNA PCR Not detected (NOT DETECT) 01/03/18 21:40 - Plan (1) COPD with acute exacerbation Status: Acute Plan: supplemental oxygen, respiratory treatments increased, gilberto-dur 400mg po DAILY, continue to monitor (2) Respiratory failure with hypercapnia Status: Acute Qualifiers: Chronicity: acute on chronic Qualified Code(s): J96.22 - Acute and chronic respiratory failure with hypercapnia Plan: supplemental oxygen, respiratory treatments increased, gilberto-dur 400mg po DAILY, continue to monitor (3) Bronchitis Status: Acute Plan: iv antibiotics, respiratory treatments, continue to monitor (4) Chest pain Status: Acute Qualifiers: Chest pain type: precordial pain Qualified Code(s): R07.2 - Precordial pain Plan: serial cardiac enzymes and ekg, continue to monitor (5) Atrial fibrillation Status: Acute Qualifiers: Atrial fibrillation type: unspecified Qualified Code(s): I48.91 - Unspecified atrial fibrillation Plan: CARDIZEM 180MG PO BID, DIGOXIN 0.25MG PO DAILY, continue to monitor
[2018-01-05] MEDS: PULMICORT NEB TX 0.5 MG NEB SCH (12:36)
[2018-01-05] MEDS: MORPHINE SULFATE PCA 30 MG IVP PRN ×2 (16:39→22:56)
--- NOTE | 2018-01-05 20:07 | CT ---
CT HEAD WITHOUT CONTRAST CLINICAL HISTORY: 57-year-old male with seizure earlier. COMPARISON: CT head this date. TECHNIQUE: Multiple, non-contrasted axial CT images were obtained from the skull base to the cranial vertex. Coronal and sagittal reformats were performed. FINDINGS: There are no abnormal intra- or extra-axial fluid collections, midline shift, or mass effec t. Booth-white differentiation is normal. Global cortical involutional changes are present that are ad vanced for the patient's stated age. The ventricular system is mildly enlarged but commensurate with the degree of sulcal prominence. Chronic infarction right paracentral lobule with associated encephal omalacia. Periventricular and supraventricular white matter hypodensity is present that is nonspecifi c in appearance, but most likely to represent microvascular ischemic changes. Atherosclerotic vascula r calcification is present within the carotid siphons and distal vertebral arteries. The imaged paranasal sinuses, mastoid air cells, and tympanic spaces are clear. IMPRESSION: 1. No definite evidence of an acute intracranial process. 2. Chronic infarction right paracentral lobule with associated encephalomalacia. 3. Moderate microvascular white matter ischemic changes, with associated volume loss. Reported By:
[2018-01-06 01:49] VITALS: BP 78/49
--- NOTE | 2018-01-11 10:37 | DR.DECEASE ---
Form - Labs Result Diagrams: 01/05/18 05:35 01/05/18 05:35 - Hospital Course Hospital Course: was a 57 year old patient of ours presented to the emergency room via EMS with reports of shortness of breath and chest pain. Patient reported that symptoms started suddenly a few hours prior to arrival at the hospital. EMS reported on arrival to patient's home, patient was receiving a breathing treatment with oxygen saturation at 89%. Patient placed on non- rebreather by EMS at 10L/min. Patient stated he woke up with chest pain and shortness of breath. Associated symptoms included: weakness, fatigue, abdominal pain, cough, dizziness and chest pain. Patient noted to be in respiratory distress on arrival with use of accessory muscles. He rated pain to chest as an 8/10. On arrival, vitals were 99.4, 125, 32, 100% Non-rebreather, 177/128. Labs were obtained. Abnormal lab values included the following: Abnormal Labs: WBC 10.1, RBC 4.60, Hct 40.6, Lymph% 14.3, Neut# 7.3, Wells# 1.0, Eos# 0.3, Chloride 108, Carbon Dioxide 34.5, AST 13, Creatine Kinase 440, CKMB 8.0. Blood Cultures x2 Pending. ABG: pCO2 61.0, pO2 176.0, HCO3 34.5, Base Excess 7.2. Chest X-Ray revealed: Technically limited exam, without visualized acute cardiopulmonary abnormality. EKG: Sinus Tachycardia. Pbhk=833. He was given Solu-Medrol 125mg IV x1, Levaquin 750mg IV x1, and started on 1/2 NS @50ml/hr in the ER. Patient admitted to the hospital with acute COPD and started on IV fluids, IV antibiotics and aggressive neb treatments. Patient continued with shortness of breath and also had atrial fibrillation with rvr. Heart rate in the 150's. Patient was given Digoxin IV and started on a Cardizem drip. Patient was later weaned from Cardizem drip and converted to oral Cardizem, along with Digoxin. Patient was placed on heated high flow nasa cannula and started on Theophylline. Patient continued with severe shortness of breath. Patient was noted with seizure acitivity on day fourteen and was unresponsive thereafter. We ordered a stat brain ct and administered Ativan 2mg IV stat. It was negative for acute intracranial abnormality. We spoke with patient's son concerning deterioration of patient's condition. He requested for patient to be comfort measures only. A DNR was obtained. Patient was started on Versed and Morphine Drips for comfort and seizure activity. We continued to monitor patient and monitor comfort level. Patient passed peacefully with family at bedside on 01/06/18 at 0051 and was pronounced by Dr. Hart. - Expiration Expiration Date: 01/06/18 Expiration Time: 00:51 Pronounced by: Dr. Hart Preliminary Cause of : CARDIOPULMONARY - Admission Diagnosis Patient Problems: Problems Atrial fibrillation (Acute) I48.91 Respiratory failure with hypercapnia (Acute) J96.92 COPD with acute exacerbation (Acute) J44.1 Bronchitis (Acute) J40 Respiratory insufficiency (Acute) R06.89 Chest pain (Acute) R07.9 CHF (congestive heart failure) (Chronic) I50.9 COPD (chronic obstructive pulmonary disease) (Chronic) J44.9 Diabetes mellitus (Chronic) E11.9 History of CVA (cerebrovascular accident) (Chronic) Z86.73 COPD (chronic obstructive pulmonary disease) (Chronic) J44.9 Hypertension (Chronic) I10 Paresthesia (Chronic) R20.2
--- NOTE | 2018-03-02 14:26 | PCM.PROG ---
Progress Note - Progress Note for Day of Date of Exam: 01/05/18 - Subjective Subjective: IS BEING TREATED FOR COPD EXACERBATION AND RESPIRATORY INSUFFICIENCY. TODAY, HE IS LYING IN BED WITH EYES CLOSED ON MORNING ROUNDS. HE IS DIFFICULT TO AROUSE AND DOES NOT RESPOND TO PAINFUL STIMULI. FAMILY REPORTS THAT THIS CHANGE HAS COME ABOUT IN THE PAST FEW HOURS. THEY STATE THAT PRIOR TO THAT, HE WAS ALERT, SITTING UP IN BED. FAMILY AND STAFF REPORT THAT HE HAS EXHIBITED SEIZURE LIKE ACTIVITY. ON EXAMINATION, HE CONTINUES TO BE IN ATRIAL FIBRILLATION, HOWEVER, RATE IS CONTROLLED. SEASONER HAND REVEALS HEART RATE IN THE 90s. BILATERAL LUNGS CONTINUE WITH SCATTERED WHEEZING THROUGHOUT. HE IS CURRENTLY ON NASAL CANNULA AT 2L/MIN. ABDOMEN IS ROUND, SOFT, AND NON-TENDER WITH NORMAL BOWEL SOUNDS NOTED IN ALL QUADRANTS. HE CONTINUES WITH A SALEEM CATHETER TO BEDSIDE DRAINAGE. HIS VITALS THIS MORNING ARE 99.1-97-22-95%-205/ 102. ABNORMAL LAB VALUES INCLUDE THE FOLLOWING: WBC 14.3, RBC 4.55, HGB 13.3, HCT 40.2, CARBON DIOXIDE 37.3, BUN 23, GLUCOSE 139, CALCIUM 8.3, TOTAL PROTEIN 4.8, ALBUMIN 2.1. THEOPHYLLINE LEVEL WITHIN NORMAL RANGE TODAY. CARDIAC ENZYMES WERE OBTAINED AND REVEALED CREATINE KINASE 628, CK-MB 7.3. WE OBTAINED A BRAIN CT. IT REVEALED: No definite evidence of an acute intracranial process. Chronic infarction right paracentral lobule with associated encephalomalacia. Moderate microvascular white matter ischemic changes, with associated volume loss. UPON WALKING OUT THE ROOM, FAMILY CALLED US BACK STATING THAT PATIENT WAS VOMITING. PATIENT WAS NOTED TO BE VOMITING BLOOD. WE DISCUSSED PATIENTS CONDITION WITH FAMILY AND THEIR WISHES FOR FURTHER TREATMENT. FAMILY WISHES TO KEEP PATIENT COMFORTABLE AT THIS TIME. TODAY WE WILL START A MORPHINE AND VERSED DRIP. OTHERWISE, WE WILL CONTINUE TO MONITOR PATIENT. - Past Medical Family Social History Past Med/Fam/Surg Hx: No changes since H&P Allergies: Allergies No Known Drug Allergies Allergy (Verified 12/23/17 04:51) - Review of Systems ROS: No change since H&P - Vital Signs and I&O's Vital Signs: Temperature 97.1 F Pulse Rate [Apical] 100 Pulse Rate [Left Brachial] 86 Pulse Rate 87 Respiratory Rate 10 Blood Pressure [Left Arm] 78/49 Blood Pressure [Right Arm] 104/64 Blood Pressure 177/128 O2 Sat by Pulse Oximetry 46 - Physical Exam Oriented: Normal Eyes: Normal Ear: Normal Nose: Normal Throat: Normal Respiratory: Right, Left, Diminished, Wheezes Cardiovascular: Tachycardia. negative: S3, S4, Murmur : Normal Auscultation: Bowel Sounds: Normal Palpation: Normal Tenderness: Normal Skin: Normal Musculoskeletal: Normal Psychiatric: Normal Mood Description: Calm Affect: Normal Speech Pattern: Appropriate - Laboratory and Diagnostics Result Diagrams: 01/05/18 05:35 01/05/18 05:35 Labs: 01/05/18 08:40 Urine,Catheterized Urine Culture - Final 01/03/18 21:40 Penis Genital Culture - Final 12/26/17 22:26 Sputum - Expectorated Sputum Sputum Culture - Final 12/26/17 22:26 Sputum - Expectorated Sputum - Final 12/23/17 04:45 Blood Blood Culture - Final 12/23/17 04:35 Blood Blood Culture - Final Laboratory WBC 14.3 X10^3/uL (3.6-10.0) H D 01/05/18 05:35 RBC 4.55 X10^6/uL (4.7-6.0) L 01/05/18 05:35 Hgb 13.3 g/dL (13.5-18.0) L 01/05/18 05:35 Hct 40.2 % (42.0-54.0) L 01/05/18 05:35 MCV 88.3 fL (80.0-100.0) 01/05/18 05:35 MCH 29.1 pg (27.0-34.0) 01/05/18 05:35 MCHC 33.0 g/dL (33.0-35.0) 01/05/18 05:35 RDW 14.3 % (11.6-16.5) 01/05/18 05:35 Plt Count 195 X10^3/uL (150.0-450.0) 01/05/18 05:35 Plt Count Comment Adequate (ADEQUATE) 01/05/18 05:35 MPV 8.8 fL (7.4-11.0) 01/05/18 05:35 Neut % (Auto) 85.5 % (42.0-75.0) H 01/05/18 05:35 Lymph % (Auto) 4.5 % (21.0-51.0) L 01/05/18 05:35 [place] % (Auto) 9.5 % (0.0-13.0) 01/05/18 05:35 Eos % (Auto) 0.3 % (0.9-2.9) L 01/05/18 05:35 Baso % (Auto) 0.2 % (0.2-1.0) 01/05/18 05:35 Neut # (Auto) 12.2 x10^3/uL (2.2-4.8) H 01/05/18 05:35 Lymph # (Auto) 0.6 X10^3/uL (1.3-2.9) L 01/05/18 05:35 [place] # (Auto) 1.4 x10^3/uL (0.3-0.8) H 01/05/18 05:35 Eos # (Auto) 0.0 x10^3/uL (0.0-0.2) 01/05/18 05:35 Baso # (Auto) 0.0 X10^3/uL (0.0-0.1) 01/05/18 05:35 Absolute Nucleated RBC 0.1 /100WBC 01/05/18 05:35 Total Counted 100 01/05/18 05:35 Neutrophils % (Manual) 87 % (39-76) H 01/05/18 05:35 Band Neutrophils % 2 % (0-10) 01/04/18 05:30 Lymphocytes % (Manual) 8 % (13-43) L 01/05/18 05:35 Monocytes % (Manual) 4 % (4-9) 01/05/18 05:35 Eosinophils % (Manual) 1 % (0-6) 01/05/18 05:35 Plt Morphology Comment Normal (NORMAL) 01/05/18 05:35 RBC Morphology Normal (NORMAL) 01/05/18 05:35 INR Target Range - 01/05/18 08:37 INR 1.06 (0.8-1.3) 01/05/18 08:37 APTT 22.0 SECONDS (22.9-36.5) L 01/05/18 08:37 PTT Comment - 01/05/18 08:37 Fibrinogen 417 mg/dL (239-489) 01/05/18 08:37 D-Dimer < 100 ng/mL (0-400) 12/23/17 04:45 Sample Site Lrad 01/03/18 05:45 ABG pH 7.440 (7.35-7.45) 01/03/18 05:45 ABG pCO2 53.0 mmHg (35.0-45.0) H* 01/03/18 05:45 ABG pO2 81.0 mmHg (80.0-100.0) 01/03/18 05:45 ABG HCO3 36.0 mmol/L (22-26) H* 01/03/18 05:45 ABG O2 Saturation 96.0 % (90-100) 01/03/18 05:45 ABG Base Excess 10.1 mmol/L (-2.0-2.0) H 01/03/18 05:45 Tanner Test Pos 01/03/18 05:45 A-a Gradient 52.0 mmHg 01/03/18 05:45 FiO2 28.000 01/03/18 05:45 Blood Gas Comments Christian abg well-mtf 01/03/18 05:45 Sodium 142 mmol/L (136-145) 01/05/18 05:35 Corrected Sodium 143 mmol/L (136-145) 01/05/18 05:35 Potassium 4.4 mmol/L (3.5-5.1) 01/05/18 05:35 Chloride 106 mmol/L (98-107) 01/05/18 05:35 Carbon Dioxide 37.3 mmol/L (21-32) H 01/05/18 05:35 BUN 23 mg/dL (7-18) H 01/05/18 05:35 Creatinine 0.98 mg/dL (0.70-1.30) 01/05/18 05:35 Est GFR (MDRD) Af Amer > 60 (>60) 01/05/18 05:35 Est GFR (MDRD) Non-Af > 60 (>60) 01/05/18 05:35 Glucose 139 mg/dL (65-99) H 01/05/18 05:35 POC Glucose (mg/dL) 167 mg/dL (65-99) H 01/04/18 05:27 Lactic Acid 0.5 mmol/L (0.4-2.0) 12/23/17 04:35 Calcium 8.3 mg/dL (8.5-10.1) L 01/05/18 05:35 Corrected Calcium 9.8 mg/dL (8.5-10.1) 01/05/18 05:35 Magnesium 1.9 mg/dL (1.7-2.9) 12/24/17 04:20 Total Bilirubin 0.30 mg/dL (0.2-1.0) 01/05/18 05:35 AST 22 Units/L (15-37) 01/05/18 05:35 ALT 51 Units/L (12-78) 01/05/18 05:35 Alkaline Phosphatase 47 Units/L (46-116) 01/05/18 05:35 Creatine Kinase 628 Units/L (39-308) H 01/05/18 08:37 CK-MB (CK-2) 7.3 ng/mL (0-4.0) H* 01/05/18 08:37 CK/CKMB % Calc 1.2 % (<4) 01/05/18 08:37 Troponin I 0.06 ng/mL (0-1.5) 01/05/18 08:37 C-Reactive Protein 2.90 mg/L (0-3.0) 12/23/17 04:35 Total Protein 4.8 g/dL (6.4-8.2) L 01/05/18 05:35 Albumin 2.1 g/dL (3.4-5.0) L 01/05/18 05:35 Globulin 2.7 g/dL (2.5-4.5) 01/05/18 05:35 Albumin/Globulin Ratio 0.8 Ratio (1.1-2.1) L 01/05/18 05:35 Triglycerides 101 mg/dL (0-150) 01/05/18 08:37 Cholesterol 211 mg/dL (0-200) H 01/05/18 08:37 LDL Cholesterol, Calc 117 mg/dL (0-100) H 01/05/18 08:37 HDL Cholesterol 74 mg/dL (40-60) H 01/05/18 08:37 Cholesterol/HDL Ratio 2.9 (0.0-5.0) 01/05/18 08:37 Specimen Type Catherized urine 01/05/18 08:40 Urine Color Brown (YELLOW) 01/05/18 08:40 Urine Appearance Cloudy (CLEAR) 01/05/18 08:40 Urine pH 5.0 (5.0 - 8.0) 01/05/18 08:40 Ur Specific [place] 1.015 (1.000-1.030) 01/05/18 08:40 Urine Protein 3+ (NEGATIVE) 01/05/18 08:40 Urine Glucose (UA) Negative (NEGATIVE) 01/05/18 08:40 Urine Ketones Negative (NEGATIVE) 01/05/18 08:40 Urine Occult Blood 5+ (NEGATIVE) 01/05/18 08:40 Urine Nitrite Positive (NEGATIVE) 01/05/18 08:40 Urine Bilirubin Negative (NEGATIVE) 01/05/18 08:40 Urine Urobilinogen Normal (NORMAL) 01/05/18 08:40 Ur Leukocyte Esterase 3+ (NEGATIVE) 01/05/18 08:40 Urine RBC Tntc /HPF (NONE SEEN) 01/05/18 08:40 Urine WBC Tntc /HPF (NONE SEEN) 01/05/18 08:40 Ur Squamous Epith Cells Rare /HPF (NEGATIVE) 01/05/18 08:40 Urine Bacteria 2+ /HPF (NEGATIVE) 01/05/18 08:40 Granular Casts Rare /LPF (NEGATIVE) 01/05/18 08:40 Ur Culture Indicated? Yes/culture set up 01/05/18 08:40 Digoxin 0.51 ng/mL (0.9-2) L 01/05/18 05:35 Levetiracetam 10 ug/mL (12-46) L 01/05/18 07:14 Theophylline 9.2 ug/mL (10-20) L 01/05/18 05:35 Ur C. trach DNA (PCR) Not detected (NOT DETECT) 01/03/18 21:40 U N.gonorrhoeae DNA PCR Not detected (NOT DETECT) 01/03/18 21:40 - Plan (1) Palliative care status Status: Acute Plan: versed and morphine drip, continue to monitor (2) COPD with acute exacerbation Status: Acute (3) Respiratory failure with hypercapnia Status: Acute Qualifiers: Chronicity: acute on chronic Qualified Code(s): J96.22 - Acute and chronic respiratory failure with hypercapnia (4) Bronchitis Status: Acute (5) Chest pain Status: Acute Qualifiers: Chest pain type: precordial pain Qualified Code(s): R07.2 - Precordial pain (6) Atrial fibrillation Status: Acute Qualifiers: Atrial fibrillation type: unspecified Qualified Code(s): I48.91 - Unspecified atrial fibrillation
== END 2018-01-06 00:51 | disposition expired | DRG 190 ==
LOC: ER 04:20 → ICU 06:09
PROVIDERS: ADMIT Internal Medicine; ATTEND Internal Medicine
DX: I46.9 Cardiac arrest, cause unspecified; J44.1 Chronic obstructive pulmonary disease with (acute) exacerbation; I10 Essential (primary) hypertension; J20.8 Acute bronchitis due to other specified organisms; R26.89 Other abnormalities of gait and mobility; Z66 Do not resuscitate; R94.31 Abnormal electrocardiogram [ECG] [EKG]; I48.91 Unspecified atrial fibrillation; F41.8 Other specified anxiety disorders; J96.22 Acute and chronic respiratory failure with hypercapnia; R07.2 Precordial pain; E78.2 Mixed hyperlipidemia
CPT/HCPCS: 36415; 36600; 70450; 70498; 71010; 71045; 71260; 80053; 80061; 80162; 80177; 80198; 81001; 82550; 82553; 82803; 83605; 83735; 84484; 85025; 85378; 85384; 85610; 85730; 86140; 87040; 87070; 87081; 87086; 87205; 87491; 87591; 93005; 93880; 94640; 94644; 96365; 96374; 96375; 97110; 97163; 97166; 99231; 99284; A4216; A4222; S0028; J0713; J1160; J1815; J1940; J1956; J2060; J2270; J2271; J2920; J2930; J3490; J7030; J7040; J7050; J7620; J7626